=== PATIENT | female | born 1970 | race Caucasian/White ===

== ENCOUNTER 2016-09-10 07:14 | Day surgery (SDC) | payer MEDICARE, OTHER ==
[2016-09-03 11:50] VITALS: BMI 40.6
[~2016-09-10 07:14] MED LIST: DEXAMETHASONE SOD PHOSPHATE 10 MG/ML 1 ML VIAL IV ONE; HEPARIN SODIUM,PORCINE 5,000 UNIT/ML 1 ML VIAL SQ ONE; HYDROmorphone 1 MG/ML 1 ML SYRINGE IVP PRN; LACTATED RINGERS 1,000 ML IV SCH; LIDOCAINE 1% 20 ML VIAL (10MG/ML) FOR IV START INTRADERMA PRN; SCOPOLAMINE 1.5MG/72HR PATCH TRANSDERM ONE; ceFAZolin 2 GM in SODIUM CHLORIDE 0.9% 100 ML IVPB ONE
[2016-09-10] MEDS ORDERED: ALPRAZolam 0.5 MG TAB PO PRN (07:49)
[2016-09-10] MEDS ORDERED: LIDOCAINE 1% 20 ML VIAL (10MG/ML) FOR IV START INTRADERMA ONE (07:59)
[2016-09-10] MEDS ORDERED: LACTATED RINGERS 1,000 ML IV SCH (08:00)
[2016-09-10 08:05] LABS: Glucose,Whole Blood 104 mg/dL (75-99)
--- NOTE | 2016-09-10 08:06 | P.GSHP ---
History of Present Illness H&P Date: 09/10/16 Chief Complaint: Abnormal left mammogram This is a 46-year-old female who presents today for left breast biopsy with needle localization. Patient recent mammogram was found to have suspicious calcifications of the left breast. - Constitutional Constitutional: Reports as per HPI Past Medical History Past Medical History: CVA/TIA, Diabetes Mellitus, GERD/Reflux, GI Bleed, Hyperlipidemia, Hypertension, Osteoarthritis (OA), Renal Disease, Seizure Disorder, Sleep Apnea/CPAP/BIPAP, Thyroid Disorder Additional Past Medical History / Comment(s): GLAUCOMA. HX. BLEEDING ULCERS. CKD STAGE 1. " SEIZURES: PER PT AND IT WAS THOUGHT THAT THEY CAME ON RESULT OF STRESS-LAST ONE 2012. MURMUR. ANEMIA. NOT USING CPAP MACHINE(BROKEN) , "DIZZY SPELLS""HR HAS BEEN LOW 46", states "no longer taking meds for b /p", stroke 2015-no residual effects History of Any Multi-Drug Resistant Organisms: None Reported Past Surgical History: Adenoidectomy, Cholecystectomy, Tonsillectomy Additional Past Surgical History / Comment(s): TUBES IN EARS. RT EYE SX CHILD. EGD. COLONOSCOPY,lap kae fundoplication Past Anesthesia/Blood Transfusion Reactions: No Reported Reaction Additional Past Anesthesia/Blood Transfusion Reaction / Comment(s): mother got Hep C from blood transfusion. 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 PT STATES HER GAIT IS UNSTEADY AT TIMES SHE USED TO USE A WALKER IN [place] BUT DOES'NT HAVE ONE HERE. Smoking Status: Never smoker Past Alcohol Use History: None Reported Past Drug Use History: None Reported - Past Family History Father History Unknown: Yes Additional Family Medical History / Comment(s): ULCER, ETOH ABUSE Mother Family Medical History: Deep Vein Thrombosis (DVT), Hyperlipidemia, Hypertension , Renal Disease Additional Family Medical History / Comment(s): "HEART PROBLEMS",Hep C Sister(s) Family Medical History: Congestive Heart Failure (CHF), Diabetes Mellitus Additional Family Medical History / Comment(s): heart problems Brother(s) Family Medical History: No Reported History Additional Family Medical History / Comment(s): healthy Medications and Allergies Home Medications Medication Instructions Recorded Confirmed Type metFORMIN HCL 1,000 mg PO BID 01/19/16 09/10/16 History Ferrous Sulfate [Iron (65 MG 325 mg PO DAILY 03/29/16 09/10/16 History Elemental)] Levothyroxine Sodium [Synthroid] 113 mcg PO QAM 03/29/16 09/10/16 History Simvastatin [Zocor] 20 mg PO HS 03/29/16 09/10/16 History Omeprazole [PriLOSEC] 40 mg PO QAM 07/31/16 09/10/16 History Famotidine [Pepcid] 40 mg PO DAILY 08/15/16 09/10/16 History Meloxicam [Mobic] 15 mg PO DAILY 08/15/16 09/10/16 History Naproxen 500 mg PO Q12H PRN 08/15/16 09/10/16 History Allergies Allergy/AdvReac Type Severity Reaction Status Date / Time No Known Allergies Allergy Verified 09/10/16 07:42 Surgical - Exam - General well developed, no distress - Eyes PERRL - ENT normal pinna - Neck no masses - Respiratory normal expansion - Cardiovascular Rhythm: regular - Abdomen Abdomen: soft, non tender Breasts exam is within normal limits. There is no masses palpated. There is no cervical or axillary lymphadenopathy. Assessment and Plan Plan: Abnormal left mammogram. We'll perform left breast biopsy with needle localization.
[2016-09-10 08:07] VITALS: RESP 16
[2016-09-10] MEDS ORDERED: SODIUM BICARB 4% 5 ML VIAL (0.48 MEQ/ML) MISCELLANE ONE (08:40)
[2016-09-10] MEDS ORDERED: LIDOCAINE 1% INJ 10MG/ML (20 ML MDV) SQ ONE (08:40)
[2016-09-10] MEDS ORDERED: hydrALAZINE HCL 20 MG/ML 1 ML VIAL IV ONE (09:53)
[2016-09-10] MEDS ORDERED: fentaNYL (PF) 50 MCG/ML 2 ML AMP ONE (10:24)
[2016-09-10] MEDS ORDERED: LIDOCAINE 1% INJ 10MG/ML (20 ML MDV) ONE (10:24)
[2016-09-10] MEDS ORDERED: SUCCINYLCHOLINE CHLORIDE VIAL 200 MG/10 ML VIAL IV ONE (10:24)
[2016-09-10] MEDS ORDERED: PROPOFOL 10 MG/ML 20 ML VIAL IV ONE (10:24)
[2016-09-10] MEDS ORDERED: MIDAZOLAM 2 MG/2 ML VIAL ONE (10:24)
[2016-09-10] MEDS ORDERED: BUPIVACAIN-EPI 0.25%-1:200,000 30 ML VIAL SQ ONE ×2 (10:52)
--- NOTE | 2016-09-10 11:36 | P.OP ---
Date of Procedure: 09/10/16 Preoperative Diagnosis: Abnormal calcifications left breast Postoperative Diagnosis: Defer to pathology Procedure(s) Performed: Left breast biopsy with needle localization Anesthesia: RAE Surgeon: Pierce Gonzalez Estimated Blood Loss (ml): 5 Pathology: other (Left breast biopsy) Condition: stable Disposition: PACU Description of Procedure: The patient's placed on the operating room table in the supine position. She received general anesthesia. Patient had previously had a wire localization placed. The skin was prepped and draped usual sterile fashion. Then a skin incision was made at the left breast wire site. Using the Harmonic scissors a core of tissue was removed around the wire. The specimen was sent to pathology and radiology. Dr. Ortez saw some calcifications was and was unclear if these were the initial calcifications. At this point a larger biopsy specimen was performed. This was sent to imaging. The skin was then closed interrupted 3-0 Monocryl suture. Dermabond was applied. Patient was then sent to recovery in stable condition.
[2016-09-10 11:45] VITALS: TEMP 98.4
[2016-09-10] MEDS ORDERED: METOPROLOL TARTRATE 5 MG/5 ML VIAL IVP ONE (11:58)
[2016-09-10 12:37] LABS: Glucose,Whole Blood 138 mg/dL (75-99)
[2016-09-10] MEDS ORDERED: hydrALAZINE HCL 20 MG/ML 1 ML VIAL IVP ONE (13:09)
[2016-09-10 15:17] VITALS: BP 146/80; PULSE 109
[2016-09-10] MEDS ORDERED: HYDROcodone/APAP 7.5-325MG 1 EACH TAB PO ONE (16:07)
--- NOTE | 2016-09-12 17:57 | MM ---
EXAMINATION TYPE: MG pre op needle loc LT DATE OF EXAM: 09/10/2016 9:52 AM COMPARISON: NONE CLINICAL HISTORY: TECHNIQUE: Needle localization with wire placement and surgical excision of area of concern in the breast. FINDINGS: The procedure of needle localization with wire placement was explained to the patient. Benefits, alternatives, and risks were discussed. An informed consent was then obtained. The shortest pathway for procedure was chosen. Shortest pathway was lateral approach. Lidocaine buffered with bicarbonate was used as anesthetic into the skin and subcutaneous tissue up to the level of area of concern. A 5 cm needle was used. It was placed via a lateral approach under mammographic guidance. This is a difficult placement to localize the calcifications. Following what appear to be satisfactory placement of the wire was placed. However on confirmation with a 90 degree view of this was felt to be inadequate and a second needle was placed. Final positioning was confirmed needle placement and wire placement views. Skin was marked. The images were labeled and transferred the patient to surgery. The wire adjacent to the calcifications was labeled with a tagged. Subsequent 90 degrees mammogram show the needle to be in satisfactory position relative to the targeted area. At this point, wire was placed and the needle was withdrawn. The wire was fixed to patient's skin. Images were marked for surgeon. IMPRESSION: 1. Wire placed and labeled adjacent to the calcifications left breast. Second wire shallow to the calcifications. Pathology Results: Benign A. BREAST, LEFT, EXCISIONAL BIOPSY: BENIGN BREAST WITH PROMINENT ADIPOSE TISSUE DEMONSTRATING FOCAL FIBROCYSTIC CHANGE (FIBROSIS, CYST FORMATION, APOCRINE METAPLASIA, ADENOSIS, AND DUCT HYPERPLASIA). FOCAL FAT NECROSIS. B. BREAST, LEFT, EXCISIONAL BIOPSY: BENIGN BREAST WITH PROMINENT ADIPOSE TISSUE DEMONSTRATING FOCAL FIBROCYSTIC CHANGE (FIBROSIS, CYST FORMATION, ADENOSIS, AND DUCT HYPERPLASIA). Recommendation Follow up mammogram of the left breast in 6 months. OSKAR
--- NOTE | 2016-09-12 18:00 | MM ---
EXAMINATION TYPE: MG surgical specimen LT DATE OF EXAM: 09/10/2016 11:26 AM COMPARISON: NONE HISTORY: Wire localization specimen TECHNIQUE: Single view each specimen FINDINGS: Initial specimen was presented. The grouping of calcifications expected adjacent to the wire were not identified. Both wires are within the [id number]. The region of the expected calcifications should be adjacent to the deep wire. An orthogonal view was attempted for confirmation which was unsuccessful in identifying the calcifications. Report was called to the operating room by Dr. Ortez by telephone to the surgeon. A second specimen was presented which contains a surgical clip. However, the grouping of calcifications identified on the localization films does not appear to be present. A report was called to the operating room by Dr. Ortez by telephone. Upon discussion close follow-up with three-month mammogram is recommended. IMPRESSIONS: 1. Specimen does not clearly demonstrate the grouping of calcifications localized. Calcifications are present within the specimen although not grouped is on the mammogram. Recommendations: 1. Close follow-up with a mammogram in 3 months. IMPRESSION: Recommendation Follow up mammogram of the left breast in 6 months. OSKAR
== END 2016-09-10 16:53 | disposition home or self-care (01) ==
LOC: OR 07:14
PROVIDERS: ATTEND Surgery
DX: N60.12 Diffuse cystic mastopathy of left breast (principal); N60.82 Other benign mammary dysplasias of left breast; N60.22 Fibroadenosis of left breast; N60.92 Unspecified benign mammary dysplasia of left breast; N64.1 Fat necrosis of breast; R92.8 Other abnormal and inconclusive findings on diagnostic imaging of breast; R92.1 Mammographic calcification found on diagnostic imaging of breast; E11.9 Type 2 diabetes mellitus without complications; K21.9 Gastro-esophageal reflux disease without esophagitis; E78.5 Hyperlipidemia, unspecified; M19.90 Unspecified osteoarthritis, unspecified site; E07.9 Disorder of thyroid, unspecified; G47.30 Sleep apnea, unspecified; Z79.84 Long term (current) use of oral hypoglycemic drugs; Z79.1 Long term (current) use of non-steroidal anti-inflammatories (NSAID); Z79.899 Other long term (current) drug therapy; Z86.73 Personal history of transient ischemic attack (TIA), and cerebral infarction without residual deficits
CPT/HCPCS: 81025; 88307; 76098; 19281; 19125; J2250; J0330; J0360; J1644; J1100; J0690; J2001; J3010; J2704

== ENCOUNTER 2016-10-11 11:39 | Emergency (ER) | payer MEDICARE, OTHER ==
[2016-10-11 11:59] VITALS: BP 152/71; PULSE 106; RESP 18; TEMP 97.6
--- NOTE | 2016-10-11 12:20 | ED ---
General Adult HPI - General Chief complaint: Recheck/Abnormal Lab/Rx Stated complaint: post op infection Time Seen by Provider: 10/11/16 12:06 Source: patient Mode of arrival: ambulatory Limitations: no limitations - History of Present Illness Initial comments: Patient states that she is having some drainage from the left breast. She recently had a biopsy done there. Patient has no fever or chills. She has no chest pain or shortness of breath. She has no belly or back pain. She has taken no medication for this. The drainage has been going on since Saturday. - Related Data Home Medications Medication Instructions Recorded Confirmed metFORMIN HCL 1,000 mg PO BID 01/19/16 09/11/16 Ferrous Sulfate [Iron (65 MG 325 mg PO DAILY 03/29/16 09/11/16 Elemental)] Levothyroxine Sodium [Synthroid] 113 mcg PO QAM 03/29/16 09/11/16 Simvastatin [Zocor] 20 mg PO HS 03/29/16 09/11/16 Omeprazole [PriLOSEC] 40 mg PO QAM 07/31/16 09/11/16 Famotidine [Pepcid] 40 mg PO DAILY 08/15/16 09/11/16 Meloxicam [Mobic] 15 mg PO DAILY 08/15/16 09/11/16 Naproxen 500 mg PO Q12H PRN 08/15/16 09/11/16 Previous Rx's Medication Instructions Recorded HYDROcodone/APAP 7.5-325MG [[place] 1 each PO Q4H PRN #60 tab 09/10/16 7.5] Cephalexin [Keflex] 500 mg PO Q6HR #40 cap 10/11/16 Sulfamethoxazole/Trimethoprim 2 each PO BID #40 tablet 10/11/16 [Bactrim DS 800-160 mg] Allergies Allergy/AdvReac Type Severity Reaction Status Date / Time No Known Allergies Allergy Verified 10/11/16 11:59 Review of Systems ROS Statement: Those systems with pertinent positive or pertinent negative responses have been documented in the HPI. ROS Other: All systems not noted in ROS Statement are negative. Past Medical History Past Medical History: CVA/TIA, Diabetes Mellitus, GERD/Reflux, GI Bleed, Hyperlipidemia, Hypertension, Osteoarthritis (OA), Renal Disease, Seizure Disorder, Sleep Apnea/CPAP/BIPAP, Thyroid Disorder Additional Past Medical History / Comment(s): GLAUCOMA. HX. BLEEDING ULCERS. CKD STAGE 1. " SEIZURES: PER PT AND IT WAS THOUGHT THAT THEY CAME ON RESULT OF STRESS-LAST ONE 2012. MURMUR. ANEMIA. NOT USING CPAP MACHINE(BROKEN) , "DIZZY SPELLS""HR HAS BEEN LOW 46", states "no longer taking meds for b /p", stroke 2015-no residual effects History of Any Multi-Drug Resistant Organisms: None Reported Past Surgical History: Adenoidectomy, Breast Surgery, Cholecystectomy, Tonsillectomy Additional Past Surgical History / Comment(s): TUBES IN EARS. RT EYE SX CHILD. EGD. COLONOSCOPY,lap kae fundoplication Past Anesthesia/Blood Transfusion Reactions: No Reported Reaction Additional Past Anesthesia/Blood Transfusion Reaction / Comment(s): mother got Hep C from blood transfusion. 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 PT STATES HER GAIT IS UNSTEADY AT TIMES SHE USED TO USE A WALKER IN [place] BUT DOES'NT HAVE ONE HERE. Smoking Status: Never smoker Past Alcohol Use History: None Reported Past Drug Use History: None Reported - Past Family History Father History Unknown: Yes Additional Family Medical History / Comment(s): ULCER, ETOH ABUSE Mother Family Medical History: Deep Vein Thrombosis (DVT), Hyperlipidemia, Hypertension , Renal Disease Additional Family Medical History / Comment(s): "HEART PROBLEMS",Hep C Sister(s) Family Medical History: Congestive Heart Failure (CHF), Diabetes Mellitus Additional Family Medical History / Comment(s): heart problems Brother(s) Family Medical History: No Reported History Additional Family Medical History / Comment(s): healthy General Exam Limitations: no limitations General appearance: alert, in no apparent distress Head exam: Present: atraumatic, normocephalic, normal inspection ENT exam: Present: normal oropharynx Neck exam: Present: normal inspection Respiratory exam: Absent: accessory muscle use Extremities exam: Present: normal inspection, full ROM, normal capillary refill. Absent: tenderness, pedal edema, joint swelling, calf tenderness Back exam: Present: normal inspection Neurological exam: Present: alert, oriented X3, CN II-XII intact Psychiatric exam: Present: normal affect, normal mood Skin exam: Present: other (Erythema on the underside of the left breast with no abscess) Course Vital Signs 10/11/16 11:55 Temperature 97.6 F Pulse Rate 106 H Respiratory 18 Rate Blood Pressure 152/71 O2 Sat by Pulse 98 Oximetry Medical Decision Making - Medical Decision Making Patient presents with drainage from the left breast where she recently had a biopsy done. On my examination she has some erythema and tenderness, but there is no fluctuance. There is no abscess that requires drainage at this time. I explained to her that she might need to have this operated on, however this time she does not require surgery. I will start her on antibiotics. I instructed her to follow-up with her surgeon within next 2 days, to return to the emergency department if her symptoms worsen, they're not getting better, or if she develops any other problems or complaints. Disposition Clinical Impression: Cellulitis Disposition: HOME SELF-CARE Condition: Good Instructions: Cellulitis (ED) Prescriptions: Cephalexin [Keflex] 500 mg PO Q6HR #40 cap Sulfamethoxazole/Trimethoprim [Bactrim DS 800-160 mg] 2 each PO BID #40 tablet Time of Disposition: 12:20
== END 2016-10-11 12:45 | disposition home or self-care (01) ==
LOC: EC 11:39
DX: N61.0 Mastitis without abscess (principal); E11.9 Type 2 diabetes mellitus without complications; K21.9 Gastro-esophageal reflux disease without esophagitis; E78.5 Hyperlipidemia, unspecified; I10 Essential (primary) hypertension; M19.90 Unspecified osteoarthritis, unspecified site; E07.9 Disorder of thyroid, unspecified; Z86.73 Personal history of transient ischemic attack (TIA), and cerebral infarction without residual deficits; Z79.84 Long term (current) use of oral hypoglycemic drugs; Z79.899 Other long term (current) drug therapy
CPT/HCPCS: 99283

== ENCOUNTER 2016-10-22 13:13 | Emergency (ER) | payer MEDICARE, OTHER ==
[2016-10-22] MEDS ORDERED: SODIUM CHLORIDE 0.9% 500 ML IV STA (14:15)
[2016-10-22] MEDS ORDERED: SODIUM CHLORIDE 0.9% 1,000 ML IV STA (14:15)
[2016-10-22 14:40] LABS: Anisocytosis Slight; Basophils % (A) 0 %; CH 24.5; CHCM 30.9; Eosinophils # (A) 0.2 k/uL (0-0.7); Eosinophils % (A) 3 %; HCT 43.5 % (34.0-46.0); HDW 2.79; HGB 13.5 gm/dL (11.4-16.0); Hypochromasia Moderate; Luc # (Auto) 0.11; Luc % (Auto) 1; Lymphocytes % (A) 27 %; MCH 24.7 pg (25.0-35.0); MCV 79.5 fL (80.0-100.0); Mean Platelet Volume 7.7; Microcytosis Slight; Monocytes # (A) 0.3 k/uL (0-1.0); Monocytes % (A) 3 %; Neutrophils # (A) 4.9 k/uL (1.3-7.7); Neutrophils % (A) 65 %; RBC 5.46 m/uL (3.80-5.40); RDW 17.4 % (11.5-15.5); WBC 7.5 k/uL (3.8-10.6); WBC (Perox) 7.66
--- NOTE | 2016-10-22 14:41 | ED ---
General Adult HPI - General Chief complaint: Dizziness Stated complaint: Weakness Time Seen by Provider: 10/22/16 13:43 Source: patient, RN notes reviewed, old records reviewed Mode of arrival: wheelchair Limitations: no limitations - History of Present Illness Initial comments: This is a 46-year-old female the ER for evaluation. This patient presents for evaluation of abdominal pain, chest pain, weakness, thinks her sugar may be off , multiple nonspecific complaints. Patient also complains of dizziness with probably a chest rep Ann for infection. Patient denies any medication changes. Iris come in the hospital for evaluation of her diabetes, for the most part denies complaints, no chest pain at this time, no shortness of breath , states her was worried about diarrhea but patient states she feels fine, and the symptoms him in on and off for a month - Related Data Home Medications Medication Instructions Recorded Confirmed metFORMIN HCL 1,000 mg PO BID 01/19/16 10/22/16 Ferrous Sulfate [Iron (65 MG 325 mg PO DAILY 03/29/16 10/22/16 Elemental)] Levothyroxine Sodium [Synthroid] 88 mcg PO QAM 03/29/16 10/22/16 Simvastatin [Zocor] 20 mg PO HS 03/29/16 10/22/16 Omeprazole [PriLOSEC] 40 mg PO QAM 07/31/16 10/22/16 Famotidine [Pepcid] 40 mg PO DAILY 08/15/16 10/22/16 Meloxicam [Mobic] 15 mg PO DAILY 08/15/16 10/22/16 Naproxen 500 mg PO Q12H PRN 08/15/16 10/22/16 Allergies Allergy/AdvReac Type Severity Reaction Status Date / Time No Known Allergies Allergy Verified 10/22/16 14:47 Review of Systems ROS Statement: Those systems with pertinent positive or pertinent negative responses have been documented in the HPI. ROS Other: All systems not noted in ROS Statement are negative. Past Medical History Past Medical History: CVA/TIA, Diabetes Mellitus, GERD/Reflux, GI Bleed, Hyperlipidemia, Hypertension, Osteoarthritis (OA), Renal Disease, Seizure Disorder, Sleep Apnea/CPAP/BIPAP, Thyroid Disorder Additional Past Medical History / Comment(s): GLAUCOMA. HX. BLEEDING ULCERS. CKD STAGE 1. " SEIZURES: PER PT AND IT WAS THOUGHT THAT THEY CAME ON RESULT OF STRESS-LAST ONE 2012. MURMUR. ANEMIA. NOT USING CPAP MACHINE(BROKEN) , "DIZZY SPELLS""HR HAS BEEN LOW 46", states "no longer taking meds for b /p", stroke 2015-no residual effects History of Any Multi-Drug Resistant Organisms: None Reported Past Surgical History: Adenoidectomy, Breast Surgery, Cholecystectomy, Tonsillectomy Additional Past Surgical History / Comment(s): TUBES IN EARS. RT EYE SX CHILD. EGD. COLONOSCOPY,lap kae fundoplication Past Anesthesia/Blood Transfusion Reactions: No Reported Reaction Additional Past Anesthesia/Blood Transfusion Reaction / Comment(s): mother got Hep C from blood transfusion. 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 PT STATES HER GAIT IS UNSTEADY AT TIMES SHE USED TO USE A WALKER IN [place] BUT DOES'NT HAVE ONE HERE. Smoking Status: Never smoker Past Alcohol Use History: None Reported Past Drug Use History: None Reported - Past Family History Father History Unknown: Yes Additional Family Medical History / Comment(s): ULCER, ETOH ABUSE Mother Family Medical History: Diabetes Mellitus, Deep Vein Thrombosis (DVT), Hyperlipidemia, Hypertension, Renal Disease Additional Family Medical History / Comment(s): "HEART PROBLEMS",Hep C Sister(s) Family Medical History: Congestive Heart Failure (CHF), Diabetes Mellitus Additional Family Medical History / Comment(s): heart problems Brother(s) Family Medical History: Diabetes Mellitus Additional Family Medical History / Comment(s): Mother and sister with Diabetes General Exam Limitations: no limitations General appearance: alert, in no apparent distress Head exam: Present: atraumatic, normocephalic, normal inspection Eye exam: Present: normal appearance, PERRL, EOMI. Absent: scleral icterus, conjunctival injection, periorbital swelling ENT exam: Present: normal exam, mucous membranes moist Neck exam: Present: normal inspection. Absent: tenderness, meningismus, lymphadenopathy Respiratory exam: Present: normal lung sounds bilaterally. Absent: respiratory distress, wheezes, rales, rhonchi, stridor Cardiovascular Exam: Present: regular rate, normal rhythm, normal heart sounds. Absent: systolic murmur, diastolic murmur, rubs, gallop, clicks GI/Abdominal exam: Present: soft, normal bowel sounds. Absent: distended, tenderness, guarding, rebound, rigid Extremities exam: Present: normal inspection, full ROM, normal capillary refill. Absent: tenderness, pedal edema, joint swelling, calf tenderness Back exam: Present: normal inspection Neurological exam: Present: alert, oriented X3, CN II-XII intact Psychiatric exam: Present: normal affect, normal mood Skin exam: Present: warm, dry, intact, normal color. Absent: rash Course Vital Signs 10/22/16 13:36 Temperature 97.7 F Pulse Rate 51 L Respiratory 18 Rate Blood Pressure 153/81 O2 Sat by Pulse 99 Oximetry - Reevaluation(s) Reevaluation #1: 10/22/16 15:28 Patient remains relatively asymptomatic at this time EKG Findings - EKG Comments: EKG Findings:: EKG shows normal sinus rhythm rate of 97, AK 128, QRS 96, QTC 426 Medical Decision Making - Medical Decision Making 46 female ER for evaluation of multiple nonspecific complaints. At this time patient remains asymptomatic and can be discharged home - Lab Data Result diagrams: 10/22/16 14:30 10/22/16 14:30 Lab Results 10/22/16 10/22/16 10/22/16 Range/Units 14:30 14:30 14:30 WBC 7.5 (3.8-10.6) k/uL RBC 5.46 H (3.80-5.40) m/uL Hgb 13.5 (11.4-16.0) gm/dL Hct 43.5 (34.0-46.0) % MCV 79.5 L (80.0-100.0) fL MCH 24.7 L (25.0-35.0) pg MCHC 31.0 (31.0-37.0) g/dL RDW 17.4 H (11.5-15.5) % Plt Count 246 (150-450) k/uL Neutrophils % 65 % Lymphocytes % 27 % Monocytes % 3 % Eosinophils % 3 % Basophils % 0 % Neutrophils # 4.9 (1.3-7.7) k/uL Lymphocytes # 2.0 (1.0-4.8) k/uL Monocytes # 0.3 (0-1.0) k/uL Eosinophils # 0.2 (0-0.7) k/uL Basophils # 0.0 (0-0.2) k/uL Hypochromasia Moderate Anisocytosis Slight Microcytosis Slight PT (9.0-12.0) sec INR (<1.1) APTT (22.0-30.0) sec Sodium 143 (137-145) mmol/L Potassium 4.4 (3.5-5.1) mmol/L Chloride 108 H (98-107) mmol/L Carbon Dioxide 20 L (22-30) mmol/L Anion Gap 15 mmol/L BUN 13 (7-17) mg/dL Creatinine 1.01 (0.52-1.04) mg/dL Est GFR (MDRD) Af Amer >60 (>60 ml/min/1.73 sqM) Est GFR (MDRD) Non-Af 60 (>60 ml/min/1.73 sqM) Glucose 89 (74-99) mg/dL Calcium 9.6 (8.4-10.2) mg/dL Phosphorus 3.6 (2.5-4.5) mg/dL Magnesium 1.1 L (1.6-2.3) mg/dL Total Bilirubin 0.6 (0.2-1.3) mg/dL AST 35 (14-36) U/L ALT 51 (9-52) U/L Alkaline Phosphatase 143 H (38-126) U/L Total Creatine Kinase 32 (30-135) U/L CK-MB (CK-2) 0.4 (0.0-2.4) ng/mL CK-MB (CK-2) Rel Index 1.3 Troponin I <0.012 (0.000-0.034) ng/mL Total Protein 7.7 (6.3-8.2) g/dL Albumin 4.4 (3.5-5.0) g/dL TSH 0.902 (0.465-4.680) mIU/L 10/22/16 Range/Units 14:30 WBC (3.8-10.6) k/uL RBC (3.80-5.40) m/uL Hgb (11.4-16.0) gm/dL Hct (34.0-46.0) % MCV (80.0-100.0) fL MCH (25.0-35.0) pg MCHC (31.0-37.0) g/dL RDW (11.5-15.5) % Plt Count (150-450) k/uL Neutrophils % % Lymphocytes % % Monocytes % % Eosinophils % % Basophils % % Neutrophils # (1.3-7.7) k/uL Lymphocytes # (1.0-4.8) k/uL Monocytes # (0-1.0) k/uL Eosinophils # (0-0.7) k/uL Basophils # (0-0.2) k/uL Hypochromasia Anisocytosis Microcytosis PT 11.0 (9.0-12.0) sec INR 1.1 (<1.1) APTT 23.3 (22.0-30.0) sec Sodium (137-145) mmol/L Potassium (3.5-5.1) mmol/L Chloride (98-107) mmol/L Carbon Dioxide (22-30) mmol/L Anion Gap mmol/L BUN (7-17) mg/dL Creatinine (0.52-1.04) mg/dL Est GFR (MDRD) Af Amer (>60 ml/min/1.73 sqM) Est GFR (MDRD) Non-Af (>60 ml/min/1.73 sqM) Glucose (74-99) mg/dL Calcium (8.4-10.2) mg/dL Phosphorus (2.5-4.5) mg/dL Magnesium (1.6-2.3) mg/dL Total Bilirubin (0.2-1.3) mg/dL AST (14-36) U/L ALT (9-52) U/L Alkaline Phosphatase (38-126) U/L Total Creatine Kinase (30-135) U/L CK-MB (CK-2) (0.0-2.4) ng/mL CK-MB (CK-2) Rel Index Troponin I (0.000-0.034) ng/mL Total Protein (6.3-8.2) g/dL Albumin (3.5-5.0) g/dL TSH (0.465-4.680) mIU/L Disposition Clinical Impression: Dehydration, Nausea, Diabetes mellitus, Dizziness Disposition: HOME SELF-CARE Condition: Good Instructions: Dizziness (ED) Referrals: Solomon Flores MD [Primary Care Provider] - 1-2 days
[2016-10-22 14:50] LABS: ALT 51 U/L (9-52); AST 35 U/L (14-36); Alkaline Phosphatase 143 U/L (38-126); Anion Gap 15 mmol/L; Blood Urea Nitrogen 13 mg/dL (7-17); Calcium 9.6 mg/dL (8.4-10.2); Carbon Dioxide 20 mmol/L (22-30); Chloride 108 mmol/L (98-107); Glucose 89 mg/dL (74-99); Magnesium 1.1 mg/dL (1.6-2.3); Non-African American GFR(MDRD) 60 (>60 ml/min/1.73 sqM); Phosphorous 3.6 mg/dL (2.5-4.5); Potassium 4.4 mmol/L (3.5-5.1); Sodium 143 mmol/L (137-145); Total Bilirubin 0.6 mg/dL (0.2-1.3); Total Protein 7.7 g/dL (6.3-8.2)
[2016-10-22 14:54] LABS: INR 1.1 (<1.1); Partial Thromboplastin Time 23.3 sec (22.0-30.0)
[2016-10-22 14:58] LABS: Creatine Kinase 32 U/L (30-135)
[2016-10-22 15:11] LABS: Creatine Kinase MB 0.4 ng/mL (0.0-2.4); Troponin I <0.012 ng/mL (0.000-0.034)
[2016-10-22 15:39] VITALS: BP 160/78; PULSE 88; RESP 16; TEMP 98
== END 2016-10-22 15:40 | disposition home or self-care (01) ==
LOC: EC 13:13
DX: E86.0 Dehydration (principal); R11.0 Nausea; R42 Dizziness and giddiness; K21.9 Gastro-esophageal reflux disease without esophagitis; E78.5 Hyperlipidemia, unspecified; D64.9 Anemia, unspecified; E07.9 Disorder of thyroid, unspecified; E11.22 Type 2 diabetes mellitus with diabetic chronic kidney disease; N18.1 Chronic kidney disease, stage 1; M19.90 Unspecified osteoarthritis, unspecified site; Z79.84 Long term (current) use of oral hypoglycemic drugs; Z86.73 Personal history of transient ischemic attack (TIA), and cerebral infarction without residual deficits; Z79.899 Other long term (current) drug therapy
CPT/HCPCS: 36415; 80053; 82550; 82553; 83735; 84100; 84443; 84484; 85025; 85610; 85730; 93005; 96360; 99284

== ENCOUNTER → 2016-10-22 | Outpatient (CLI) | payer MEDICARE, OTHER ==
[2016-10-22 10:14] VITALS: BMI 38.2
== END | disposition home or self-care (01) ==
LOC: DBWHC3 09:28
PROVIDERS: ATTEND Family Medicine
DX: Z71.3 Dietary counseling and surveillance (principal); E11.8 Type 2 diabetes mellitus with unspecified complications; I10 Essential (primary) hypertension
CPT/HCPCS: G0108 ×3

== ENCOUNTER → 2016-11-02 | Outpatient (CLI) | payer MEDICARE, OTHER ==
[2016-11-02 11:22] LABS: Anisocytosis Slight; Basophils % (A) 0 %; CH 24.7; CHCM 30.4; Eosinophils # (A) 0.2 k/uL (0-0.7); Eosinophils % (A) 3 %; HCT 40.5 % (34.0-46.0); HDW 2.81; HGB 12.5 gm/dL (11.4-16.0); Hypochromasia Moderate; Luc # (Auto) 0.13; Luc % (Auto) 2; Lymphocytes # (A) 1.5 k/uL (1.0-4.8); Lymphocytes % (A) 20 %; MCH 25.3 pg (25.0-35.0); MCV 81.8 fL (80.0-100.0); Mean Platelet Volume 8.9; Microcytosis Slight; Monocytes # (A) 0.4 k/uL (0-1.0); Monocytes % (A) 6 %; Neutrophils # (A) 5.2 k/uL (1.3-7.7); Neutrophils % (A) 69 %; RBC 4.96 m/uL (3.80-5.40); RDW 17.8 % (11.5-15.5); WBC 7.6 k/uL (3.8-10.6); WBC (Perox) 7.85
[2016-11-02 11:30] LABS: Hemoglobin A1C 5.2 % (4.2-6.1)
[2016-11-02 11:31] LABS: ALT 51 U/L (9-52); AST 33 U/L (14-36); Alkaline Phosphatase 90 U/L (38-126); Anion Gap 11 mmol/L; Blood Urea Nitrogen 10 mg/dL (7-17); Calcium 9.3 mg/dL (8.4-10.2); Carbon Dioxide 30 mmol/L (22-30); Chloride 104 mmol/L (98-107); Cholesterol 113 mg/dL (<200); Glucose 138 mg/dL (74-99); HDL Cholesterol 66 mg/dL (40-60); Non-African American GFR(MDRD) >60 (>60 ml/min/1.73 sqM); Potassium 4.4 mmol/L (3.5-5.1); Sodium 145 mmol/L (137-145); Total Bilirubin 0.4 mg/dL (0.2-1.3); Total Protein 6.6 g/dL (6.3-8.2); Triglycerides 107 mg/dL (<150)
[2016-11-02 11:34] LABS: Prothrombin Time 10.6 sec (9.0-12.0)
== END | disposition home or self-care (01) ==
LOC: LABWHC1 11:03
PROVIDERS: ATTEND Family Medicine
DX: E11.9 Type 2 diabetes mellitus without complications (principal); I10 Essential (primary) hypertension
CPT/HCPCS: 36415; 80053; 80061; 83036; 85025; 85610

== ENCOUNTER 2016-11-06 06:23 | Day surgery (SDC) | payer MEDICARE, OTHER ==
[2016-10-31 14:50] VITALS: BMI 38.7
[~2016-11-06 06:23] MED LIST changes: -HYDROmorphone 1 MG/ML 1 ML SYRINGE IVP PRN; -LIDOCAINE 1% 20 ML VIAL (10MG/ML) FOR IV START INTRADERMA PRN; +MIDAZOLAM 2 MG/2 ML VIAL IV PRN; +ONDANSETRON 4 MG/2 ML VIAL IVP ONE
[2016-11-06] MEDS ORDERED: LIDOCAINE 1% 20 ML VIAL (10MG/ML) FOR IV START INTRADERMA ONE (07:21)
[2016-11-06 07:35] LABS: Glucose,Whole Blood 100 mg/dL (75-99)
--- NOTE | 2016-11-06 07:55 | P.GSHP ---
History of Present Illness H&P Date: 11/06/16 Chief Complaint: Incisional hernia This a 46-year-old female referred from Dr. Solomon Flores. Patient has complaints of abdominal pain at her umbilicus. She has a small incisional hernia. She presents today for laparoscopic robotic system repair. - Constitutional Constitutional: Reports as per HPI Past Medical History Past Medical History: CVA/TIA, Diabetes Mellitus, GERD/Reflux, GI Bleed, Hyperlipidemia, Hypertension, Osteoarthritis (OA), Seizure Disorder, Thyroid Disorder Additional Past Medical History / Comment(s): GLAUCOMA. HX. BLEEDING ULCERS. last seizure 2012, ANEMIA. TIA 03/2017-no effects, "occ DIZZY SPELLS" seen in [facility] 10/22/16 , no medications for BP, History of Any Multi-Drug Resistant Organisms: None Reported Past Surgical History: Adenoidectomy, Breast Surgery, Cholecystectomy, Ear Surgery, Tonsillectomy Additional Past Surgical History / Comment(s): TUBES IN EARS. RT EYE SX CHILD , kae fundoplication, left breast biopsy, Past Anesthesia/Blood Transfusion Reactions: No Reported Reaction Additional Past Anesthesia/Blood Transfusion Reaction / Comment(s): mother got Hep C from blood transfusion. Past Psychological History: No Psychological Hx Reported Additional Psychological History / Comment(s): . Smoking Status: Never smoker Past Alcohol Use History: None Reported Past Drug Use History: None Reported - Past Family History Father History Unknown: Yes Additional Family Medical History / Comment(s): ULCER, ETOH ABUSE Mother Family Medical History: Deep Vein Thrombosis (DVT) Additional Family Medical History / Comment(s): "HEART PROBLEMS", Hep C Sister(s) Family Medical History: Congestive Heart Failure (CHF), Diabetes Mellitus Additional Family Medical History / Comment(s): heart problems Brother(s) Family Medical History: Diabetes Mellitus Additional Family Medical History / Comment(s): Mother and sister with Diabetes Medications and Allergies Home Medications Medication Instructions Recorded Confirmed Type metFORMIN HCL 1,000 mg PO BID 01/19/16 11/06/16 History Levothyroxine Sodium [Synthroid] 88 mcg PO QAM 03/29/16 11/06/16 History Simvastatin [Zocor] 20 mg PO HS 03/29/16 11/06/16 History Omeprazole [PriLOSEC] 40 mg PO QAM 07/31/16 11/06/16 History Famotidine [Pepcid] 40 mg PO DAILY 08/15/16 11/06/16 History Allergies Allergy/AdvReac Type Severity Reaction Status Date / Time No Known Allergies Allergy Verified 10/31/16 14:37 Surgical - Exam Vital Signs Temp Pulse Resp BP Pulse Ox 97.9 F 93 18 147/100 97 11/06/16 07:24 11/06/16 07:24 11/06/16 07:24 11/06/16 07:24 11/06/16 07:24 - General well developed, no distress - Eyes PERRL - ENT normal pinna - Neck no masses - Respiratory normal expansion - Cardiovascular Rhythm: regular - Abdomen Abdomen: soft Hernia: incisional (Incisional hernia at umbilicus) Results - Labs Abnormal Lab Results - Last 24 Hours (Table) 11/06/16 Range/Units 07:00 POC Glucose (mg/dL) 100 H (75-99) mg/dL Assessment and Plan Plan: Incisional hernia. We'll perform laparoscopic robotic-assisted repair of incisional hernia..
[2016-11-06] MEDS ORDERED: PROPOFOL 10 MG/ML 20 ML VIAL IV ONE (07:59)
[2016-11-06] MEDS ORDERED: LIDOCAINE 1% INJ 10MG/ML (20 ML MDV) ONE (07:59)
[2016-11-06] MEDS ORDERED: fentaNYL (PF) 50 MCG/ML 2 ML AMP ONE (07:59)
[2016-11-06] MEDS ORDERED: MIDAZOLAM 2 MG/2 ML VIAL ONE (07:59)
[2016-11-06] MEDS ORDERED: GLYCOPYRROLATE 0.2 MG/ML 2 ML VIAL ONE (07:59)
[2016-11-06] MEDS ORDERED: NEOSTIGMINE 1 MG/ML 10 ML VIAL ONE (07:59)
[2016-11-06] MEDS ORDERED: ROCURONIUM BROMIDE 10 MG/ML 10 ML VIAL IV ONE (07:59)
[2016-11-06] MEDS ORDERED: SUCCINYLCHOLINE CHLORIDE 100 MG/5 ML SYR IV ONE (07:59)
[2016-11-06] MEDS ORDERED: BUPIVACAIN-EPI 0.25%-1:200,000 30 ML VIAL SQ ONE ×2 (08:45→08:46)
[2016-11-06] MEDS ORDERED: LACTATED RINGERS 1,000 ML IV ONE (09:16)
--- NOTE | 2016-11-06 09:16 | P.OP ---
Date of Procedure: 11/06/16 Preoperative Diagnosis: Incisional hernia Postoperative Diagnosis: Incisional hernia Procedure(s) Performed: Laparoscopic robotic system repair of incisional hernia Anesthesia: RAE Surgeon: Pierce Gonzalez Estimated Blood Loss (ml): 5 Pathology: none sent Condition: stable Disposition: PACU Description of Procedure: The patient's placed on the operative table in the supine position. She received general anesthesia. Her abdomen was prepped and draped usual sterile fashion. The skin incision sites were anesthetized 1% local Xylocaine. Using a 5 mm blade was trocar under direct visualization the peritoneal cavity is entered in the left upper quadrant. The abdomen was then insufflated and then the laparoscope was placed back into the pleural cavity. Next a 8 mm robotic trochars placed left lower quadrant a 12 mm trochars placed left lateral position and the original 5 mm trocar was exchanged for a 8 mm robotic trocar. Patient's placed in the left side up position. The patient was undocked the robot. The incisional hernia was seen. The peritoneum over the hernia was dissected using the$posterior grasper. In the fascial defect was closed with OV lock suture. Next the ventral light ST mesh was placed. Cavity and this was secured to the fascia using 2 OV lock suture. At this point the patient was undocked from the robot. The needles were withdrawn. The 12 mm trocar site was closed with 0 Ethibond suture. The skin was closed interrupted 3-0 Monocryl suture. The skin was then closed with Dermabond dressing.
[2016-11-06 09:32] VITALS: TEMP 97.1
[2016-11-06] MEDS: HYDROmorphone 1 MG/ML 1 ML SYRINGE IVP PRN ×4 (09:50→10:11)
[2016-11-06] MEDS ORDERED: KETOROLAC 30 MG/ML 1 ML VIAL IVP ONE (09:50)
[2016-11-06 11:10] LABS: Glucose,Whole Blood 126 mg/dL (75-99)
[2016-11-06] MEDS ORDERED: HYDROcodone/APAP 7.5-325MG 1 EACH TAB PO ONE (11:38)
[2016-11-06 13:27] VITALS: BP 129/78; PULSE 99; RESP 16
== END 2016-11-06 15:07 | disposition home or self-care (01) ==
LOC: OR 06:23
PROVIDERS: ATTEND Surgery
DX: K43.2 Incisional hernia without obstruction or gangrene (principal); E11.9 Type 2 diabetes mellitus without complications; E78.5 Hyperlipidemia, unspecified; E07.9 Disorder of thyroid, unspecified; K21.9 Gastro-esophageal reflux disease without esophagitis; Z86.73 Personal history of transient ischemic attack (TIA), and cerebral infarction without residual deficits; Z79.84 Long term (current) use of oral hypoglycemic drugs; Z79.899 Other long term (current) drug therapy
CPT/HCPCS: 81025; 86900; 86901; 86850; 49654; C1781; J2250; J1644; J1100; J2710; J0690; J2405; J2001; J3010; J1885; J1170; J0330; J2704

== ENCOUNTER → 2016-11-26 | Outpatient (CLI) | payer MEDICARE, OTHER ==
[2016-11-26 16:25] LABS: ALT 363 U/L (9-52); AST 249 U/L (14-36); Alkaline Phosphatase 250 U/L (38-126); Anion Gap 11 mmol/L; Blood Urea Nitrogen 12 mg/dL (7-17); Calcium 9.3 mg/dL (8.4-10.2); Carbon Dioxide 29 mmol/L (22-30); Chloride 103 mmol/L (98-107); Glucose 102 mg/dL (74-99); Non-African American GFR(MDRD) >60 (>60 ml/min/1.73 sqM); Potassium 4.3 mmol/L (3.5-5.1); Sodium 143 mmol/L (137-145); Total Bilirubin 0.6 mg/dL (0.2-1.3); Total Protein 6.8 g/dL (6.3-8.2)
== END | disposition home or self-care (01) ==
LOC: LABWHC1 15:43
PROVIDERS: ATTEND Internal Medicine Interventional Cardiology
DX: R06.02 Shortness of breath (principal); I10 Essential (primary) hypertension
CPT/HCPCS: 36415; 80053; 83880

== ENCOUNTER → 2016-12-11 | Outpatient (CLI) | payer MEDICARE, OTHER ==
[2016-12-11 09:43] LABS: Basophils % (A) 0 %; CH 24.6; CHCM 30.4; Eosinophils # (A) 0.3 k/uL (0-0.7); Eosinophils % (A) 5 %; HCT 41.3 % (34.0-46.0); HDW 3.06; HGB 12.7 gm/dL (11.4-16.0); Hypochromasia Marked; Luc # (Auto) 0.12; Luc % (Auto) 2; Lymphocytes # (A) 2.1 k/uL (1.0-4.8); Lymphocytes % (A) 31 %; MCHC 30.8 g/dL (31.0-37.0); MCV 81.4 fL (80.0-100.0); Mean Platelet Volume 7.8; Monocytes # (A) 0.3 k/uL (0-1.0); Monocytes % (A) 5 %; Neutrophils # (A) 3.7 k/uL (1.3-7.7); Neutrophils % (A) 57 %; RBC 5.07 m/uL (3.80-5.40); RDW 15.8 % (11.5-15.5); WBC 6.5 k/uL (3.8-10.6); WBC (Perox) 6.75
[2016-12-11 10:02] LABS: ALT 26 U/L (9-52); AST 16 U/L (14-36); Alkaline Phosphatase 136 U/L (38-126); Anion Gap 10 mmol/L; Blood Urea Nitrogen 12 mg/dL (7-17); Calcium 9.3 mg/dL (8.4-10.2); Carbon Dioxide 29 mmol/L (22-30); Chloride 103 mmol/L (98-107); Cholesterol 207 mg/dL (<200); Glucose 92 mg/dL (74-99); HDL Cholesterol 56 mg/dL (40-60); Non-African American GFR(MDRD) >60 (>60 ml/min/1.73 sqM); Sodium 142 mmol/L (137-145); Total Bilirubin 0.7 mg/dL (0.2-1.3); Total Protein 6.8 g/dL (6.3-8.2); Triglycerides 101 mg/dL (<150)
== END | disposition home or self-care (01) ==
LOC: LABWHC1 08:53
PROVIDERS: ATTEND Family Medicine
DX: Z00.00 Encounter for general adult medical examination without abnormal findings (principal)
CPT/HCPCS: 36415; 80053; 80061; 85025

== ENCOUNTER 2016-12-27 08:47 | Emergency (ER) | payer MEDICARE, OTHER ==
[2016-12-27 08:55] VITALS: RESP 18
[2016-12-27] MEDS ORDERED: ASPIRIN 81 MG CHEW PO STA (09:34)
[2016-12-27] MEDS ORDERED: NITROGLYCERIN OINT 1 INCH/GM PACKET TOPICAL STA (09:34)
--- NOTE | 2016-12-27 09:36 | ED ---
General Adult HPI - General Chief complaint: Chest Pain Stated complaint: CHEST PAIN, RASH AND HEADACHE Time Seen by Provider: 12/27/16 09:00 Source: patient, RN notes reviewed Mode of arrival: ambulatory Limitations: no limitations - History of Present Illness Initial comments: This is a 46-year-old female presents to the emergency department complaining of chest pain. Patient does appear to be somewhat mentally delayed. Patient comes into the emergency department stating she's had chest pain for the last 2 months as well as a headache for the last 2 months. Patient states the headache currently isn't that bad. Patient states the chest pain comes and goes all the time. Patient states it is sharp in nature and only lasts a few seconds. Patient states it's worse when she takes a deep breath but can make it go away by taking shallow breaths. She does not notice any shortness of breath or difficulty breathing associated with the chest pain. Patient does not have any diaphoresis with chest pain. Patient denies any nausea. Patient denies any lightheadedness or dizziness. Patient denies any numbness or weakness. Patient denies any recent fever chills or cough. Patient denies any injury or trauma. Patient states there is nothing that makes the chest pain better or worse. Patient does not notice it coming on with excessive activity. - Related Data Home Medications Medication Instructions Recorded Confirmed metFORMIN HCL 1,000 mg PO BID 01/19/16 12/27/16 Levothyroxine Sodium [Synthroid] 88 mcg PO QAM 03/29/16 12/27/16 Simvastatin [Zocor] 20 mg PO HS 03/29/16 12/27/16 Omeprazole [PriLOSEC] 40 mg PO QAM 07/31/16 12/27/16 Famotidine [Pepcid] 40 mg PO DAILY 08/15/16 12/27/16 Meclizine [Antivert] 12.5 mg PO DAILY PRN 12/27/16 12/27/16 Previous Rx's Medication Instructions Recorded Permethrin 5% Cream [Elimite] 1 applic TOPICAL ONCE 1 Days 12/27/16 Allergies Allergy/AdvReac Type Severity Reaction Status Date / Time No Known Allergies Allergy Verified 12/27/16 09:46 Review of Systems ROS Statement: Those systems with pertinent positive or pertinent negative responses have been documented in the HPI. ROS Other: All systems not noted in ROS Statement are negative. Past Medical History Past Medical History: CVA/TIA, Diabetes Mellitus, GERD/Reflux, GI Bleed, Hyperlipidemia, Hypertension, Osteoarthritis (OA), Seizure Disorder, Thyroid Disorder Additional Past Medical History / Comment(s): GLAUCOMA. HX. BLEEDING ULCERS. last seizure 2012, ANEMIA. TIA 03/2017-no effects, "occ DIZZY SPELLS" seen in [facility] 10/22/16 , no medications for BP, History of Any Multi-Drug Resistant Organisms: None Reported Past Surgical History: Adenoidectomy, Breast Surgery, Cholecystectomy, Ear Surgery, Tonsillectomy Additional Past Surgical History / Comment(s): TUBES IN EARS. RT EYE SX CHILD , kae fundoplication, left breast biopsy, Past Anesthesia/Blood Transfusion Reactions: No Reported Reaction Additional Past Anesthesia/Blood Transfusion Reaction / Comment(s): mother got Hep C from blood transfusion. Past Psychological History: No Psychological Hx Reported Additional Psychological History / Comment(s): . Smoking Status: Never smoker Past Alcohol Use History: None Reported Past Drug Use History: None Reported - Past Family History Father History Unknown: Yes Additional Family Medical History / Comment(s): ULCER, ETOH ABUSE Mother Family Medical History: Deep Vein Thrombosis (DVT) Additional Family Medical History / Comment(s): "HEART PROBLEMS", Hep C Sister(s) Family Medical History: Congestive Heart Failure (CHF), Diabetes Mellitus Additional Family Medical History / Comment(s): heart problems Brother(s) Family Medical History: Diabetes Mellitus Additional Family Medical History / Comment(s): Mother and sister with Diabetes General Exam - General Exam Comments Initial Comments: GENERAL: Patient is well-developed and well-nourished. Patient is nontoxic and well- hydrated and is in mild distress. ENT: Neck is soft and supple. No significant lymphadenopathy is noted. Oropharynx is clear. Moist mucous membranes. Neck has full range of motion without eliciting any pain. EYES: The sclera were anicteric and conjunctiva were pink and moist. Extraocular movements were intact and pupils were equal round and reactive to light. Eyelids were unremarkable. PULMONARY: Unlabored respirations. Good breath sounds bilaterally. No audible rales rhonchi or wheezing was noted. CARDIOVASCULAR: There is a regular rate and rhythm without any murmurs gallops or rubs. ABDOMEN: Soft and nontender with normal bowel sounds. No palpable organomegaly was noted. There is no palpable pulsatile mass. SKIN: Patient has a maculopapular rash on her hands and legs and a little bit on her abdomen. None on her palms or soles her son on her back or face. NEUROLOGIC: Patient is alert and oriented x3. Cranial nerves II through XII are grossly intact. Motor and sensory are also intact. Normal speech, volume and content. Symmetrical smile. MUSCULOSKELETAL: Normal extremities with adequate strength and full range of motion. No lower extremity swelling or edema. No calf tenderness. LYMPHATICS: No significant lymphadenopathy is noted PSYCHIATRIC: Normal psychiatric evaluation. Normal interpersonal interactions appears functionally intact in deals appropriately with others. No signs of depression. No signs of anxiety. Limitations: no limitations Course Vital Signs 12/27/16 12/27/16 12/27/16 08:51 10:20 11:02 Temperature 97 F L 97.1 F L Pulse Rate 96 79 63 Respiratory 18 18 18 Rate Blood Pressure 171/81 156/86 180/90 O2 Sat by Pulse 98 99 97 Oximetry 12/27/16 11:30 Temperature Pulse Rate 79 Respiratory 18 Rate Blood Pressure 181/100 O2 Sat by Pulse 97 Oximetry Medical Decision Making - Medical Decision Making EKG shows normal sinus rhythm at 91 bpm IN interval 150 QRS is 92 QT interval 380 QTC is 467. Patient's EKG shows no change from her previous EKG. - Lab Data Result diagrams: 12/27/16 10:18 12/27/16 10:18 Lab Results 12/27/16 12/27/16 12/27/16 Range/Units 10:18 10:18 10:18 WBC 5.7 (3.8-10.6) k/uL RBC 4.99 (3.80-5.40) m/uL Hgb 12.5 (11.4-16.0) gm/dL Hct 39.3 (34.0-46.0) % MCV 78.7 L (80.0-100.0) fL MCH 25.0 (25.0-35.0) pg MCHC 31.8 (31.0-37.0) g/dL RDW 15.7 H (11.5-15.5) % Plt Count 222 (150-450) k/uL Neutrophils % 66 % Lymphocytes % 23 % Monocytes % 5 % Eosinophils % 4 % Basophils % 0 % Neutrophils # 3.8 (1.3-7.7) k/uL Lymphocytes # 1.3 (1.0-4.8) k/uL Monocytes # 0.3 (0-1.0) k/uL Eosinophils # 0.2 (0-0.7) k/uL Basophils # 0.0 (0-0.2) k/uL Hypochromasia Moderate PT (9.0-12.0) sec INR (<1.1) APTT (22.0-30.0) sec Sodium 142 (137-145) mmol/L Potassium 4.1 (3.5-5.1) mmol/L Chloride 105 (98-107) mmol/L Carbon Dioxide 30 (22-30) mmol/L Anion Gap 7 mmol/L BUN 10 (7-17) mg/dL Creatinine 0.83 (0.52-1.04) mg/dL Est GFR (MDRD) Af Amer >60 (>60 ml/min/1.73 sqM) Est GFR (MDRD) Non-Af >60 (>60 ml/min/1.73 sqM) Glucose 117 H (74-99) mg/dL Calcium 9.1 (8.4-10.2) mg/dL Magnesium 1.6 (1.6-2.3) mg/dL Total Bilirubin 0.5 (0.2-1.3) mg/dL AST 26 (14-36) U/L ALT 39 (9-52) U/L Alkaline Phosphatase 134 H (38-126) U/L Total Creatine Kinase 27 L (30-135) U/L CK-MB (CK-2) 0.8 (0.0-2.4) ng/mL CK-MB (CK-2) Rel Index 3.0 Troponin I <0.012 (0.000-0.034) ng/mL Total Protein 7.0 (6.3-8.2) g/dL Albumin 3.7 (3.5-5.0) g/dL 12/27/16 Range/Units 10:18 WBC (3.8-10.6) k/uL RBC (3.80-5.40) m/uL Hgb (11.4-16.0) gm/dL Hct (34.0-46.0) % MCV (80.0-100.0) fL MCH (25.0-35.0) pg MCHC (31.0-37.0) g/dL RDW (11.5-15.5) % Plt Count (150-450) k/uL Neutrophils % % Lymphocytes % % Monocytes % % Eosinophils % % Basophils % % Neutrophils # (1.3-7.7) k/uL Lymphocytes # (1.0-4.8) k/uL Monocytes # (0-1.0) k/uL Eosinophils # (0-0.7) k/uL Basophils # (0-0.2) k/uL Hypochromasia PT 10.2 (9.0-12.0) sec INR 1.0 (<1.1) APTT 23.1 (22.0-30.0) sec Sodium (137-145) mmol/L Potassium (3.5-5.1) mmol/L Chloride (98-107) mmol/L Carbon Dioxide (22-30) mmol/L Anion Gap mmol/L BUN (7-17) mg/dL Creatinine (0.52-1.04) mg/dL Est GFR (MDRD) Af Amer (>60 ml/min/1.73 sqM) Est GFR (MDRD) Non-Af (>60 ml/min/1.73 sqM) Glucose (74-99) mg/dL Calcium (8.4-10.2) mg/dL Magnesium (1.6-2.3) mg/dL Total Bilirubin (0.2-1.3) mg/dL AST (14-36) U/L ALT (9-52) U/L Alkaline Phosphatase (38-126) U/L Total Creatine Kinase (30-135) U/L CK-MB (CK-2) (0.0-2.4) ng/mL CK-MB (CK-2) Rel Index Troponin I (0.000-0.034) ng/mL Total Protein (6.3-8.2) g/dL Albumin (3.5-5.0) g/dL Disposition Clinical Impression: Pleuritic pain, Pruritic rash Disposition: HOME SELF-CARE Condition: Good Instructions: Chest Pain (ED) Prescriptions: Permethrin 5% Cream [Elimite] 1 applic TOPICAL ONCE 1 Days Referrals: Eleazar Posey MD [Primary Care Provider] - 1-2 days Time of Disposition: 12:11
--- NOTE | 2016-12-27 10:22 | XR ---
EXAMINATION TYPE: XR chest 2V DATE OF EXAM: 12/27/2016 10:05 AM COMPARISON: NONE HISTORY: Chest pain TECHNIQUE: Frontal and lateral views of the chest are obtained. FINDINGS: There is no focal air space opacity. No evidence for pnuemothorax.No pleural effusion. The cardiac silhouette size is within normal limits. The osseous structures are grossly intact. IMPRESSION: 1. No acute cardiopulmonary process.
[2016-12-27 10:43] LABS: ALT 39 U/L (9-52); AST 26 U/L (14-36); Alkaline Phosphatase 134 U/L (38-126); Anion Gap 7 mmol/L; Blood Urea Nitrogen 10 mg/dL (7-17); Calcium 9.1 mg/dL (8.4-10.2); Carbon Dioxide 30 mmol/L (22-30); Chloride 105 mmol/L (98-107); Glucose 117 mg/dL (74-99); Magnesium 1.6 mg/dL (1.6-2.3); Non-African American GFR(MDRD) >60 (>60 ml/min/1.73 sqM); Potassium 4.1 mmol/L (3.5-5.1); Sodium 142 mmol/L (137-145); Total Bilirubin 0.5 mg/dL (0.2-1.3)
[2016-12-27 11:07] LABS: Partial Thromboplastin Time 23.1 sec (22.0-30.0); Prothrombin Time 10.2 sec (9.0-12.0)
[2016-12-27 11:10] LABS: Basophils % (A) 0 %; CH 24.3; CHCM 30.9; Eosinophils # (A) 0.2 k/uL (0-0.7); Eosinophils % (A) 4 %; HCT 39.3 % (34.0-46.0); HDW 3.06; HGB 12.5 gm/dL (11.4-16.0); Hypochromasia Moderate; Luc # (Auto) 0.11; Luc % (Auto) 2; Lymphocytes # (A) 1.3 k/uL (1.0-4.8); Lymphocytes % (A) 23 %; MCHC 31.8 g/dL (31.0-37.0); MCV 78.7 fL (80.0-100.0); Mean Platelet Volume 8.2; Monocytes # (A) 0.3 k/uL (0-1.0); Monocytes % (A) 5 %; Neutrophils # (A) 3.8 k/uL (1.3-7.7); Neutrophils % (A) 66 %; RBC 4.99 m/uL (3.80-5.40); RDW 15.7 % (11.5-15.5); WBC 5.7 k/uL (3.8-10.6); WBC (Perox) 5.43
[2016-12-27 11:55] LABS: Creatine Kinase 27 U/L (30-135)
[2016-12-27 12:07] LABS: Creatine Kinase MB 0.8 ng/mL (0.0-2.4); Troponin I <0.012 ng/mL (0.000-0.034)
[2016-12-27 12:45] VITALS: BP 139/71; PULSE 82; TEMP 97.8
== END 2016-12-27 12:41 | disposition home or self-care (01) ==
LOC: EC 08:47
DX: R07.81 Pleurodynia (principal); R21 Rash and other nonspecific skin eruption; R51 Headache; E11.9 Type 2 diabetes mellitus without complications; E78.5 Hyperlipidemia, unspecified; K21.9 Gastro-esophageal reflux disease without esophagitis; E07.9 Disorder of thyroid, unspecified; Z79.84 Long term (current) use of oral hypoglycemic drugs; Z79.899 Other long term (current) drug therapy; Z82.49 Family history of ischemic heart disease and other diseases of the circulatory system; Z87.19 Personal history of other diseases of the digestive system
CPT/HCPCS: 36415; 71020; 80053; 82550; 82553; 83735; 84484; 85025; 85610; 85730; 93005; 99285

== ENCOUNTER → 2017-01-11 | Outpatient (CLI) | payer MEDICARE, OTHER ==
[2017-01-11 14:04] LABS: Basophils % (A) 1 %; CH 23.7; Eosinophils # (A) 0.1 k/uL (0-0.7); Eosinophils % (A) 2 %; HCT 39.4 % (34.0-46.0); HDW 3.03; Hypochromasia Marked; Luc % (Auto) 1; Lymphocytes # (A) 2.2 k/uL (1.0-4.8); Lymphocytes % (A) 30 %; MCH 24.1 pg (25.0-35.0); MCHC 30.4 g/dL (31.0-37.0); MCV 79.4 fL (80.0-100.0); Mean Platelet Volume 7.8; Monocytes # (A) 0.5 k/uL (0-1.0); Monocytes % (A) 7 %; Neutrophils # (A) 4.4 k/uL (1.3-7.7); Neutrophils % (A) 60 %; RBC 4.97 m/uL (3.80-5.40); RDW 15.2 % (11.5-15.5); WBC 7.4 k/uL (3.8-10.6); WBC (Perox) 6.83
[2017-01-11 14:22] LABS: ALT 30 U/L (9-52); AST 14 U/L (14-36); Alkaline Phosphatase 117 U/L (38-126); Anion Gap 11 mmol/L; Blood Urea Nitrogen 15 mg/dL (7-17); Calcium 9.3 mg/dL (8.4-10.2); Carbon Dioxide 29 mmol/L (22-30); Chloride 104 mmol/L (98-107); Cholesterol 219 mg/dL (<200); Glucose 90 mg/dL (74-99); HDL Cholesterol 69 mg/dL (40-60); Non-African American GFR(MDRD) >60 (>60 ml/min/1.73 sqM); Potassium 4.1 mmol/L (3.5-5.1); Sodium 144 mmol/L (137-145); Total Bilirubin 0.4 mg/dL (0.2-1.3); Triglycerides 142 mg/dL (<150)
[2017-01-11 23:26] LABS: Hemoglobin A1C 5.7 % (4.2-6.1)
== END | disposition home or self-care (01) ==
LOC: LABWHC1 13:16
PROVIDERS: ATTEND Family Medicine
DX: E78.5 Hyperlipidemia, unspecified (principal); E11.9 Type 2 diabetes mellitus without complications; I10 Essential (primary) hypertension
CPT/HCPCS: 36415; 80053; 80061; 83036; 85025

== ENCOUNTER 2017-01-17 14:40 | Emergency (ER) | payer MEDICARE, OTHER ==
[2017-01-17 14:48] VITALS: RESP 18; TEMP 97.1
[2017-01-17] MEDS ORDERED: KETOROLAC 30 MG/ML 1 ML VIAL IVP STA (14:48)
--- NOTE | 2017-01-17 15:10 | XR ---
EXAMINATION TYPE: XR chest 2V DATE OF EXAM: 01/17/2017 3:03 PM COMPARISON: 12/27/16 HISTORY: Chest pain TECHNIQUE: Frontal and lateral views of the chest are obtained. FINDINGS: There is no focal air space opacity. No evidence for pnuemothorax.No pleural effusion. The cardiac silhouette size is within normal limits. The osseous structures are grossly intact. IMPRESSION: 1. No acute cardiopulmonary process.
--- NOTE | 2017-01-17 15:13 | ED ---
Chest Pain HPI - General Chief Complaint: Chest Pain Stated Complaint: Chest Pain Time Seen by Provider: 01/17/17 14:40 Source: patient, EMS, RN notes reviewed Mode of arrival: EMS Limitations: no limitations - History of Present Illness Initial Comments: This is a 46-year-old female who was brought in by EMS with complaints of chest pain. She states the chest pains for about 3 weeks on and off sharp and dull in nature left sternal in nature it does sometimes increases with movement and deep breathing. She also had a cough but no major phlegm production. She denies any fevers chills sweats or other symptoms she states the pain is 10 out of 10 in severity. She has no personal history of heart disease she is hypertensive and has started taking medication. She denies any other complaints she denies any heavy lifting or straining to her chest wall. MD Complaint: chest pain - Related Data Home Medications Medication Instructions Recorded Confirmed metFORMIN HCL 1,000 mg PO BID 01/19/16 01/17/17 Levothyroxine Sodium [Synthroid] 88 mcg PO QAM 03/29/16 01/17/17 Omeprazole [PriLOSEC] 40 mg PO QAM 07/31/16 01/17/17 Atenolol [Tenormin] 50 mg PO QAM 01/17/17 01/17/17 Pregabalin [Lyrica] 150 mg PO BID 01/17/17 01/17/17 SUMAtriptan SUCCINATE [Imitrex] 50 mg PO BID PRN 01/17/17 01/17/17 Simvastatin [Zocor] 10 mg PO HS 01/17/17 01/17/17 hydrOXYzine HCL [Atarax] 10 mg PO HS 01/17/17 01/17/17 Previous Rx's Medication Instructions Recorded Ibuprofen [Motrin] 800 mg PO Q6HR PRN #20 tab 01/17/17 Allergies Allergy/AdvReac Type Severity Reaction Status Date / Time No Known Allergies Allergy Verified 01/17/17 15:57 Review of Systems ROS Statement: Those systems with pertinent positive or pertinent negative responses have been documented in the HPI. ROS Other: All systems not noted in ROS Statement are negative. EKG Findings - EKG Results: EKG: interpreted by JORGITOD, WNL, sinus rhythm, normal axis, normal QRS, normal ST/ T, no acute changes (EKG shows normal sinus rhythm of 81 appear of 01 60 QRS duration 80 daily since QTC of 390/462 this is a normal-appearing EKG.) Past Medical History Past Medical History: CVA/TIA, Diabetes Mellitus, GERD/Reflux, GI Bleed, Hyperlipidemia, Hypertension, Osteoarthritis (OA), Seizure Disorder, Thyroid Disorder Additional Past Medical History / Comment(s): GLAUCOMA. HX. BLEEDING ULCERS. last seizure 2012, ANEMIA. TIA 03/2017-no effects, "occ DIZZY SPELLS" seen in [facility] 10/22/16 , no medications for BP, History of Any Multi-Drug Resistant Organisms: None Reported Past Surgical History: Adenoidectomy, Breast Surgery, Cholecystectomy, Ear Surgery, Tonsillectomy Additional Past Surgical History / Comment(s): TUBES IN EARS. RT EYE SX CHILD , kae fundoplication, left breast biopsy, Past Anesthesia/Blood Transfusion Reactions: No Reported Reaction Additional Past Anesthesia/Blood Transfusion Reaction / Comment(s): mother got Hep C from blood transfusion. Past Psychological History: No Psychological Hx Reported Additional Psychological History / Comment(s): . Smoking Status: Never smoker Past Alcohol Use History: None Reported Past Drug Use History: None Reported - Past Family History Father History Unknown: Yes Additional Family Medical History / Comment(s): ulcer Mother Family Medical History: Deep Vein Thrombosis (DVT) Additional Family Medical History / Comment(s): "HEART PROBLEMS", Hep C Sister(s) Family Medical History: Congestive Heart Failure (CHF), Diabetes Mellitus Additional Family Medical History / Comment(s): heart problems Brother(s) Family Medical History: Diabetes Mellitus Additional Family Medical History / Comment(s): Mother and sister with Diabetes General Exam - General Exam Comments Initial Comments: This is a well-developed well-nourished awake alert oriented 3 female Limitations: no limitations General appearance: alert, in no apparent distress Head exam: Present: atraumatic, normocephalic, normal inspection Eye exam: Present: normal appearance, PERRL, EOMI. Absent: scleral icterus, conjunctival injection, periorbital swelling ENT exam: Present: normal exam, mucous membranes moist Neck exam: Present: normal inspection. Absent: tenderness, meningismus, lymphadenopathy Respiratory exam: Present: normal lung sounds bilaterally, chest wall tenderness (Reproducible tenderness palpation along the left costal sternal margin.). Absent: respiratory distress, wheezes, rales, rhonchi, stridor Cardiovascular Exam: Present: regular rate, normal rhythm, normal heart sounds. Absent: systolic murmur, diastolic murmur, rubs, gallop, clicks GI/Abdominal exam: Present: soft, normal bowel sounds. Absent: distended, tenderness, guarding, rebound, rigid Extremities exam: Present: normal inspection, full ROM, normal capillary refill. Absent: tenderness, pedal edema, joint swelling, calf tenderness Back exam: Present: normal inspection Neurological exam: Present: alert, oriented X3, CN II-XII intact Psychiatric exam: Present: normal affect, normal mood Skin exam: Present: warm, dry, intact, normal color. Absent: rash Course Vital Signs 01/17/17 01/17/17 14:43 14:48 Temperature 97.1 F L Pulse Rate 72 74 Respiratory 18 18 Rate Blood Pressure 164/101 170/92 O2 Sat by Pulse 98 98 Oximetry Chest Pain MDM - MDM I did review the imaging and reports no acute findings. I did discuss the findings with the patient she will be discharged the presentation is consistent with musculoskeletal/chest wall pain and costochondritis she will be placed on anti-inflammatories follow-up with her doctor and return when necessary Disposition Clinical Impression: Chest wall syndrome, Costalchondritis Disposition: HOME SELF-CARE Condition: Good Instructions: Costochondritis (ED) Prescriptions: Ibuprofen [Motrin] 800 mg PO Q6HR PRN #20 tab PRN Reason: Pain Referrals: Eleazar Posey MD [Primary Care Provider] - 1-2 days
[2017-01-17 15:14] LABS: Basophils % (A) 0 %; CH 23.6; Eosinophils # (A) 0.1 k/uL (0-0.7); Eosinophils % (A) 2 %; HCT 40.5 % (34.0-46.0); HDW 2.82; HGB 12.5 gm/dL (11.4-16.0); Hypochromasia Marked; Luc % (Auto) 2; Lymphocytes # (A) 1.8 k/uL (1.0-4.8); Lymphocytes % (A) 27 %; MCH 24.5 pg (25.0-35.0); Mean Platelet Volume 8.2; Monocytes # (A) 0.3 k/uL (0-1.0); Monocytes % (A) 5 %; Neutrophils # (A) 4.3 k/uL (1.3-7.7); Neutrophils % (A) 64 %; RBC 5.12 m/uL (3.80-5.40); RDW 15.6 % (11.5-15.5); WBC 6.7 k/uL (3.8-10.6); WBC (Perox) 6.89
[2017-01-17 15:21] LABS: ALT 37 U/L (9-52); AST 16 U/L (14-36); Alkaline Phosphatase 146 U/L (38-126); Anion Gap 8 mmol/L; Blood Urea Nitrogen 14 mg/dL (7-17); Carbon Dioxide 29 mmol/L (22-30); Chloride 105 mmol/L (98-107); Glucose 96 mg/dL (74-99); Magnesium 1.7 mg/dL (1.6-2.3); Non-African American GFR(MDRD) >60 (>60 ml/min/1.73 sqM); Potassium 3.7 mmol/L (3.5-5.1); Sodium 142 mmol/L (137-145); Total Bilirubin 0.6 mg/dL (0.2-1.3); Total Protein 7.2 g/dL (6.3-8.2)
[2017-01-17 15:24] LABS: Partial Thromboplastin Time 24.5 sec (22.0-30.0); Prothrombin Time 10.3 sec (9.0-12.0)
[2017-01-17 15:32] LABS: Creatine Kinase 38 U/L (30-135)
[2017-01-17 15:44] LABS: Creatine Kinase MB 0.3 ng/mL (0.0-2.4); Troponin I <0.012 ng/mL (0.000-0.034)
[2017-01-17 16:57] VITALS: BP 185/88; PULSE 85
== END 2017-01-17 17:10 | disposition home or self-care (01) ==
LOC: EC 14:40
DX: M94.0 Chondrocostal junction syndrome [Tietze] (principal); E11.9 Type 2 diabetes mellitus without complications; E78.5 Hyperlipidemia, unspecified; I10 Essential (primary) hypertension; K21.9 Gastro-esophageal reflux disease without esophagitis; E07.9 Disorder of thyroid, unspecified; Z79.84 Long term (current) use of oral hypoglycemic drugs; Z79.899 Other long term (current) drug therapy; Z82.49 Family history of ischemic heart disease and other diseases of the circulatory system
CPT/HCPCS: 99285; 96374; 36415; 93005; 85379; 83880; 80053; 82550; 82553; 83735; 84484; 85025; 85610; 85730; 71020; J1885

== ENCOUNTER → 2017-01-18 | Outpatient (CLI) | payer MEDICARE, OTHER ==
--- NOTE | 2017-01-18 11:14 | US ---
EXAMINATION TYPE: US abdomen complete DATE OF EXAM: 01/18/2017 8:42 AM COMPARISON: NONE CLINICAL HISTORY: 46-year-old female R10.9 Abd Pain. TECHNIQUE: Multiple sonographic images of the abdomen are obtained. 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 Liver: Mildly echogenic and heterogeneous. No focal lesion seen. Gallbladder: Surgically absent CBD: wnl Spleen: Normal size but with a 1 cm round echogenic structure in the upper pole which shows posterio r through transmission. Findings suspected to represent a hemangioma. Right Kidney: No hydronephrosis Left Kidney: No hydronephrosis. Upper IVC: Not well seen Abd Aorta: wnl IMPRESSION: 1. Echogenic and slightly heterogeneous appearance to the liver suggesting underlying hepatic steatos is. Correlate with LFTs, lipid profile, and patient risk factors. 2. A 1 cm echogenic lesion upper pole of the spleen suspected to represent a hemangioma. Consider 6 m ont follow-up to ensure stability.
== END | disposition home or self-care (01) ==
LOC: RADUSWWP 08:11
PROVIDERS: ATTEND Family Medicine
DX: D73.89 Other diseases of spleen (principal); R10.9 Unspecified abdominal pain
CPT/HCPCS: 76700

== ENCOUNTER → 2017-01-23 | Outpatient (CLI) | payer MEDICARE, OTHER | END | disposition home or self-care (01) | LOC: RADMRIMAIN 18:36 | PROVIDERS: ATTEND Psychiatry & Neurology Pain Medicine | DX: Z53.9 Procedure and treatment not carried out, unspecified reason (principal) ==

== ENCOUNTER 2017-01-28 06:47 | Day surgery (SDC) | payer MEDICARE, OTHER ==
[2017-01-25 09:32] VITALS: BMI 39.4
[~2017-01-28 06:47] MED LIST changes: -DEXAMETHASONE SOD PHOSPHATE 10 MG/ML 1 ML VIAL IV ONE; -HEPARIN SODIUM,PORCINE 5,000 UNIT/ML 1 ML VIAL SQ ONE; -MIDAZOLAM 2 MG/2 ML VIAL IV PRN; -ONDANSETRON 4 MG/2 ML VIAL IVP ONE; -SCOPOLAMINE 1.5MG/72HR PATCH TRANSDERM ONE; -ceFAZolin 2 GM in SODIUM CHLORIDE 0.9% 100 ML IVPB ONE
[2017-01-28 07:01] VITALS: TEMP 97
[2017-01-28 07:06] LABS: Glucose,Whole Blood 101 mg/dL (75-99)
[2017-01-28] MEDS ORDERED: LIDOCAINE 1% INJ 10MG/ML (20 ML MDV) ONE (07:35)
[2017-01-28] MEDS ORDERED: PROPOFOL 10 MG/ML 20 ML VIAL IV ONE (07:35)
--- NOTE | 2017-01-28 07:40 | P.GSHP ---
History of Present Illness H&P Date: 01/28/17 Chief Complaint: Gastritis This a 42-year-old female who's had complaints of epigastric abdominal pain. She has a history of gastritis. She presents today for EGD. Past Medical History Past Medical History: CVA/TIA, Diabetes Mellitus, Eye Disorder, GERD/Reflux, GI Bleed, Hyperlipidemia, Hypertension, Osteoarthritis (OA), Seizure Disorder, Thyroid Disorder Additional Past Medical History / Comment(s): started tx for scabies 01-03-17, resolved now. Current abdominal pain. GLAUCOMA. HX. BLEEDING ULCERS. Last seizure 2012. Hx ANEMIA. TIA 03/2016-no effects, "occ DIZZY SPELLS". History of Any Multi-Drug Resistant Organisms: None Reported Past Surgical History: Adenoidectomy, Breast Surgery, Cholecystectomy, Ear Surgery, Tonsillectomy Additional Past Surgical History / Comment(s): TUBES IN EARS. RT EYE SX CHILD , kae fundoplication, left breast biopsy, Past Anesthesia/Blood Transfusion Reactions: No Reported Reaction Additional Past Anesthesia/Blood Transfusion Reaction / Comment(s): mother received Hep C from blood transfusion. Past Psychological History: No Psychological Hx Reported Additional Psychological History / Comment(s): . Smoking Status: Never smoker Past Alcohol Use History: None Reported Past Drug Use History: None Reported - Past Family History Father History Unknown: Yes Additional Family Medical History / Comment(s): ulcer Mother Family Medical History: Deep Vein Thrombosis (DVT) Additional Family Medical History / Comment(s): "HEART PROBLEMS", Hep C Sister(s) Family Medical History: Congestive Heart Failure (CHF), Diabetes Mellitus Additional Family Medical History / Comment(s): heart problems Brother(s) Family Medical History: Diabetes Mellitus Additional Family Medical History / Comment(s): Mother and sister with Diabetes Medications and Allergies Home Medications Medication Instructions Recorded Confirmed Type metFORMIN HCL 1,000 mg PO BID 01/19/16 01/28/17 History Levothyroxine Sodium [Synthroid] 88 mcg PO QAM 03/29/16 01/28/17 History Omeprazole [PriLOSEC] 40 mg PO QAM 07/31/16 01/28/17 History Atenolol [Tenormin] 50 mg PO QAM 01/17/17 01/28/17 History Pregabalin [Lyrica] 150 mg PO BID 01/17/17 01/28/17 History SUMAtriptan SUCCINATE [Imitrex] 50 mg PO BID PRN 01/17/17 01/28/17 History Simvastatin [Zocor] 10 mg PO HS 01/17/17 01/28/17 History hydrOXYzine HCL [Atarax] 10 mg PO HS 01/17/17 01/28/17 History Allergies Allergy/AdvReac Type Severity Reaction Status Date / Time No Known Allergies Allergy Verified 01/25/17 09:19 Surgical - Exam Vital Signs Temp Pulse Resp BP Pulse Ox 97.0 F L 80 14 155/89 98 01/28/17 06:59 01/28/17 06:59 01/28/17 06:59 01/28/17 06:59 01/28/17 06:59 - General well developed, well nourished, no distress - Eyes PERRL - ENT normal pinna - Neck no masses - Respiratory normal expansion - Cardiovascular Rhythm: regular - Abdomen Abdomen: soft, non tender Results - Labs Abnormal Lab Results - Last 24 Hours (Table) 01/28/17 Range/Units 07:04 POC Glucose (mg/dL) 101 H (75-99) mg/dL Assessment and Plan Plan: Gastritis. We'll perform EGD.
--- NOTE | 2017-01-28 07:54 | P.OP ---
Date of Procedure: 01/28/17 Preoperative Diagnosis: Gastritis Postoperative Diagnosis: Mild antral gastritis Procedure(s) Performed: EGD Implants: Anesthesia: MAC Surgeon: Pierce Gonzalez Pathology: other (Antrum) Condition: stable Disposition: PACU Indications for Procedure: Operative Findings: Description of Procedure: The patient's placed on the endoscopy table in the lateral position. She received IV sedation. The gastroscope some placed oropharynx passed in the esophagus and into the stomach. Scope was then placed through the pylorus. The first and second portion of the duodenum appeared normal. Scope was then brought back the antrum and this appeared mildly inflamed. A biopsies performed. The scope was unretroflexed and remainder stomach appeared normal. There was no significant hiatal hernia. The GE junction was at 40 cm the distal esophagus appeared normal. The proximal esophagus appeared normal. Scope was withdrawn for patient.
[2017-01-28 07:57] VITALS: PULSE 86
[2017-01-28 08:15] VITALS: BP 142/75; RESP 18
== END 2017-01-28 09:46 | disposition home or self-care (01) ==
LOC: ORWHC2ENDO 06:47
PROVIDERS: ATTEND Surgery
DX: K29.50 Unspecified chronic gastritis without bleeding (principal); I10 Essential (primary) hypertension; E78.5 Hyperlipidemia, unspecified; E11.9 Type 2 diabetes mellitus without complications; H40.9 Unspecified glaucoma; G40.909 Epilepsy, unspecified, not intractable, without status epilepticus; K21.9 Gastro-esophageal reflux disease without esophagitis; E07.9 Disorder of thyroid, unspecified; Z83.3 Family history of diabetes mellitus; Z82.49 Family history of ischemic heart disease and other diseases of the circulatory system; Z79.84 Long term (current) use of oral hypoglycemic drugs; Z79.899 Other long term (current) drug therapy; Z86.73 Personal history of transient ischemic attack (TIA), and cerebral infarction without residual deficits
CPT/HCPCS: 88305; 88342; 43239; J2001; J2704

== ENCOUNTER → 2017-02-13 | Outpatient (CLI) | payer MEDICARE, OTHER ==
[2017-02-13 16:10] LABS: Basophils % (A) 0 %; CH 23.5; CHCM 29.7; Eosinophils # (A) 0.3 k/uL (0-0.7); Eosinophils % (A) 3 %; HCT 41.3 % (34.0-46.0); HDW 2.89; HGB 12.4 gm/dL (11.4-16.0); Hypochromasia Marked; Luc # (Auto) 0.11; Luc % (Auto) 1; Lymphocytes % (A) 21 %; MCH 23.9 pg (25.0-35.0); MCHC 30.1 g/dL (31.0-37.0); MCV 79.4 fL (80.0-100.0); Mean Platelet Volume 9.2; Monocytes # (A) 0.4 k/uL (0-1.0); Monocytes % (A) 4 %; Neutrophils # (A) 6.6 k/uL (1.3-7.7); Neutrophils % (A) 70 %; RDW 15.9 % (11.5-15.5); WBC 9.4 k/uL (3.8-10.6); WBC (Perox) 9.01
[2017-02-13 16:34] LABS: ALT 31 U/L (9-52); AST 26 U/L (14-36); Alkaline Phosphatase 137 U/L (38-126); Anion Gap 11 mmol/L; Blood Urea Nitrogen 12 mg/dL (7-17); Carbon Dioxide 28 mmol/L (22-30); Chloride 105 mmol/L (98-107); Glucose 94 mg/dL (74-99); Non-African American GFR(MDRD) >60 (>60 ml/min/1.73 sqM); Potassium 4.9 mmol/L (3.5-5.1); Sodium 144 mmol/L (137-145); Total Bilirubin 0.4 mg/dL (0.2-1.3); Total Protein 6.7 g/dL (6.3-8.2)
[2017-02-13 18:58] LABS: Hemoglobin A1C 5.8 % (4.2-6.1)
== END | disposition home or self-care (01) ==
LOC: LABWHC1 15:25
PROVIDERS: ATTEND Family Medicine
DX: R19.7 Diarrhea, unspecified (principal); I10 Essential (primary) hypertension; E11.9 Type 2 diabetes mellitus without complications
CPT/HCPCS: 36415; 80053; 83036; 85025

== ENCOUNTER → 2017-02-22 | Outpatient (CLI) | payer MEDICARE, OTHER ==
--- NOTE | 2017-02-22 08:27 | MM ---
Reason for exam: follow-up at short interval from prior study. Last mammogram was performed 8 months ago. History: Patient is postmenopausal. Family history of breast cancer in mother at age 40 and breast cancer in aunt at age 70. Benign MG pre op needle loc LT of the left breast, September 10, 2016. Physical Findings: Nurse did not find any significant physical abnormalities on exam. MG Diagnostic Mammo LT w CAD CC, MLO, and ML view(s) were taken of the left breast. Prior study comparison: June 21, 2016, bilateral MG diagnostic mammo w CAD STEPHEN. There are scattered fibroglandular densities. Finding: There are calcifications in the left breast, may be dermal calcifications. Post operative changes in the left breast. These results were verbally communicated with the patient and result sheet given to the patient on 02/22/17. ASSESSMENT: Benign, BI-RAD 2 RECOMMENDATION: Follow-up diagnostic mammogram of both breasts in 6 months. Back on schedule for May 2017.
== END | disposition home or self-care (01) ==
LOC: RADMAMWWP 07:14
PROVIDERS: ATTEND Surgery
DX: R92.8 Other abnormal and inconclusive findings on diagnostic imaging of breast (principal)

== ENCOUNTER → 2017-03-05 | Outpatient (CLI) | payer MEDICARE, OTHER ==
[2017-03-05 10:14] LABS: ALT 28 U/L (9-52); AST 14 U/L (14-36); Alkaline Phosphatase 128 U/L (38-126); Anion Gap 12 mmol/L; Blood Urea Nitrogen 12 mg/dL (7-17); Calcium 9.4 mg/dL (8.4-10.2); Carbon Dioxide 26 mmol/L (22-30); Chloride 105 mmol/L (98-107); Glucose 155 mg/dL (74-99); Non-African American GFR(MDRD) >60 (>60 ml/min/1.73 sqM); Sodium 143 mmol/L (137-145); Total Bilirubin 0.4 mg/dL (0.2-1.3); Total Protein 6.7 g/dL (6.3-8.2)
== END ==
LOC: LABWHC1 09:20
PROVIDERS: ATTEND Internal Medicine Interventional Cardiology
DX: I10 Essential (primary) hypertension (principal)
CPT/HCPCS: 36415; 80053

== ENCOUNTER 2017-03-14 07:39 | Emergency (ER) | payer MEDICARE, OTHER ==
[2017-03-14 07:42] VITALS: BP 143/82; PULSE 87; RESP 17; TEMP 97
--- NOTE | 2017-03-14 08:24 | ED ---
General Adult HPI - General Chief complaint: Extremity Injury, Lower Stated complaint: knee pain Time Seen by Provider: 03/14/17 08:10 Source: patient, RN notes reviewed Mode of arrival: ambulatory Limitations: no limitations - History of Present Illness Initial comments: 46-year-old female who presents emergency room today with chief complaint of bilateral knee pain she does admit that in the right knee is worse. She states she see her orthopedic doctor told her that there is a "tear". She states that they're talking about possible surgery. She states she is supposed have an MRI. She states that she's been having increased pain which has not taken any at home. Denies taking any Tylenol/ibuprofen. Patient denies any injury or complaints. States the same type pain that she been experiencing to seems to be getting worse. Patient denies any recent fever, chills, shortness of breath , chest pain, back pain, abdominal pain, nausea or vomiting, numbness or tingling, dysuria or hematuria, constipation or diarrhea, headaches or visual changes, or any other complaints. - Related Data Home Medications Medication Instructions Recorded Confirmed metFORMIN HCL 1,000 mg PO BID 01/19/16 03/14/17 Levothyroxine Sodium [Synthroid] 88 mcg PO QAM 03/29/16 03/14/17 Omeprazole [PriLOSEC] 40 mg PO QAM 07/31/16 03/14/17 Atenolol [Tenormin] 50 mg PO QAM 01/17/17 03/14/17 Pregabalin [Lyrica] 150 mg PO BID 01/17/17 03/14/17 SUMAtriptan SUCCINATE [Imitrex] 50 mg PO BID PRN 01/17/17 03/14/17 Simvastatin [Zocor] 10 mg PO HS 01/17/17 03/14/17 hydrOXYzine HCL [Atarax] 10 mg PO HS 01/17/17 03/14/17 Ibuprofen [Motrin] 800 mg PO Q6H PRN 03/14/17 03/14/17 Previous Rx's Medication Instructions Recorded Ibuprofen [Motrin] 600 mg PO Q6HR PRN #30 day 03/14/17 Allergies Allergy/AdvReac Type Severity Reaction Status Date / Time No Known Allergies Allergy Verified 03/14/17 08:05 Review of Systems ROS Statement: Those systems with pertinent positive or pertinent negative responses have been documented in the HPI. ROS Other: All systems not noted in ROS Statement are negative. Past Medical History Past Medical History: CVA/TIA, Diabetes Mellitus, GERD/Reflux, GI Bleed, Hyperlipidemia, Hypertension, Osteoarthritis (OA), Seizure Disorder, Thyroid Disorder Additional Past Medical History / Comment(s): GLAUCOMA. HX. BLEEDING ULCERS. last seizure 2012, ANEMIA. TIA 03/2017-no effects, "occ DIZZY SPELLS" seen in [facility] 10/22/16 , no medications for BP, History of Any Multi-Drug Resistant Organisms: None Reported Past Surgical History: Adenoidectomy, Breast Surgery, Cholecystectomy, Ear Surgery, Tonsillectomy Additional Past Surgical History / Comment(s): TUBES IN EARS. RT EYE SX CHILD , kae fundoplication, left breast biopsy, Past Anesthesia/Blood Transfusion Reactions: No Reported Reaction Additional Past Anesthesia/Blood Transfusion Reaction / Comment(s): mother got Hep C from blood transfusion. Past Psychological History: No Psychological Hx Reported Smoking Status: Never smoker Past Alcohol Use History: None Reported Past Drug Use History: None Reported - Past Family History Father History Unknown: Yes Additional Family Medical History / Comment(s): ulcer Mother Family Medical History: Deep Vein Thrombosis (DVT) Additional Family Medical History / Comment(s): "HEART PROBLEMS", Hep C Sister(s) Family Medical History: Congestive Heart Failure (CHF), Diabetes Mellitus Additional Family Medical History / Comment(s): heart problems Brother(s) Family Medical History: Diabetes Mellitus Additional Family Medical History / Comment(s): Mother and sister with Diabetes General Exam - General Exam Comments Initial Comments: General: The patient is awake and alert, in no distress, and does not appear acutely ill. Neck: The neck is supple, there is no tenderness or JVD. Cardiovascular: There is a regular rate and rhythm. No murmur, rub or gallop is appreciated. Respiratory: Lungs are clear to auscultation, respirations are non-labored, breath sounds are equal. No wheezes, stridor, rales, or rhonchi. Musculoskeletal: Normal appearance of the knees bilaterally. No obvious swelling. No deformity. Shows full range of motion bilaterally. No specific bony tenderness on exam. Sensations are intact pulses equal bilaterally 2+. Strength is 5/5. Neurological: A&O x 3. CN II-XII intact, There are no obvious motor or sensory deficits. Coordination appears grossly intact. Speech is normal. Skin: Skin is warm and dry and no rashes or lesions are noted. Psychiatric: Normal mood and affect. Limitations: no limitations Course Vital Signs 03/14/17 07:40 Temperature 97.0 F L Pulse Rate 87 Respiratory 17 Rate Blood Pressure 143/82 O2 Sat by Pulse 99 Oximetry Medical Decision Making - Medical Decision Making She'll be started on some anti-inflammatories for her pain. Advised ice to areas. Advised follow-up the orthopedic and her family doctor. Advised return if any symptoms increase or worsen or for any other concerns. Disposition Clinical Impression: Knee pain, chronic Disposition: HOME SELF-CARE Condition: Good Instructions: Knee Pain (ED) Additional Instructions: The use ice to the areas for 10-15 minutes at a time at least 4 times daily. Please use medication as prescribed for pain. Please follow the family doctor and orthopedic doctor as discussed over the next 2 days. Please return here to emergency room for any other concerns. Prescriptions: Ibuprofen [Motrin] 600 mg PO Q6HR PRN #30 day PRN Reason: Pain Referrals: Eleazar Posey MD [Primary Care Provider] - 1-2 days Bjorn Monteiro MD [STAFF PHYSICIAN] - 1-2 days Time of Disposition: 08:23
== END 2017-03-14 08:37 | disposition home or self-care (01) ==
LOC: EC 07:39
DX: G89.29 Other chronic pain (principal); M25.561 Pain in right knee; M25.562 Pain in left knee; K21.9 Gastro-esophageal reflux disease without esophagitis; I10 Essential (primary) hypertension; E07.9 Disorder of thyroid, unspecified; E78.5 Hyperlipidemia, unspecified; G40.909 Epilepsy, unspecified, not intractable, without status epilepticus; E11.9 Type 2 diabetes mellitus without complications; Z86.73 Personal history of transient ischemic attack (TIA), and cerebral infarction without residual deficits; Z79.84 Long term (current) use of oral hypoglycemic drugs; Z79.899 Other long term (current) drug therapy
CPT/HCPCS: 99283

== ENCOUNTER → 2017-03-21 | Outpatient (CLI) | payer MEDICARE, OTHER ==
--- NOTE | 2017-03-21 18:14 | MR ---
EXAMINATION TYPE: MR knee RT wo con DATE OF EXAM: 03/21/2017 COMPARISON: Plain film 02/27/2017 HISTORY: Right Knee pain with swelling TECHNIQUE: Multiplanar, multisequence imaging of the right knee is performed without IV contrast. FINDINGS: MEDIAL MENISCUS: There is some linear increased signal within the posterior horn of the medial menisc us which could possibly extend to the articular surface seen better on coronal image 23 and 24. LATERAL MENISCUS: Anterior and posterior horns are intact without tear. CRUCIATE LIGAMENTS: The anterior and posterior cruciate ligaments are intact and unremarkable. COLLATERAL LIGAMENTS: The medial collateral ligament and lateral collateral ligament complex are inta ct and unremarkable. EXTENSOR MECHANISM: Visualized quadriceps and patellar tendons are intact. There is some fluid anterior to the patellar tendon insertion within the subcutaneous fat compatible with local edema. EFFUSION: There is a small joint effusion. POPLITEAL CYST: No popliteal/ag cyst. TRICOMPARTMENT SPACES: Maintained CARTILAGE: Some grade 3 to grade IV chondromalacia present at the posterior patella. BONE MARROW SIGNAL: No focal abnormal marrow signal is appreciated. OTHER: No additional significant abnormality is appreciated. IMPRESSION: Chondromalacia patella. Possible tear of the posterior horn of the medial meniscus as described.
== END | disposition home or self-care (01) ==
LOC: RADMRIMAIN 16:55
PROVIDERS: ATTEND Orthopaedic Surgery
DX: M22.41 Chondromalacia patellae, right knee (principal)

== ENCOUNTER → 2017-04-11 | Outpatient (CLI) | payer MEDICARE, OTHER ==
[2017-04-11 07:59] LABS: Blood Urea Nitrogen 11 mg/dL (7-17); Non-African American GFR(MDRD) >60 (>60 ml/min/1.73 sqM)
--- NOTE | 2017-04-11 09:28 | CT ---
EXAMINATION TYPE: CT abdomen pelvis w con DATE OF EXAM: 04/11/2017 HISTORY: Generalized pain 4+ months CT DLP: 1598.8mGycm Automated Exposure Control for Dose Reduction was Utilized. CONTRAST: CT scan of the abdomen and pelvis is performed with IV Contrast, patient injected with 100 mL of Omni paque 300. COMPARISON: Abdominal ultrasound dated 01/18/2017. CT abdomen pelvis dated 10/18/2015 FINDINGS: LUNG BASES: No significant abnormality is appreciated. LIVER/GB: No significant abnormality is appreciated. Gallbladder surgically absent. No current CT juan dence of hepatic steatosis. PANCREAS: No significant abnormality is seen. SPLEEN: Stable approximately 1 cm splenic lesion is low-density and appears benign and representing a hemangioma or lymphangioma. ADRENALS: No significant abnormality is seen. KIDNEYS: 1.1 cm hypoattenuated left midpole renal lesion is seen that does not fit criteria for a sim ple cyst. This may represent a cyst with pseudoenhancement or complex renal cyst as it is stable in s ize dating back to 10/18/2015. BOWEL: Small hiatal hernia. Surgical clips remain around the gastroesophageal junction.. UTERUS/ADNEXA: Follicular changes are seen of both ovaries. LYMPH NODES: No greater than 1cm abdominal or pelvic lymph nodes are appreciated. Few nonenlarged sca ttered mesenteric lymph nodes are unchanged. OSSEOUS STRUCTURES: No suspicious osseous lesion. OTHER: Postsurgical changes of the left breast are noted.. IMPRESSION: 1. Degree of hepatic steatosis has improved in the interim as there is no current CT evidence of hepa tic steatosis. 2. Stable splenic lesion, benign-appearing and either represents a hemangioma or lymphangioma. 3. Postsurgical changes of the left breast. 4. Stable left renal lesion thought to either represent a simple cyst with pseudoenhancement or compl ex cyst.
== END ==
LOC: RADCTMAIN 07:19
DX: K76.0 Fatty (change of) liver, not elsewhere classified (principal); D73.89 Other diseases of spleen; N28.9 Disorder of kidney and ureter, unspecified
CPT/HCPCS: 82565; 84520; 74177; 36415; Q9967

== ENCOUNTER 2017-04-16 07:39 | Day surgery (SDC) | payer MEDICARE, OTHER ==
[2017-04-04 11:46] VITALS: BMI 39.3
--- NOTE | 2017-04-15 12:55 | HP ---
CHIEF COMPLAINT: Right knee pain. HISTORY OF PRESENT ILLNESS: The patient is a 46-year-old female on disability who presents with progressive right knee pain after a previous twisting injury. She notes medial pain that increases with symptoms and weightbearing activities. She is limping. She notes giving way sensation. PAST MEDICAL HISTORY: Significant for hypertension, diabetes, hypothyroidism. PAST SURGICAL HISTORY: Significant for cholecystectomy. CURRENT MEDICATIONS: 1. Atenolol. 2. Levothyroxine. 3. Metformin. 4. Simvastatin. She denies drug allergies. FAMILY HISTORY: Significant for heart disease, diabetes and cancer. SOCIAL HISTORY: Negative for current tobacco or alcohol use. A sixteen-point review of systems otherwise reviewed and is noncontributory. On examination, the patient is approximately 5 feet 2 inches, 220 pounds of endomorphic habitus. HEENT exam is nonfocal. Neck is supple. She has painless passive motion of her right hip. Straight leg raise is negative. Active motion right knee -6 to 115 degrees of flexion. She has a mild effusion. She is tender about the midline joint line. Collaterals are stable. Lachmans negative. McMurrays elicits medial pain. Her distal neurovascular exam appears intact in the right lower extremity. MRI report from 03/21/2017 of the right knee shows a posterior medial meniscal tear. There is also degenerative changes of the all the patellofemoral articulation. IMPRESSION: 1. Right knee symptomatic medial meniscal tear. 2. Increased body mass index. 3. Diabetes. RECOMMENDATIONS: I talked to the patient at length regarding her treatment options. She is quite symptomatic having pain and mechanical symptoms that limit her. After a thorough discussion, she opts to proceed with surgery. We will plan to proceed with arthroscopic evaluation with possible partial medial meniscectomy. Risks and benefits are discussed at length in layman's terms. We will likely perform that as an outpatient procedure. The patient underwent preoperative medical evaluation by Dr. Posey. OSKAR
[~2017-04-16 07:39] MED LIST changes: +DEXAMETHASONE SOD PHOSPHATE 10 MG/ML 1 ML VIAL IV ONE; +LIDOCAINE 1% 20 ML VIAL (10MG/ML) FOR IV START INTRADERMA PRN; +MIDAZOLAM 2 MG/2 ML VIAL IV PRN; +SCOPOLAMINE 1.5MG/72HR PATCH TRANSDERM ONE; +ceFAZolin 2 GM in SODIUM CHLORIDE 0.9% 100 ML IVPB ONE
[2017-04-16] MEDS: ONDANSETRON 4 MG/2 ML VIAL IVP ONE ×2 (08:40→10:23)
[2017-04-16 08:45] LABS: Glucose,Whole Blood 138 mg/dL (75-99)
[2017-04-16] MEDS ORDERED: PROPOFOL 10 MG/ML 20 ML VIAL IV ONE (09:02)
[2017-04-16] MEDS ORDERED: MIDAZOLAM 2 MG/2 ML VIAL ONE (09:02)
[2017-04-16] MEDS ORDERED: SUCCINYLCHOLINE CHLORIDE 100 MG/5 ML SYR IV ONE (09:02)
[2017-04-16] MEDS ORDERED: LIDOCAINE 1% INJ 10MG/ML (20 ML MDV) ONE (09:02)
[2017-04-16] MEDS ORDERED: fentaNYL (PF) 50 MCG/ML 2 ML AMP ONE (09:02)
[2017-04-16] MEDS ORDERED: GLYCOPYRROLATE 0.2 MG/ML 2 ML VIAL ONE (09:02)
[2017-04-16] MEDS ORDERED: EPINEPHrine (PF) 1 ML in SODIUM CHLORIDE 0.9% IRRIGATIO 3,000 ML IRRIGATION ONE ×4 (09:21)
--- NOTE | 2017-04-16 09:55 | P.OP ---
Date of Procedure: 04/16/17 Preoperative Diagnosis: Right knee internal derangement Postoperative Diagnosis: Right knee anterior horn medial meniscal tear/grade 2 chondral injury distal medial portion medial femoral condyle/grade 2 chondral injury central portion patella/reactive synovitis of the medial and patellofemoral compartments Procedure(s) Performed: Right knee arthroscopic partial medial meniscectomy/medial femoral chondrectomy/ patellar chondroplasty/partial synovectomy of the medial and patellofemoral compartments Implants: Anesthesia: GETA Surgeon: Bjorn Monteiro Estimated Blood Loss (ml): 5 Pathology: none sent Condition: stable Disposition: PACU Indications for Procedure: The patient's a 46-year-old female who presents with persistent right knee pain and mechanical symptoms after previous twisting injury. A discussion of the risks and benefits of operative intervention versus continued conservative measures was made with the patient. She opted to proceed with surgery. Operative risks to include infection, neurovascular injury, development of blood clots, possible incomplete resolution of symptoms, possible worsening symptoms and need for subsequent procedures was discussed. Informed consent was obtained. Operative Findings: As below Description of Procedure: The patient was brought to the operating room, and after induction of general anesthesia I examined the right knee. Collaterals were stable, Abdoulaye was negative, and posterior drawer was negative. The right lower extremity was prepped and draped in a normal fashion. A superior lateral portal was made through a 3 mm skin incision superior and lateral to the patella. This was used for outflow. A lateral portal was made through a 5 mm vertical skin incision lateral to the patella tendon above the joint line. Diagnostic arthroscopy was performed. A medial portal was made through a similar incision medial to the patellar tendon above the joint line. On inspection medial compartment, the posterior horn medial meniscus was stable and intact. There was a flap tear involving the anterior horn of the white-white junction. This was debrided back to stable base with a motorized shaver. Reactive synovitis involving to medial compartment was debrided with motorized shaver as well. A grade 2 chondral injury involving the distal medial portion of the medial femoral condyle was noted. There was a loose chondral flap that was debrided back to a stable base with a motorized shaver. On inspection of the notch, the anterior cruciate ligament was intact. On inspection lateral compartment no significant meniscal or cartilage pathology was noted. On inspection patellofemoral articulation, there was a grade 2 chondral injury involving the central superior portion of the patella. A loose chondral flap was debrided back to stable base with a motorized shaver. Reactive synovitis involving patellofemoral ticklish was debrided as well. The gutters were clear debris. The knee was then thoroughly irrigated. The portals were closed with Steri- Strips. A sterile dressing was applied in addition to a compression stocking. The patient was awoken from general anesthesia and transferred to recovery room in good condition. Blood loss less than 5 mL. No complications were incurred.
[2017-04-16 10:05] VITALS: TEMP 97.3
[2017-04-16] MEDS: HYDROmorphone 1 MG/ML 1 ML SYRINGE IVP PRN ×2 (10:23→10:35)
[2017-04-16 10:29] LABS: Glucose,Whole Blood 157 mg/dL (75-99)
[2017-04-16 11:04] VITALS: RESP 16
[2017-04-16] MEDS ORDERED: HYDROcodone/APAP 5-325MG 1 EACH TAB PO ONE (11:35)
[2017-04-16 12:42] VITALS: BP 133/69; PULSE 70
== END 2017-04-16 12:54 | disposition home or self-care (01) ==
LOC: OR 07:39
PROVIDERS: ATTEND Orthopaedic Surgery
DX: S83.241A Other tear of medial meniscus, current injury, right knee, initial encounter (principal); X58.XXXA Exposure to other specified factors, initial encounter; M65.861 Other synovitis and tenosynovitis, right lower leg; M23.91 Unspecified internal derangement of right knee; E11.9 Type 2 diabetes mellitus without complications; I10 Essential (primary) hypertension; E03.9 Hypothyroidism, unspecified; Z79.84 Long term (current) use of oral hypoglycemic drugs; Z79.899 Other long term (current) drug therapy
CPT/HCPCS: 81025; 29881; J2250; J1100; J0690; J2405; J0171; J2001; J3010; J1170; J0330; J2704

== ENCOUNTER → 2017-05-21 | Outpatient (CLI) | payer MEDICARE, OTHER ==
--- NOTE | 2017-05-21 08:13 | US ---
EXAMINATION TYPE: US abdomen complete DATE OF EXAM: 05/21/2017 COMPARISON: Ultrasound abdomen 01/18/2017, CT abdomen pelvis 04/11/2017 CLINICAL HISTORY: R10.9 ABDOMINAL PAIN. General abd pain EXAM MEASUREMENTS: Liver Length: 17.4 cm Gallbladder Wall: N/A CBD: 0.5 cm Spleen: 10.7 cm Right Kidney: 9.4 x 4.3 x 4.4cm Left Kidney: 9.7 x 5.0 x 5.6cm bowel gas obscures imaging, large body habitus Pancreas: wnl Liver: wnl Gallbladder: surgically absent CBD: wnl Spleen: hyperechoic lesion seen = 1.0 x 1.1 x 1.3cm Right Kidney: wnl Left Kidney: lesion that appears calcified 1.4 x 1.6 x 1.4cm Upper IVC: wnl Abd Aorta: wnl IMPRESSION: 1. Probable hemangioma within the spleen. This was present previously. 2. Heterogenous cortical signal mid left kidney. The largest cyst on CT examination is not cystic on ultrasound. Additional characterization could be performed with MRI.
== END | disposition home or self-care (01) ==
LOC: RADUSWWP 06:43
PROVIDERS: ATTEND Family Medicine
DX: N28.89 Other specified disorders of kidney and ureter (principal)
CPT/HCPCS: 76700

== ENCOUNTER 2017-05-22 16:16 | Emergency (ER) | payer MEDICARE, OTHER ==
[2017-05-22] MEDS ORDERED: KETOROLAC 30 MG/ML 1 ML VIAL IVP STA (16:43)
[2017-05-22 17:07] LABS: Anisocytosis Slight; Basophils % (A) 0 %; CH 23.1; CHCM 29.6; Eosinophils # (A) 0.2 k/uL (0-0.7); Eosinophils % (A) 2 %; HDW 2.77; HGB 12.8 gm/dL (11.4-16.0); Hypochromasia Marked; Luc # (Auto) 0.09; Luc % (Auto) 1; Lymphocytes # (A) 1.6 k/uL (1.0-4.8); Lymphocytes % (A) 21 %; MCH 23.9 pg (25.0-35.0); MCHC 30.5 g/dL (31.0-37.0); MCV 78.5 fL (80.0-100.0); Mean Platelet Volume 7.3; Microcytosis Slight; Monocytes # (A) 0.4 k/uL (0-1.0); Monocytes % (A) 5 %; Neutrophils # (A) 5.1 k/uL (1.3-7.7); Neutrophils % (A) 70 %; RBC 5.35 m/uL (3.80-5.40); RDW 16.4 % (11.5-15.5); WBC 7.3 k/uL (3.8-10.6); WBC (Perox) 7.34
--- NOTE | 2017-05-22 17:07 | ED ---
Chest Pain HPI - General Chief Complaint: Chest Pain Stated Complaint: Chest Pain Time Seen by Provider: 05/22/17 16:16 Source: patient, EMS, RN notes reviewed Mode of arrival: EMS Limitations: no limitations - History of Present Illness Initial Comments: This is a 47-year-old female presents with complaints of one month of sharp anterior chest pain was hello but worse today. He points her upper mid sternum since he increases with movement and deep breathing she's had no cough fevers chills sweats shortness of breath or other symptoms. She seizes moderate in severity. He has no other complaints she denies any trauma. MD Complaint: chest pain - Related Data Home Medications Medication Instructions Recorded Confirmed metFORMIN HCL 1,000 mg PO BID 01/19/16 05/22/17 Levothyroxine Sodium [Synthroid] 88 mcg PO QAM 03/29/16 05/22/17 Atenolol [Tenormin] 50 mg PO QAM 01/17/17 05/22/17 SUMAtriptan SUCCINATE [Imitrex] 50 mg PO BID PRN 01/17/17 05/22/17 Simvastatin [Zocor] 10 mg PO DAILY 01/17/17 05/22/17 Hydrocodone/Acetaminophen [[place] 1 tab PO TID PRN 05/22/17 05/22/17 5-325] Lisinopril-Hctz 20-12.5 mg 1 tab PO DAILY 05/22/17 05/22/17 [Zestoretic 20-12.5] Omeprazole [PriLOSEC] 40 mg PO DAILY 05/22/17 05/22/17 Previous Rx's Medication Instructions Recorded Ibuprofen 800 mg PO Q6HR PRN #20 tablet 05/22/17 Allergies Allergy/AdvReac Type Severity Reaction Status Date / Time No Known Allergies Allergy Verified 05/22/17 17:14 Review of Systems ROS Statement: Those systems with pertinent positive or pertinent negative responses have been documented in the HPI. ROS Other: All systems not noted in ROS Statement are negative. EKG Findings - EKG Results: EKG: interpreted by GILBERTO, WNL, sinus rhythm, normal axis, normal QRS, normal ST/ T, no acute changes (Sinus rhythm rate of 85. Interval 144 QRS 94 QT since QTC of 390/[address]-T wave changes.) Past Medical History Past Medical History: Seizure Disorder Additional Past Medical History / Comment(s): GLAUCOMA. HX. BLEEDING ULCERS. last seizure 2012, ANEMIA. TIA 03/2017-no effects, "occ DIZZY SPELLS" seen in [facility] 10/22/16 , no medications for BP, History of Any Multi-Drug Resistant Organisms: None Reported Past Surgical History: Breast Surgery, Ear Surgery Additional Past Surgical History / Comment(s): TUBES IN EARS. RT EYE SX CHILD , kae fundoplication, left breast biopsy, Past Anesthesia/Blood Transfusion Reactions: No Reported Reaction Additional Past Anesthesia/Blood Transfusion Reaction / Comment(s): mother got Hep C from blood transfusion. Past Psychological History: No Psychological Hx Reported Smoking Status: Never smoker Past Alcohol Use History: None Reported Past Drug Use History: None Reported - Past Family History Father History Unknown: Yes Additional Family Medical History / Comment(s): ulcer Mother Family Medical History: Deep Vein Thrombosis (DVT) Additional Family Medical History / Comment(s): "HEART PROBLEMS", Hep C Sister(s) Family Medical History: Congestive Heart Failure (CHF), Diabetes Mellitus Additional Family Medical History / Comment(s): heart problems Brother(s) Family Medical History: Diabetes Mellitus Additional Family Medical History / Comment(s): Mother and sister with Diabetes General Exam - General Exam Comments Initial Comments: This is a well-developed well-nourished awake alert oriented 3 female Limitations: no limitations General appearance: alert, in no apparent distress Head exam: Present: atraumatic, normocephalic, normal inspection Eye exam: Present: normal appearance, PERRL, EOMI. Absent: scleral icterus, conjunctival injection, periorbital swelling ENT exam: Present: normal exam, mucous membranes moist Neck exam: Present: normal inspection. Absent: tenderness, meningismus, lymphadenopathy Respiratory exam: Present: normal lung sounds bilaterally. Absent: respiratory distress, wheezes, rales, rhonchi, stridor Cardiovascular Exam: Present: regular rate, normal rhythm, normal heart sounds. Absent: systolic murmur, diastolic murmur, rubs, gallop, clicks GI/Abdominal exam: Present: soft, normal bowel sounds. Absent: distended, tenderness, guarding, rebound, rigid Extremities exam: Present: normal inspection, full ROM, normal capillary refill. Absent: tenderness, pedal edema, joint swelling, calf tenderness Back exam: Present: normal inspection Neurological exam: Present: alert, oriented X3, CN II-XII intact Psychiatric exam: Present: normal affect, normal mood Skin exam: Present: warm, dry, intact, normal color. Absent: rash Course Vital Signs 05/22/17 16:19 Temperature 99.5 F Pulse Rate 72 Respiratory 16 Rate Blood Pressure 145/86 O2 Sat by Pulse 99 Oximetry Chest Pain MDM - MDM I did review the x-ray and report no acute findings. Patient will be discharged the presentation is consistent with chest wall pain/costochondritis the workup was negative for any acute event. The presentation is consistent with the same. Disposition Clinical Impression: Chest wall syndrome, Costalchondritis Disposition: HOME SELF-CARE Condition: Good Instructions: Costochondritis (ED) Prescriptions: Ibuprofen 800 mg PO Q6HR PRN #20 tablet PRN Reason: Pain Referrals: Eleazar Posey MD [Primary Care Provider] - 1-2 days
[2017-05-22 17:17] LABS: ALT 22 U/L (9-52); AST 14 U/L (14-36); Alkaline Phosphatase 123 U/L (38-126); Anion Gap 7 mmol/L; Blood Urea Nitrogen 11 mg/dL (7-17); Calcium 9.3 mg/dL (8.4-10.2); Carbon Dioxide 28 mmol/L (22-30); Chloride 105 mmol/L (98-107); Glucose 101 mg/dL (74-99); Magnesium 1.7 mg/dL (1.6-2.3); Non-African American GFR(MDRD) >60 (>60 ml/min/1.73 sqM); Potassium 4.3 mmol/L (3.5-5.1); Sodium 140 mmol/L (137-145); Total Bilirubin 0.3 mg/dL (0.2-1.3)
[2017-05-22 17:22] LABS: INR 1.2 (<1.2); Partial Thromboplastin Time 24.7 sec (22.0-30.0); Prothrombin Time 12.1 sec (9.0-12.0)
[2017-05-22 17:28] LABS: Creatine Kinase 53 U/L (30-135)
--- NOTE | 2017-05-22 17:28 | XR ---
EXAMINATION TYPE: XR chest 2V DATE OF EXAM: 05/22/2017 COMPARISON: 01/17/2017 HISTORY: Chest pain TECHNIQUE: Frontal and lateral views of the chest are obtained. FINDINGS: Heart and mediastinum are normal. Lungs are clear. Diaphragm is normal. Bony thorax is int act. There are chest leads. IMPRESSION: Normal chest. No change.
[2017-05-22 17:40] LABS: Creatine Kinase MB 0.3 ng/mL (0.0-2.4); Troponin I <0.012 ng/mL (0.000-0.034)
[2017-05-22 21:07] VITALS: BP 132/56; PULSE 77; RESP 20; TEMP 99.3
== END 2017-05-22 18:30 | disposition home or self-care (01) ==
LOC: EC 16:16
DX: M94.0 Chondrocostal junction syndrome [Tietze] (principal); G40.909 Epilepsy, unspecified, not intractable, without status epilepticus; Z79.84 Long term (current) use of oral hypoglycemic drugs; Z79.899 Other long term (current) drug therapy; Z86.73 Personal history of transient ischemic attack (TIA), and cerebral infarction without residual deficits
CPT/HCPCS: 36415; 93005; 85379; 80053; 82550; 82553; 83735; 84484; 85025; 85610; 85730; 71020; 99285; 96374; J1885

== ENCOUNTER 2017-06-04 07:09 | Day surgery (SDC) | payer MEDICARE, OTHER ==
[2017-06-03 10:02] VITALS: BMI 40.4
[~2017-06-04 07:09] MED LIST changes: -DEXAMETHASONE SOD PHOSPHATE 10 MG/ML 1 ML VIAL IV ONE; -LIDOCAINE 1% 20 ML VIAL (10MG/ML) FOR IV START INTRADERMA PRN; -MIDAZOLAM 2 MG/2 ML VIAL IV PRN; -SCOPOLAMINE 1.5MG/72HR PATCH TRANSDERM ONE; -ceFAZolin 2 GM in SODIUM CHLORIDE 0.9% 100 ML IVPB ONE
[2017-06-04 07:29] VITALS: TEMP 96.7
[2017-06-04] MEDS ORDERED: LIDOCAINE 1% 20 ML VIAL (10MG/ML) FOR IV START INTRADERMA ONE (07:44)
[2017-06-04 07:47] LABS: Glucose,Whole Blood 98 mg/dL (75-99)
[2017-06-04] MEDS ORDERED: LIDOCAINE 1% INJ 10MG/ML (20 ML MDV) ONE (08:50)
[2017-06-04] MEDS ORDERED: PROPOFOL 10 MG/ML 20 ML VIAL IV ONE (08:50)
[2017-06-04 09:23] VITALS: RESP 18
--- NOTE | 2017-06-04 09:30 | P.PCN ---
Date of Procedure: 06/04/17 Procedure(s) Performed: Procedures: 1. Esophagogastroduodenoscopy and biopsy. 2. Total colonoscopy. Preoperative diagnosis: Epigastric pain and change in bowel habits and abdominal pain. Postoperative diagnosis: 1. Small sliding hiatal hernia with low-grade distal esophagitis. 2. Mild antral gastritis. 3. Normal colon and terminal ileum. Preparation: HalfLytely prep. Sedation: Was provided by anesthesia. Brief history: The patient is a 47-year-old female who I have evaluated in the office for epigastric pain, change in bowel habits and abdominal pain for which she was scheduled for these examinations today. Procedure: With the patient on her left lateral decubitus position and after informed consent and adequate sedation, I passed the Olympus-GIF 160 video upper endoscope through the cricopharyngeus down the esophagus. GE junction was around 35 cm from the incisors and there was a low grade distal esophagitis. There was a small sliding hiatal hernia no strictures or Arauz' s esophagus. The endoscope was then passed into the stomach which was insufflated with air and inspected in detail including the retroflex view in the cardia. There was mottling and erythema in the antrum but no ulcers or erosions. Pyloric channel, duodenal bulb, post bulbar area and descending duodenum appeared within normal limits. I obtained biopsies from the duodenum, antrum and esophagus then the endoscope was withdrawn and I then proceeded with the colonoscopy. Perianal area did not show any fissures or fistulas. There were no masses felt on digital rectal examination. The Olympus CFQ 160L video colonoscope was then inserted in the rectum in the usual fashion and advanced to the cecum. I intubated the ileocecal valve and examined the terminal ileum. Terminal right colon appeared healthy with no edema, erythema, friability, ulceration, exudation or spontaneous bleeding. No polyps or tumors were seen or any obvious diverticular disease. I retroflexed the endoscope in the rectum before the endoscope was withdrawn. The patient tolerated the procedure well. Plan: The patient was reassured. Will await biopsy results. Further plans will be made based on her course and biopsy results. I will keep you updated on her progress.
[2017-06-04 10:10] VITALS: BP 134/72; PULSE 61
== END 2017-06-04 10:55 | disposition home or self-care (01) ==
LOC: ORWHC2ENDO 07:09
DX: K21.0 Gastro-esophageal reflux disease with esophagitis (principal); K29.50 Unspecified chronic gastritis without bleeding; R19.4 Change in bowel habit; K44.9 Diaphragmatic hernia without obstruction or gangrene; I10 Essential (primary) hypertension; E78.5 Hyperlipidemia, unspecified; E11.9 Type 2 diabetes mellitus without complications; E07.9 Disorder of thyroid, unspecified; G43.909 Migraine, unspecified, not intractable, without status migrainosus; Z79.84 Long term (current) use of oral hypoglycemic drugs; Z79.82 Long term (current) use of aspirin; Z79.899 Other long term (current) drug therapy
CPT/HCPCS: 88305; 88342; 45378; 43239; J2001; J2704

== ENCOUNTER → 2017-06-10 | Outpatient (CLI) | payer MEDICARE, OTHER ==
[2017-06-10 13:36] LABS: Anion Gap 7 mmol/L; Blood Urea Nitrogen 13 mg/dL (7-17); Carbon Dioxide 31 mmol/L (22-30); Chloride 101 mmol/L (98-107); Non-African American GFR(MDRD) >60 (>60 ml/min/1.73 sqM); Potassium 4.7 mmol/L (3.5-5.1); Sodium 139 mmol/L (137-145)
== END | disposition home or self-care (01) ==
LOC: LABWHC1 12:33
PROVIDERS: ATTEND Internal Medicine Interventional Cardiology
DX: I10 Essential (primary) hypertension (principal)
CPT/HCPCS: 36415; 80051; 82565; 84520

== ENCOUNTER 2017-06-18 12:14 | Emergency (ER) | payer MEDICARE, OTHER ==
[2017-06-18] MEDS ORDERED: SODIUM CHLORIDE 0.9% 1,000 ML IV STA (12:59)
--- NOTE | 2017-06-18 13:34 | ED ---
General Adult HPI - General Chief complaint: Urogenital Stated complaint: Poss ovarian cyst Time Seen by Provider: 06/18/17 12:51 Source: patient, RN notes reviewed Mode of arrival: ambulatory Limitations: no limitations - History of Present Illness Initial comments: 47-year-old female presents to the emergency room chief complaint of vaginal bleeding. She states she's had vaginal bleeding for the past 4 weeks. Patient states that she is using pads to control the bleeding. Patient states that she went through menopause and she has not had a period very long time. Patient states she's having some lower abdominal cramping with this. Patient was concerned due to the bleeding in her pain so she thought that she should be evaluated. Patient denies any recent fever, chills, shortness of breath, chest pain, back pain, nausea vomiting, numbness or tingling, dysuria or hematuria, constipation or diarrhea, headaches or visual changes, or any other current symptoms. - Related Data Home Medications Medication Instructions Recorded Confirmed metFORMIN HCL 1,000 mg PO BID 01/19/16 06/03/17 Atenolol [Tenormin] 50 mg PO QAM 01/17/17 06/04/17 SUMAtriptan SUCCINATE [Imitrex] 50 mg PO BID PRN 01/17/17 06/04/17 Simvastatin [Zocor] 10 mg PO DAILY 01/17/17 06/04/17 Lisinopril-Hctz 20-12.5 mg 1 tab PO DAILY 05/22/17 06/04/17 [Zestoretic 20-12.5] Levothyroxine Sodium [Synthroid] 100 mcg PO DAILY 05/31/17 06/04/17 Previous Rx's Medication Instructions Recorded Aspirin 81 mg PO DAILY 06/01/17 Nitroglycerin Sl Tabs [Nitrostat] 0.4 mg SUBLINGUAL Q5M PRN #25 tab 06/01/17 Allergies Allergy/AdvReac Type Severity Reaction Status Date / Time No Known Allergies Allergy Verified 06/18/17 13:31 Review of Systems ROS Statement: Those systems with pertinent positive or pertinent negative responses have been documented in the HPI. ROS Other: All systems not noted in ROS Statement are negative. Past Medical History Past Medical History: CVA/TIA, Diabetes Mellitus, GERD/Reflux, Seizure Disorder Additional Past Medical History / Comment(s): GLAUCOMA. HX. BLEEDING ULCERS. last seizure 2012, ANEMIA. TIA 03/2017-no effects, "occ DIZZY SPELLS" seen in [facility] 10/22/16 , no medications for BP, cyst on kidney History of Any Multi-Drug Resistant Organisms: None Reported Past Surgical History: Breast Surgery, Cholecystectomy, Ear Surgery, Hernia Repair Additional Past Surgical History / Comment(s): TUBES IN EARS. RT EYE SX CHILD , kae fundoplication, left breast biopsy, R knee surg Past Anesthesia/Blood Transfusion Reactions: No Reported Reaction Additional Past Anesthesia/Blood Transfusion Reaction / Comment(s): mother got Hep C from blood transfusion. Past Psychological History: No Psychological Hx Reported Smoking Status: Never smoker Past Alcohol Use History: None Reported Past Drug Use History: None Reported - Past Family History Father History Unknown: Yes Additional Family Medical History / Comment(s): ulcer Mother Family Medical History: Deep Vein Thrombosis (DVT) Additional Family Medical History / Comment(s): "HEART PROBLEMS", Hep C Sister(s) Family Medical History: Congestive Heart Failure (CHF), Diabetes Mellitus Additional Family Medical History / Comment(s): heart problems Brother(s) Family Medical History: Diabetes Mellitus Additional Family Medical History / Comment(s): Mother and sister with Diabetes General Exam - General Exam Comments Initial Comments: General: The patient is awake and alert, in no distress, and does not appear acutely ill. Eye: Pupils are equal, round and reactive to light, extra-ocular movements are intact; there is normal conjunctiva bilaterally. No signs of icterus. Ears, nose, mouth and throat: There are moist mucous membranes. Neck: The neck is supple, there is no tenderness. Cardiovascular: There is a regular rate and rhythm. No murmur, rub or gallop is appreciated. Respiratory: Lungs are clear to auscultation, respirations are non-labored, breath sounds are equal. No wheezes, stridor, rales, or rhonchi. Gastrointestinal: Soft, non-distended, non-tender abdomen without masses or organomegaly noted. There is no rebound or guarding present. No CVA tenderness. Bowel sounds are unremarkable. Back: There is no tenderness to palpation in the midline. There is no obvious deformity. No rashes noted. Musculoskeletal: Normal ROM, no tenderness, There is no pedal edema. There is no calf tenderness or swelling. Sensation intact. Pulses equal bilaterally 2+. Neurological: CN II-XII intact, There are no obvious motor or sensory deficits. Coordination appears grossly intact. Speech is normal. Skin: Skin is warm and dry and no rashes or lesions are noted. Psychiatric: Cooperative, appropriate mood & affect, normal judgment. Limitations: no limitations External exam: Present: normal external exam Speculum exam: Present: vaginal bleeding (Moderate) By manual exam: Present: normal by manual exam. Absent: adnexal tenderness Course Vital Signs 06/18/17 06/18/17 12:20 14:29 Temperature 99.0 F 98.5 F Pulse Rate 96 100 Respiratory 18 20 Rate Blood Pressure 188/81 172/94 O2 Sat by Pulse 100 99 Oximetry Medical Decision Making - Medical Decision Making 47-year-old female presents emergency Department chief complaint of vaginal bleeding. At this time patient with pelvic exam ultrasound and blood work. This time we did discuss follow-up and return parameters. We did discuss extensively her ultrasound did discuss that there is an endometrial mass. Discussed different etiologies for this. We did discuss the importance of follow-up and close follow-up and all the patient's and family's questions. They stateunderstood and are in agreement with this management - Lab Data Result diagrams: 06/18/17 13:35 06/18/17 13:35 Lab Results 06/18/17 06/18/17 06/18/17 Range/Units 13:23 13:23 13:35 WBC 6.7 (3.8-10.6) k/uL RBC 4.95 (3.80-5.40) m/uL Hgb 11.6 (11.4-16.0) gm/dL Hct 39.2 (34.0-46.0) % MCV 79.2 L (80.0-100.0) fL MCH 23.4 L (25.0-35.0) pg MCHC 29.5 L (31.0-37.0) g/dL RDW 16.6 H (11.5-15.5) % Plt Count 231 (150-450) k/uL Neutrophils % 72 % Lymphocytes % 19 % Monocytes % 5 % Eosinophils % 3 % Basophils % 0 % Neutrophils # 4.9 (1.3-7.7) k/uL Lymphocytes # 1.3 (1.0-4.8) k/uL Monocytes # 0.4 (0-1.0) k/uL Eosinophils # 0.2 (0-0.7) k/uL Basophils # 0.0 (0-0.2) k/uL Hypochromasia Marked Anisocytosis Slight Microcytosis Slight Sodium (137-145) mmol/L Potassium (3.5-5.1) mmol/L Chloride (98-107) mmol/L Carbon Dioxide (22-30) mmol/L Anion Gap mmol/L BUN (7-17) mg/dL Creatinine (0.52-1.04) mg/dL Est GFR (MDRD) Af Amer (>60 ml/min/1.73 sqM) Est GFR (MDRD) Non-Af (>60 ml/min/1.73 sqM) Glucose (74-99) mg/dL Calcium (8.4-10.2) mg/dL Total Bilirubin (0.2-1.3) mg/dL AST (14-36) U/L ALT (9-52) U/L Alkaline Phosphatase (38-126) U/L Total Protein (6.3-8.2) g/dL Albumin (3.5-5.0) g/dL Urine Color Light Yellow Urine Appearance Clear (Clear) Urine pH 7.5 (5.0-8.0) Ur Specific [place] 1.006 (1.001-1.035) Urine Protein Negative (Negative) Urine Glucose (UA) Negative (Negative) Urine Ketones Negative (Negative) Urine Blood Large H (Negative) Urine Nitrite Negative (Negative) Urine Bilirubin Negative (Negative) Urine Urobilinogen <2.0 (<2.0) mg/dL Ur Leukocyte Esterase Trace H (Negative) Urine RBC 16 H (0-5) /hpf Urine WBC 2 (0-5) /hpf Ur Squamous Epith Cells 1 (0-4) /hpf Urine Bacteria Rare H (None) /hpf Urine Mucus Rare H (None) /hpf Urine HCG, Qual Not Detected (Not Detectd) 06/18/17 Range/Units 13:35 WBC (3.8-10.6) k/uL RBC (3.80-5.40) m/uL Hgb (11.4-16.0) gm/dL Hct (34.0-46.0) % MCV (80.0-100.0) fL MCH (25.0-35.0) pg MCHC (31.0-37.0) g/dL RDW (11.5-15.5) % Plt Count (150-450) k/uL Neutrophils % % Lymphocytes % % Monocytes % % Eosinophils % % Basophils % % Neutrophils # (1.3-7.7) k/uL Lymphocytes # (1.0-4.8) k/uL Monocytes # (0-1.0) k/uL Eosinophils # (0-0.7) k/uL Basophils # (0-0.2) k/uL Hypochromasia Anisocytosis Microcytosis Sodium 138 (137-145) mmol/L Potassium 4.3 (3.5-5.1) mmol/L Chloride 104 (98-107) mmol/L Carbon Dioxide 27 (22-30) mmol/L Anion Gap 7 mmol/L BUN 10 (7-17) mg/dL Creatinine 0.82 (0.52-1.04) mg/dL Est GFR (MDRD) Af Amer >60 (>60 ml/min/1.73 sqM) Est GFR (MDRD) Non-Af >60 (>60 ml/min/1.73 sqM) Glucose 121 H (74-99) mg/dL Calcium 8.8 (8.4-10.2) mg/dL Total Bilirubin 0.3 (0.2-1.3) mg/dL AST 17 (14-36) U/L ALT 29 (9-52) U/L Alkaline Phosphatase 113 (38-126) U/L Total Protein 6.7 (6.3-8.2) g/dL Albumin 3.6 (3.5-5.0) g/dL Urine Color Urine Appearance (Clear) Urine pH (5.0-8.0) Ur Specific [place] (1.001-1.035) Urine Protein (Negative) Urine Glucose (UA) (Negative) Urine Ketones (Negative) Urine Blood (Negative) Urine Nitrite (Negative) Urine Bilirubin (Negative) Urine Urobilinogen (<2.0) mg/dL Ur Leukocyte Esterase (Negative) Urine RBC (0-5) /hpf Urine WBC (0-5) /hpf Ur Squamous Epith Cells (0-4) /hpf Urine Bacteria (None) /hpf Urine Mucus (None) /hpf Urine HCG, Qual (Not Detectd) Disposition Clinical Impression: Endometrial mass, Vaginal bleeding Disposition: HOME SELF-CARE Condition: Stable Instructions: Dysfunctional Uterine Bleeding (ED) Additional Instructions: Please use medication as discussed. Please follow up with family doctor if symptoms have not improved over the next two days. Please return to the emergency room if your symptoms increase or worsen or for any other concerns. You need to follow-up with the [facility] provider to have further testing on the endometrial mass that we have found on exam. Referrals: Eleazar Posey MD [Primary Care Provider] - 1-2 days Diane Kirkpatrick DO [Doctor of Osteopathic Medicine] - 1-2 days Time of Disposition: 14:55
[2017-06-18 13:41] LABS: Appearance,Urine Clear (Clear); Bacteria,Urine Rare /hpf; Bilirubin,Urine Negative (Negative); Glucose,Urine (UA) Negative (Negative); Ketones,Urine Negative (Negative); Leukocyte Esterase,Urine Trace (Negative); Mucus,Urine Rare /hpf; Nitrite,Urine Negative (Negative); PH, Urine 7.5 (5.0-8.0); Particle Count 1179; Protein,Urine Negative (Negative); RBC,Urine 16 /hpf (0-5); Specific Gravity,Urine 1.006 (1.001-1.035); Squamous Epithelial Cell,Urine 1 /hpf (0-4); UA Billing (MACRO vs. MICRO) MICRO; Urobilinogen,Urine <2.0 mg/dL (<2.0); WBC,Urine 2 /hpf (0-5)
[2017-06-18 14:03] LABS: Anisocytosis Slight; Basophils % (A) 0 %; CH 23.6; CHCM 29.9; Eosinophils # (A) 0.2 k/uL (0-0.7); Eosinophils % (A) 3 %; HCT 39.2 % (34.0-46.0); HGB 11.6 gm/dL (11.4-16.0); Hypochromasia Marked; Luc # (Auto) 0.07; Luc % (Auto) 1; Lymphocytes # (A) 1.3 k/uL (1.0-4.8); Lymphocytes % (A) 19 %; MCH 23.4 pg (25.0-35.0); MCHC 29.5 g/dL (31.0-37.0); MCV 79.2 fL (80.0-100.0); Microcytosis Slight; Monocytes # (A) 0.4 k/uL (0-1.0); Monocytes % (A) 5 %; Neutrophils # (A) 4.9 k/uL (1.3-7.7); Neutrophils % (A) 72 %; RBC 4.95 m/uL (3.80-5.40); RDW 16.6 % (11.5-15.5); WBC 6.7 k/uL (3.8-10.6); WBC (Perox) 6.96
[2017-06-18 14:14] LABS: ALT 29 U/L (9-52); AST 17 U/L (14-36); Alkaline Phosphatase 113 U/L (38-126); Anion Gap 7 mmol/L; Blood Urea Nitrogen 10 mg/dL (7-17); Calcium 8.8 mg/dL (8.4-10.2); Carbon Dioxide 27 mmol/L (22-30); Chloride 104 mmol/L (98-107); Glucose 121 mg/dL (74-99); Non-African American GFR(MDRD) >60 (>60 ml/min/1.73 sqM); Potassium 4.3 mmol/L (3.5-5.1); Sodium 138 mmol/L (137-145); Total Bilirubin 0.3 mg/dL (0.2-1.3); Total Protein 6.7 g/dL (6.3-8.2)
[2017-06-18 14:30] VITALS: RESP 20
--- NOTE | 2017-06-18 14:40 | US ---
EXAMINATION TYPE: US transvaginal DATE OF EXAM: 06/18/2017 COMPARISON: CT 04/11/2017 CLINICAL HISTORY: Pain. Pelvic pain and bleeding x 18 days, 0 TECHNIQUE: Transvaginal (TV) Date of LMP: 3 years ago EXAM MEASUREMENTS: Uterus: 10.4 x 5.4 x 5.5 cm Endometrial Stripe: 1.5 cm Right Ovary: not seen Left Ovary: not seen 1. Uterus: anteverted, heterogeneous with 2.4 x 1.6 x 2.4cm hypoechoic lesion anterior myometrium 2. Endometrium: thickened at 1.5cm, 3.8 x 2.4 x 4.2cm complex fluid collection within cervix 3. Right Ovary: not seen due to overlying bowel gas 4. Left Ovary: not seen due to overlying bowel gas 5. Bilateral Adnexa: wnl 6. Posterior cul-de-sac: wnl IMPRESSION: Findings suspicious for cervical, endometrial mass. Recommend pelvic exam, [employer] consult, c onsider biopsy. Limitations as described.
[2017-06-18 15:25] VITALS: BP 168/56; PULSE 99; TEMP 98
== END 2017-06-18 15:15 | disposition home or self-care (01) ==
LOC: EC 12:14
DX: N85.8 Other specified noninflammatory disorders of uterus (principal); N93.9 Abnormal uterine and vaginal bleeding, unspecified; E11.9 Type 2 diabetes mellitus without complications; Z86.73 Personal history of transient ischemic attack (TIA), and cerebral infarction without residual deficits; Z79.84 Long term (current) use of oral hypoglycemic drugs; Z79.899 Other long term (current) drug therapy
CPT/HCPCS: 36415; 76830; 80053; 81001; 81025; 85025; 96360; 99284

== ENCOUNTER → 2017-07-02 | Outpatient (CLI) | payer MEDICARE, OTHER ==
[2017-07-02 11:58] LABS: Anisocytosis Slight; Basophils % (A) 0 %; CH 22.7; CHCM 29.7; Eosinophils # (A) 0.2 k/uL (0-0.7); Eosinophils % (A) 3 %; HDW 2.92; HGB 11.6 gm/dL (11.4-16.0); Hypochromasia Marked; Luc # (Auto) 0.07; Luc % (Auto) 1; Lymphocytes # (A) 1.6 k/uL (1.0-4.8); Lymphocytes % (A) 27 %; MCH 23.3 pg (25.0-35.0); MCHC 30.4 g/dL (31.0-37.0); MCV 76.8 fL (80.0-100.0); Mean Platelet Volume 8.5; Microcytosis Slight; Monocytes # (A) 0.2 k/uL (0-1.0); Monocytes % (A) 4 %; Neutrophils # (A) 3.7 k/uL (1.3-7.7); Neutrophils % (A) 65 %; RBC 4.95 m/uL (3.80-5.40); RDW 17.3 % (11.5-15.5); Reticulocyte % 2.4 % (0.5-2.0); WBC 5.7 k/uL (3.8-10.6); WBC (Perox) 5.97
[2017-07-02 12:09] LABS: ALT 26 U/L (9-52); AST 16 U/L (14-36); Alkaline Phosphatase 122 U/L (38-126); Anion Gap 6 mmol/L; Blood Urea Nitrogen 11 mg/dL (7-17); Carbon Dioxide 29 mmol/L (22-30); Chloride 105 mmol/L (98-107); Glucose 121 mg/dL (74-99); Non-African American GFR(MDRD) >60 (>60 ml/min/1.73 sqM); Potassium 4.5 mmol/L (3.5-5.1); Sodium 140 mmol/L (137-145); Total Bilirubin 0.4 mg/dL (0.2-1.3); Total Protein 6.7 g/dL (6.3-8.2)
[2017-07-02 15:26] LABS: Iron Saturation 5.66 (12.00-45.00)
== END | disposition home or self-care (01) ==
LOC: LABWHC1 11:25
PROVIDERS: ATTEND Family Medicine
DX: E03.9 Hypothyroidism, unspecified (principal); D64.9 Anemia, unspecified
CPT/HCPCS: 36415; 80053; 82607; 82728; 82747; 83540; 83550; 84439; 84443; 84481; 85025; 85045

== ENCOUNTER 2017-07-09 07:18 | Day surgery (SDC) | payer MEDICARE, OTHER ==
[2017-07-05 15:27] VITALS: BMI 41.5
--- NOTE | 2017-07-08 16:57 | P.HPOB ---
History of Present Illness H&P Date: 07/08/17 Chief Complaint: postmenopausal bleeding 47 year old presents for D&C hysteroscopy for postmenopausal bleeding, endometrial thickening and endometrial mass found on US. Review of Systems All systems: negative Constitutional: Denies chills, Denies fever Eyes: denies blurred vision, denies pain Ears, nose, mouth and throat: Denies headache, Denies sore throat Cardiovascular: Denies chest pain, Denies shortness of breath Respiratory: Denies cough Gastrointestinal: Denies abdominal pain, Denies diarrhea, Denies nausea, Denies vomiting Genitourinary: Denies dysuria, Denies hematuria Musculoskeletal: Denies myalgias Integumentary: Denies pruritus, Denies rash Neurological: Denies numbness, Denies weakness Psychiatric: Denies anxiety, Denies depression Endocrine: Denies fatigue, Denies weight change Past Medical History Past Medical History: CVA/TIA, Diabetes Mellitus, GERD/Reflux, Seizure Disorder Additional Past Medical History / Comment(s): Last seizure 2012; TIA 04/11 no effects; GLAUCOMA; Anemia; Occ. dizziness; ; cyst on kidney; Abnormal vag. Bleeding and mass. Hx of bleeding ulcers History of Any Multi-Drug Resistant Organisms: None Reported Past Surgical History: Breast Surgery, Cholecystectomy, Ear Surgery, Hernia Repair Additional Past Surgical History / Comment(s): TUBES IN EARS. RT EYE SX CHILD , kae fundoplication, left breast biopsy/ benign; R knee arthroscopy Past Anesthesia/Blood Transfusion Reactions: No Reported Reaction Additional Past Anesthesia/Blood Transfusion Reaction / Comment(s): mother got Hep C from blood transfusion. Smoking Status: Never smoker Past Alcohol Use History: None Reported Past Drug Use History: None Reported - Past Family History Father History Unknown: Yes Additional Family Medical History / Comment(s): ulcer Mother Family Medical History: Deep Vein Thrombosis (DVT) Additional Family Medical History / Comment(s): "HEART PROBLEMS", Hep C Sister(s) Family Medical History: Congestive Heart Failure (CHF), Diabetes Mellitus Additional Family Medical History / Comment(s): heart problems Brother(s) Family Medical History: Diabetes Mellitus Additional Family Medical History / Comment(s): Mother and sister with Diabetes Medications and Allergies Home Medications Medication Instructions Recorded Confirmed Type metFORMIN HCL 1,000 mg PO BID 01/19/16 07/05/17 History Atenolol [Tenormin] 50 mg PO QAM 01/17/17 07/05/17 History SUMAtriptan SUCCINATE [Imitrex] 50 mg PO BID PRN 01/17/17 07/05/17 History Simvastatin [Zocor] 10 mg PO DAILY 01/17/17 07/05/17 History Lisinopril-Hctz 20-12.5 mg 1 tab PO DAILY 05/22/17 07/05/17 History [Zestoretic 20-12.5] Levothyroxine Sodium [Synthroid] 100 mcg PO DAILY 05/31/17 07/05/17 History Aspirin 81 mg PO DAILY 06/01/17 07/05/17 Rx Nitroglycerin Sl Tabs [Nitrostat] 0.4 mg SUBLINGUAL Q5M PRN #25 tab 06/01/1706/11 Rx Allergies Allergy/AdvReac Type Severity Reaction Status Date / Time No Known Allergies Allergy Verified 07/05/17 15:12 Exam Osteopathic Statement: *. No significant issues noted on an osteopathic structural exam other than those noted in the History and Physical/Consult. HEart: RRR Lungs: CTAB Abdomen: soft, nontender Extremeties: neg mandi's Assessment and Plan (1) Postmenopausal bleeding Status: Acute Code(s): N95.0 - POSTMENOPAUSAL BLEEDING SNOMED Code(s): 73944645 Plan: 1. D&C hysteroscopy
[~2017-07-09 07:18] MED LIST changes: +MORPHINE SULFATE 10 MG/ML SYRINGE IV PRN; +ONDANSETRON 4 MG/2 ML VIAL IVP PRN; +Pre Op ABX Message 1 EACH MISC MISCELLANE ONE
[2017-07-09] MEDS ORDERED: LABETALOL 5 MG/ML VIAL MDV IVP STA (08:39)
[2017-07-09] MEDS ORDERED: LIDOCAINE 1% 20 ML VIAL (10MG/ML) FOR IV START INTRADERMA ONE (08:44)
[2017-07-09 08:56] LABS: Glucose,Whole Blood 132 mg/dL (75-99)
[2017-07-09] MEDS ORDERED: PROPOFOL 10 MG/ML 20 ML VIAL IV ONE (09:56)
[2017-07-09] MEDS ORDERED: LIDOCAINE 1% INJ 10MG/ML (20 ML MDV) ONE (09:56)
[2017-07-09] MEDS ORDERED: MIDAZOLAM 2 MG/2 ML VIAL ONE (09:56)
[2017-07-09] MEDS ORDERED: fentaNYL (PF) 50 MCG/ML 2 ML AMP ONE (09:56)
[2017-07-09] MEDS ORDERED: SUCCINYLCHOLINE CHLORIDE 100 MG/5 ML SYR IV ONE (09:56)
--- NOTE | 2017-07-09 10:31 | P.OP ---
Date of Procedure: 07/09/17 Preoperative Diagnosis: 1. postmenopausal bleeding 2. endometrial thickening 3. endometrial mass on US Postoperative Diagnosis: 1. postmenopausal bleeding 2. endometrial thickening 3. endometrial mass on US Procedure(s) Performed: D&C hysteroscopy Anesthesia: RAE Surgeon: Diane Kirkpatrick Estimated Blood Loss (ml): 3 IV fluids (ml): 300 Urine output (ml): 20 Pathology: other Condition: stable Disposition: PACU Operative Findings: large amount of proliferative endometrium seen, large amount of endometrial currettings Description of Procedure: patient taken the operating room where general anesthesia was obtained without difficulty. She is prepped and draped in normal sterile fashion dorsal lithotomy position, legs placed in the candycane stirrups. Bladder was drained of all urine. Weighted speculum place in vagina and anterior lip the cervix was grasped with single-tooth tenaculum. The cervix was dilated to #8 Hegar dilator. Uterus was sounded 10 cm. Hysteroscopy was performed and there was a large amount of proliferative endometrium seen, the ostia were not able to be visualized. Sharp curet was then used to obtain endometrial curettings. All instruments removed from the vagina. Patient tolerated procedure well. Sponge and instrument counts correct 2. She was taken to recovery room in stable condition.
[2017-07-09 10:41] VITALS: TEMP 97.8
[2017-07-09 10:50] LABS: Glucose,Whole Blood 139 mg/dL (75-99)
[2017-07-09] MEDS ORDERED: LACTATED RINGERS 1,000 ML IV ONE ×2 (10:53→11:54)
[2017-07-09] MEDS ORDERED: HYDROmorphone 1 MG/ML 1 ML SYRINGE IVP ONE ×2 (11:09→11:15)
[2017-07-09] MEDS ORDERED: hydrALAZINE HCL 20 MG/ML 1 ML VIAL IVP ONE (11:30)
[2017-07-09] MEDS ORDERED: METOPROLOL TARTRATE 5 MG/5 ML VIAL IVP ONE (11:45)
[2017-07-09 12:49] VITALS: RESP 18
[2017-07-09 13:51] VITALS: BP 150/80; PULSE 94
== END 2017-07-09 14:20 | disposition home or self-care (01) ==
LOC: OR 07:18
PROVIDERS: ATTEND Obstetrics & Gynecology
DX: N85.02 Endometrial intraepithelial neoplasia [EIN] (principal); N95.0 Postmenopausal bleeding; R93.8 Abnormal findings on diagnostic imaging of other specified body structures; R19.09 Other intra-abdominal and pelvic swelling, mass and lump; Z86.73 Personal history of transient ischemic attack (TIA), and cerebral infarction without residual deficits; E11.9 Type 2 diabetes mellitus without complications; K21.9 Gastro-esophageal reflux disease without esophagitis; G40.909 Epilepsy, unspecified, not intractable, without status epilepticus; I10 Essential (primary) hypertension; E78.5 Hyperlipidemia, unspecified; E07.9 Disorder of thyroid, unspecified; Z79.84 Long term (current) use of oral hypoglycemic drugs; Z79.82 Long term (current) use of aspirin; Z79.899 Other long term (current) drug therapy
CPT/HCPCS: 93005; 81025; 88305; 58558; J2250; J0360; J2405; J2001; J3010; J1170; J0330; J2704

== ENCOUNTER 2017-07-19 07:45 | Emergency (ER) | payer MEDICARE, OTHER ==
[2017-07-19] MEDS ORDERED: SODIUM CHLORIDE 0.9% 1,000 ML IV STA (07:58)
[2017-07-19 08:17] LABS: Anisocytosis Slight; Basophils % (A) 1 %; CH 22.2; CHCM 29.6; Eosinophils # (A) 0.3 k/uL (0-0.7); Eosinophils % (A) 4 %; HCT 34.4 % (34.0-46.0); HDW 3.15; HGB 10.4 gm/dL (11.4-16.0); Hypochromasia Marked; Luc # (Auto) 0.06; Luc % (Auto) 1; Lymphocytes # (A) 1.8 k/uL (1.0-4.8); Lymphocytes % (A) 25 %; MCH 22.9 pg (25.0-35.0); MCHC 30.3 g/dL (31.0-37.0); MCV 75.5 fL (80.0-100.0); Mean Platelet Volume 7.6; Microcytosis Slight; Monocytes # (A) 0.4 k/uL (0-1.0); Monocytes % (A) 5 %; Neutrophils # (A) 4.7 k/uL (1.3-7.7); Neutrophils % (A) 65 %; RBC 4.55 m/uL (3.80-5.40); WBC 7.2 k/uL (3.8-10.6); WBC (Perox) 7.41
--- NOTE | 2017-07-19 08:22 | ED ---
General Adult HPI - General Chief complaint: Chest Pain Stated complaint: Chest/abdominal/leg pain Time Seen by Provider: 07/19/17 07:58 Source: patient, RN notes reviewed, old records reviewed Mode of arrival: ambulatory Limitations: no limitations - History of Present Illness Initial comments: This is a 47-year-old female to the ER for evaluation of chest pain. Chest pain leg pain or abdominal pain. Patient has history of chronic pain. Patient is taking pain control at home. Patient did just have surgery, gynecological surgery. Patient has had no complications since. Eating and drinking appropriate appetite as appropriate. Normal bowel movements. No fevers. No recent travel history no sick contacts. - Related Data Home Medications Medication Instructions Recorded Confirmed metFORMIN HCL 1,000 mg PO BID 01/19/16 07/19/17 Atenolol [Tenormin] 50 mg PO DAILY 01/17/17 07/19/17 SUMAtriptan SUCCINATE [Imitrex] 50 mg PO BID PRN 01/17/17 07/19/17 Simvastatin [Zocor] 10 mg PO HS 01/17/17 07/19/17 Levothyroxine Sodium [Synthroid] 100 mcg PO DAILY 05/31/17 07/19/17 Ferrous Sulfate [Feosol] 325 mg PO DAILY 07/19/17 07/19/17 Lisinopril-Hctz 20-25 mg 1 tab PO DAILY 07/19/17 07/19/17 [Zestoretic 20-25] Previous Rx's Medication Instructions Recorded Aspirin 81 mg PO DAILY 06/01/17 Nitroglycerin Sl Tabs [Nitrostat] 0.4 mg SUBLINGUAL Q5M PRN #25 tab 06/01/17 Ibuprofen [Motrin] 600 mg PO Q6HR PRN #30 tab 07/09/17 Allergies Allergy/AdvReac Type Severity Reaction Status Date / Time No Known Allergies Allergy Verified 07/19/17 08:51 Review of Systems ROS Statement: Those systems with pertinent positive or pertinent negative responses have been documented in the HPI. ROS Other: All systems not noted in ROS Statement are negative. Past Medical History Past Medical History: CVA/TIA, Diabetes Mellitus, GERD/Reflux, Seizure Disorder Additional Past Medical History / Comment(s): GLAUCOMA. HX. BLEEDING ULCERS. last seizure 2012, ANEMIA. TIA 03/2017-no effects, "occ DIZZY SPELLS" seen in [facility] 10/22/16 , no medications for BP, cyst on kidney History of Any Multi-Drug Resistant Organisms: None Reported Past Surgical History: Breast Surgery, Cholecystectomy, Ear Surgery, Hernia Repair Additional Past Surgical History / Comment(s): TUBES IN EARS. RT EYE SX CHILD , kae fundoplication, left breast biopsy, R knee surg Past Anesthesia/Blood Transfusion Reactions: No Reported Reaction Additional Past Anesthesia/Blood Transfusion Reaction / Comment(s): mother got Hep C from blood transfusion. Past Psychological History: No Psychological Hx Reported Smoking Status: Never smoker Past Alcohol Use History: None Reported Past Drug Use History: None Reported - Past Family History Father History Unknown: Yes Additional Family Medical History / Comment(s): ulcer Mother Family Medical History: Deep Vein Thrombosis (DVT) Additional Family Medical History / Comment(s): "HEART PROBLEMS", Hep C Sister(s) Family Medical History: Congestive Heart Failure (CHF), Diabetes Mellitus Additional Family Medical History / Comment(s): heart problems Brother(s) Family Medical History: Diabetes Mellitus Additional Family Medical History / Comment(s): Mother and sister with Diabetes General Exam Limitations: no limitations General appearance: alert, in no apparent distress Head exam: Present: atraumatic, normocephalic, normal inspection Eye exam: Present: normal appearance, PERRL, EOMI. Absent: scleral icterus, conjunctival injection, periorbital swelling ENT exam: Present: normal exam, mucous membranes moist Neck exam: Present: normal inspection. Absent: tenderness, meningismus, lymphadenopathy Respiratory exam: Present: normal lung sounds bilaterally. Absent: respiratory distress, wheezes, rales, rhonchi, stridor Cardiovascular Exam: Present: regular rate, normal rhythm, normal heart sounds. Absent: systolic murmur, diastolic murmur, rubs, gallop, clicks GI/Abdominal exam: Present: soft, normal bowel sounds. Absent: distended, tenderness, guarding, rebound, rigid Extremities exam: Present: normal inspection, full ROM, normal capillary refill. Absent: tenderness, pedal edema, joint swelling, calf tenderness Back exam: Present: normal inspection Neurological exam: Present: alert, oriented X3, CN II-XII intact Psychiatric exam: Present: normal affect, normal mood Skin exam: Present: warm, dry, intact, normal color. Absent: rash Course Vital Signs 11/24/17 11/24/17 11/24/17 07:48 07:59 09:00 Temperature 97.1 F L Pulse Rate 89 86 108 H Respiratory 16 17 20 Rate Blood Pressure 173/97 152/72 170/77 O2 Sat by Pulse 97 98 20 L Oximetry - Reevaluation(s) Reevaluation #1: 07/19/17 10:05 Patient's pain is well-controlled at this time EKG Findings - EKG Comments: EKG Findings:: EKG shows normal sinus rhythm rate of 99, KS 152, QRS 90, QTc 459 Medical Decision Making - Medical Decision Making 47 female DF for evaluation of multiple complaints chest pain abdominal pain. Patient multiple imaging tests done with no findings found. Patient is well- known to this emergency room. Patient will be discharged home - Lab Data Result diagrams: 07/19/17 08:04 07/19/17 08:04 Lab Results 07/19/17 07/19/17 07/19/17 Range/Units 08:04 08:04 08:04 WBC 7.2 (3.8-10.6) k/uL RBC 4.55 (3.80-5.40) m/uL Hgb 10.4 L (11.4-16.0) gm/dL Hct 34.4 (34.0-46.0) % MCV 75.5 L (80.0-100.0) fL MCH 22.9 L (25.0-35.0) pg MCHC 30.3 L (31.0-37.0) g/dL RDW 17.0 H (11.5-15.5) % Plt Count 240 (150-450) k/uL Neutrophils % 65 % Lymphocytes % 25 % Monocytes % 5 % Eosinophils % 4 % Basophils % 1 % Neutrophils # 4.7 (1.3-7.7) k/uL Lymphocytes # 1.8 (1.0-4.8) k/uL Monocytes # 0.4 (0-1.0) k/uL Eosinophils # 0.3 (0-0.7) k/uL Basophils # 0.0 (0-0.2) k/uL Hypochromasia Marked Anisocytosis Slight Microcytosis Slight PT (9.0-12.0) sec INR (<1.2) APTT (22.0-30.0) sec D-Dimer (<0.60) mg/L FEU Sodium 137 (137-145) mmol/L Potassium 3.8 (3.5-5.1) mmol/L Chloride 103 (98-107) mmol/L Carbon Dioxide 28 (22-30) mmol/L Anion Gap 6 mmol/L BUN 11 (7-17) mg/dL Creatinine 0.90 (0.52-1.04) mg/dL Est GFR (MDRD) Af Amer >60 (>60 ml/min/1.73 sqM) Est GFR (MDRD) Non-Af >60 (>60 ml/min/1.73 sqM) Glucose 148 H (74-99) mg/dL Calcium 8.8 (8.4-10.2) mg/dL Magnesium 1.7 (1.6-2.3) mg/dL Total Bilirubin 0.4 (0.2-1.3) mg/dL AST 12 L (14-36) U/L ALT 30 (9-52) U/L Alkaline Phosphatase 103 (38-126) U/L Total Creatine Kinase 35 (30-135) U/L CK-MB (CK-2) 1.1 (0.0-2.4) ng/mL CK-MB (CK-2) Rel Index 3.1 Troponin I <0.012 (0.000-0.034) ng/mL Total Protein 6.3 (6.3-8.2) g/dL Albumin 3.5 (3.5-5.0) g/dL Lipase 59 (23-300) U/L 07/19/17 Range/Units 08:04 WBC (3.8-10.6) k/uL RBC (3.80-5.40) m/uL Hgb (11.4-16.0) gm/dL Hct (34.0-46.0) % MCV (80.0-100.0) fL MCH (25.0-35.0) pg MCHC (31.0-37.0) g/dL RDW (11.5-15.5) % Plt Count (150-450) k/uL Neutrophils % % Lymphocytes % % Monocytes % % Eosinophils % % Basophils % % Neutrophils # (1.3-7.7) k/uL Lymphocytes # (1.0-4.8) k/uL Monocytes # (0-1.0) k/uL Eosinophils # (0-0.7) k/uL Basophils # (0-0.2) k/uL Hypochromasia Anisocytosis Microcytosis PT 9.9 (9.0-12.0) sec INR 1.0 (<1.2) APTT 23.0 (22.0-30.0) sec D-Dimer 0.65 H (<0.60) mg/L FEU Sodium (137-145) mmol/L Potassium (3.5-5.1) mmol/L Chloride (98-107) mmol/L Carbon Dioxide (22-30) mmol/L Anion Gap mmol/L BUN (7-17) mg/dL Creatinine (0.52-1.04) mg/dL Est GFR (MDRD) Af Amer (>60 ml/min/1.73 sqM) Est GFR (MDRD) Non-Af (>60 ml/min/1.73 sqM) Glucose (74-99) mg/dL Calcium (8.4-10.2) mg/dL Magnesium (1.6-2.3) mg/dL Total Bilirubin (0.2-1.3) mg/dL AST (14-36) U/L ALT (9-52) U/L Alkaline Phosphatase (38-126) U/L Total Creatine Kinase (30-135) U/L CK-MB (CK-2) (0.0-2.4) ng/mL CK-MB (CK-2) Rel Index Troponin I (0.000-0.034) ng/mL Total Protein (6.3-8.2) g/dL Albumin (3.5-5.0) g/dL Lipase (23-300) U/L - Radiology Data Radiology results: report reviewed (CT chest abdomen pelvis negative for PE negative for abdominal issue, chest x-ray x-ray KUB is negative BILATERAL LOWER SHOULDER IS NEGATIVE FOR ACUTE DISEASE), image reviewed Disposition Clinical Impression: Chest pain, Atypical chest pain, Abdominal pain Disposition: HOME SELF-CARE Condition: Good Instructions: Chest Pain (ED), Abdominal Pain (ED) Referrals: Eleazar Posey MD [Primary Care Provider] - 1-2 days
[2017-07-19 08:25] LABS: ALT 30 U/L (9-52); AST 12 U/L (14-36); Alkaline Phosphatase 103 U/L (38-126); Anion Gap 6 mmol/L; Blood Urea Nitrogen 11 mg/dL (7-17); Calcium 8.8 mg/dL (8.4-10.2); Carbon Dioxide 28 mmol/L (22-30); Chloride 103 mmol/L (98-107); Glucose 148 mg/dL (74-99); Magnesium 1.7 mg/dL (1.6-2.3); Non-African American GFR(MDRD) >60 (>60 ml/min/1.73 sqM); Potassium 3.8 mmol/L (3.5-5.1); Sodium 137 mmol/L (137-145); Total Bilirubin 0.4 mg/dL (0.2-1.3); Total Protein 6.3 g/dL (6.3-8.2)
[2017-07-19 08:29] LABS: Prothrombin Time 9.9 sec (9.0-12.0)
--- NOTE | 2017-07-19 08:29 | XR ---
EXAMINATION TYPE: XR chest 2V DATE OF EXAM: 07/19/2017 COMPARISON: 05/31/2017 HISTORY: Chest pain and shortness of breath TECHNIQUE: Frontal and lateral views of the chest are obtained. FINDINGS: There is no focal air space opacity, pleural effusion, or pneumothorax seen. The cardiac silhouette size is within normal limits. The osseous structures are intact. IMPRESSION: No acute cardiopulmonary process.
--- NOTE | 2017-07-19 08:31 | XR ---
EXAMINATION TYPE: XR KUB DATE OF EXAM: 07/19/2017 8:24 AM CLINICAL HISTORY: Abdominal pain TECHNIQUE: Single supine KUB image of the abdomen is obtained. COMPARISON: 04/11/2017. FINDINGS: Single mildly dilated loop of small bowel seen within the left mid abdomen. Other dilated b owel is seen. Scattered gas is seen in non-distended small bowel loops. Gas and fecal material is see n in non-distended colon. No abnormal calcifications are appreciated within the abdomen or pelvis. Th e lung bases are clear and the osseous structures are intact. IMPRESSION: Single loop of mildly dilated small bowel favoring ileus.
[2017-07-19 08:35] LABS: Creatine Kinase 35 U/L (30-135)
[2017-07-19 08:48] LABS: Creatine Kinase MB 1.1 ng/mL (0.0-2.4); Troponin I <0.012 ng/mL (0.000-0.034)
[2017-07-19] MEDS ORDERED: RX INFO: IV CONTRAST WAS GIVEN 1 EACH MISC MISCELLANE PRN (08:49)
--- NOTE | 2017-07-19 09:42 | CT ---
EXAMINATION TYPE: CT angio chest DATE OF EXAM: 07/19/2017 COMPARISON: 08/18/2016 and 11/08/2015 HISTORY: Patient complains of generalized abdominal/pelvic pain, nausea, vomiting, diarrhea, and bila teral leg pain. CT DLP: 351.2 mGycm. Automated Exposure Control for Dose Reduction was Utilized. CONTRAST: CTA scan of the thorax is performed with IV Contrast, patient injected with 100 mL of Omnipaque 350, pulmonary embolism protocol. MIP Images are created on CT scanner and reviewed. FINDINGS: LUNGS: The lungs are grossly clear, there is no concerning parenchymal mass identified. 3.6 mm right upper lobe pulmonary nodule on series 2 image 49 is retrospectively unchanged dating back to 6 and approaches 2 years of stability. Distal to this there is pleural parenchymal scarring, therefor e this could also relate to endobronchial mucoid impaction. Scattered areas of groundglass attenuatio n are seen dependently favoring atelectasis. There is no pleural effusion or pneumothorax seen. The tracheobronchial tree is patent. MEDIASTINUM: There is satisfactory enhancement of the pulmonary artery and its branches, there is no CT evidence for pulmonary embolism. There are no greater than 1 cm hilar or mediastinal lymph nodes. 1 cm short axis right infrahilar lymph node is unchanged dating back to 11/08/2015. No cardiomegaly or pericardial effusion is seen. OTHER: Small hiatal hernia is noted. Surgical clips are seen around the lesser curvature and gastroes ophageal junction. IMPRESSION: 1. No evidence of pulmonary embolus. 2. Bibasilar subsegmental dependent atelectasis. 3. Right upper lobe 3.6 mm pulmonary nodule approaching [address] of stability[address] Optional CT could be pe rformed in one year to establish long-term stability. 4. Small hiatal hernia and postoperative changes at the gastroesophageal junction.
--- NOTE | 2017-07-19 09:54 | CT ---
EXAMINATION TYPE: CT abdomen pelvis w con DATE OF EXAM: 07/19/2017 HISTORY: Patient complains of generalized abdominal/pelvic pain, nausea, vomiting, diarrhea, and bila teral leg pain. CT DLP: 1831mGycm Automated Exposure Control for Dose Reduction was Utilized. CONTRAST: CT scan of the abdomen and pelvis is performed with IV Contrast, patient injected with 100 mL of Omni paque 350. COMPARISON: 10/18/2015 CT abdomen and pelvis and abdominal ultrasound dated 05/21/2017. FINDINGS: LUNG BASES: Bibasilar subsegmental dependent atelectasis is noted. LIVER/GB: No significant abnormality is appreciated. PANCREAS: No significant abnormality is seen. SPLEEN: Stable proximally 9 mm hypoattenuated splenic lesion is seen inferiorly and anteriorly dating back to 10/18/2015 favoring a benign hemangioma or lymphangioma. ADRENALS: No significant abnormality is seen. KIDNEYS: Stable hypoattenuated 1.1 cm left midpole renal lesion is seen dating back to 10/18/2015 favo ring a hyperdense cyst containing proteinaceous debris, hemorrhage or pseudoenhancement as average Ho unsfield units measure 37. BOWEL: Postoperative changes are noted at the gastroesophageal junction with surgical clips also near the lesser curvature of the stomach. UTERUS/ADNEXA: No gross abnormality seen. LYMPH NODES: No greater than 1cm abdominal or pelvic lymph nodes are appreciated. OSSEOUS STRUCTURES: No significant abnormality is seen. OTHER: No significant additional abnormality is seen. IMPRESSION: 1. No significant acute finding is seen to account for patient's clinical symptoms. 2. Hypoattenuating left renal lesion demonstrating stability in size dating back to 10/18/2015, alisha travis sonographically and on CT this does not fit criteria for simple cyst. As described on the prior ult rasound MR could be performed for further evaluation. Differential includes hemorrhagic cyst, protein aceous cyst, cyst with signal enhancement, or renal neoplasm. 3. Unchanged benign-appearing splenic lesion that may represent a hemangioma or lymphangioma.
--- NOTE | 2017-07-19 10:00 | US ---
EXAMINATION TYPE: US venous doppler duplex LE DATE OF EXAM: 07/19/2017 9:50 AM COMPARISON: NONE CLINICAL HISTORY: Pain. Pain bilateral legs SIDE PERFORMED: bilateral TECHNIQUE: The lower extremity deep venous system is examined utilizing real time linear array sonog mikki with graded compression, doppler sonography and color-flow sonography. VESSELS IMAGED: External Iliac Vein (EIV) Common Femoral Vein Deep Femoral Vein Greater Saphenous Vein * Femoral Vein Popliteal Vein Small Saphenous Vein * Proximal Calf Veins (* superficial vessels) Right Leg: No evidence of DVT Left Leg: No evidence of DVT Grayscale, color doppler, spectral doppler imaging performed of the deep veins of the lower extremiti es. There is normal flow, compressibility, vascular waveforms. IMPRESSION: No sonographic evidence of deep venous thrombosis within either lower extremity.
[2017-07-19 10:21] VITALS: BP 146/66; PULSE 91; RESP 18; TEMP 97.8
== END 2017-07-19 10:21 | disposition home or self-care (01) ==
LOC: EC 07:45
DX: R07.89 Other chest pain (principal); R10.9 Unspecified abdominal pain; E11.9 Type 2 diabetes mellitus without complications; K21.9 Gastro-esophageal reflux disease without esophagitis; G40.909 Epilepsy, unspecified, not intractable, without status epilepticus; D64.9 Anemia, unspecified; Z79.84 Long term (current) use of oral hypoglycemic drugs; Z79.899 Other long term (current) drug therapy
CPT/HCPCS: 36415; 93005; 85379; 80053; 82550; 82553; 83690; 83735; 84484; 85025; 85610; 85730; 71020; 74000; 93970; 71275; 74177; 99285; 96360; 96361; Q9967

== ENCOUNTER 2017-07-20 09:51 | Emergency (ER) | payer MEDICARE, OTHER ==
--- NOTE | 2017-07-20 10:25 | ED ---
General Adult HPI - General Chief complaint: Abdominal Pain Stated complaint: DIZZINESS, LEG PAIN, ABDOMINAL PAIN Time Seen by Provider: 07/20/17 10:12 Source: patient, RN notes reviewed Mode of arrival: wheelchair Limitations: no limitations - History of Present Illness Initial comments: This is a 47-year-old female history of multiple medical problems and multiple visits to the emergency department was actually here yesterday and had a very extensive workup who is back today with complaints of increased leg pain. She states her pain is 10/10 severity though she is resting very comfortably. She states that sharp. She also complains of dizziness with certain movements. She denies any palpitations chest pain fevers chills nausea vomiting sweats cough or other symptoms. Please see yesterday's chart for complete information about the visit. - Related Data Home Medications Medication Instructions Recorded Confirmed metFORMIN HCL 1,000 mg PO BID 01/19/16 07/20/17 Atenolol [Tenormin] 50 mg PO DAILY 01/17/17 07/20/17 SUMAtriptan SUCCINATE [Imitrex] 50 mg PO BID PRN 01/17/17 07/20/17 Simvastatin [Zocor] 10 mg PO HS 01/17/17 07/20/17 Levothyroxine Sodium [Synthroid] 100 mcg PO DAILY 05/31/17 07/20/17 Ferrous Sulfate [Feosol] 325 mg PO DAILY 07/19/17 07/20/17 Lisinopril-Hctz 20-25 mg 1 tab PO DAILY 07/19/17 07/20/17 [Zestoretic 20-25] Previous Rx's Medication Instructions Recorded Aspirin 81 mg PO DAILY 06/01/17 Nitroglycerin Sl Tabs [Nitrostat] 0.4 mg SUBLINGUAL Q5M PRN #25 tab 06/01/17 Ibuprofen [Motrin] 600 mg PO Q6HR PRN #30 tab 07/09/17 Allergies Allergy/AdvReac Type Severity Reaction Status Date / Time No Known Allergies Allergy Verified 07/20/17 12:28 Review of Systems ROS Statement: Those systems with pertinent positive or pertinent negative responses have been documented in the HPI. ROS Other: All systems not noted in ROS Statement are negative. Past Medical History Past Medical History: CVA/TIA, Diabetes Mellitus, GERD/Reflux, Seizure Disorder Additional Past Medical History / Comment(s): GLAUCOMA. HX. BLEEDING ULCERS. last seizure 2012, ANEMIA. TIA 03/2017-no effects, "occ DIZZY SPELLS" seen in [facility] 10/22/16 , no medications for BP, cyst on kidney History of Any Multi-Drug Resistant Organisms: None Reported Past Surgical History: Breast Surgery, Cholecystectomy, Ear Surgery, Hernia Repair Additional Past Surgical History / Comment(s): TUBES IN EARS. RT EYE SX CHILD , kae fundoplication, left breast biopsy, R knee surg Past Anesthesia/Blood Transfusion Reactions: No Reported Reaction Additional Past Anesthesia/Blood Transfusion Reaction / Comment(s): mother got Hep C from blood transfusion. Past Psychological History: No Psychological Hx Reported Smoking Status: Never smoker Past Alcohol Use History: None Reported Past Drug Use History: None Reported - Past Family History Father History Unknown: Yes Additional Family Medical History / Comment(s): ulcer Mother Family Medical History: Deep Vein Thrombosis (DVT) Additional Family Medical History / Comment(s): "HEART PROBLEMS", Hep C Sister(s) Family Medical History: Congestive Heart Failure (CHF), Diabetes Mellitus Additional Family Medical History / Comment(s): heart problems Brother(s) Family Medical History: Diabetes Mellitus Additional Family Medical History / Comment(s): Mother and sister with Diabetes General Exam - General Exam Comments Initial Comments: This is a well-developed well-nourished awake alert oriented 3 female Limitations: no limitations General appearance: alert, in no apparent distress Head exam: Present: atraumatic, normocephalic, normal inspection Eye exam: Present: normal appearance, PERRL, EOMI. Absent: scleral icterus, conjunctival injection, periorbital swelling ENT exam: Present: normal exam, mucous membranes moist Neck exam: Present: normal inspection. Absent: tenderness, meningismus, lymphadenopathy Respiratory exam: Present: normal lung sounds bilaterally. Absent: respiratory distress, wheezes, rales, rhonchi, stridor Cardiovascular Exam: Present: regular rate, normal rhythm, normal heart sounds. Absent: systolic murmur, diastolic murmur, rubs, gallop, clicks GI/Abdominal exam: Present: soft, normal bowel sounds. Absent: distended, tenderness, guarding, rebound, rigid Extremities exam: Present: normal inspection, full ROM, tenderness (Patient states she has tenderness palpation over her calves and anterior legs and lower thighs. No palpable masses no palpable cords), normal capillary refill, other ( Capillary refills less than 2 seconds bilaterally). Absent: pedal edema, joint swelling, calf tenderness Back exam: Present: normal inspection Neurological exam: Present: alert, oriented X3, CN II-XII intact Psychiatric exam: Present: normal affect, normal mood Skin exam: Present: warm, dry, intact, normal color. Absent: rash Course Vital Signs 07/20/17 10:09 Temperature 97.8 F Pulse Rate 100 Respiratory 16 Rate Blood Pressure 157/87 O2 Sat by Pulse 99 Oximetry EKG Findings - EKG Results: EKG: interpreted by ERMD, WNL, sinus rhythm, normal axis, normal QRS, normal ST/ T, no acute changes (Normal sinus rhythm at 90. A 112 QRS 92 QT since QTC of 370/[address]-T wave changes.) Procedures - Procedures Initial comment: The patient did have a PEG tube it was intact and in place however the sutures that were holding it in came out. After auscultation 2 revealed that the tube was in good position I was able to secure the tube back in place using 0 Prolene suture. I did anesthetize the area after prepping it with a ChloraPrep. Place a stitch at the site of the previous stitch. And secured the PEG tube in place. Patient did tolerate this well he will be discharged Medical Decision Making - Lab Data Result diagrams: 07/20/17 10:38 07/20/17 10:38 Lab Results 07/20/17 07/20/17 07/20/17 Range/Units 10:38 10:38 10:38 WBC 7.0 (3.8-10.6) k/uL RBC 4.73 (3.80-5.40) m/uL Hgb 10.4 L (11.4-16.0) gm/dL Hct 36.0 (34.0-46.0) % MCV 76.1 L (80.0-100.0) fL MCH 22.0 L (25.0-35.0) pg MCHC 28.9 L (31.0-37.0) g/dL RDW 15.8 H (11.5-15.5) % Plt Count 274 (150-450) k/uL Neutrophils % 70 % Lymphocytes % 21 % Monocytes % 4 % Eosinophils % 3 % Basophils % 0 % Neutrophils # 4.9 (1.3-7.7) k/uL Lymphocytes # 1.5 (1.0-4.8) k/uL Monocytes # 0.3 (0-1.0) k/uL Eosinophils # 0.2 (0-0.7) k/uL Basophils # 0.0 (0-0.2) k/uL Hypochromasia Marked Microcytosis Slight Sodium (137-145) mmol/L Potassium (3.5-5.1) mmol/L Chloride (98-107) mmol/L Carbon Dioxide (22-30) mmol/L Anion Gap mmol/L BUN (7-17) mg/dL Creatinine (0.52-1.04) mg/dL Est GFR (MDRD) Af Amer (>60 ml/min/1.73 sqM) Est GFR (MDRD) Non-Af (>60 ml/min/1.73 sqM) Glucose (74-99) mg/dL Calcium (8.4-10.2) mg/dL Magnesium (1.6-2.3) mg/dL Total Bilirubin (0.2-1.3) mg/dL AST (14-36) U/L ALT (9-52) U/L Alkaline Phosphatase (38-126) U/L Total Creatine Kinase 34 (30-135) U/L CK-MB (CK-2) 1.2 (0.0-2.4) ng/mL CK-MB (CK-2) Rel Index 3.5 Total Protein (6.3-8.2) g/dL Albumin (3.5-5.0) g/dL Urine Color Yellow Urine Appearance Clear (Clear) Urine pH 6.5 (5.0-8.0) Ur Specific Mitchell 1.020 (1.001-1.035) Urine Protein Negative (Negative) Urine Glucose (UA) Negative (Negative) Urine Ketones Negative (Negative) Urine Blood Negative (Negative) Urine Nitrite Negative (Negative) Urine Bilirubin Negative (Negative) Urine Urobilinogen 4.0 (<2.0) mg/dL Ur Leukocyte Esterase Small H (Negative) Urine RBC <1 (0-5) /hpf Urine WBC 2 (0-5) /hpf Ur Squamous Epith Cells 6 H (0-4) /hpf Urine Bacteria Rare H (None) /hpf Hyaline Casts 1 (0-2) /lpf Urine Mucus Rare H (None) /hpf 07/20/17 07/20/17 Range/Units 10:38 10:38 WBC (3.8-10.6) k/uL RBC (3.80-5.40) m/uL Hgb (11.4-16.0) gm/dL Hct (34.0-46.0) % MCV (80.0-100.0) fL MCH (25.0-35.0) pg MCHC (31.0-37.0) g/dL RDW (11.5-15.5) % Plt Count (150-450) k/uL Neutrophils % % Lymphocytes % % Monocytes % % Eosinophils % % Basophils % % Neutrophils # (1.3-7.7) k/uL Lymphocytes # (1.0-4.8) k/uL Monocytes # (0-1.0) k/uL Eosinophils # (0-0.7) k/uL Basophils # (0-0.2) k/uL Hypochromasia Microcytosis Sodium 138 (137-145) mmol/L Potassium 4.5 (3.5-5.1) mmol/L Chloride 103 (98-107) mmol/L Carbon Dioxide 28 (22-30) mmol/L Anion Gap 7 mmol/L BUN 15 (7-17) mg/dL Creatinine 0.87 (0.52-1.04) mg/dL Est GFR (MDRD) Af Amer >60 (>60 ml/min/1.73 sqM) Est GFR (MDRD) Non-Af >60 (>60 ml/min/1.73 sqM) Glucose 181 H (74-99) mg/dL Calcium 9.1 (8.4-10.2) mg/dL Magnesium 1.6 (1.6-2.3) mg/dL Total Bilirubin 0.4 (0.2-1.3) mg/dL AST 14 (14-36) U/L ALT 23 (9-52) U/L Alkaline Phosphatase 107 (38-126) U/L Total Creatine Kinase (30-135) U/L CK-MB (CK-2) (0.0-2.4) ng/mL CK-MB (CK-2) Rel Index Total Protein 6.7 (6.3-8.2) g/dL Albumin 3.5 (3.5-5.0) g/dL Urine Color Urine Appearance (Clear) Urine pH (5.0-8.0) Ur Specific Mitchell (1.001-1.035) Urine Protein (Negative) Urine Glucose (UA) (Negative) Urine Ketones (Negative) Urine Blood (Negative) Urine Nitrite (Negative) Urine Bilirubin (Negative) Urine Urobilinogen (<2.0) mg/dL Ur Leukocyte Esterase (Negative) Urine RBC (0-5) /hpf Urine WBC (0-5) /hpf Ur Squamous Epith Cells (0-4) /hpf Urine Bacteria (None) /hpf Hyaline Casts (0-2) /lpf Urine Mucus (None) /hpf Disposition Clinical Impression: PEG tube malfunction Disposition: HOME SELF-CARE Condition: Good Instructions: How to Use and Care for Your PEG Tube (ED) Referrals: Eleazar Posey MD [Primary Care Provider] - 1-2 days
[2017-07-20] MEDS ORDERED: KETOROLAC 30 MG/ML 1 ML VIAL IVP STA (10:48)
[2017-07-20 10:52] LABS: Basophils % (A) 0 %; CH 22.7; CHCM 29.9; Eosinophils # (A) 0.2 k/uL (0-0.7); Eosinophils % (A) 3 %; HDW 3.24; HGB 10.4 gm/dL (11.4-16.0); Hypochromasia Marked; Luc # (Auto) 0.15; Luc % (Auto) 2; Lymphocytes # (A) 1.5 k/uL (1.0-4.8); Lymphocytes % (A) 21 %; MCHC 28.9 g/dL (31.0-37.0); MCV 76.1 fL (80.0-100.0); Microcytosis Slight; Monocytes # (A) 0.3 k/uL (0-1.0); Monocytes % (A) 4 %; Neutrophils # (A) 4.9 k/uL (1.3-7.7); Neutrophils % (A) 70 %; RBC 4.73 m/uL (3.80-5.40); RDW 15.8 % (11.5-15.5); WBC (Perox) 6.97
[2017-07-20 10:53] LABS: Appearance,Urine Clear (Clear); Bacteria,Urine Rare /hpf; Bilirubin,Urine Negative (Negative); Glucose,Urine (UA) Negative (Negative); Ketones,Urine Negative (Negative); Leukocyte Esterase,Urine Small (Negative); Mucus,Urine Rare /hpf; Nitrite,Urine Negative (Negative); PH, Urine 6.5 (5.0-8.0); Particle Count 2887; Protein,Urine Negative (Negative); RBC,Urine <1 /hpf (0-5); Squamous Epithelial Cell,Urine 6 /hpf (0-4); UA Billing (MACRO vs. MICRO) MICRO; WBC,Urine 2 /hpf (0-5)
[2017-07-20 11:36] LABS: Creatine Kinase MB 1.2 ng/mL (0.0-2.4)
[2017-07-20 11:52] LABS: ALT 23 U/L (9-52); AST 14 U/L (14-36); Alkaline Phosphatase 107 U/L (38-126); Anion Gap 7 mmol/L; Blood Urea Nitrogen 15 mg/dL (7-17); Calcium 9.1 mg/dL (8.4-10.2); Carbon Dioxide 28 mmol/L (22-30); Chloride 103 mmol/L (98-107); Glucose 181 mg/dL (74-99); Non-African American GFR(MDRD) >60 (>60 ml/min/1.73 sqM); Potassium 4.5 mmol/L (3.5-5.1); Sodium 138 mmol/L (137-145); Total Bilirubin 0.4 mg/dL (0.2-1.3); Total Protein 6.7 g/dL (6.3-8.2)
--- NOTE | 2017-07-20 12:48 | ED ---
Medical Decision Making - Lab Data Result diagrams: 07/20/17 10:38 07/20/17 10:38 Lab Results 07/20/17 07/20/17 07/20/17 Range/Units 10:38 10:38 10:38 WBC 7.0 (3.8-10.6) k/uL RBC 4.73 (3.80-5.40) m/uL Hgb 10.4 L (11.4-16.0) gm/dL Hct 36.0 (34.0-46.0) % MCV 76.1 L (80.0-100.0) fL MCH 22.0 L (25.0-35.0) pg MCHC 28.9 L (31.0-37.0) g/dL RDW 15.8 H (11.5-15.5) % Plt Count 274 (150-450) k/uL Neutrophils % 70 % Lymphocytes % 21 % Monocytes % 4 % Eosinophils % 3 % Basophils % 0 % Neutrophils # 4.9 (1.3-7.7) k/uL Lymphocytes # 1.5 (1.0-4.8) k/uL Monocytes # 0.3 (0-1.0) k/uL Eosinophils # 0.2 (0-0.7) k/uL Basophils # 0.0 (0-0.2) k/uL Hypochromasia Marked Microcytosis Slight Sodium (137-145) mmol/L Potassium (3.5-5.1) mmol/L Chloride (98-107) mmol/L Carbon Dioxide (22-30) mmol/L Anion Gap mmol/L BUN (7-17) mg/dL Creatinine (0.52-1.04) mg/dL Est GFR (MDRD) Af Amer (>60 ml/min/1.73 sqM) Est GFR (MDRD) Non-Af (>60 ml/min/1.73 sqM) Glucose (74-99) mg/dL Calcium (8.4-10.2) mg/dL Magnesium (1.6-2.3) mg/dL Total Bilirubin (0.2-1.3) mg/dL AST (14-36) U/L ALT (9-52) U/L Alkaline Phosphatase (38-126) U/L Total Creatine Kinase 34 (30-135) U/L CK-MB (CK-2) 1.2 (0.0-2.4) ng/mL CK-MB (CK-2) Rel Index 3.5 Total Protein (6.3-8.2) g/dL Albumin (3.5-5.0) g/dL Urine Color Yellow Urine Appearance Clear (Clear) Urine pH 6.5 (5.0-8.0) Ur Specific [place] 1.020 (1.001-1.035) Urine Protein Negative (Negative) Urine Glucose (UA) Negative (Negative) Urine Ketones Negative (Negative) Urine Blood Negative (Negative) Urine Nitrite Negative (Negative) Urine Bilirubin Negative (Negative) Urine Urobilinogen 4.0 (<2.0) mg/dL Ur Leukocyte Esterase Small H (Negative) Urine RBC <1 (0-5) /hpf Urine WBC 2 (0-5) /hpf Ur Squamous Epith Cells 6 H (0-4) /hpf Urine Bacteria Rare H (None) /hpf Hyaline Casts 1 (0-2) /lpf Urine Mucus Rare H (None) /hpf 07/20/17 07/20/17 Range/Units 10:38 10:38 WBC (3.8-10.6) k/uL RBC (3.80-5.40) m/uL Hgb (11.4-16.0) gm/dL Hct (34.0-46.0) % MCV (80.0-100.0) fL MCH (25.0-35.0) pg MCHC (31.0-37.0) g/dL RDW (11.5-15.5) % Plt Count (150-450) k/uL Neutrophils % % Lymphocytes % % Monocytes % % Eosinophils % % Basophils % % Neutrophils # (1.3-7.7) k/uL Lymphocytes # (1.0-4.8) k/uL Monocytes # (0-1.0) k/uL Eosinophils # (0-0.7) k/uL Basophils # (0-0.2) k/uL Hypochromasia Microcytosis Sodium 138 (137-145) mmol/L Potassium 4.5 (3.5-5.1) mmol/L Chloride 103 (98-107) mmol/L Carbon Dioxide 28 (22-30) mmol/L Anion Gap 7 mmol/L BUN 15 (7-17) mg/dL Creatinine 0.87 (0.52-1.04) mg/dL Est GFR (MDRD) Af Amer >60 (>60 ml/min/1.73 sqM) Est GFR (MDRD) Non-Af >60 (>60 ml/min/1.73 sqM) Glucose 181 H (74-99) mg/dL Calcium 9.1 (8.4-10.2) mg/dL Magnesium 1.6 (1.6-2.3) mg/dL Total Bilirubin 0.4 (0.2-1.3) mg/dL AST 14 (14-36) U/L ALT 23 (9-52) U/L Alkaline Phosphatase 107 (38-126) U/L Total Creatine Kinase (30-135) U/L CK-MB (CK-2) (0.0-2.4) ng/mL CK-MB (CK-2) Rel Index Total Protein 6.7 (6.3-8.2) g/dL Albumin 3.5 (3.5-5.0) g/dL Urine Color Urine Appearance (Clear) Urine pH (5.0-8.0) Ur Specific [place] (1.001-1.035) Urine Protein (Negative) Urine Glucose (UA) (Negative) Urine Ketones (Negative) Urine Blood (Negative) Urine Nitrite (Negative) Urine Bilirubin (Negative) Urine Urobilinogen (<2.0) mg/dL Ur Leukocyte Esterase (Negative) Urine RBC (0-5) /hpf Urine WBC (0-5) /hpf Ur Squamous Epith Cells (0-4) /hpf Urine Bacteria (None) /hpf Hyaline Casts (0-2) /lpf Urine Mucus (None) /hpf Disposition Clinical Impression: Leg pain, Dizziness Disposition: HOME SELF-CARE Condition: Good Instructions: Arthralgia (ED), Leg Pain (ED), Dizziness (ED) Prescriptions: Ibuprofen 800 mg PO Q6HR PRN #20 tablet PRN Reason: Pain Magnesium 200 mg PO DAILY #7 tablet Meclizine [Antivert] 25 mg PO TID #20 tab Referrals: Eleazar Posey MD [Primary Care Provider] - 1-2 days
[2017-07-20 13:05] VITALS: BP 166/79; PULSE 82; RESP 18; TEMP 97.6
== END 2017-07-20 13:05 | disposition home or self-care (01) ==
LOC: EC 09:51
DX: M79.604 Pain in right leg (principal); M79.605 Pain in left leg; R10.9 Unspecified abdominal pain; R42 Dizziness and giddiness; E11.9 Type 2 diabetes mellitus without complications; Z90.49 Acquired absence of other specified parts of digestive tract; Z86.73 Personal history of transient ischemic attack (TIA), and cerebral infarction without residual deficits; Z79.84 Long term (current) use of oral hypoglycemic drugs; Z79.899 Other long term (current) drug therapy
CPT/HCPCS: 36415; 93005; 80053; 82550; 82553; 83735; 85025; 81001; 99284; 96374; J1885

== ENCOUNTER → 2017-08-20 | Outpatient (CLI) | payer MEDICARE, OTHER | END | disposition home or self-care (01) | LOC: LABWHC1 09:00 | PROVIDERS: ATTEND Obstetrics & Gynecology | DX: Z01.812 Encounter for preprocedural laboratory examination (principal) | CPT/HCPCS: 86850; 86900; 86901 ==

== ENCOUNTER → 2017-08-27 | Outpatient (CLI) | payer MEDICARE, OTHER | END | disposition home or self-care (01) | LOC: LABPAT 11:00 | PROVIDERS: ATTEND Obstetrics & Gynecology | DX: Z01.818 Encounter for other preprocedural examination (principal) | CPT/HCPCS: 93005 ==

== ENCOUNTER 2017-08-29 05:53 | Day surgery (SDC) | payer MEDICARE, OTHER ==
[2017-08-21 14:38] VITALS: BMI 41.5
[~2017-08-29 05:53] MED LIST changes: +DEXAMETHASONE SOD PHOSPHATE 10 MG/ML 1 ML VIAL IV ONE; +HYDROmorphone 1 MG/ML 1 ML SYRINGE IVP PRN; +LACTATED RINGERS 1,000 ML IV ONE; -LACTATED RINGERS 1,000 ML IV SCH; -MORPHINE SULFATE 10 MG/ML SYRINGE IV PRN; +MORPHINE SULFATE 5 MG/ML SYRINGE IV PRN; +ONDANSETRON 4 MG/2 ML VIAL IVP ONE; -Pre Op ABX Message 1 EACH MISC MISCELLANE ONE; +ceFAZolin IN SWFI 2 GM/20 ML SYRINGE IVP ONE
[2017-08-29 06:21] LABS: Glucose,Whole Blood 113 mg/dL (75-99)
--- NOTE | 2017-08-29 06:57 | P.HPOB ---
History of Present Illness H&P Date: 08/29/17 Chief Complaint: atypical hyperplasia 47 year old presents for [facility] BSO with da vinici for complex hyperplasia with atypia diagnosed on D&C after an episode of postmenopausal bleeding. Review of Systems All systems: negative Constitutional: Denies chills, Denies fever Eyes: denies blurred vision, denies pain Ears, nose, mouth and throat: Denies headache, Denies sore throat Cardiovascular: Denies chest pain, Denies shortness of breath Respiratory: Denies cough Gastrointestinal: Denies abdominal pain, Denies diarrhea, Denies nausea, Denies vomiting Genitourinary: Denies dysuria, Denies hematuria Musculoskeletal: Denies myalgias Integumentary: Denies pruritus, Denies rash Neurological: Denies numbness, Denies weakness Psychiatric: Denies anxiety, Denies depression Endocrine: Denies fatigue, Denies weight change Past Medical History Past Medical History: CVA/TIA, Diabetes Mellitus, GERD/Reflux, Seizure Disorder Additional Past Medical History / Comment(s): GLAUCOMA. HX. BLEEDING ULCERS. last seizure 2012, ANEMIA. TIA 03/2017-no effects, "occ DIZZY SPELLS" seen in [facility] 10/22/16 , cyst on kidney History of Any Multi-Drug Resistant Organisms: None Reported Past Surgical History: Breast Surgery, Cholecystectomy, Ear Surgery, Hernia Repair Additional Past Surgical History / Comment(s): TUBES IN EARS. RT EYE SX CHILD , kae fundoplication, left breast biopsy, R knee surg Past Anesthesia/Blood Transfusion Reactions: No Reported Reaction Additional Past Anesthesia/Blood Transfusion Reaction / Comment(s): mother got Hep C from blood transfusion. Past Psychological History: No Psychological Hx Reported Smoking Status: Never smoker Past Alcohol Use History: None Reported Past Drug Use History: None Reported - Past Family History Father History Unknown: Yes Additional Family Medical History / Comment(s): ulcer Mother Family Medical History: Deep Vein Thrombosis (DVT) Additional Family Medical History / Comment(s): "HEART PROBLEMS", Hep C Sister(s) Family Medical History: Congestive Heart Failure (CHF), Diabetes Mellitus Additional Family Medical History / Comment(s): heart problems Brother(s) Family Medical History: Diabetes Mellitus Additional Family Medical History / Comment(s): Mother and sister with Diabetes Medications and Allergies Home Medications Medication Instructions Recorded Confirmed Type metFORMIN HCL 1,000 mg PO BID 01/19/16 08/29/17 History Atenolol [Tenormin] 50 mg PO QAM 01/17/17 08/29/17 History SUMAtriptan SUCCINATE [Imitrex] 50 mg PO BID PRN 01/17/17 08/21/17 History Simvastatin [Zocor] 10 mg PO HS 01/17/17 08/21/17 History Levothyroxine Sodium [Synthroid] 100 mcg PO SUTUTHSA 05/31/17 08/21/17 History Aspirin 81 mg PO DAILY 06/01/17 08/21/17 Rx Nitroglycerin Sl Tabs [Nitrostat] 0.4 mg SUBLINGUAL Q5M PRN #25 tab 06/01/17 Rx Ibuprofen [Motrin] 600 mg PO Q6HR PRN #30 tab 07/09/17 08/21/17 Rx Ferrous Sulfate [Feosol] 325 mg PO DAILY 07/19/17 08/21/17 History Magnesium 200 mg PO DAILY #7 tablet 07/20/17 08/21/17 Rx Levothyroxine Sodium [Synthroid] 112 mcg PO MOWEFR 07/29/17 08/21/17 History Lisinopril-Hctz 10-12.5 mg 1 tab PO QAM 07/29/17 08/21/17 History [Zestoretic 10-12.5] Meclizine [Antivert] 25 mg PO TID PRN 07/29/17 08/21/17 History Ranitidine HCl [Zantac] 150 mg PO BID #30 tab 08/14/17 08/29/17 Rx Allergies Allergy/AdvReac Type Severity Reaction Status Date / Time No Known Allergies Allergy Verified 08/21/17 14:45 Exam Osteopathic Statement: *. No significant issues noted on an osteopathic structural exam other than those noted in the History and Physical/Consult. - Vital Signs Vital signs: Vital Signs Temp Pulse Resp BP Pulse Ox 08/29/17 06:14 98.0 F 96 16 179/109 97 HEart: RRR Lungs: CTAB Abdomen: soft, nontender Extremeties: neg mandi's Results Abnormal Lab Results - Last 24 Hours (Table) 08/29/17 Range/Units 06:18 POC Glucose (mg/dL) 113 H (75-99) mg/dL Assessment and Plan (1) Complex endometrial hyperplasia with atypia Current Visit: Yes Status: Acute Code(s): N85.02 - ENDOMETRIAL INTRAEPITHELIAL NEOPLASIA [EIN] SNOMED Code(s): 765696936 Plan: 1. [facility] BSO with da harris, diagnostic cystoscopy, possible B[facility]IE BSO
[2017-08-29] MEDS ORDERED: fentaNYL (PF) 50 MCG/ML 2 ML AMP ONE (07:11)
[2017-08-29] MEDS ORDERED: NEOSTIGMINE 1 MG/ML 10 ML VIAL ONE (07:11)
[2017-08-29] MEDS ORDERED: LIDOCAINE 1% INJ 10MG/ML (20 ML MDV) ONE (07:11)
[2017-08-29] MEDS ORDERED: PROPOFOL 10 MG/ML 20 ML VIAL IV ONE (07:11)
[2017-08-29] MEDS ORDERED: ESMOLOL 100 MG/10 ML VIAL ONE (07:11)
[2017-08-29] MEDS ORDERED: GLYCOPYRROLATE 0.2 MG/ML 2 ML VIAL ONE (07:11)
[2017-08-29] MEDS ORDERED: MIDAZOLAM 2 MG/2 ML VIAL ONE (07:11)
[2017-08-29] MEDS ORDERED: ROCURONIUM BROMIDE 10 MG/ML 10 ML VIAL IV ONE (07:11)
[2017-08-29] MEDS ORDERED: SUCCINYLCHOLINE CHLORIDE 100 MG/5 ML SYR IV ONE (07:11)
[2017-08-29] MEDS ORDERED: KETOROLAC 30 MG/ML 1 ML VIAL ONE (07:11)
[2017-08-29] MEDS ORDERED: BUPIVACAINE (PF) 0.25% 30 ML VIAL SQ ONE (07:52)
--- NOTE | 2017-08-29 09:25 | P.OP ---
Date of Procedure: 08/29/17 Preoperative Diagnosis: 1. Complex hyperplasia with atypia Postoperative Diagnosis: 1. Complex hyperplasia with atypia Procedure(s) Performed: Total laparoscopic hysterectomy bilateral salpingo-oophorectomy with da Julio, diagnostic cystoscopy, extensive lysis of adhesions Anesthesia: RAE Surgeon: Diane Kirkpatrick Estimated Blood Loss (ml): 20 IV fluids (ml): 650 Urine output (ml): 200 Pathology: other (Uterus, cervix, bilateral tubes and ovaries) Condition: stable Disposition: PACU Operative Findings: Extensive omental adhesions to the anterior abdominal wall where there had previous been a mesh placed for hernia repair. Normal-appearing uterus, tubes, ovaries. Adhesions in the posterior cul-de-sac. Description of Procedure: Patient taken the operating room where general anesthesia was obtained without difficulty. She is prepped and draped in normal sterile fashion dorsal lithotomy position, legs placed in the Daryl stirrups. Weighted speculum placed in the vagina and the anterior lip the cervix was grasped with single- tooth tenaculum. The uterus sounded to 10 cm and the cervix diameter was 3.5 cm. The appropriate manipulator tip and ring were placed on the Suki manipulator. The Suki manipulator was then placed in the uterus. Robins catheter was also placed. Attention was then turned to the abdomen and gloves were changed. A 5 mm supraumbilical incision was made the scalpel and a 5 mm optical trocar was placed under direct visualization. 10 cm to the right of this and 2 cm down a 5 mm incision was made and 8 mm da Julio port was placed under direct visualization. Same measurements on the opposite side of the patient's abdomen, the 5 mm incision was made and 8 mm da Julio port was placed under direct visualization. In the left upper quadrant a 10 mm incision was made and a 10 mm optical trocar was placed under direct visualization. At this time it was noted that there was extensive omental adhesions to the anterior abdominal wall which would impede the vision with the camera of the uterus. A suprapubic incision was made and a 5 mm optical trocar was placed under direct visualization. The laparoscopic Metzenbaums were correct up to cautery and this was used to bring down some of the omental adhesions. The laparoscopic grasper was also used to bring down some of the adhesions in a blunt manner. Once all the omental adhesions were removed from the anterior abdominal wall and all hemostasis was assured, The 5 mm optical trocar was then replaced with the 8 mm da Julio camera port. The robot was then docked on patient's right side. The camera was introduced and then the monopolar curved scissor and [place] bipolar placed under direct visualization. I broke scrub and went to the physician console. The left infundibulopelvic ligament was cauterized with the [place] bipolar and cut with monopolar curved scissors. The left round ligament was cauterized with the [place] bipolar and cut with monopolar curved scissors. The posterior leaf of the broad ligament was taken down using the monopolar curved scissors. Anterior leaf of the broad ligament was then taken down using the monopolar curved scissors. The uterine artery was cauterized with the [place] bipolar and cut with monopolar curved scissors. The bladder flap was then started using the monopolar curved scissors. Attention was then turned to the right side of the patient's anatomy and the right infundibular pelvic ligament was cauterized with the [place] bipolar and cut with monopolar curved scissors. The right round ligament was cauterized with the [place] bipolar and cut with monopolar curved scissors. Posterior leaf of the broad ligament was taken down using the monopolar curved scissors and the anterior leaf was taken down using the monopolar curved scissors. The uterine artery was cauterized the [place] bipolar cut with monopolar curved scissors. The bladder flap was then finished on this side. Anterior colpotomy was made using the monopolar curved scissors. The rest of the uterus was from the vaginal cuff by following the ring around with the monopolar curved scissors through the uterosacral ligaments back to the anterior portion. Once the uterus and cervix were amputated they were pulled through the vaginal cuff. Hemostasis was assured. The instruments were changed for the Cardier forcep and the caden suture cut. The vaginal cuff was then closed using O stratafix barbed suture in a running fashion. Hemostasis was again assured and the pelvis was irrigated. All instruments were removed from the abdomen and the robot was undocked. I scrubbed back in to perform a cystoscopy. There were jets from both ureteral orifices. The abdominal incisions were closed with 4-0 Vicryl in a subcuticular fashion. Patient tolerated the procedure well, sponge and instrument counts correct 2 and she was taken to recovery room in stable condition condition
[2017-08-29] MEDS ORDERED: hydrALAZINE HCL 20 MG/ML 1 ML VIAL IVP ONE (09:48)
[2017-08-29] MEDS ORDERED: MECLIZINE 25 MG TAB PO PRN (10:38)
[2017-08-29] MEDS ORDERED: SIMETHICONE 80 MG CHEWABLE PO PRN (10:38)
[2017-08-29] MEDS ORDERED: diphenhydrAMINE 50 MG/ML 1 ML VIAL IVP PRN (10:38)
[2017-08-29] MEDS ORDERED: METOCLOPRAMIDE 5 MG/ML 2 ML VIAL IVP PRN (10:38)
[2017-08-29] MEDS ORDERED: Acetaminophen-Codeine 300-30mg TAB PO PRN (10:38)
[2017-08-29] MEDS ORDERED: LEVOTHYROXINE 100 MCG TAB PO SCH (10:38)
[2017-08-29] MEDS ORDERED: ONDANSETRON 4 MG/2 ML VIAL IVP PRN (10:38)
[2017-08-29] MEDS: Acetaminophen-Codeine 300-30mg TAB PO PRN ×2 (14:11→20:02)
[2017-08-29] MEDS: KETOROLAC 30 MG/ML 1 ML VIAL IVP PRN (17:12)
[2017-08-29] MEDS: metFORMIN 500 MG TAB PO SCH (18:34)
[2017-08-29] MEDS: SENNOSIDES-DOCUSATE SODIUM 1 EACH TAB PO SCH (19:55)
[2017-08-30] MEDS: KETOROLAC 30 MG/ML 1 ML VIAL IVP PRN (05:25)
[2017-08-30] MEDS ORDERED: LEVOTHYROXINE 112 MCG TAB PO SCH (06:30)
--- NOTE | 2017-08-30 07:22 | P.DS ---
Providers Date of admission: 08/29/17 Expected date of discharge: 08/30/17 Attending physician: Diane Kirkpatrick Primary care physician: Eleazar Posey - Discharge Diagnosis(es) (1) Complex endometrial hyperplasia with atypia Current Visit: Yes Status: Resolved (2) History of robot-assisted laparoscopic hysterectomy Current Visit: Yes Status: Acute Hospital Course: Presented for total laparoscopic hysterectomy bilateral salpingo-oophorectomy with da Julio. She underwent this procedure without complication. Her postoperative course was uneventful. She is ambulating and voiding without difficulty, her pain is well-controlled, she is tolerating regular diet and passing flatus. She denies nausea, vomiting, chest pain, shortness of breath or calf pain. Her incisions are clean, dry, intact. She'll be discharged home postoperative day #1 in stable condition to follow-up with me in 3 weeks. Plan - Discharge Summary Discharge Rx Participant: Yes New Discharge Prescriptions: New Acetaminophen-Codeine 300-30mg [Tylenol w/codeine #3] 2 each PO Q6HR PRN #30 tab PRN Reason: Severe Pain Acetaminophen-Codeine 300-30mg [Tylenol w/codeine #3] 1 each PO Q4HR PRN tab PRN Reason: Moderate Pain Continue metFORMIN HCL 1,000 mg PO BID SUMAtriptan SUCCINATE [Imitrex] 50 mg PO BID PRN PRN Reason: Migraine Headache Simvastatin [Zocor] 10 mg PO HS Atenolol [Tenormin] 50 mg PO QAM Levothyroxine Sodium [Synthroid] 100 mcg PO SUTUTHSA Aspirin 81 mg PO DAILY Nitroglycerin Sl Tabs [Nitrostat] 0.4 mg SUBLINGUAL Q5M PRN #25 tab PRN Reason: Chest Pain Magnesium 200 mg PO DAILY #7 tablet Meclizine [Antivert] 25 mg PO TID PRN PRN Reason: Vertigo Lisinopril-Hctz 10-12.5 mg [Zestoretic 10-12.5] 1 tab PO QAM Levothyroxine Sodium [Synthroid] 112 mcg PO MOWEFR Ranitidine HCl [Zantac] 150 mg PO BID #30 tab Ibuprofen [Motrin] 600 mg PO Q6HR PRN #30 tab PRN Reason: Mild Pain Or Fever >= 100.5 Discontinued Ferrous Sulfate [Feosol] 325 mg PO DAILY Discharge Medication List metFORMIN HCL 1,000 mg PO BID 01/19/16 [History] Atenolol [Tenormin] 50 mg PO QAM 01/17/17 [History] SUMAtriptan SUCCINATE [Imitrex] 50 mg PO BID PRN 01/17/17 [History] Simvastatin [Zocor] 10 mg PO HS 01/17/17 [History] Levothyroxine Sodium [Synthroid] 100 mcg PO SUTUTHSA 05/31/17 [History] Aspirin 81 mg PO DAILY 06/01/17 [Rx] Nitroglycerin Sl Tabs [Nitrostat] 0.4 mg SUBLINGUAL Q5M PRN #25 tab 06/01/17 [Rx ] Magnesium 200 mg PO DAILY #7 tablet 07/20/17 [Rx] Levothyroxine Sodium [Synthroid] 112 mcg PO MOWEFR 07/29/17 [History] Lisinopril-Hctz 10-12.5 mg [Zestoretic 10-12.5] 1 tab PO QAM 07/29/17 [History] Meclizine [Antivert] 25 mg PO TID PRN 07/29/17 [History] Ranitidine HCl [Zantac] 150 mg PO BID #30 tab 08/14/17 [Rx] Acetaminophen-Codeine 300-30mg [Tylenol w/codeine #3] 1 each PO Q4HR PRN tab [Rx] Acetaminophen-Codeine 300-30mg [Tylenol w/codeine #3] 2 each PO Q6HR PRN #30 tab 08/30/17 [Rx] Ibuprofen [Motrin] 600 mg PO Q6HR PRN #30 tab 08/30/17 [Rx] Discharge Disposition: HOME SELF-CARE
[2017-08-30] MEDS: metFORMIN 500 MG TAB PO SCH (07:48)
[2017-08-30 08:00] VITALS: BP 150/81; PULSE 90; RESP 16; TEMP 98.1
[2017-08-30 08:16] LABS: Anisocytosis Slight; Basophils % (A) 0 %; Eosinophils # (A) 0.1 k/uL (0-0.7); Eosinophils % (A) 1 %; HCT 35.5 % (34.0-46.0); HGB 10.3 gm/dL (11.4-16.0); Hypochromasia Marked; Lymphocytes # (A) 2.2 k/uL (1.0-4.8); Lymphocytes % (A) 19 %; MCH 22.1 pg (25.0-35.0); MCHC 29.1 g/dL (31.0-37.0); MCV 75.9 fL (80.0-100.0); Mean Platelet Volume 7.5; Microcytosis Slight; Monocytes # (A) 0.4 k/uL (0-1.0); Monocytes % (A) 3 %; Neutrophils # (A) 8.9 k/uL (1.3-7.7); Neutrophils % (A) 75 %; Platelet Count 271 k/uL (150-450); RBC 4.68 m/uL (3.80-5.40); RDW 16.1 % (11.5-15.5); WBC 11.7 k/uL (3.8-10.6)
[2017-08-30] MEDS: SENNOSIDES-DOCUSATE SODIUM 1 EACH TAB PO SCH (08:46)
[2017-08-30] MEDS ORDERED: MAGNESIUM OXIDE 400 MG TAB PO SCH (09:00)
[2017-08-30] MEDS ORDERED: LISINOPRIL-HCTZ 10-12.5 MG 1 EACH TAB PO SCH (09:00)
[2017-08-30] MEDS ORDERED: ATENOLOL 50 MG TAB PO SCH (09:00)
[2017-08-30] MEDS: Acetaminophen-Codeine 300-30mg TAB PO PRN (12:57)
== END 2017-08-30 14:23 | disposition home or self-care (01) ==
LOC: OR 05:53 → 4FBP 09:27 → OR 08-30 14:23
PROVIDERS: ATTEND Obstetrics & Gynecology
DX: N84.0 Polyp of corpus uteri (principal); N80.0 Endometriosis of uterus; D25.9 Leiomyoma of uterus, unspecified; N83.01 Follicular cyst of right ovary; N83.292 Other ovarian cyst, left side; K66.0 Peritoneal adhesions (postprocedural) (postinfection); E11.9 Type 2 diabetes mellitus without complications; K21.9 Gastro-esophageal reflux disease without esophagitis; G40.909 Epilepsy, unspecified, not intractable, without status epilepticus; H40.9 Unspecified glaucoma; I10 Essential (primary) hypertension; E78.5 Hyperlipidemia, unspecified; E07.9 Disorder of thyroid, unspecified; E66.9 Obesity, unspecified; Z68.41 Body mass index [BMI] 40.0-44.9, adult; Z86.73 Personal history of transient ischemic attack (TIA), and cerebral infarction without residual deficits; Z79.84 Long term (current) use of oral hypoglycemic drugs; Z79.82 Long term (current) use of aspirin; Z79.899 Other long term (current) drug therapy
CPT/HCPCS: 58571; 49329; 81025; 85025; 88309; J2250; J0360; J1100; J2710; J0690; J2405; J2001; J3010; J1885 ×2; J0330; J2704; 86850; 86900; 86901

== ENCOUNTER 2017-09-30 14:41 | Emergency (ER) | payer MEDICARE ==
[2017-09-30 16:53] VITALS: TEMP 98.1
--- NOTE | 2017-09-30 18:10 | ED ---
General Adult HPI - General Chief complaint: Chest Pain Stated complaint: chest pain 3wks/abdominal pain 4wks Time Seen by Provider: 09/30/17 17:54 Source: patient, RN notes reviewed, old records reviewed Mode of arrival: wheelchair Limitations: no limitations - History of Present Illness Initial comments: Patient's a 47-year-old female status post hysterectomy times one month, who presents emergency room today with a chief complaint of both abdominal and chest pain. Patient does not that the symptoms have been present over the last 3 weeks. She describes both areas a "sharp" type pain. States that she sharp chest pain located in the left side of the chest wall. Currently rates it a 10/ 10. She states it does seem to be worse when she moves around. Patient also states that she has had some pain in the right lower quadrant. Patient describes it as sharp pain. She states that both these pains come and go. They 're not constant. They've been off and on over the last few weeks. She states she decided to come here to the emergency room because her told her that she should get everything checked out. Patient does not that she had some symptoms of nausea and vomiting earlier with similar symptoms. She states that she's had symptoms both together and separately. She denies any other complaints. Patient denies any recent fever, chills, shortness of breath, back pain, numbness or tingling, dysuria or hematuria, constipation or diarrhea, headaches or visual changes, or any other complaints. - Related Data Home Medications Medication Instructions Recorded Confirmed metFORMIN HCL 1,000 mg PO BID 01/19/16 09/30/17 Atenolol [Tenormin] 50 mg PO QAM 01/17/17 09/30/17 SUMAtriptan SUCCINATE [Imitrex] 50 mg PO BID PRN 01/17/17 09/30/17 Simvastatin [Zocor] 10 mg PO HS 01/17/17 09/30/17 Levothyroxine Sodium [Synthroid] 100 mcg PO SUTUTHSA 05/31/17 09/30/17 Levothyroxine Sodium [Synthroid] 112 mcg PO MOWEFR 07/29/17 09/30/17 Lisinopril-Hctz 10-12.5 mg 1 tab PO QAM 07/29/17 09/30/17 [Zestoretic 10-12.5] Meclizine [Antivert] 25 mg PO TID PRN 07/29/17 09/30/17 Acetaminophen-Codeine 300-30mg 1 tab PO Q4HR PRN 09/30/17 09/30/17 [Tylenol w/codeine #3] Previous Rx's Medication Instructions Recorded Aspirin 81 mg PO DAILY 06/01/17 Nitroglycerin Sl Tabs [Nitrostat] 0.4 mg SUBLINGUAL Q5M PRN #25 tab 06/01/17 Magnesium 200 mg PO DAILY #7 tablet 07/20/17 Ranitidine HCl [Zantac] 150 mg PO BID #30 tab 08/14/17 Ibuprofen [Motrin] 600 mg PO Q6HR PRN #30 tab 08/30/17 Allergies Allergy/AdvReac Type Severity Reaction Status Date / Time No Known Allergies Allergy Verified 09/30/17 18:20 Review of Systems ROS Statement: Those systems with pertinent positive or pertinent negative responses have been documented in the HPI. ROS Other: All systems not noted in ROS Statement are negative. Past Medical History Past Medical History: CVA/TIA, Diabetes Mellitus, GERD/Reflux, Seizure Disorder Additional Past Medical History / Comment(s): GLAUCOMA. HX. BLEEDING ULCERS. last seizure 2012, ANEMIA. TIA 03/2017-no effects, "occ DIZZY SPELLS" seen in [facility] 10/22/16 , cyst on kidney History of Any Multi-Drug Resistant Organisms: None Reported Past Surgical History: Breast Surgery, Cholecystectomy, Ear Surgery, Hernia Repair, Hysterectomy Additional Past Surgical History / Comment(s): TUBES IN EARS. RT EYE SX CHILD , kae fundoplication 2015, left breast biopsy, R knee surg, Aug 2017 complete hysterectomy Past Anesthesia/Blood Transfusion Reactions: No Reported Reaction Additional Past Anesthesia/Blood Transfusion Reaction / Comment(s): mother got Hep C from blood transfusion. Past Psychological History: No Psychological Hx Reported Smoking Status: Never smoker Past Alcohol Use History: None Reported Past Drug Use History: None Reported - Past Family History Father History Unknown: Yes Additional Family Medical History / Comment(s): ulcer Mother Family Medical History: Deep Vein Thrombosis (DVT) Additional Family Medical History / Comment(s): "HEART PROBLEMS", Hep C Sister(s) Family Medical History: Congestive Heart Failure (CHF), Diabetes Mellitus Additional Family Medical History / Comment(s): heart problems Brother(s) Family Medical History: Diabetes Mellitus Additional Family Medical History / Comment(s): Mother and sister with Diabetes General Exam - General Exam Comments Initial Comments: General: The patient is awake and alert, in no distress, and does not appear acutely ill. Eye: Pupils are equal, round and reactive to light, extra-ocular movements are intact. No nystagmus. There is normal conjunctiva bilaterally. No signs of icterus. Ears, nose, mouth and throat: There are moist mucous membranes and no oral lesions. Neck: The neck is supple, there is no tenderness or JVD. Cardiovascular: There is a regular rate and rhythm. No murmur, rub or gallop is appreciated. Respiratory: Lungs are clear to auscultation, respirations are non-labored, breath sounds are equal. No wheezes, stridor, rales, or rhonchi. Gastrointestinal: Soft, non-distended. Tender palpation right lower quadrant. No rebound tenderness. No guarding. No CVA tenderness. . Musculoskeletal: Normal ROM, no tenderness. Strength 5/5. Sensation intact. Pulses equal bilaterally 2+. Neurological: A&O x 3. CN II-XII intact, There are no obvious motor or sensory deficits. Coordination appears grossly intact. Speech is normal. Skin: Skin is warm and dry and no rashes or lesions are noted. Psychiatric: Cooperative, appropriate mood & affect, normal judgment. Limitations: no limitations Course Vital Signs 09/30/17 09/30/17 16:51 18:48 Temperature 98.1 F Pulse Rate 88 88 Respiratory 20 20 Rate Blood Pressure 169/76 156/73 O2 Sat by Pulse 98 97 Oximetry - Reevaluation(s) Reevaluation #1: 09/30/17 18:09 Patient's recent hysterectomy report was reviewed. Patient did have a total hysterectomy EKG Findings - EKG Comments: EKG Findings:: EKG performed at 1643: A 12-lead EKG was performed and interpreted by me as showing the following: Rate is 79, and rhythm is normal sinus. There are normal QRS complexes and normal R-wave progression. ST segments have no elevation or depression, and MS segments appear normal. Medical Decision Making - Medical Decision Making Case discussed in detail with attending physician Dr. Canas. Patient reexamined at this time shows no signs of distress resting comfortably. His labs been reviewed are unremarkable. Results of the symptoms of an off-and-on over the last 3 weeks. Patient shows no signs of distress. Vitals are stable. Labs been reviewed are unremarkable. At this time patient advised to follow- up family doctor over the next 2 days. Advised return if symptoms increase or worsen or for any concerns. - Lab Data Result diagrams: 09/30/17 18:45 09/30/17 18:45 Lab Results 09/30/17 09/30/17 09/30/17 Range/Units 18:45 18:45 18:45 WBC 6.7 (3.8-10.6) k/uL RBC 5.44 H (3.80-5.40) m/uL Hgb 12.0 (11.4-16.0) gm/dL Hct 40.7 (34.0-46.0) % MCV 74.8 L (80.0-100.0) fL MCH 22.1 L (25.0-35.0) pg MCHC 29.6 L (31.0-37.0) g/dL RDW 16.3 H (11.5-15.5) % Plt Count 252 (150-450) k/uL Neutrophils % 72 % Lymphocytes % 21 % Monocytes % 4 % Eosinophils % 2 % Basophils % 0 % Neutrophils # 4.9 (1.3-7.7) k/uL Lymphocytes # 1.4 (1.0-4.8) k/uL Monocytes # 0.3 (0-1.0) k/uL Eosinophils # 0.1 (0-0.7) k/uL Basophils # 0.0 (0-0.2) k/uL Hypochromasia Marked Anisocytosis Slight Microcytosis Slight PT (9.0-12.0) sec INR (<1.2) APTT (22.0-30.0) sec D-Dimer (<0.60) mg/L FEU Sodium 142 (137-145) mmol/L Potassium 4.5 (3.5-5.1) mmol/L Chloride 102 (98-107) mmol/L Carbon Dioxide 30 (22-30) mmol/L Anion Gap 10 mmol/L BUN 7 (7-17) mg/dL Creatinine 0.90 (0.52-1.04) mg/dL Est GFR (MDRD) Af Amer >60 (>60 ml/min/1.73 sqM) Est GFR (MDRD) Non-Af >60 (>60 ml/min/1.73 sqM) Glucose 126 H (74-99) mg/dL Calcium 9.4 (8.4-10.2) mg/dL Total Bilirubin 0.5 (0.2-1.3) mg/dL AST 35 (14-36) U/L ALT 38 (9-52) U/L Alkaline Phosphatase 146 H (38-126) U/L Total Creatine Kinase 43 (30-135) U/L CK-MB (CK-2) 0.7 (0.0-2.4) ng/mL CK-MB (CK-2) Rel Index 1.6 Troponin I <0.012 (0.000-0.034) ng/mL Total Protein 7.2 (6.3-8.2) g/dL Albumin 3.9 (3.5-5.0) g/dL Amylase 54 (30-110) U/L Lipase 64 (23-300) U/L Urine Color Urine Appearance (Clear) Urine pH (5.0-8.0) Ur Specific [place] (1.001-1.035) Urine Protein (Negative) Urine Glucose (UA) (Negative) Urine Ketones (Negative) Urine Blood (Negative) Urine Nitrite (Negative) Urine Bilirubin (Negative) Urine Urobilinogen (<2.0) mg/dL Ur Leukocyte Esterase (Negative) Urine WBC (0-5) /hpf Ur Squamous Epith Cells (0-4) /hpf Urine Bacteria (None) /hpf Urine Mucus (None) /hpf 09/30/17 09/30/17 Range/Units 18:45 18:45 WBC (3.8-10.6) k/uL RBC (3.80-5.40) m/uL Hgb (11.4-16.0) gm/dL Hct (34.0-46.0) % MCV (80.0-100.0) fL MCH (25.0-35.0) pg MCHC (31.0-37.0) g/dL RDW (11.5-15.5) % Plt Count (150-450) k/uL Neutrophils % % Lymphocytes % % Monocytes % % Eosinophils % % Basophils % % Neutrophils # (1.3-7.7) k/uL Lymphocytes # (1.0-4.8) k/uL Monocytes # (0-1.0) k/uL Eosinophils # (0-0.7) k/uL Basophils # (0-0.2) k/uL Hypochromasia Anisocytosis Microcytosis PT 9.7 (9.0-12.0) sec INR 1.0 (<1.2) APTT 22.9 (22.0-30.0) sec D-Dimer 0.55 (<0.60) mg/L FEU Sodium (137-145) mmol/L Potassium (3.5-5.1) mmol/L Chloride (98-107) mmol/L Carbon Dioxide (22-30) mmol/L Anion Gap mmol/L BUN (7-17) mg/dL Creatinine (0.52-1.04) mg/dL Est GFR (MDRD) Af Amer (>60 ml/min/1.73 sqM) Est GFR (MDRD) Non-Af (>60 ml/min/1.73 sqM) Glucose (74-99) mg/dL Calcium (8.4-10.2) mg/dL Total Bilirubin (0.2-1.3) mg/dL AST (14-36) U/L ALT (9-52) U/L Alkaline Phosphatase (38-126) U/L Total Creatine Kinase (30-135) U/L CK-MB (CK-2) (0.0-2.4) ng/mL CK-MB (CK-2) Rel Index Troponin I (0.000-0.034) ng/mL Total Protein (6.3-8.2) g/dL Albumin (3.5-5.0) g/dL Amylase (30-110) U/L Lipase (23-300) U/L Urine Color Light Yellow Urine Appearance Clear (Clear) Urine pH 7.5 (5.0-8.0) Ur Specific [place] 1.006 (1.001-1.035) Urine Protein Negative (Negative) Urine Glucose (UA) Negative (Negative) Urine Ketones Negative (Negative) Urine Blood Negative (Negative) Urine Nitrite Negative (Negative) Urine Bilirubin Negative (Negative) Urine Urobilinogen <2.0 (<2.0) mg/dL Ur Leukocyte Esterase Small H (Negative) Urine WBC 5 (0-5) /hpf Ur Squamous Epith Cells 2 (0-4) /hpf Urine Bacteria Rare H (None) /hpf Urine Mucus Rare H (None) /hpf Disposition Clinical Impression: Abdominal pain, Chest pain Disposition: HOME SELF-CARE Condition: Good Instructions: Abdominal Pain (ED) Additional Instructions: Please use medication as discussed. Please follow-up with family doctor in the next 2 days of symptoms have not improved. Please return to emergency room if the symptoms increase or worsen or for any other concerns. Referrals: Eduardo Sahu MD [Primary Care Provider] - 1-2 days Time of Disposition: 19:51
[2017-09-30 19:03] LABS: Anisocytosis Slight; Basophils % (A) 0 %; Eosinophils # (A) 0.1 k/uL (0-0.7); Eosinophils % (A) 2 %; HCT 40.7 % (34.0-46.0); Hypochromasia Marked; Lymphocytes # (A) 1.4 k/uL (1.0-4.8); Lymphocytes % (A) 21 %; MCH 22.1 pg (25.0-35.0); MCHC 29.6 g/dL (31.0-37.0); MCV 74.8 fL (80.0-100.0); Microcytosis Slight; Monocytes # (A) 0.3 k/uL (0-1.0); Monocytes % (A) 4 %; Neutrophils # (A) 4.9 k/uL (1.3-7.7); Neutrophils % (A) 72 %; Platelet Count 252 k/uL (150-450); RBC 5.44 m/uL (3.80-5.40); RDW 16.3 % (11.5-15.5); WBC 6.7 k/uL (3.8-10.6)
[2017-09-30 19:10] LABS: D-Dimer 0.55 mg/L FEU (<0.60)
[2017-09-30 19:13] LABS: ALT 38 U/L (9-52); AST 35 U/L (14-36); Albumin 3.9 g/dL (3.5-5.0); Alkaline Phosphatase 146 U/L (38-126); Amylase 54 U/L (30-110); Anion Gap 10 mmol/L; Blood Urea Nitrogen 7 mg/dL (7-17); Calcium 9.4 mg/dL (8.4-10.2); Carbon Dioxide 30 mmol/L (22-30); Chloride 102 mmol/L (98-107); Glucose 126 mg/dL (74-99); Lipase 64 U/L (23-300); Potassium 4.5 mmol/L (3.5-5.1); Sodium 142 mmol/L (137-145); Total Bilirubin 0.5 mg/dL (0.2-1.3); Total Protein 7.2 g/dL (6.3-8.2)
[2017-09-30 19:14] LABS: Partial Thromboplastin Time 22.9 sec (22.0-30.0); Prothrombin Time 9.7 sec (9.0-12.0)
[2017-09-30 19:15] LABS: Appearance,Urine Clear (Clear); Bacteria,Urine Rare /hpf; Bilirubin,Urine Negative (Negative); Blood,Urine Negative (Negative); Color,Urine Light Yellow; Glucose,Urine (UA) Negative (Negative); Ketones,Urine Negative (Negative); Leukocyte Esterase,Urine Small (Negative); Mucus,Urine Rare /hpf; Nitrite,Urine Negative (Negative); PH, Urine 7.5 (5.0-8.0); Protein,Urine Negative (Negative); Specific Gravity,Urine 1.006 (1.001-1.035); Squamous Epithelial Cell,Urine 2 /hpf (0-4); Urobilinogen,Urine <2.0 mg/dL (<2.0); WBC,Urine 5 /hpf (0-5)
--- NOTE | 2017-09-30 19:26 | XR ---
EXAMINATION TYPE: XR chest 2V DATE OF EXAM: 09/30/2017 COMPARISON: 08/14/2017 HISTORY: Shortness of breath TECHNIQUE: Frontal and lateral views of the chest are obtained. FINDINGS: There is no focal air space opacity, pleural effusion, or pneumothorax seen. The cardiac silhouette size is within normal limits. The osseous structures are intact. IMPRESSION: No acute cardiopulmonary process.
--- NOTE | 2017-09-30 19:27 | XR ---
EXAMINATION TYPE: XR KUB DATE OF EXAM: 09/30/2017 7:16 PM CLINICAL HISTORY: Abdominal pain TECHNIQUE: Single upright image of the abdomen is obtained. COMPARISON: 07/19/2017 FINDINGS: Scattered gas is seen in non-distended small bowel loops. Gas and fecal material is seen in non-distended colon. There is no visceromegaly, pneumoperitoneum, or abnormal calcification apprecia mariah. The lung bases are clear and the osseous structures are intact. Surgical clips are noted within the left upper quadrant overlapping breast tissue. IMPRESSION: Nonobstructive bowel gas pattern.
[2017-09-30 19:34] LABS: Creatine Kinase 43 U/L (30-135)
[2017-09-30 19:47] LABS: Creatine Kinase MB 0.7 ng/mL (0.0-2.4); Troponin I <0.012 ng/mL (0.000-0.034)
[2017-09-30 20:05] VITALS: BP 175/86; PULSE 79; RESP 18
== END 2017-09-30 20:04 | disposition home or self-care (01) ==
LOC: EC 14:41
DX: R07.89 Other chest pain (principal); R10.31 Right lower quadrant pain; E11.9 Type 2 diabetes mellitus without complications; Z86.73 Personal history of transient ischemic attack (TIA), and cerebral infarction without residual deficits; Z90.49 Acquired absence of other specified parts of digestive tract; Z79.84 Long term (current) use of oral hypoglycemic drugs; Z79.899 Other long term (current) drug therapy
CPT/HCPCS: 36415; 71046; 74018; 80053; 81001; 82150; 82550; 82553; 83690; 84484; 85025; 85379; 85610; 85730; 93005; 99285

== ENCOUNTER → 2017-09-30 | Outpatient (CLI) | payer MEDICARE, OTHER ==
[2017-09-30 14:46] VITALS: RESP 15; TEMP 98.1; BMI 42.9
--- NOTE | 2017-09-30 15:44 | P.HPBAR ---
Bariatric H&P - History & Physicial H&P Date: 09/30/17 History & Physicial: Visit/CC: sleeve consult Patient initial contact: Initial weight: 106.458 kg Initial weight in pounds: 234.70 Height: 5 ft 2 in Initial BMI: 42.9 Last weight: Current weight: 106.458 kg Current weight in pounds: 234.70 Current BMI: 42.9 [place] body weight (based on NIH guidelines): 49.895 kg Excess body weight loss: 0.0% The patient is a 47 year-old F who presents for Bariatric Assessment. Patient presents today for preoperative sleeve consultation. She's had lifetime problems obesity. Her BMI is 43. Past Medical History Past Medical History: CVA/TIA, Diabetes Mellitus, GERD/Reflux, Seizure Disorder Additional Past Medical History / Comment(s): GLAUCOMA. HX. BLEEDING ULCERS. last seizure 2012, ANEMIA. TIA 03/2017-no effects, "occ DIZZY SPELLS" seen in [facility] 10/22/16 , cyst on kidney History of Any Multi-Drug Resistant Organisms: None Reported Past Surgical History: Breast Surgery, Cholecystectomy, Ear Surgery, Hernia Repair, Hysterectomy Additional Past Surgical History / Comment(s): TUBES IN EARS. RT EYE SX CHILD , kae fundoplication 2015, left breast biopsy, R knee surg, Aug 2017 complete hysterectomy Past Anesthesia/Blood Transfusion Reactions: No Reported Reaction Additional Past Anesthesia/Blood Transfusion Reaction / Comm: mother got Hep C from blood transfusion. Past Psychological History: No Psychological Hx Reported Additional Psychological History / Comment(s): . Smoking Status: Never smoker Past Alcohol Use History: None Reported Past Drug Use History: None Reported - Past Family History Father History Unknown: Yes Additional Family Medical History / Comment(s): ulcer Mother Family Medical History: Deep Vein Thrombosis (DVT) Additional Family Medical History / Comment(s): "HEART PROBLEMS", Hep C Sister(s) Family Medical History: Congestive Heart Failure (CHF), Diabetes Mellitus Additional Family Medical History / Comment(s): heart problems Brother(s) Family Medical History: Diabetes Mellitus Additional Family Medical History / Comment(s): Mother and sister with Diabetes Surgical - Exam Vital Signs Temp Pulse Resp BP 98.1 F 91 15 183/83 09/30/17 14:00 09/30/17 14:00 09/30/17 14:00 09/30/17 14:00 - General well developed, well nourished, no distress - Eyes PERRL - ENT normal pinna - Neck no masses - Respiratory normal expansion - Cardiovascular Rhythm: regular - Abdomen Abdomen: soft, non tender Bariatric Assessment & Plan Plan: I had a lengthy discussion the patient regarding sleeve gastrectomy. I went over the risks and benefits of procedure including conversion O procedure and injury with injury to the stomach liver spleen. I discussed with the risk of possible staple line disruption, bleeding or perforation. Patient seems to have a good understanding of the procedure. She was scheduled for EGD and follow-up in the peritoneal clinic in 1 month. Bariatric Checklist Checklist: Plan: Checklist: EGD: 1. Hiatal hernia: 2. H. Pylori: HgbA1c: Vitamin D: Smoking: Never smoker Primary care physician referral: pita Psychiatry clearance: Cardiology clearance: Sleep study: Diet journal: VTE risk score: VTE risk level: Rehab needs at discharge:
[2017-09-30 16:40] VITALS: BP 143/82; PULSE 95
== END | disposition home or self-care (01) ==
LOC: BARWHC3 13:43
PROVIDERS: ATTEND Surgery
DX: Z01.818 Encounter for other preprocedural examination (principal); Z68.41 Body mass index [BMI] 40.0-44.9, adult
CPT/HCPCS: 99211

== ENCOUNTER 2017-10-08 10:32 | Emergency (ER) | payer MEDICARE ==
--- NOTE | 2017-10-08 11:10 | ED ---
General Adult HPI - General Chief complaint: Recheck/Abnormal Lab/Rx Stated complaint: Chest/neck/leg/headaches Time Seen by Provider: 10/08/17 10:49 Source: patient Mode of arrival: wheelchair Limitations: no limitations - History of Present Illness Initial comments: Patient is a 47-year-old female who presents with a chief complaint of leg pain , shortness of breath, chest pain for the last month. Patient states that she has not been seen by medical professional for these issues yet. Patient does not have a primary care doctor. The patient cannot identify any inciting incident. He states that her leg pain is aggravated by walking. There are no alleviating factors. Chest pain shortness of breath are the same all the time over the last month. Timing is constant. Patient states that she has tried to take Motrin for the pain without relief. - Related Data Home Medications Medication Instructions Recorded Confirmed metFORMIN HCL 1,000 mg PO BID 01/19/16 10/08/17 Atenolol [Tenormin] 50 mg PO QAM 01/17/17 10/08/17 SUMAtriptan SUCCINATE [Imitrex] 50 mg PO BID PRN 01/17/17 10/08/17 Simvastatin [Zocor] 10 mg PO HS 01/17/17 10/08/17 Levothyroxine Sodium [Synthroid] 100 mcg PO SUTUTHSA 05/31/17 10/08/17 Levothyroxine Sodium [Synthroid] 112 mcg PO MOWEFR 07/29/17 10/08/17 Lisinopril-Hctz 10-12.5 mg 1 tab PO QAM 07/29/17 10/08/17 [Zestoretic 10-12.5] Meclizine [Antivert] 25 mg PO TID PRN 07/29/17 10/08/17 Acetaminophen-Codeine 300-30mg 1 tab PO Q4HR PRN 09/30/17 10/08/17 [Tylenol w/codeine #3] Previous Rx's Medication Instructions Recorded Aspirin 81 mg PO DAILY 06/01/17 Nitroglycerin Sl Tabs [Nitrostat] 0.4 mg SUBLINGUAL Q5M PRN #25 tab 06/01/17 Magnesium 200 mg PO DAILY #7 tablet 07/20/17 Ranitidine HCl [Zantac] 150 mg PO BID #30 tab 08/14/17 Ibuprofen [Motrin] 600 mg PO Q6HR PRN #30 tab 08/30/17 Allergies Allergy/AdvReac Type Severity Reaction Status Date / Time No Known Allergies Allergy Verified 10/08/17 11:00 Review of Systems ROS Statement: Those systems with pertinent positive or pertinent negative responses have been documented in the HPI. ROS Other: All systems not noted in ROS Statement are negative. Respiratory: Reports: dyspnea Cardiovascular: Reports: chest pain Past Medical History Past Medical History: CVA/TIA, Diabetes Mellitus, GERD/Reflux, Seizure Disorder Additional Past Medical History / Comment(s): GLAUCOMA. HX. BLEEDING ULCERS. last seizure 2012, ANEMIA. TIA 03/2017-no effects, "occ DIZZY SPELLS" seen in [facility] 10/22/16 , cyst on kidney History of Any Multi-Drug Resistant Organisms: None Reported Past Surgical History: Breast Surgery, Cholecystectomy, Ear Surgery, Hernia Repair, Hysterectomy Additional Past Surgical History / Comment(s): TUBES IN EARS. RT EYE SX CHILD , kae fundoplication 2015, left breast biopsy, R knee surg, Aug 2017 complete hysterectomy Past Anesthesia/Blood Transfusion Reactions: No Reported Reaction Additional Past Anesthesia/Blood Transfusion Reaction / Comment(s): mother got Hep C from blood transfusion. Past Psychological History: No Psychological Hx Reported Smoking Status: Never smoker Past Alcohol Use History: None Reported Past Drug Use History: None Reported - Past Family History Father History Unknown: Yes Additional Family Medical History / Comment(s): ulcer Mother Family Medical History: Deep Vein Thrombosis (DVT) Additional Family Medical History / Comment(s): "HEART PROBLEMS", Hep C Sister(s) Family Medical History: Congestive Heart Failure (CHF), Diabetes Mellitus Additional Family Medical History / Comment(s): heart problems Brother(s) Family Medical History: Diabetes Mellitus Additional Family Medical History / Comment(s): Mother and sister with Diabetes General Exam Limitations: no limitations General appearance: alert, in no apparent distress Head exam: Present: atraumatic, normocephalic Eye exam: Present: normal appearance, PERRL, EOMI ENT exam: Present: mucous membranes moist Neck exam: Present: normal inspection Respiratory exam: Present: normal lung sounds bilaterally. Absent: respiratory distress, wheezes Cardiovascular Exam: Present: regular rate, normal rhythm GI/Abdominal exam: Present: soft. Absent: distended, tenderness Rectal exam: Present: deferred Extremities exam: Present: calf tenderness, other (Patient has bilateral calf tenderness however lower extremities are symmetrical, there is no pitting edema , warmth, erythema.) Back exam: Present: normal inspection Neurological exam: Present: alert, oriented X3 Psychiatric exam: Present: normal affect, normal mood Skin exam: Present: warm, dry, intact Course Vital Signs 10/08/17 10:42 Temperature 97.0 F L Pulse Rate 81 Respiratory 18 Rate Blood Pressure 136/71 O2 Sat by Pulse 99 Oximetry Medical Decision Making - Medical Decision Making Patient presents with a chief complaint of leg pain, chest pain, shortness of breath for the last month. On initial evaluation, patient is in no acute distress, vital signs are stable. Patient is perk negative making PE very unlikely diagnosis. Patient is well score for DVT is 0. EKG performed at 11: 02 AM shows normal sinus rhythm with a rate of 84 bpm. EKG is otherwise nonspecific. Given the patient's chest pain is unchanged for 1 month, she will have basic labs and one troponin. patient will be directed towards primary care at the end of her visit that she does not have primary care follow-up. 12:28 PM Lab evaluation this patient is unremarkable. Chest x-ray and EKG are within normal limits. At this time, there is no obvious or life-threatening identifiable cause of bilateral leg pain. Patient will be instructed to follow up with primary care in 1-2 days or return to the emergency department for reevaluation if symptoms are worse. Patient will be prescribed Tylenol for pain. - Lab Data Result diagrams: 10/08/17 11:15 10/08/17 11:15 Lab Results 10/08/17 10/08/17 10/08/17 Range/Units 11:15 11:15 11:15 WBC 7.2 (3.8-10.6) k/uL RBC 4.84 (3.80-5.40) m/uL Hgb 10.5 L (11.4-16.0) gm/dL Hct 36.5 (34.0-46.0) % MCV 75.4 L (80.0-100.0) fL MCH 21.7 L (25.0-35.0) pg MCHC 28.7 L (31.0-37.0) g/dL RDW 17.6 H (11.5-15.5) % Plt Count 197 (150-450) k/uL Neutrophils % 68 % Lymphocytes % 23 % Monocytes % 4 % Eosinophils % 4 % Basophils % 0 % Neutrophils # 4.9 (1.3-7.7) k/uL Lymphocytes # 1.7 (1.0-4.8) k/uL Monocytes # 0.3 (0-1.0) k/uL Eosinophils # 0.3 (0-0.7) k/uL Basophils # 0.0 (0-0.2) k/uL Hypochromasia Marked Anisocytosis Slight Microcytosis Slight Sodium 140 (137-145) mmol/L Potassium 4.5 (3.5-5.1) mmol/L Chloride 103 (98-107) mmol/L Carbon Dioxide 28 (22-30) mmol/L Anion Gap 9 mmol/L BUN 9 (7-17) mg/dL Creatinine 0.90 (0.52-1.04) mg/dL Est GFR (MDRD) Af Amer >60 (>60 ml/min/1.73 sqM) Est GFR (MDRD) Non-Af >60 (>60 ml/min/1.73 sqM) Glucose 192 H (74-99) mg/dL Calcium 9.1 (8.4-10.2) mg/dL Troponin I <0.012 (0.000-0.034) ng/mL Disposition Clinical Impression: Leg pain, Chest pain, SOB (shortness of breath) Disposition: HOME SELF-CARE Condition: Good Instructions: Leg Pain (ED) Referrals: Lula Thurston MD [STAFF PHYSICIAN] - 1-2 days
[2017-10-08 11:33] LABS: Anisocytosis Slight; Basophils % (A) 0 %; Eosinophils # (A) 0.3 k/uL (0-0.7); Eosinophils % (A) 4 %; HCT 36.5 % (34.0-46.0); HGB 10.5 gm/dL (11.4-16.0); Hypochromasia Marked; Lymphocytes # (A) 1.7 k/uL (1.0-4.8); Lymphocytes % (A) 23 %; MCH 21.7 pg (25.0-35.0); MCHC 28.7 g/dL (31.0-37.0); MCV 75.4 fL (80.0-100.0); Mean Platelet Volume 8.2; Microcytosis Slight; Monocytes # (A) 0.3 k/uL (0-1.0); Monocytes % (A) 4 %; Neutrophils # (A) 4.9 k/uL (1.3-7.7); Neutrophils % (A) 68 %; Platelet Count 197 k/uL (150-450); RBC 4.84 m/uL (3.80-5.40); RDW 17.6 % (11.5-15.5); WBC 7.2 k/uL (3.8-10.6)
--- NOTE | 2017-10-08 11:34 | XR ---
EXAMINATION TYPE: XR chest 2V DATE OF EXAM: 10/08/2017 COMPARISON: September 30, 2017 HISTORY: Chest pain TECHNIQUE: Frontal and lateral views of the chest are obtained. FINDINGS: There is no focal air space opacity. No evidence for pneumothorax. No pleural effusion. The cardiac silhouette size is within normal limits. The osseous structures are grossly intact. IMPRESSION: 1. No acute cardiopulmonary process.
[2017-10-08 11:43] LABS: Anion Gap 9 mmol/L; Blood Urea Nitrogen 9 mg/dL (7-17); Calcium 9.1 mg/dL (8.4-10.2); Carbon Dioxide 28 mmol/L (22-30); Chloride 103 mmol/L (98-107); Glucose 192 mg/dL (74-99); Potassium 4.5 mmol/L (3.5-5.1); Sodium 140 mmol/L (137-145)
[2017-10-08 12:37] VITALS: BP 173/85; PULSE 80; RESP 17; TEMP 98.7
== END 2017-10-08 12:41 | disposition home or self-care (01) ==
LOC: EC 10:32
DX: R06.02 Shortness of breath (principal); R07.9 Chest pain, unspecified; M79.604 Pain in right leg; M79.605 Pain in left leg; E11.9 Type 2 diabetes mellitus without complications; Z79.84 Long term (current) use of oral hypoglycemic drugs; Z79.899 Other long term (current) drug therapy; Z82.49 Family history of ischemic heart disease and other diseases of the circulatory system
CPT/HCPCS: 36415; 71046; 80048; 84484; 85025; 93005; 99285

== ENCOUNTER 2017-10-23 09:59 | Emergency (ER) | payer MEDICARE ==
--- NOTE | 2017-10-23 10:36 | ED ---
Abdominal Pain HPI - General Chief Complaint: Abdominal Pain Stated Complaint: abd pain Time Seen by Provider: 10/23/17 10:14 Source: patient, RN notes reviewed Mode of arrival: ambulatory Limitations: no limitations - History of Present Illness Initial Comments: This a 47-year-old female presents emergency Department with multiple complaints. Patient states for last 1 month she's had right leg pain, abdominal discomfort and chest discomfort. Patient states that it varies daily is not consistent pain. Denies shortness of breath. She does have a history of diabetes, hypertension. She does see a high scaler has had no prior heart attacks. Patient states abdominal pain varies in location she states it's more of a dull achy symptom. Denies any nausea vomiting diarrhea constipation. Denies any dysuria hematuria. She's had a prior cholecystectomy. Patient has no prior DVT states her right leg is worse with ambulation states that she feels it more in her tib-fib region. Denies any trauma. Denies rashes, discoloration. - Related Data Home Medications Medication Instructions Recorded Confirmed metFORMIN HCL 1,000 mg PO BID 01/19/16 10/23/17 Atenolol [Tenormin] 50 mg PO QAM 01/17/17 10/23/17 SUMAtriptan SUCCINATE [Imitrex] 50 mg PO BID PRN 01/17/17 10/23/17 Simvastatin [Zocor] 10 mg PO HS 01/17/17 10/23/17 Levothyroxine Sodium [Synthroid] 100 mcg PO SUTUTHSA 05/31/17 10/23/17 Levothyroxine Sodium [Synthroid] 112 mcg PO MOWEFR 07/29/17 10/23/17 Lisinopril-Hctz 10-12.5 mg 1 tab PO QAM 07/29/17 10/23/17 [Zestoretic 10-12.5] Meclizine [Antivert] 25 mg PO TID PRN 07/29/17 10/23/17 Acetaminophen-Codeine 300-30mg 1 tab PO Q4HR PRN 09/30/17 10/23/17 [Tylenol w/codeine #3] Previous Rx's Medication Instructions Recorded Aspirin 81 mg PO DAILY 06/01/17 Nitroglycerin Sl Tabs [Nitrostat] 0.4 mg SUBLINGUAL Q5M PRN #25 tab 06/01/17 Magnesium 200 mg PO DAILY #7 tablet 07/20/17 Ranitidine HCl [Zantac] 150 mg PO BID #30 tab 08/14/17 Ibuprofen [Motrin] 600 mg PO Q6HR PRN #30 tab 08/30/17 Acetaminophen [Tylenol 8 Hour] 650 mg PO TID #20 tablet.er 10/08/17 Allergies Allergy/AdvReac Type Severity Reaction Status Date / Time No Known Allergies Allergy Verified 10/23/17 10:38 Review of Systems ROS Statement: Those systems with pertinent positive or pertinent negative responses have been documented in the HPI. ROS Other: All systems not noted in ROS Statement are negative. Past Medical History Past Medical History: CVA/TIA, Diabetes Mellitus, GERD/Reflux, Seizure Disorder Additional Past Medical History / Comment(s): GLAUCOMA. HX. BLEEDING ULCERS. last seizure 2012, ANEMIA. TIA 03/2017-no effects, "occ DIZZY SPELLS" seen in [facility] 10/22/16 , cyst on kidney History of Any Multi-Drug Resistant Organisms: None Reported Past Surgical History: Breast Surgery, Cholecystectomy, Ear Surgery, Hernia Repair, Hysterectomy Additional Past Surgical History / Comment(s): TUBES IN EARS. RT EYE SX CHILD , kae fundoplication 2015, left breast biopsy, R knee surg, Aug 2017 complete hysterectomy Past Anesthesia/Blood Transfusion Reactions: No Reported Reaction Additional Past Anesthesia/Blood Transfusion Reaction / Comment(s): mother got Hep C from blood transfusion. Past Psychological History: No Psychological Hx Reported Smoking Status: Never smoker Past Alcohol Use History: None Reported Past Drug Use History: None Reported - Past Family History Father History Unknown: Yes Additional Family Medical History / Comment(s): ulcer Mother Family Medical History: Deep Vein Thrombosis (DVT) Additional Family Medical History / Comment(s): "HEART PROBLEMS", Hep C Sister(s) Family Medical History: Congestive Heart Failure (CHF), Diabetes Mellitus Additional Family Medical History / Comment(s): heart problems Brother(s) Family Medical History: Diabetes Mellitus Additional Family Medical History / Comment(s): Mother and sister with Diabetes General Exam Limitations: no limitations General appearance: alert, in no apparent distress Head exam: Present: atraumatic, normocephalic, normal inspection Neck exam: Present: normal inspection, full ROM. Absent: tenderness, meningismus, lymphadenopathy Respiratory exam: Present: normal lung sounds bilaterally. Absent: respiratory distress, wheezes, rales, rhonchi, stridor Cardiovascular Exam: Present: regular rate, normal rhythm, normal heart sounds. Absent: systolic murmur, diastolic murmur, rubs, gallop, clicks GI/Abdominal exam: Present: soft, tenderness (Mild diffuse), normal bowel sounds. Absent: distended, guarding, rebound, rigid Extremities exam: Present: other (Bilateral lower extremities neurovascular intact, there is no obvious deformities the right leg there is no erythema no edema noted there is mild tenderness the right calf patient has full range of motion of all extremities.) Back exam: Absent: CVA tenderness (R), CVA tenderness (L) Neurological exam: Present: alert, oriented X3, CN II-XII intact, reflexes normal. Absent: motor sensory deficit Skin exam: Present: warm, dry, intact, normal color. Absent: rash Course Vital Signs 10/23/17 10/23/17 10/23/17 10:04 10:25 11:45 Temperature 97.1 F L 98.5 F Pulse Rate 90 88 74 Respiratory 20 15 16 Rate Blood Pressure 191/107 193/88 159/78 O2 Sat by Pulse 100 16 L 97 Oximetry Medical Decision Making - Medical Decision Making 47-year-old female presented emergency department multiple complaints. Patient has had ongoing chest, abdominal discomfort and leg pain. Symptoms are pending then exacerbates her symptoms. Patient states that she states that she has not had chest discomfort in several days. Patient's had 2 prior ER visits with normal lab work no changes in her EKG. Chest x-ray unremarkable. Shows mild gaseous distention no evidence of obstruction. - Lab Data Result diagrams: 10/23/17 10:45 10/23/17 10:45 Lab Results 10/23/17 10/23/17 10/23/17 Range/Units 10:42 10:45 10:45 WBC (3.8-10.6) k/uL RBC (3.80-5.40) m/uL Hgb (11.4-16.0) gm/dL Hct (34.0-46.0) % MCV (80.0-100.0) fL MCH (25.0-35.0) pg MCHC (31.0-37.0) g/dL RDW (11.5-15.5) % Plt Count (150-450) k/uL Neutrophils % % Lymphocytes % % Monocytes % % Eosinophils % % Basophils % % Neutrophils # (1.3-7.7) k/uL Lymphocytes # (1.0-4.8) k/uL Monocytes # (0-1.0) k/uL Eosinophils # (0-0.7) k/uL Basophils # (0-0.2) k/uL Hypochromasia Anisocytosis Microcytosis PT (9.0-12.0) sec INR (<1.2) APTT (22.0-30.0) sec Sodium 143 (137-145) mmol/L Potassium 3.7 (3.5-5.1) mmol/L Chloride 103 (98-107) mmol/L Carbon Dioxide 31 H (22-30) mmol/L Anion Gap 9 mmol/L BUN 14 (7-17) mg/dL Creatinine 0.82 (0.52-1.04) mg/dL Est GFR (MDRD) Af Amer >60 (>60 ml/min/1.73 sqM) Est GFR (MDRD) Non-Af >60 (>60 ml/min/1.73 sqM) Glucose 100 H (74-99) mg/dL Calcium 9.0 (8.4-10.2) mg/dL Total Bilirubin 0.4 (0.2-1.3) mg/dL AST 13 L (14-36) U/L ALT 18 (9-52) U/L Alkaline Phosphatase 123 (38-126) U/L Total Creatine Kinase 41 (30-135) U/L CK-MB (CK-2) 1.0 (0.0-2.4) ng/mL CK-MB (CK-2) Rel Index 2.4 Troponin I <0.012 (0.000-0.034) ng/mL Total Protein 6.6 (6.3-8.2) g/dL Albumin 3.6 (3.5-5.0) g/dL Amylase 49 (30-110) U/L Lipase 101 (23-300) U/L Urine Color Yellow Urine Appearance Cloudy H (Clear) Urine pH 5.5 (5.0-8.0) Ur Specific [place] 1.017 (1.001-1.035) Urine Protein Negative (Negative) Urine Glucose (UA) Negative (Negative) Urine Ketones Negative (Negative) Urine Blood Negative (Negative) Urine Nitrite Negative (Negative) Urine Bilirubin Negative (Negative) Urine Urobilinogen <2.0 (<2.0) mg/dL Ur Leukocyte Esterase Moderate H (Negative) Urine RBC 1 (0-5) /hpf Urine WBC 6 H (0-5) /hpf Ur Squamous Epith Cells 8 H (0-4) /hpf Urine Bacteria Rare H (None) /hpf Urine Mucus Rare H (None) /hpf 10/23/17 10/23/17 Range/Units 10:45 10:45 WBC 5.3 (3.8-10.6) k/uL RBC 5.13 (3.80-5.40) m/uL Hgb 11.3 L (11.4-16.0) gm/dL Hct 36.9 (34.0-46.0) % MCV 71.8 L (80.0-100.0) fL MCH 22.0 L (25.0-35.0) pg MCHC 30.6 L (31.0-37.0) g/dL RDW 17.2 H (11.5-15.5) % Plt Count 223 (150-450) k/uL Neutrophils % 61 % Lymphocytes % 30 % Monocytes % 5 % Eosinophils % 3 % Basophils % 0 % Neutrophils # 3.2 (1.3-7.7) k/uL Lymphocytes # 1.6 (1.0-4.8) k/uL Monocytes # 0.2 (0-1.0) k/uL Eosinophils # 0.2 (0-0.7) k/uL Basophils # 0.0 (0-0.2) k/uL Hypochromasia Marked Anisocytosis Slight Microcytosis Moderate PT 9.8 (9.0-12.0) sec INR 1.0 (<1.2) APTT 22.7 (22.0-30.0) sec Sodium (137-145) mmol/L Potassium (3.5-5.1) mmol/L Chloride (98-107) mmol/L Carbon Dioxide (22-30) mmol/L Anion Gap mmol/L BUN (7-17) mg/dL Creatinine (0.52-1.04) mg/dL Est GFR (MDRD) Af Amer (>60 ml/min/1.73 sqM) Est GFR (MDRD) Non-Af (>60 ml/min/1.73 sqM) Glucose (74-99) mg/dL Calcium (8.4-10.2) mg/dL Total Bilirubin (0.2-1.3) mg/dL AST (14-36) U/L ALT (9-52) U/L Alkaline Phosphatase (38-126) U/L Total Creatine Kinase (30-135) U/L CK-MB (CK-2) (0.0-2.4) ng/mL CK-MB (CK-2) Rel Index Troponin I (0.000-0.034) ng/mL Total Protein (6.3-8.2) g/dL Albumin (3.5-5.0) g/dL Amylase (30-110) U/L Lipase (23-300) U/L Urine Color Urine Appearance (Clear) Urine pH (5.0-8.0) Ur Specific [place] (1.001-1.035) Urine Protein (Negative) Urine Glucose (UA) (Negative) Urine Ketones (Negative) Urine Blood (Negative) Urine Nitrite (Negative) Urine Bilirubin (Negative) Urine Urobilinogen (<2.0) mg/dL Ur Leukocyte Esterase (Negative) Urine RBC (0-5) /hpf Urine WBC (0-5) /hpf Ur Squamous Epith Cells (0-4) /hpf Urine Bacteria (None) /hpf Urine Mucus (None) /hpf - EKG Data EKG Comments: EKG performed at 12:04 normal sinus rhythm with a rate of 68 IL 146 QRS 92 QT/ QTC 444/472 Disposition Clinical Impression: Abdominal pain, Leg pain, GERD (gastroesophageal reflux disease), Atypical chest pain Disposition: HOME SELF-CARE Condition: Stable Instructions: Abdominal Pain (ED) Additional Instructions: Please return to the Emergency Department if symptoms worsen or any other concerns. Referrals: Cayden Schuler Jr, DO [Doctor of Osteopathic Medicine] - 1-2 days Time of Disposition: 12:42
[2017-10-23 11:11] LABS: Anisocytosis Slight; Basophils % (A) 0 %; Eosinophils # (A) 0.2 k/uL (0-0.7); Eosinophils % (A) 3 %; HCT 36.9 % (34.0-46.0); HGB 11.3 gm/dL (11.4-16.0); Hypochromasia Marked; Lymphocytes # (A) 1.6 k/uL (1.0-4.8); Lymphocytes % (A) 30 %; MCHC 30.6 g/dL (31.0-37.0); MCV 71.8 fL (80.0-100.0); Mean Platelet Volume 7.8; Microcytosis Moderate; Monocytes # (A) 0.2 k/uL (0-1.0); Monocytes % (A) 5 %; Neutrophils # (A) 3.2 k/uL (1.3-7.7); Neutrophils % (A) 61 %; Platelet Count 223 k/uL (150-450); RBC 5.13 m/uL (3.80-5.40); RDW 17.2 % (11.5-15.5); WBC 5.3 k/uL (3.8-10.6)
[2017-10-23 11:14] LABS: Appearance,Urine Cloudy (Clear); Bacteria,Urine Rare /hpf; Bilirubin,Urine Negative (Negative); Blood,Urine Negative (Negative); Color,Urine Yellow; Glucose,Urine (UA) Negative (Negative); Ketones,Urine Negative (Negative); Leukocyte Esterase,Urine Moderate (Negative); Mucus,Urine Rare /hpf; PH, Urine 5.5 (5.0-8.0); Protein,Urine Negative (Negative); RBC,Urine 1 /hpf (0-5); Specific Gravity,Urine 1.017 (1.001-1.035); Squamous Epithelial Cell,Urine 8 /hpf (0-4); Urobilinogen,Urine <2.0 mg/dL (<2.0); WBC,Urine 6 /hpf (0-5)
[2017-10-23 11:23] LABS: ALT 18 U/L (9-52); AST 13 U/L (14-36); Albumin 3.6 g/dL (3.5-5.0); Alkaline Phosphatase 123 U/L (38-126); Amylase 49 U/L (30-110); Anion Gap 9 mmol/L; Blood Urea Nitrogen 14 mg/dL (7-17); Carbon Dioxide 31 mmol/L (22-30); Chloride 103 mmol/L (98-107); Glucose 100 mg/dL (74-99); Lipase 101 U/L (23-300); Potassium 3.7 mmol/L (3.5-5.1); Sodium 143 mmol/L (137-145); Total Bilirubin 0.4 mg/dL (0.2-1.3); Total Protein 6.6 g/dL (6.3-8.2)
[2017-10-23 11:38] LABS: Creatine Kinase 41 U/L (30-135)
[2017-10-23 11:42] LABS: Partial Thromboplastin Time 22.7 sec (22.0-30.0); Prothrombin Time 9.8 sec (9.0-12.0)
[2017-10-23 11:49] LABS: Troponin I <0.012 ng/mL (0.000-0.034)
--- NOTE | 2017-10-23 12:04 | US ---
EXAMINATION TYPE: US venous doppler duplex LE RT DATE OF EXAM: 10/23/2017 11:51 AM COMPARISON: NONE CLINICAL HISTORY: Pain in right leg. SIDE PERFORMED: Right TECHNIQUE: The lower extremity deep venous system is examined utilizing real time linear array sonog mikki with graded compression, doppler sonography and color-flow sonography. VESSELS IMAGED: External Iliac Vein (EIV) Common Femoral Vein Deep Femoral Vein Greater Saphenous Vein * Femoral Vein Popliteal Vein Small Saphenous Vein * Proximal Calf Veins (* superficial vessels) Grayscale, color doppler, spectral doppler imaging performed of the deep veins of the lower extremiti es. There is normal flow, compressibility, vascular waveforms. Right Leg: Negative for DVT IMPRESSION: No sonographic evidence of deep venous thrombosis within the right lower extremity.
--- NOTE | 2017-10-23 12:06 | XR ---
EXAMINATION TYPE: XR chest 2V DATE OF EXAM: 10/23/2017 COMPARISON: 10/08/2017 HISTORY: Pain TECHNIQUE: Frontal and lateral views of the chest are obtained. FINDINGS: There is no focal air space opacity, pleural effusion, or pneumothorax seen. The cardiac silhouette size is within normal limits. The osseous structures are intact. IMPRESSION: No acute cardiopulmonary process.
--- NOTE | 2017-10-23 12:31 | XR ---
EXAMINATION TYPE: XR KUB DATE OF EXAM: 10/23/2017 11:56 AM CLINICAL HISTORY: Chest pain and abdominal pain with nausea and vomiting TECHNIQUE: Single supine KUB image of the abdomen is obtained. COMPARISON: None. FINDINGS: Scattered gas is seen in non-distended small bowel loops. Gas and fecal material is seen in nondilated colon. There is gaseous distention of the splenic flexure. No differential air-fluid leve ls. There is no visceromegaly, pneumoperitoneum, or abnormal calcification appreciated. The lung base s are clear and the osseous structures are intact. Surgical clips are seen within the left axilla. IMPRESSION: Nonobstructive bowel gas pattern. Gaseous distention of the splenic flexure may relate to mild colonic ileus.
[2017-10-23 12:50] VITALS: BP 170/87; PULSE 75; RESP 18; TEMP 98
== END 2017-10-23 12:55 | disposition home or self-care (01) ==
LOC: EC 09:59
DX: K21.9 Gastro-esophageal reflux disease without esophagitis (principal); M79.604 Pain in right leg; R10.84 Generalized abdominal pain; E11.9 Type 2 diabetes mellitus without complications; Z79.84 Long term (current) use of oral hypoglycemic drugs; Z79.899 Other long term (current) drug therapy; Z90.49 Acquired absence of other specified parts of digestive tract
CPT/HCPCS: 36415; 71046; 74018; 80053; 81001; 82150; 82550; 82553; 83690; 84484; 85025; 85610; 85730; 93005; 99284

== ENCOUNTER 2017-11-03 19:06 | Emergency (ER) | payer MEDICARE ==
[2017-11-03] MEDS ORDERED: SODIUM CHLORIDE 0.9% 500 ML IV STA (19:40)
[2017-11-03 19:55] LABS: Anisocytosis Slight; Basophils % (A) 0 %; Eosinophils # (A) 0.2 k/uL (0-0.7); Eosinophils % (A) 3 %; HCT 38.1 % (34.0-46.0); HGB 11.7 gm/dL (11.4-16.0); Hypochromasia Moderate; Lymphocytes # (A) 1.8 k/uL (1.0-4.8); Lymphocytes % (A) 28 %; MCHC 30.8 g/dL (31.0-37.0); MCV 71.5 fL (80.0-100.0); Mean Platelet Volume 7.1; Microcytosis Moderate; Monocytes # (A) 0.3 k/uL (0-1.0); Monocytes % (A) 5 %; Neutrophils % (A) 62 %; Platelet Count 263 k/uL (150-450); RBC 5.33 m/uL (3.80-5.40); RDW 16.4 % (11.5-15.5); WBC 6.5 k/uL (3.8-10.6)
--- NOTE | 2017-11-03 19:59 | ED ---
Chest Pain HPI - General Chief Complaint: Chest Pain Stated Complaint: Chest pain Time Seen by Provider: 11/03/17 19:20 Source: patient Mode of arrival: wheelchair Limitations: no limitations - History of Present Illness Initial Comments: 47-year-old female patient with a past medical history significant for diabetes mellitus and CVA presents to the emergency department today for evaluation of chest pain and leg pain that has been present for the last 2 months. Patient states that the pain is present constant, all day, every day. She states that there are times when the pain worsens. She states that there is nothing specific that makes the pain worse or better. States that she does feel short of breath at times. She denies any cough or congestion. Denies any sputum production. Denies any dizziness or weakness. States that the leg pain is present over the anterior lower leg bilaterally. Denies any swelling or discoloration. Denies any history of blood clots, recent travel, or use of oral hormone medication. She denies any fevers or chills with this. Denies any nausea, vomiting, constipation, or diarrhea. Denies any difficulty urinating. Patient denies any recent rash, shortness breath, chest pain, abdominal pain, back pain, numbness, tingling, hematuria, dysuria, urinary urgency, urinary frequency, headache, visual changes, or any other complaints. - Related Data Home Medications Medication Instructions Recorded Confirmed metFORMIN HCL 1,000 mg PO BID 01/19/16 11/03/17 Atenolol [Tenormin] 50 mg PO QAM 01/17/17 11/03/17 SUMAtriptan SUCCINATE [Imitrex] 50 mg PO BID PRN 01/17/17 11/03/17 Simvastatin [Zocor] 10 mg PO HS 01/17/17 11/03/17 Levothyroxine Sodium [Synthroid] 100 mcg PO SUTUTHSA 05/31/17 11/03/17 Levothyroxine Sodium [Synthroid] 112 mcg PO MOWEFR 07/29/17 11/03/17 Lisinopril-Hctz 10-12.5 mg 1 tab PO QAM 07/29/17 11/03/17 [Zestoretic 10-12.5] Meclizine [Antivert] 25 mg PO TID PRN 07/29/17 11/03/17 Acetaminophen-Codeine 300-30mg 1 tab PO Q4HR PRN 09/30/17 11/03/17 [Tylenol w/codeine #3] Previous Rx's Medication Instructions Recorded Aspirin 81 mg PO DAILY 06/01/17 Nitroglycerin Sl Tabs [Nitrostat] 0.4 mg SUBLINGUAL Q5M PRN #25 tab 06/01/17 Magnesium 200 mg PO DAILY #7 tablet 07/20/17 Ranitidine HCl [Zantac] 150 mg PO BID #30 tab 08/14/17 Ibuprofen [Motrin] 600 mg PO Q6HR PRN #30 tab 08/30/17 Acetaminophen [Tylenol 8 Hour] 650 mg PO TID #20 tablet.er 10/08/17 Allergies Allergy/AdvReac Type Severity Reaction Status Date / Time No Known Allergies Allergy Verified 11/03/17 19:49 Review of Systems ROS Statement: Those systems with pertinent positive or pertinent negative responses have been documented in the HPI. ROS Other: All systems not noted in ROS Statement are negative. EKG Findings - EKG Comments: EKG Findings:: EKG obtained in 192 shows sinus tachycardia with a ventricular rate of 101, GA interval 184, QRS duration 86, QT 374, QTC 484. No evidence of ST elevation or depression. Past Medical History Past Medical History: CVA/TIA, Diabetes Mellitus, GERD/Reflux, Seizure Disorder Additional Past Medical History / Comment(s): GLAUCOMA. HX. BLEEDING ULCERS. last seizure 2012, ANEMIA. TIA 03/2017-no effects, "occ DIZZY SPELLS" seen in [facility] 10/22/16 , cyst on kidney History of Any Multi-Drug Resistant Organisms: None Reported Past Surgical History: Breast Surgery, Cholecystectomy, Ear Surgery, Hernia Repair, Hysterectomy Additional Past Surgical History / Comment(s): TUBES IN EARS. RT EYE SX CHILD , kae fundoplication 2015, left breast biopsy, R knee surg, Aug 2017 complete hysterectomy Past Anesthesia/Blood Transfusion Reactions: No Reported Reaction Additional Past Anesthesia/Blood Transfusion Reaction / Comment(s): mother got Hep C from blood transfusion. Past Psychological History: No Psychological Hx Reported Smoking Status: Never smoker Past Alcohol Use History: None Reported Past Drug Use History: None Reported - Past Family History Father History Unknown: Yes Additional Family Medical History / Comment(s): ulcer Mother Family Medical History: Deep Vein Thrombosis (DVT) Additional Family Medical History / Comment(s): "HEART PROBLEMS", Hep C Sister(s) Family Medical History: Congestive Heart Failure (CHF), Diabetes Mellitus Additional Family Medical History / Comment(s): heart problems Brother(s) Family Medical History: Diabetes Mellitus Additional Family Medical History / Comment(s): Mother and sister with Diabetes General Exam Limitations: no limitations General appearance: alert, in no apparent distress, other (This is a well- developed, well-nourished, obese male patient in no acute distress. Vital signs upon presentation are temperature 97.8F, pulse 99, respirations 20, blood pressure 190/88, pulse ox 98% on room air.) Eye exam: Present: normal appearance, PERRL, EOMI. Absent: scleral icterus, conjunctival injection, periorbital swelling ENT exam: Present: normal exam, normal oropharynx, mucous membranes moist Respiratory exam: Present: normal lung sounds bilaterally. Absent: respiratory distress, wheezes, rales, rhonchi, stridor Cardiovascular Exam: Present: regular rate, normal rhythm, normal heart sounds. Absent: systolic murmur, diastolic murmur, rubs, gallop, clicks GI/Abdominal exam: Present: soft, normal bowel sounds. Absent: distended, tenderness, guarding, rebound, rigid Extremities exam: Present: normal inspection, full ROM, normal capillary refill , other (Skin to the lower extremities is pink, warm, and dry. Cap refills less than 3 seconds. Pedal and posttibial pulses are 2+ and equal bilaterally.) . Absent: tenderness, pedal edema, joint swelling, calf tenderness Neurological exam: Present: alert, oriented X3, CN II-XII intact Psychiatric exam: Present: normal affect, normal mood Skin exam: Present: warm, dry, intact, normal color. Absent: rash Course Vital Signs 11/03/17 19:13 Temperature 97.8 F Pulse Rate 99 Respiratory 20 Rate Blood Pressure 190/88 O2 Sat by Pulse 98 Oximetry Chest Pain MDM - [facility] RADIOLOGY: Two-view x-ray of the chest shows no focal airspace opacity, pleural effusion, or pneumothorax. The cardiac silhouette size is within normal limits. The osseous structures are intact. Impression by Dr. Early shows no acute cardiopulmonary process, unchanged from the prior. MDM: 47-year-old female patient presented to the emergency department today for evaluation of chest pain and leg pain that has been going on daily for the last 2 months. Physical examination is unremarkable. Lungs are clear to auscultation with good air movement. Heart sounds are normal. Chest pain is nonreproducible with palpation. Patient legs are pink, warm, and dry. Cap refills less than 3 seconds. There is no discoloration. Labs reviewed and were unremarkable. D-dimer was negative. Troponins were negative. Chest x- ray showed no acute cardiopulmonary process. I did discuss findings with the patient. She does have an appointment with her primary care physician on Saturday, she is urged to keep this appointment. She is instructed to return here immediately for any new, worsening, or concerning symptoms. She verbalizes understanding and agrees with this plan. Disposition Clinical Impression: Chest pain, Leg pain Disposition: HOME SELF-CARE Condition: Good Instructions: Chest Pain (ED), Leg Pain (ED) Additional Instructions: Keep your scheduled appointment with your primary care physician. Continue taking Tylenol and Motrin for pain control. Return here immediately for any new , worsening, or concerning symptoms. Referrals: Pat Oh DO [Primary Care Provider] - 1-2 days Time of Disposition: 20:34
[2017-11-03 20:05] LABS: ALT 22 U/L (9-52); AST 17 U/L (14-36); Albumin 3.7 g/dL (3.5-5.0); Alkaline Phosphatase 135 U/L (38-126); Anion Gap 11 mmol/L; Blood Urea Nitrogen 11 mg/dL (7-17); Calcium 9.5 mg/dL (8.4-10.2); Carbon Dioxide 30 mmol/L (22-30); Chloride 103 mmol/L (98-107); Glucose 179 mg/dL (74-99); Magnesium 1.6 mg/dL (1.6-2.3); Potassium 4.1 mmol/L (3.5-5.1); Sodium 144 mmol/L (137-145); Total Bilirubin 0.3 mg/dL (0.2-1.3); Total Protein 6.6 g/dL (6.3-8.2)
[2017-11-03 20:09] LABS: Creatine Kinase 62 U/L (30-135)
[2017-11-03 20:17] LABS: Partial Thromboplastin Time 21.9 sec (22.0-30.0); Prothrombin Time 9.5 sec (9.0-12.0)
[2017-11-03 20:22] LABS: D-Dimer 0.4 mg/L FEU (<0.60); Troponin I <0.012 ng/mL (0.000-0.034)
--- NOTE | 2017-11-03 20:23 | XR ---
EXAMINATION TYPE: XR chest 2V DATE OF EXAM: 11/03/2017 COMPARISON: 10/23/2017 HISTORY: Chest pain TECHNIQUE: Frontal and lateral views of the chest are obtained. FINDINGS: There is no focal air space opacity, pleural effusion, or pneumothorax seen. The cardiac silhouette size is within normal limits. The osseous structures are intact. IMPRESSION: No acute cardiopulmonary process, unchanged from the prior.
[2017-11-03 20:42] VITALS: BP 174/89; PULSE 86; RESP 18; TEMP 98.2
== END 2017-11-03 20:53 | disposition home or self-care (01) ==
LOC: EC 19:06
DX: R07.9 Chest pain, unspecified (principal); M79.661 Pain in right lower leg; M79.662 Pain in left lower leg; E11.39 Type 2 diabetes mellitus with other diabetic ophthalmic complication; H40.9 Unspecified glaucoma; Z86.73 Personal history of transient ischemic attack (TIA), and cerebral infarction without residual deficits; Z79.899 Other long term (current) drug therapy; Z79.84 Long term (current) use of oral hypoglycemic drugs
CPT/HCPCS: 36415; 71046; 80053; 82550; 82553; 83735; 84484; 85025; 85379; 85610; 85730; 93005; 96360; 99285

== ENCOUNTER 2018-01-17 16:32 | Emergency (ER) | payer MEDICARE, OTHER ==
[2018-01-17 17:06] VITALS: PULSE 94; RESP 18
[2018-01-17] MEDS ORDERED: SODIUM CHLORIDE 0.9% 1,000 ML IV STA (17:30)
--- NOTE | 2018-01-17 17:34 | ED ---
Headache HPI - General Chief Complaint: Headache Stated Complaint: HEADACHE, DIZZINESS, SOB, CHEST PAIN Time Seen by Provider: 01/17/18 17:23 Source: RN notes reviewed Mode of arrival: wheelchair Limitations: no limitations - History of Present Illness Initial Comments: This is a 47-year-old female who presents to the emergency department with chief complaint of headache. Patient states that she has had a right-sided, pressure-like headache for the past 5-6 weeks. She states that this has been constant. She states that she does not have a history of headaches. She also states that she has had intermittent episodes of dizziness, where she feels like she is going to pass out but has not passed out. Denies abdominal pain, nausea or vomiting, diarrhea or constipation, dysuria or hematuria. She also states that when her dizziness and headaches began she also developed chest pain and shortness of breath on exertion. She does report a history of hypertension, diabetes and stroke 2 years ago. She states that her chest pain is left-sided and feels like a "discomfort." She states that the pain is reproducible. Denies any recent falls, injuries or trauma. - Related Data Home Medications Medication Instructions Recorded Confirmed metFORMIN HCL 1,000 mg PO BID 01/19/16 01/17/18 Atenolol [Tenormin] 50 mg PO QAM 01/17/17 01/17/18 SUMAtriptan SUCCINATE [Imitrex] 50 mg PO BID PRN 01/17/17 01/17/18 Simvastatin [Zocor] 10 mg PO HS 01/17/17 01/17/18 Levothyroxine Sodium [Synthroid] 100 mcg PO SUTUTHSA 05/31/17 01/17/18 Levothyroxine Sodium [Synthroid] 112 mcg PO MOWEFR 07/29/17 01/17/18 Lisinopril-Hctz 10-12.5 mg 1 tab PO QAM 07/29/17 01/17/18 [Zestoretic 10-12.5] Meclizine [Antivert] 25 mg PO TID PRN 07/29/17 01/17/18 Acetaminophen-Codeine 300-30mg 1 tab PO Q4HR PRN 09/30/17 01/17/18 [Tylenol w/codeine #3] Previous Rx's Medication Instructions Recorded Aspirin 81 mg PO DAILY 06/01/17 Nitroglycerin Sl Tabs [Nitrostat] 0.4 mg SUBLINGUAL Q5M PRN #25 tab 06/01/17 Magnesium 200 mg PO DAILY #7 tablet 07/20/17 Ranitidine HCl [Zantac] 150 mg PO BID #30 tab 08/14/17 Ibuprofen [Motrin] 600 mg PO Q6HR PRN #30 tab 08/30/17 Acetaminophen [Tylenol 8 Hour] 650 mg PO TID #20 tablet.er 10/08/17 Allergies Allergy/AdvReac Type Severity Reaction Status Date / Time No Known Allergies Allergy Verified 01/17/18 17:27 Review of Systems ROS Statement: Those systems with pertinent positive or pertinent negative responses have been documented in the HPI. ROS Other: All systems not noted in ROS Statement are negative. Past Medical History Past Medical History: CVA/TIA, Diabetes Mellitus, GERD/Reflux, Seizure Disorder Additional Past Medical History / Comment(s): GLAUCOMA. HX. BLEEDING ULCERS. last seizure 2012, ANEMIA. TIA 03/2017-no effects, "occ DIZZY SPELLS" seen in [facility] 10/22/16 , cyst on kidney, History of Any Multi-Drug Resistant Organisms: None Reported Past Surgical History: Breast Surgery, Cholecystectomy, Ear Surgery, Hernia Repair, Hysterectomy Additional Past Surgical History / Comment(s): TUBES IN EARS. RT EYE SX CHILD , kae fundoplication 2015, left breast biopsy, R knee surg, Aug 2017 complete hysterectomy Past Anesthesia/Blood Transfusion Reactions: No Reported Reaction Additional Past Anesthesia/Blood Transfusion Reaction / Comment(s): mother got Hep C from blood transfusion. Past Psychological History: No Psychological Hx Reported Smoking Status: Never smoker Past Alcohol Use History: None Reported Past Drug Use History: None Reported - Past Family History Father History Unknown: Yes Additional Family Medical History / Comment(s): ulcer Mother Family Medical History: Deep Vein Thrombosis (DVT) Additional Family Medical History / Comment(s): "HEART PROBLEMS", Hep C Sister(s) Family Medical History: Congestive Heart Failure (CHF), Diabetes Mellitus Additional Family Medical History / Comment(s): heart problems Brother(s) Family Medical History: Diabetes Mellitus Additional Family Medical History / Comment(s): Mother and sister with Diabetes General Exam - General Exam Comments Initial Comments: General: Awake and alert, well-developed; in no apparent distress. HEENT: Head atraumatic, normocephalic. Pupils are equal, round and reactive to light. Extraocular movements intact. Oropharynx moist without erythema or exudate. Neck: Supple. Normal ROM. Cardiovascular: Regular rate and rhythm. No murmurs, rubs or gallops. Chest symmetrical. Tenderness on palpation of left costochondral region. Respiratory: Lungs clear to auscultation bilaterally. No wheezes, rales or rhonchi. Normal respiratory effort with no use of accessory muscles. Abdomen: Soft, non-tender, non-distended. No rigidity, rebound or guarding. Normal bowel sounds in all 4 quadrants. Musculoskeletal: Normal ROM, no tenderness, strength 5/5 bilateral upper and lower extremities. Ambulating normally. Skin: [place], warm and dry without rashes or lesions. Neurological: Alert and oriented x3. CN II-XII grossly intact. Speech is fluent and answers are appropriate. No focal neuro deficits. Romberg negative. Rapid alternating movements normal. Limitations: no limitations Course Vital Signs 01/17/18 01/17/18 17:04 19:19 Temperature 98.9 F 98.4 F Pulse Rate 94 94 Respiratory 18 18 Rate Blood Pressure 156/83 147/89 O2 Sat by Pulse 97 98 Oximetry Medical Decision Making - Medical Decision Making This is a 47-year-old female who presents to the emergency department with chief complaint of headache. Patient states that she has had a headache, dizziness, chest pain and shortness of breath for the past 5-6 weeks. Patient does not appear acutely ill. Chest pain is reproducible. EKG reveals normal sinus rhythm with prolonged QT, no evidence of ST segment elevation or depression. CBC, CMP, coags and UA were unremarkable. Troponin was negative. Computed tomography scan of the brain revealed no acute abnormalities. Patient is resting comfortably in bed. States she still has a headache so given headache cocktail. Vital signs are stable and she is in no acute distress. She' ll be discharged home at this time and will be given referral to neurology. She is in agreement with plan and voices understanding. All questions answered. - Lab Data Result diagrams: 01/17/18 18:00 01/17/18 18:00 Lab Results 01/17/18 01/17/18 01/17/18 Range/Units 18:00 18:00 18:00 WBC 7.2 (3.8-10.6) k/uL RBC 5.57 H (3.80-5.40) m/uL Hgb 12.4 (11.4-16.0) gm/dL Hct 39.2 (34.0-46.0) % MCV 70.4 L (80.0-100.0) fL MCH 22.2 L (25.0-35.0) pg MCHC 31.5 (31.0-37.0) g/dL RDW 17.2 H (11.5-15.5) % Plt Count 249 (150-450) k/uL Neutrophils % 70 % Lymphocytes % 23 % Monocytes % 4 % Eosinophils % 2 % Basophils % 0 % Neutrophils # 5.0 (1.3-7.7) k/uL Lymphocytes # 1.7 (1.0-4.8) k/uL Monocytes # 0.3 (0-1.0) k/uL Eosinophils # 0.1 (0-0.7) k/uL Basophils # 0.0 (0-0.2) k/uL Hypochromasia Slight Anisocytosis Slight Microcytosis Marked PT 10.2 (9.0-12.0) sec INR 1.0 (<1.2) APTT 23.0 (22.0-30.0) sec Sodium 141 (137-145) mmol/L Potassium 4.4 (3.5-5.1) mmol/L Chloride 102 (98-107) mmol/L Carbon Dioxide 28 (22-30) mmol/L Anion Gap 11 mmol/L BUN 17 (7-17) mg/dL Creatinine 0.90 (0.52-1.04) mg/dL Est GFR (CKD-EPI)AfAm 90 (>60 ml/min/1.73 sqM) Est GFR (CKD-EPI)NonAf 78 (>60 ml/min/1.73 sqM) Glucose 143 H (74-99) mg/dL Calcium 9.1 (8.4-10.2) mg/dL Total Bilirubin 0.4 (0.2-1.3) mg/dL AST 20 (14-36) U/L ALT 34 (9-52) U/L Alkaline Phosphatase 139 H (38-126) U/L Troponin I (0.000-0.034) ng/mL Total Protein 6.9 (6.3-8.2) g/dL Albumin 3.8 (3.5-5.0) g/dL Urine Color Urine Appearance (Clear) Urine pH (5.0-8.0) Ur Specific [place] (1.001-1.035) Urine Protein (Negative) Urine Glucose (UA) (Negative) Urine Ketones (Negative) Urine Blood (Negative) Urine Nitrite (Negative) Urine Bilirubin (Negative) Urine Urobilinogen (<2.0) mg/dL Ur Leukocyte Esterase (Negative) 01/17/18 01/17/18 Range/Units 18:00 18:00 WBC (3.8-10.6) k/uL RBC (3.80-5.40) m/uL Hgb (11.4-16.0) gm/dL Hct (34.0-46.0) % MCV (80.0-100.0) fL MCH (25.0-35.0) pg MCHC (31.0-37.0) g/dL RDW (11.5-15.5) % Plt Count (150-450) k/uL Neutrophils % % Lymphocytes % % Monocytes % % Eosinophils % % Basophils % % Neutrophils # (1.3-7.7) k/uL Lymphocytes # (1.0-4.8) k/uL Monocytes # (0-1.0) k/uL Eosinophils # (0-0.7) k/uL Basophils # (0-0.2) k/uL Hypochromasia Anisocytosis Microcytosis PT (9.0-12.0) sec INR (<1.2) APTT (22.0-30.0) sec Sodium (137-145) mmol/L Potassium (3.5-5.1) mmol/L Chloride (98-107) mmol/L Carbon Dioxide (22-30) mmol/L Anion Gap mmol/L BUN (7-17) mg/dL Creatinine (0.52-1.04) mg/dL Est GFR (CKD-EPI)AfAm (>60 ml/min/1.73 sqM) Est GFR (CKD-EPI)NonAf (>60 ml/min/1.73 sqM) Glucose (74-99) mg/dL Calcium (8.4-10.2) mg/dL Total Bilirubin (0.2-1.3) mg/dL AST (14-36) U/L ALT (9-52) U/L Alkaline Phosphatase (38-126) U/L Troponin I <0.012 (0.000-0.034) ng/mL Total Protein (6.3-8.2) g/dL Albumin (3.5-5.0) g/dL Urine Color Yellow Urine Appearance Clear (Clear) Urine pH 7.5 (5.0-8.0) Ur Specific [place] 1.017 (1.001-1.035) Urine Protein Negative (Negative) Urine Glucose (UA) Negative (Negative) Urine Ketones Negative (Negative) Urine Blood Negative (Negative) Urine Nitrite Negative (Negative) Urine Bilirubin Negative (Negative) Urine Urobilinogen 2.0 (<2.0) mg/dL Ur Leukocyte Esterase Negative (Negative) - EKG Data EKG Comments: 17:43:14. Normal sinus rhythm. Prolonged QT. Ventricular rate 94 bpm, GA interval 158, QRS duration 92, QT/QTC 384/480 - Radiology Data Radiology results: report reviewed CT brain without contrast impression: Normal computed tomography scan of the brain. No change. Disposition Clinical Impression: Headache Disposition: HOME SELF-CARE Condition: Good Instructions: General Headache (ED) Additional Instructions: Please follow-up with Dr. Salas, neurology within 1-2 days. Please follow up with primary care provider within 1-2 days. Return to emergency department if symptoms should worsen or any concerns arise. Is patient prescribed a controlled substance at d/c from ED?: No Referrals: Pat Oh DO [Primary Care Provider] - 1-2 days Dejuan Salas MD [STAFF PHYSICIAN] - 1-2 days Time of Disposition: 19:28
[2018-01-17 18:17] LABS: Anisocytosis Slight; Basophils % (A) 0 %; Eosinophils # (A) 0.1 k/uL (0-0.7); Eosinophils % (A) 2 %; HCT 39.2 % (34.0-46.0); HGB 12.4 gm/dL (11.4-16.0); Hypochromasia Slight; Lymphocytes # (A) 1.7 k/uL (1.0-4.8); Lymphocytes % (A) 23 %; MCH 22.2 pg (25.0-35.0); MCHC 31.5 g/dL (31.0-37.0); MCV 70.4 fL (80.0-100.0); Mean Platelet Volume 7.9; Microcytosis Marked; Monocytes # (A) 0.3 k/uL (0-1.0); Monocytes % (A) 4 %; Neutrophils % (A) 70 %; Platelet Count 249 k/uL (150-450); RBC 5.57 m/uL (3.80-5.40); RDW 17.2 % (11.5-15.5); WBC 7.2 k/uL (3.8-10.6)
[2018-01-17 18:28] LABS: Prothrombin Time 10.2 sec (9.0-12.0)
[2018-01-17 18:36] LABS: Appearance,Urine Clear (Clear); Bilirubin,Urine Negative (Negative); Blood,Urine Negative (Negative); Color,Urine Yellow; Glucose,Urine (UA) Negative (Negative); Ketones,Urine Negative (Negative); Leukocyte Esterase,Urine Negative (Negative); Nitrite,Urine Negative (Negative); PH, Urine 7.5 (5.0-8.0); Protein,Urine Negative (Negative); Specific Gravity,Urine 1.017 (1.001-1.035)
[2018-01-17 18:38] LABS: Albumin 3.8 g/dL (3.5-5.0); Calcium 9.1 mg/dL (8.4-10.2); Potassium 4.4 mmol/L (3.5-5.1); Total Bilirubin 0.4 mg/dL (0.2-1.3); Total Protein 6.9 g/dL (6.3-8.2)
--- NOTE | 2018-01-17 19:09 | CT ---
EXAMINATION TYPE: CT brain wo con DATE OF EXAM: 01/17/2018 COMPARISON: 03/29/2016 HISTORY: Patient complains of headache. CT DLP: 819.3 mGycm. Automated Exposure Control for Dose Reduction was Utilized. TECHNIQUE: CT scan of the head is performed without contrast. FINDINGS: Ventricles and sulci appear normal. There is no mass effect nor midline shift. There is n o sign of intracranial hemorrhage. The calvarium is intact. Impression normal CT scan of the brain. No change.
[2018-01-17] MEDS ORDERED: KETOROLAC 30 MG/ML 1 ML VIAL IVP STA (19:18)
[2018-01-17] MEDS ORDERED: diphenhydrAMINE 50 MG/ML 1 ML VIAL IVP STA (19:18)
[2018-01-17] MEDS ORDERED: METOCLOPRAMIDE 5 MG/ML 2 ML VIAL IVP STA (19:18)
[2018-01-17 19:22] VITALS: BP 147/89
[2018-01-17 19:48] VITALS: TEMP 98.3
== END 2018-01-17 19:48 | disposition home or self-care (01) ==
LOC: EC 16:32
DX: R51 Headache (principal); R42 Dizziness and giddiness; R06.02 Shortness of breath; R07.9 Chest pain, unspecified; E11.9 Type 2 diabetes mellitus without complications; I10 Essential (primary) hypertension; Z86.73 Personal history of transient ischemic attack (TIA), and cerebral infarction without residual deficits; Z79.84 Long term (current) use of oral hypoglycemic drugs; Z79.899 Other long term (current) drug therapy
CPT/HCPCS: 99284 ×2; 96374 ×2; 96375 ×3; 96361 ×3; 36415; 93005; 93306; 80053; 84484; 85025; 85610; 85730; 81003; 93970; 70450; J1200; J2765; J1885

== ENCOUNTER → 2018-01-17 | Outpatient (CLI) | payer MEDICARE ==
--- NOTE | 2018-01-17 17:58 | US ---
EXAMINATION TYPE: US venous doppler duplex LE BI DATE OF EXAM: 01/17/2018 4:24 PM COMPARISON: us CLINICAL HISTORY: R22.42 Localized swelling left leg,R22.41 swelling. SIDE PERFORMED: Bilateral TECHNIQUE: The lower extremity deep venous system is examined utilizing real time linear array sonog mikki with graded compression, doppler sonography and color-flow sonography. VESSELS IMAGED: External Iliac Vein (EIV) Common Femoral Vein Deep Femoral Vein Greater Saphenous Vein * Femoral Vein Popliteal Vein Small Saphenous Vein * Proximal Calf Veins (* superficial vessels) Morbidly obese patient. Right Leg: Negative for DVT Left Leg: Negative for DVT IMPRESSION: Negative exam. No evidence of deep venous thrombosis in both legs.
--- NOTE | 2018-01-18 09:16 | ECHOF ---
Referral Reason:R22.42 Localized swelling left leg,R22.41 swelling MEASUREMENTS -------- HEIGHT: 157.5 cm WEIGHT: 109.3 kg BP: 186/107 RVIDd: 2.5 cm (< 3.3) IVSd: 1.2 cm (0.6 - 1.1) LVIDd: 3.4 cm (3.9 - 5.3) LVPWd: 1.2 cm (0.6 - 1.1) IVSs: 1.5 cm LVIDs: 2.7 cm LVPWs: 1.5 cm LA Diam: 3.3 cm (2.7 - 3.8) LAESV Index (A-L): 15.18 ml/m Ao Diam: 2.8 cm (2.0 - 3.7) AV Cusp: 1.9 cm (1.5 - 2.6) MV EXCURSION: 18.525 mm (> 18.000) MV EF SLOPE: 173 mm/s (70 - 150) EPSS: 1.0 cm MV E Vernon: 0.53 m/s MV DecT: 142 ms MV A [place]: 0.72 m/s MV E/A Ratio: 0.74 FINDINGS -------- Sinus rhythm. This was a technically good study. The left ventricular size is normal. There is borderline concentric left ventricular hypertrophy. Overall left ventricular systolic function is normal with, an EF between 55 - 60 %. The right ventricle is normal in size. Normal LA size by volume 22+/-6 ml/m2. The right atrium is normal in size. The aortic valve is trileaflet and appears structurally normal. The mitral valve leaflets are mildly thickened. There is trace mitral regurgitation. The tricuspid valve appears structurally normal. There is no pulmonic regurgitation present. The aortic root size is normal. Normal inferior vena cava with normal inspiratory collapse consistent with estimated right atrial pre ssure of 5 mmHg. There is no pericardial effusion. CONCLUSIONS -------- 1. Sinus rhythm. 2. This was a technically good study. 3. The left ventricular size is normal. 4. There is borderline concentric left ventricular hypertrophy. 5. Overall left ventricular systolic function is normal with, an EF between 55 - 60 %. 6. The right ventricle is normal in size. 7. Normal LA size by volume 22+/-6 ml/m2. 8. The right atrium is normal in size. 9. The aortic valve is trileaflet and appears structurally normal. 10. The mitral valve leaflets are mildly thickened. 11. There is trace mitral regurgitation. 12. The tricuspid valve appears structurally normal. 13. There is no pulmonic regurgitation present. 14. The aortic root size is normal. 15. Normal inferior vena cava with normal inspiratory collapse consistent with estimated right atrial pressure of 5 mmHg. 16. There is no pericardial effusion. CONSTRUCTION WORKER: Ingrid Green RDCS
== END | disposition home or self-care (01) ==
LOC: RADECHMAIN 15:20
PROVIDERS: ATTEND Family Medicine
DX: I34.0 Nonrheumatic mitral (valve) insufficiency (principal); R22.43 Localized swelling, mass and lump, lower limb, bilateral
CPT/HCPCS: 93306; 93970

== ENCOUNTER → 2018-01-28 | Outpatient (CLI) | payer MEDICARE, OTHER ==
[2018-01-28 19:03] LABS: Blood Urea Nitrogen 13 mg/dL (7-17)
--- NOTE | 2018-01-29 08:43 | CT ---
EXAMINATION TYPE: CT abdomen pelvis w con DATE OF EXAM: 01/28/2018 HISTORY: generalized abdominal pain and vomiting X 5-6 months. History of hernia repair and cholecyst ectomy. CT DLP: 1613mGycm Automated Exposure Control for Dose Reduction was Utilized. CONTRAST: CT scan of the abdomen and pelvis is performed with IV Contrast, patient injected with 100 mL of Isov ue 300. COMPARISON: 07/19/2017 FINDINGS: LUNG BASES: No significant abnormality is appreciated. LIVER/GB: There is diffuse hypoattenuation of the hepatic parenchyma although this does not yet meet criteria for hepatic steatosis. Early developing hepatic steatosis is suspected. Gallbladder surgical ly absent. No focal hepatic lesions are identified. No intrahepatic biliary ductal dilatation. PANCREAS: No significant abnormality is seen. SPLEEN: No significant abnormality is seen. ADRENALS: No significant abnormality is seen. KIDNEYS: Left midpole renal lesion measures approximately 1.2 cm and measures fluid attenuation on de layed images favored to represent a cyst with mild pseudoenhancement. Remainder the kidneys enhance s ymmetrically. No hydronephrosis. BOWEL: Surgical changes are noted at the gastroesophageal junction with no recurrent hiatal hernia. S light distal esophageal mucosal thickening is circumferential and could relate to mild esophagitis. B owel is nondilated. Appendix is air-filled and within normal limits. No focal large or small bowel wa ll thickening. UTERUS/ADNEXA: Uterus appears surgically absent. LYMPH NODES: No greater than 1cm abdominal or pelvic lymph nodes are appreciated. OSSEOUS STRUCTURES: No significant abnormality is seen. OTHER: Abdominal aorta and its branches are of normal course and caliber. IMPRESSION: 1. Minimal distal esophageal circumferential thickening with postoperative changes at the gastroesoph ageal junction and no evidence of recurrent hernia. This could relate to esophagitis. Esophagram coul d be performed if there is concern for stricture at the postoperative site. No proximal dilatation of the esophagus. 2. Hepatic parenchyma approaches criteria for mild hepatic steatosis. 3. Probable left renal cyst.
== END | disposition home or self-care (01) ==
LOC: RADCTMAIN 18:15
PROVIDERS: ATTEND Surgery
DX: K20.9 Esophagitis, unspecified (principal); K76.0 Fatty (change of) liver, not elsewhere classified; Z98.890 Other specified postprocedural states
CPT/HCPCS: 82565; 84520; 74177; 36415; Q9967

== ENCOUNTER → 2018-02-17 | Outpatient (CLI) | payer MEDICARE, OTHER ==
[2018-02-17 13:22] VITALS: BP 167/86; PULSE 94; RESP 15; TEMP 98.5; BMI 43.7
--- NOTE | 2018-02-17 13:45 | P.HPBAR ---
Bariatric H&P - History & Physicial H&P Date: 02/17/18 History & Physicial: Visit/CC: sleeve consult/EGD order Patient initial contact: Initial weight: 106.458 kg Initial weight in pounds: 234.70 Height: 5 ft 2 in Initial BMI: 42.9 Last weight: Current weight: 108.409 kg Current weight in pounds: 239.00 Current BMI: 43.7 [place] body weight (based on NIH guidelines): 49.895 kg Excess body weight loss: The patient is a 47 year-old F who presents for Bariatric Assessment. The patient presents today for preoperative consultation. She's been scheduled for EGD. She's had lifetime problems obesity. Her BMI is 44. Past Medical History Past Medical History: CVA/TIA, Diabetes Mellitus, GERD/Reflux, Seizure Disorder Additional Past Medical History / Comment(s): GLAUCOMA. HX. BLEEDING ULCERS. last seizure 2012, ANEMIA. TIA 03/2017-no effects, "occ DIZZY SPELLS" seen in [facility] 10/22/16 , cyst on kidney, History of Any Multi-Drug Resistant Organisms: None Reported Past Surgical History: Breast Surgery, Cholecystectomy, Ear Surgery, Hernia Repair, Hysterectomy Additional Past Surgical History / Comment(s): TUBES IN EARS. RT EYE SX CHILD , kae fundoplication 2015, left breast biopsy, R knee surg, Aug 2017 complete hysterectomy Past Anesthesia/Blood Transfusion Reactions: No Reported Reaction Additional Past Anesthesia/Blood Transfusion Reaction / Comm: mother got Hep C from blood transfusion. Past Psychological History: No Psychological Hx Reported Additional Psychological History / Comment(s): . Smoking Status: Never smoker Past Alcohol Use History: None Reported Past Drug Use History: None Reported - Past Family History Father History Unknown: Yes Additional Family Medical History / Comment(s): ulcer Mother Family Medical History: Deep Vein Thrombosis (DVT) Additional Family Medical History / Comment(s): "HEART PROBLEMS", Hep C Sister(s) Family Medical History: Congestive Heart Failure (CHF), Diabetes Mellitus Additional Family Medical History / Comment(s): heart problems Brother(s) Family Medical History: Diabetes Mellitus Additional Family Medical History / Comment(s): Mother and sister with Diabetes Surgical - Exam Vital Signs Temp Pulse Resp BP 98.5 F 94 15 167/86 02/17/18 13:15 02/17/18 13:15 02/17/18 13:15 02/17/18 13:15 - General well developed, no distress - Eyes PERRL - Abdomen Abdomen: soft, non tender Bariatric Assessment & Plan Plan: Morbid obesity with severe comorbidities. Patient's BMI is 44. She'll be scheduled for EGD. We had a lengthy discussion regarding the risks and benefits of the sleeve gastrectomy. Patient seems have a good understanding of the procedure. She'll follow-up in one month. Bariatric Checklist Checklist: Plan: Checklist: EGD: 1. Hiatal hernia: 2. H. Pylori: HgbA1c: Vitamin D: Smoking: Never smoker Primary care physician referral: kut Psychiatry clearance: Cardiology clearance: Sleep study: Diet journal: VTE risk score: VTE risk level: Rehab needs at discharge:
== END | disposition home or self-care (01) ==
LOC: BARWHC3 12:18
PROVIDERS: ATTEND Surgery
DX: E66.01 Morbid (severe) obesity due to excess calories (principal); K21.9 Gastro-esophageal reflux disease without esophagitis; Z86.73 Personal history of transient ischemic attack (TIA), and cerebral infarction without residual deficits; Z87.11 Personal history of peptic ulcer disease; Z98.890 Other specified postprocedural states; Z68.41 Body mass index [BMI] 40.0-44.9, adult; Z90.49 Acquired absence of other specified parts of digestive tract; Z90.710 Acquired absence of both cervix and uterus
CPT/HCPCS: 99211

== ENCOUNTER → 2018-02-19 | Day surgery (SDC) | payer MEDICARE, OTHER ==
[2018-02-18 13:27] VITALS: BMI 43.5
[~2018-02-19] MED LIST changes: -DEXAMETHASONE SOD PHOSPHATE 10 MG/ML 1 ML VIAL IV ONE; -HYDROmorphone 1 MG/ML 1 ML SYRINGE IVP PRN; -LACTATED RINGERS 1,000 ML IV ONE; +LIDOCAINE 1% INJ 10MG/ML (20 ML MDV) ONE; -MORPHINE SULFATE 5 MG/ML SYRINGE IV PRN; -ONDANSETRON 4 MG/2 ML VIAL IVP ONE; -ONDANSETRON 4 MG/2 ML VIAL IVP PRN; +PROPOFOL 10 MG/ML 20 ML VIAL IV ONE; -ceFAZolin IN SWFI 2 GM/20 ML SYRINGE IVP ONE
--- NOTE | 2018-02-19 16:04 | P.OP ---
Date of Procedure: 02/19/18 Preoperative Diagnosis: GI bleed Postoperative Diagnosis: Mild diverticulosis Procedure(s) Performed: Colonoscopy Anesthesia: MAC Surgeon: Pierce Gonzalez Pathology: none sent Condition: stable Disposition: PACU Description of Procedure: The patient's placed on the endoscopy table in the lateral position. She received IV sedation. Digital rectal exam was performed which revealed no abnormalities. Flexible colonoscope was then placed patient anus passed throughout the entire colon. The ileocecal valve was visualized. The cecum, ascending and transverse colon appeared normal. In the descending; there is mild diverticular changes. Scope was then brought back the rectum and this appeared normal. Scope was withdrawn for patient.
[2018-02-20 03:37] LABS: Glucose,Whole Blood 114 mg/dL (75-99)
--- NOTE | 2018-02-23 13:04 | CDI ---
Outpatient Documentation Clarification Form Date: 02/23/18 CDS/Cryptologic Technician Operator/Analyst Name: Yoli Coronado Phone: If any questions, call Lurdes Beebe Field Nurse at [phone] Patient Name: Maricel Scott Admit Date: 02/19/18 Discharge Date: 02/19/18 ATTENTION: The [facility] Coding Staff appreciate your assistance in clarifying documentation. Please respond to the clarification below the line at the bottom and electronically sign. The [facility] Coding staff will review the response and follow-up if needed. Please note: Queries are made part of the Legal Health Record. If you have any questions, please contact the Field Nurse. Dear Dr. Gonzalez, What is the source of the GI bleed for this patient? Confirmed source of bleed is: Likely source of bleed is: Multiple coding resources that we are required to follow state that the physician should identify a source and the refrigerator car icer may not assume. ICD-9-CM Coding Clinic, Second 2006, Page 13: Question: In the 2004 issue of Coding Clinic, it was advised that "the combination codes describing hemorrhage should not be assigned unless the physician identifies a causal relationship." If, however, a patient presents with GI bleeding where only one possible source is found, can the refrigerator car icer assume a causal relationship between the GI bleeding and the single finding (ulcer, gastritis, diverticulitis, etc.) or must the physician explicitly state that the GI bleeding is due to the single finding? Answer: The refrigerator car icer should not assume a causal relationship between gastrointestinal bleeding and a single finding such as a gastric ulcer, gastritis, diverticulitis , etc. The physician must identify the source of the bleeding and link the clinical findings from the colonoscopy or upper endoscopy, since these findings may be unrelated to the bleeding. MTDD
== END ==
LOC: ORWHC2ENDO 08:02
PROVIDERS: ATTEND Surgery
DX: K92.2 Gastrointestinal hemorrhage, unspecified (principal); K57.30 Diverticulosis of large intestine without perforation or abscess without bleeding; I10 Essential (primary) hypertension; E78.5 Hyperlipidemia, unspecified; G43.909 Migraine, unspecified, not intractable, without status migrainosus; E11.9 Type 2 diabetes mellitus without complications; Z79.84 Long term (current) use of oral hypoglycemic drugs; Z79.899 Other long term (current) drug therapy
CPT/HCPCS: 45378; J2001; J2704

== ENCOUNTER 2018-02-24 10:02 | Emergency (ER) | payer MEDICARE, OTHER ==
[2018-02-24 10:06] VITALS: RESP 18
[2018-02-24 10:58] LABS: INR 1.1 (<1.2); Partial Thromboplastin Time 22.8 sec (22.0-30.0); Prothrombin Time 10.3 sec (9.0-12.0)
[2018-02-24 11:01] LABS: Albumin 3.8 g/dL (3.5-5.0); Calcium 8.6 mg/dL (8.4-10.2); Magnesium 1.8 mg/dL (1.6-2.3); Total Bilirubin 0.7 mg/dL (0.2-1.3); Total Protein 6.6 g/dL (6.3-8.2)
[2018-02-24 11:02] LABS: Potassium 3.9 mmol/L (3.5-5.1)
--- NOTE | 2018-02-24 11:03 | XR ---
EXAMINATION TYPE: XR chest 2V DATE OF EXAM: 02/24/2018 COMPARISON: 11/03/2017 TECHNIQUE: PA and lateral views submitted. HISTORY: Chest pain FINDINGS: The lungs are clear and there is no pneumothorax, pleural effusion, or focal pneumonia. IMPRESSION: 1. No acute process.
[2018-02-24 11:09] LABS: Anisocytosis Slight; Basophils % (A) 0 %; Eosinophils # (A) 0.2 k/uL (0-0.7); Eosinophils % (A) 4 %; HCT 38.7 % (34.0-46.0); Hypochromasia Slight; Lymphocytes # (A) 1.5 k/uL (1.0-4.8); Lymphocytes % (A) 30 %; MCH 22.9 pg (25.0-35.0); MCHC 31.1 g/dL (31.0-37.0); MCV 73.7 fL (80.0-100.0); Mean Platelet Volume 8.6; Microcytosis Moderate; Monocytes # (A) 0.3 k/uL (0-1.0); Monocytes % (A) 6 %; Neutrophils # (A) 2.9 k/uL (1.3-7.7); Neutrophils % (A) 58 %; Platelet Count 235 k/uL (150-450); RBC 5.25 m/uL (3.80-5.40); RDW 18.3 % (11.5-15.5); WBC 4.9 k/uL (3.8-10.6)
[2018-02-24 11:15] LABS: Creatine Kinase 42 U/L (30-135)
--- NOTE | 2018-02-24 11:27 | ED ---
Chest Pain HPI - General Chief Complaint: Chest Pain Stated Complaint: Chest Pain Time Seen by Provider: 02/24/18 10:16 Source: patient, RN notes reviewed, old records reviewed Mode of arrival: wheelchair Limitations: no limitations - History of Present Illness Initial Comments: This a 47-year-old female with a history of multiple visits for chest pain states she's been having chest pain for the past several months she states that sharp left-sided does not state increase with movement or deep breathing no fevers chills nausea vomiting sweats or other symptoms she is very concerned about pain however. No other modifying factors MD Complaint: chest pain - Related Data Home Medications Medication Instructions Recorded Confirmed metFORMIN HCL 1,000 mg PO BID 01/19/16 02/18/18 Atenolol [Tenormin] 50 mg PO QAM 01/17/17 02/18/18 SUMAtriptan SUCCINATE [Imitrex] 50 mg PO BID PRN 01/17/17 02/18/18 Simvastatin [Zocor] 10 mg PO HS 01/17/17 02/18/18 Levothyroxine Sodium [Synthroid] 100 mcg PO SUTUTHSA 05/31/17 02/18/18 Levothyroxine Sodium [Synthroid] 112 mcg PO MOWEFR 07/29/17 02/18/18 Lisinopril-Hctz 10-12.5 mg 1 tab PO QAM 07/29/17 02/18/18 [Zestoretic 10-12.5] Meclizine [Antivert] 25 mg PO TID PRN 07/29/17 02/18/18 Acetaminophen-Codeine 300-30mg 1 tab PO Q4HR PRN 09/30/17 02/18/18 [Tylenol w/codeine #3] Previous Rx's Medication Instructions Recorded Aspirin 81 mg PO DAILY 06/01/17 Nitroglycerin Sl Tabs [Nitrostat] 0.4 mg SUBLINGUAL Q5M PRN #25 tab 06/01/17 Magnesium 200 mg PO DAILY #7 tablet 07/20/17 Ranitidine HCl [Zantac] 150 mg PO BID #30 tab 08/14/17 Ibuprofen [Motrin] 600 mg PO Q6HR PRN #30 tab 08/30/17 Acetaminophen [Tylenol 8 Hour] 650 mg PO TID #20 tablet.er 10/08/17 Ibuprofen 800 mg PO Q6HR PRN #20 tablet 02/24/18 Allergies Allergy/AdvReac Type Severity Reaction Status Date / Time No Known Allergies Allergy Verified 02/24/18 10:06 Review of Systems ROS Statement: Those systems with pertinent positive or pertinent negative responses have been documented in the HPI. ROS Other: All systems not noted in ROS Statement are negative. EKG Findings - EKG Results: EKG: interpreted by BRITT MACIASL, sinus rhythm, normal axis, normal QRS, normal ST/ T, no acute changes (Sinus rhythm rate of 70 and appear interval 146 QRS duration 90 QT since QTC 398/[address]-T wave changes this is a normal- appearing EKG) Past Medical History Past Medical History: CVA/TIA, Diabetes Mellitus, GERD/Reflux, Seizure Disorder Additional Past Medical History / Comment(s): GLAUCOMA. HX. BLEEDING ULCERS. last seizure 2012, ANEMIA. TIA 03/2017-no effects, "occ DIZZY SPELLS", cyst on kidney, History of Any Multi-Drug Resistant Organisms: None Reported Past Surgical History: Breast Surgery, Cholecystectomy, Ear Surgery, Hernia Repair, Hysterectomy Additional Past Surgical History / Comment(s): TUBES IN EARS. RT EYE SX CHILD , kae fundoplication 2015, left breast biopsy, R knee surg, Aug 2017 complete hysterectomy Past Anesthesia/Blood Transfusion Reactions: No Reported Reaction Additional Past Anesthesia/Blood Transfusion Reaction / Comment(s): mother got Hep C from blood transfusion. Past Psychological History: No Psychological Hx Reported Smoking Status: Never smoker Past Alcohol Use History: None Reported Past Drug Use History: None Reported - Past Family History Father History Unknown: Yes Additional Family Medical History / Comment(s): ulcer Mother Family Medical History: Deep Vein Thrombosis (DVT) Additional Family Medical History / Comment(s): "HEART PROBLEMS", Hep C Sister(s) Family Medical History: Congestive Heart Failure (CHF), Diabetes Mellitus Additional Family Medical History / Comment(s): heart problems Brother(s) Family Medical History: Diabetes Mellitus Additional Family Medical History / Comment(s): Mother and sister with Diabetes General Exam - General Exam Comments Initial Comments: This is a well-developed well-nourished awake alert oriented 3 female Limitations: no limitations General appearance: alert, anxious Head exam: Present: atraumatic, normocephalic, normal inspection Eye exam: Present: normal appearance, PERRL, EOMI. Absent: scleral icterus, conjunctival injection, periorbital swelling ENT exam: Present: normal exam, mucous membranes moist Neck exam: Present: normal inspection. Absent: tenderness, meningismus, lymphadenopathy Respiratory exam: Present: normal lung sounds bilaterally, chest wall tenderness (Reproducible tenderness palpation over left costal sternal margin). Absent: respiratory distress, wheezes, rales, rhonchi, stridor Cardiovascular Exam: Present: regular rate, normal rhythm, normal heart sounds. Absent: systolic murmur, diastolic murmur, rubs, gallop, clicks GI/Abdominal exam: Present: soft, normal bowel sounds. Absent: distended, tenderness, guarding, rebound, rigid Extremities exam: Present: normal inspection, full ROM, normal capillary refill. Absent: tenderness, pedal edema, joint swelling, calf tenderness Back exam: Present: normal inspection Neurological exam: Present: alert, oriented X3, CN II-XII intact Psychiatric exam: Present: normal affect, normal mood Skin exam: Present: warm, dry, intact, normal color. Absent: rash Course Vital Signs 02/24/18 02/24/18 02/24/18 10:03 12:39 13:16 Temperature 97.9 F Pulse Rate 75 77 82 Respiratory 18 18 18 Rate Blood Pressure 142/88 150/81 150/81 O2 Sat by Pulse 97 97 99 Oximetry Chest Pain MDM - MDM I did review the imaging and report no acute findings. I did discuss findings with the patient the presentation is consistent with costochondritis patient will be discharged on appropriate anti-inflammatories. Disposition Clinical Impression: Costalchondritis, Chest wall syndrome Disposition: HOME SELF-CARE Condition: Good Instructions: Costochondritis (ED) Prescriptions: Ibuprofen 800 mg PO Q6HR PRN #20 tablet PRN Reason: Pain Is patient prescribed a controlled substance at d/c from ED?: No Referrals: Pat Oh DO [Primary Care Provider] - 1-2 days
[2018-02-24 11:28] LABS: Creatine Kinase MB <0.2 ng/mL (0.0-2.4); Troponin I <0.012 ng/mL (0.000-0.034)
[2018-02-24] MEDS ORDERED: KETOROLAC 30 MG/ML 1 ML VIAL IVP STA (12:23)
[2018-02-24 13:59] VITALS: BP 149/93; PULSE 87; TEMP 99.1
== END 2018-02-24 13:57 | disposition home or self-care (01) ==
LOC: EC 10:02
DX: M94.0 Chondrocostal junction syndrome [Tietze] (principal); E11.9 Type 2 diabetes mellitus without complications; K21.9 Gastro-esophageal reflux disease without esophagitis; Z86.73 Personal history of transient ischemic attack (TIA), and cerebral infarction without residual deficits; Z79.84 Long term (current) use of oral hypoglycemic drugs; Z79.899 Other long term (current) drug therapy
CPT/HCPCS: 36415; 93005; 80053; 82550; 82553; 83735; 84484; 85025; 85610; 85730; 71046; 99285; 96374; J1885

== ENCOUNTER 2018-02-28 16:05 | Observation (INO) | payer MEDICARE, OTHER ==
--- NOTE | 2018-02-28 16:41 | XR ---
EXAMINATION TYPE: XR chest 2V DATE OF EXAM: 02/28/2018 COMPARISON: 02/24/2018 HISTORY: 47 year-old female shortness of breath and chest pain TECHNIQUE: Frontal and lateral views FINDINGS: Heart upper limits of normal in size. Mild interstitial prominence is unchanged. No consolidation or pleural effusion. Aorta and pulmonary vasculature within normal limits. IMPRESSION: Chronic changes without acute cardiopulmonary process.
[2018-02-28 17:06] LABS: Anisocytosis Slight; Basophils % (A) 0 %; Eosinophils # (A) 0.1 k/uL (0-0.7); Eosinophils % (A) 1 %; HCT 41.7 % (34.0-46.0); Hypochromasia Slight; Lymphocytes # (A) 1.6 k/uL (1.0-4.8); Lymphocytes % (A) 19 %; MCH 23.1 pg (25.0-35.0); MCHC 31.2 g/dL (31.0-37.0); MCV 74.1 fL (80.0-100.0); Mean Platelet Volume 8.7; Microcytosis Moderate; Monocytes # (A) 0.4 k/uL (0-1.0); Monocytes % (A) 5 %; Neutrophils # (A) 6.2 k/uL (1.3-7.7); Neutrophils % (A) 74 %; Platelet Count 247 k/uL (150-450); RBC 5.63 m/uL (3.80-5.40); RDW 17.8 % (11.5-15.5); WBC 8.4 k/uL (3.8-10.6)
--- NOTE | 2018-02-28 17:09 | ED ---
General Adult HPI - General Chief complaint: Chest Pain Stated complaint: CHEST PAIN Source: EMS Mode of arrival: EMS - History of Present Illness Initial comments: Dictation was produced using [employer] dictation software. please excuse any grammatical, word or spelling errors. Chief Complaint: 47-year-old female past medical history of peripheral vascular disease, diabetes, seizure disorder presents with chief complaint of chest pain. History of Present Illness: Patient reports that her chest pain has been ongoing for approximately 4 weeks. She describes the pain as substernal pressure. Patient has history of diabetes, peripheral vascular disease and seizures. Patient describes the pain as substernal patient denies any worsening symptoms with exertion. Denies any shortness of breath. Patient denies any radiation of symptoms to her jaws or shoulders. Patient states she has seen a science and operations officer in the past. Has not ever been formally diagnosed with coronary artery disease. Denies ever having had a stress test. Denies any constitutional symptoms. The ROS documented in this emergency department record has been reviewed and confirmed by me. Those systems with pertinent positive or negative responses have been documented in the HPI. All other systems are other negative and/or noncontributory. - Related Data Home Medications Medication Instructions Recorded Confirmed metFORMIN HCL 1,000 mg PO BID 01/19/16 02/28/18 Atenolol [Tenormin] 50 mg PO QAM 01/17/17 02/28/18 SUMAtriptan SUCCINATE [Imitrex] 50 mg PO BID PRN 01/17/17 02/28/18 Simvastatin [Zocor] 10 mg PO HS 01/17/17 02/28/18 Levothyroxine Sodium [Synthroid] 100 mcg PO DAILY 05/31/17 02/28/18 Amitriptyline HCl [Elavil] 10 mg PO HS 02/24/18 02/28/18 Lisinopril-Hctz 20-25 mg 1 tab PO DAILY 02/24/18 02/28/18 [Zestoretic 20-25] Nitroglycerin Sl Tabs [Nitrostat] 0.4 mg SUBLINGUAL Q5M PRN 02/24/18 02/28/18 Pantoprazole Sodium [Protonix] 40 mg PO DAILY 02/24/18 02/28/18 amLODIPine [Norvasc] 5 mg PO DAILY 02/24/18 02/28/18 Previous Rx's Medication Instructions Recorded Aspirin 81 mg PO DAILY 06/01/17 Ibuprofen 800 mg PO Q6HR PRN #20 tablet 02/24/18 Allergies Allergy/AdvReac Type Severity Reaction Status Date / Time No Known Allergies Allergy Verified 02/28/18 17:22 Review of Systems ROS Statement: Those systems with pertinent positive or pertinent negative responses have been documented in the HPI. ROS Other: All systems not noted in ROS Statement are negative. Past Medical History Past Medical History: CVA/TIA, Diabetes Mellitus, GERD/Reflux, Seizure Disorder Additional Past Medical History / Comment(s): GLAUCOMA. HX. BLEEDING ULCERS. last seizure 2012, ANEMIA. TIA 03/2017-no effects, "occ DIZZY SPELLS", cyst on kidney, History of Any Multi-Drug Resistant Organisms: None Reported Past Surgical History: Breast Surgery, Cholecystectomy, Ear Surgery, Hernia Repair, Hysterectomy Additional Past Surgical History / Comment(s): TUBES IN EARS. RT EYE SX CHILD , kae fundoplication 2015, left breast biopsy, R knee surg, Aug 2017 complete hysterectomy Past Anesthesia/Blood Transfusion Reactions: No Reported Reaction Additional Past Anesthesia/Blood Transfusion Reaction / Comment(s): mother got Hep C from blood transfusion. Past Psychological History: No Psychological Hx Reported Smoking Status: Never smoker Past Alcohol Use History: None Reported Past Drug Use History: None Reported - Past Family History Father History Unknown: Yes Additional Family Medical History / Comment(s): ulcer Mother Family Medical History: Deep Vein Thrombosis (DVT) Additional Family Medical History / Comment(s): "HEART PROBLEMS", Hep C Sister(s) Family Medical History: Congestive Heart Failure (CHF), Diabetes Mellitus Additional Family Medical History / Comment(s): heart problems Brother(s) Family Medical History: Diabetes Mellitus Additional Family Medical History / Comment(s): Mother and sister with Diabetes General Exam - General Exam Comments Initial Comments: PHYSICAL EXAM: General Impression: Alert and oriented x3, not in acute distress HEENT: Normocephalic atraumatic, extra-ocular movements intact, pupils equal and reactive to light bilaterally, mucous membranes moist. Cardiovascular: Heart regular rate and rhythm, S1&S2 audible, no murmurs, rubs or gallops Chest: Lungs clear to auscultation bilaterally, no rhonchi, no wheeze, no rales Abdomen: Bowel sounds present, abdomen soft, non-tender, non-distended, no organomegaly Musculoskeletal: Pulses present and equal in all extremities, no peripheral edema Motor: Power 5/5 bilaterally, no focal deficits noted Neurological: CN II-XII grossly intact, no focal motor or sensory deficits noted Skin: Intact with no visualized rashes Psych: Normal affect and mood Course Vital Signs 02/28/18 02/28/18 02/28/18 16:07 16:57 17:59 Temperature 97.9 F 97.9 F Pulse Rate 74 81 71 Respiratory 16 16 16 Rate Blood Pressure 165/111 196/100 200/95 O2 Sat by Pulse 95 95 99 Oximetry Medical Decision Making - Medical Decision Making ED course: 47-year-old female presents with atypical chest pain with typical features. Patient has multiple risk factors for acute coronary syndrome. Vital signs upon arrival shows initial blood pressure 196/100. Repeat vital signs are improved. Patient is well-appearing. No acute distress. Physical examination is benign. No clinical suspicion of pulmonary embolus given no complaint of shortness of breath and no hypoxia. EKG was obtained and found to be benign. Patient denies any cardiac history.Laboratory evaluation was obtained. CBC is unremarkable. Hemoglobin is within normal limits. No leukocytosis. Basic metabolic panel is unremarkable. Troponin is negative. EKG was obtained showing no findings of ST segment elevation IN. Chest x-ray was unremarkable. There is nonspecific isolated changes in lead 3. Patient's chest pain is atypical however with typical features. Patient has not had any provocative testing in the past. Discussed with patient's primary care physician that she'll be admitted for cardiac stress test. Patient is understandable and agreeable to this plan. Patient is reevaluated prior to disposition with stable findings. Patient denied any pain. EKG interpretation: Ventricular rate 66. Sinus rhythm. IN interval 136, QRS 90 , QTC 421 No IN prolongation, no QTC prolongation, no ST or T-wave changes noted. . Overall, this EKG is unremarkable - Lab Data Result diagrams: 02/28/18 16:59 02/28/18 16:59 Lab Results 02/28/18 02/28/18 02/28/18 Range/Units 16:59 16:59 16:59 WBC 8.4 (3.8-10.6) k/uL RBC 5.63 H (3.80-5.40) m/uL Hgb 13.0 (11.4-16.0) gm/dL Hct 41.7 (34.0-46.0) % MCV 74.1 L (80.0-100.0) fL MCH 23.1 L (25.0-35.0) pg MCHC 31.2 (31.0-37.0) g/dL RDW 17.8 H (11.5-15.5) % Plt Count 247 (150-450) k/uL Neutrophils % 74 % Lymphocytes % 19 % Monocytes % 5 % Eosinophils % 1 % Basophils % 0 % Neutrophils # 6.2 (1.3-7.7) k/uL Lymphocytes # 1.6 (1.0-4.8) k/uL Monocytes # 0.4 (0-1.0) k/uL Eosinophils # 0.1 (0-0.7) k/uL Basophils # 0.0 (0-0.2) k/uL Hypochromasia Slight Anisocytosis Slight Microcytosis Moderate Sodium 145 (137-145) mmol/L Potassium 4.4 (3.5-5.1) mmol/L Chloride 105 (98-107) mmol/L Carbon Dioxide 28 (22-30) mmol/L Anion Gap 12 mmol/L BUN 16 (7-17) mg/dL Creatinine 0.96 (0.52-1.04) mg/dL Est GFR (CKD-EPI)AfAm 83 (>60 ml/min/1.73 sqM) Est GFR (CKD-EPI)NonAf 72 (>60 ml/min/1.73 sqM) Glucose 120 H (74-99) mg/dL Calcium 9.0 (8.4-10.2) mg/dL Troponin I <0.012 (0.000-0.034) ng/mL Disposition Clinical Impression: Chest pain Disposition: ADMITTED IP TO THIS HOSP Condition: Fair Referrals: Solomon Flores MD [Primary Care Provider] - 1-2 days Time of Disposition: 18:42
[2018-02-28 17:15] LABS: Potassium 4.4 mmol/L (3.5-5.1)
[2018-02-28] MEDS ORDERED: ASPIRIN 81 MG PO STA (17:44)
[2018-02-28] MEDS ORDERED: NALOXONE 0.4 MG/ML 1 ML VIAL IV PRN (18:32)
[2018-02-28] MEDS ORDERED: DOBUTamine DRIP for NUC MED 500 MG in DEXTROSE/WATER 1 250ML.BAG IV ONE (18:39)
[2018-02-28] MEDS ORDERED: hydrALAZINE HCL 20 MG/ML 1 ML VIAL IVP PRN (19:59)
[2018-03-01 04:02] VITALS: RESP 18
[2018-03-01] MEDS ORDERED: IBUPROFEN 800 MG TAB PO PRN (04:20)
[2018-03-01] MEDS ORDERED: DOBUTamine DRIP for NUC MED 500 MG in DEXTROSE/WATER 1 250ML.BAG IV ONE (08:00)
[2018-03-01] MEDS ORDERED: amLODIPine 5 MG TAB PO SCH (09:00)
[2018-03-01] MEDS ORDERED: ATENOLOL 50 MG TAB PO SCH (09:00)
[2018-03-01] MEDS ORDERED: LEVOTHYROXINE 100 MCG TAB PO SCH (09:00)
[2018-03-01] MEDS ORDERED: ASPIRIN 81 MG PO SCH (09:00)
[2018-03-01 11:14] VITALS: BP 119/58; PULSE 61; TEMP 97.8
--- NOTE | 2018-03-01 13:58 | P.HPIM ---
History of Present Illness H&P Date: 03/01/18 Chief Complaint: Shortness of breath 47-year-old morbidly obese female who has been having problems associated intermittent chest pain going on for several weeks as well as some substernal chest heaviness has dyspnea on exertion with those problem she presented emergency department has been admitted into the hospital for further evaluation her cardiac enzymes has been checked which were normal however she has multiple risk factors including diabetes mellitus as well as hypertension hypertensive cardiovascular disease cardiovascular consultation is being initiated as well Review of Systems All systems: negative Past Medical History Past Medical History: CVA/TIA, Diabetes Mellitus, GERD/Reflux, Seizure Disorder Additional Past Medical History / Comment(s): glaucoma radha eyes. HX. BLEEDING ULCERS. last seizure 2014, ANEMIA. TIA 03/2017-no effects, "occ DIZZY SPELLS" , cyst on kidney, benign polyps, diverticulosis History of Any Multi-Drug Resistant Organisms: None Reported Past Surgical History: Breast Surgery, Cholecystectomy, Ear Surgery, Hernia Repair, Hysterectomy Additional Past Surgical History / Comment(s): TUBES IN EARS. RT EYE SX CHILD , kae fundoplication 2015, left breast biopsy, R knee surg, Aug 2017 complete hysterectomy ,colonoscopy Past Anesthesia/Blood Transfusion Reactions: No Reported Reaction Additional Past Anesthesia/Blood Transfusion Reaction / Comment(s): mother got Hep C from blood transfusion. Smoking Status: Never smoker - Past Family History Father History Unknown: Yes Additional Family Medical History / Comment(s): ulcer Mother Family Medical History: Deep Vein Thrombosis (DVT) Additional Family Medical History / Comment(s): "HEART PROBLEMS", Hep C Sister(s) Family Medical History: Congestive Heart Failure (CHF), Diabetes Mellitus Additional Family Medical History / Comment(s): heart problems Brother(s) Family Medical History: Diabetes Mellitus Additional Family Medical History / Comment(s): Mother and sister with Diabetes Medications and Allergies Home Medications Medication Instructions Recorded Confirmed Type metFORMIN HCL 1,000 mg PO BID 01/19/16 02/28/18 History Atenolol [Tenormin] 50 mg PO QAM 01/17/17 02/28/18 History SUMAtriptan SUCCINATE [Imitrex] 50 mg PO BID PRN 01/17/17 02/28/18 History Simvastatin [Zocor] 10 mg PO HS 01/17/17 02/28/18 History Levothyroxine Sodium [Synthroid] 100 mcg PO DAILY 05/31/17 02/28/18 History Aspirin 81 mg PO DAILY 06/01/17 02/28/18 Rx Amitriptyline HCl [Elavil] 10 mg PO HS 02/24/18 02/28/18 History Ibuprofen 800 mg PO Q6HR PRN #20 tablet 02/24/18 02/28/18 Rx Lisinopril-Hctz 20-25 mg 1 tab PO DAILY 02/24/18 02/28/18 History [Zestoretic 20-25] Nitroglycerin Sl Tabs [Nitrostat] 0.4 mg SUBLINGUAL Q5M PRN 02/24/18 02/28/18 History Pantoprazole Sodium [Protonix] 40 mg PO DAILY 02/24/18 02/28/18 History amLODIPine [Norvasc] 5 mg PO DAILY 02/24/18 02/28/18 History Allergies Allergy/AdvReac Type Severity Reaction Status Date / Time No Known Allergies Allergy Verified 02/28/18 17:22 Physical Exam Vitals: Vital Signs Temp Pulse Pulse Resp BP BP Pulse Ox 03/01/18 11:13 97.8 F 61 18 119/58 96 03/01/18 08:06 97 F L 82 18 119/86 98 03/01/18 00:00 97.0 F L 67 18 198/94 98 02/28/18 20:30 96.5 F L 65 18 188/90 96 02/28/18 20:00 74 16 171/90 98 02/28/18 18:51 98.7 F 70 16 178/86 97 02/28/18 17:59 97.9 F 71 16 200/95 99 02/28/18 16:57 81 16 196/100 95 02/28/18 16:07 97.9 F 74 16 165/111 95 Intake and Output 02/28/18 03/01/18 03/01/18 22:59 06:59 14:59 Intake Total 240 Balance 240 Intake: Oral 240 Other: Voiding Method Toilet Toilet Toilet Weight 107.955 kg 106.5 kg - Constitutional General appearance: morbidly obese, no acute distress - EENT Eyes: EOMI, PERRLA, poor dentition, normal appearance ENT: hearing grossly normal, normal oropharynx Ears: bilateral: normal - Neck Neck: normal ROM Carotids: bilateral: upstroke normal, bruit absent Thyroid: bilateral: normal size - Respiratory Respiratory: bilateral: CTA - Cardiovascular Heart sounds: normal: S1, S2 - Gastrointestinal General gastrointestinal: distended, normal bowel sounds, soft - Integumentary Integumentary: normal, normal turgor - Neurologic Neurologic: CNII-XII intact - Musculoskeletal Musculoskeletal: gait normal, generalized weakness, strength equal bilaterally - Psychiatric Psychiatric: A&O x's 3, appropriate affect, intact judgment & insight Results CBC & Chem 7: 02/28/18 16:59 02/28/18 16:59 Labs: Abnormal Lab Results - Last 24 Hours (Table) 02/28/18 02/28/18 Range/Units 16:59 16:59 RBC 5.63 H (3.80-5.40) m/uL MCV 74.1 L (80.0-100.0) fL MCH 23.1 L (25.0-35.0) pg RDW 17.8 H (11.5-15.5) % Glucose 120 H (74-99) mg/dL Chest x-ray: report reviewed, image reviewed (Chest x-ray is unremarkable, EKG nonspecific ST segment changes) Thrombosis Risk Factor Assmnt - Choose All That Apply Each Factor Represents 1 point: Age 41-60 years Thrombosis Risk Factor Assessment Total Risk Factor Score: 1 Thrombosis Risk Factor Assessment Level: Low Risk Assessment and Plan Assessment: Intermittent chest pain with history of dyspnea on exertion as well as for coronary artery disease will consult cardiology Peripheral arterial disease Type 2 diabetes mellitus Severe morbid obesity Seizure disorder Hypertension hypertensive cardiovascular disease Dyslipidemia Hypothyroidism Plan: Continue home medication Monitor clinical course closely Cardiac enzymes Consult cardiology Further recommendations pending plan of care as per clinical response of the patient Time with Patient: Greater than 30
[2018-03-01] MEDS ORDERED: AMITRIPTYLINE HCL 10 MG TAB PO SCH (21:00)
== END 2018-03-01 14:04 | disposition left against medical advice (07) ==
LOC: EC 16:05 → 6SEL 18:32
PROVIDERS: ADMIT Family Medicine; ATTEND Family Medicine
DX: R07.89 Other chest pain (principal); R07.2 Precordial pain; R06.02 Shortness of breath; R06.09 Other forms of dyspnea; I11.9 Hypertensive heart disease without heart failure; I73.9 Peripheral vascular disease, unspecified; G40.909 Epilepsy, unspecified, not intractable, without status epilepticus; K21.9 Gastro-esophageal reflux disease without esophagitis; E78.5 Hyperlipidemia, unspecified; E11.51 Type 2 diabetes mellitus with diabetic peripheral angiopathy without gangrene; E03.9 Hypothyroidism, unspecified; E66.01 Morbid (severe) obesity due to excess calories; Z68.41 Body mass index [BMI] 40.0-44.9, adult; Z79.84 Long term (current) use of oral hypoglycemic drugs; Z79.899 Other long term (current) drug therapy; Z79.82 Long term (current) use of aspirin; Z79.890 Hormone replacement therapy; Z86.73 Personal history of transient ischemic attack (TIA), and cerebral infarction without residual deficits; Z90.49 Acquired absence of other specified parts of digestive tract; Z98.84 Bariatric surgery status; Z83.1 Family history of other infectious and parasitic diseases; Z82.49 Family history of ischemic heart disease and other diseases of the circulatory system
CPT/HCPCS: 99285 ×2; 96374; 36415; 93005; 80048; 84484 ×2; 85025; 71046; G0378 ×2; J0360

== ENCOUNTER 2018-03-24 13:31 | Emergency (ER) | payer MEDICARE, OTHER ==
[2018-03-24 14:45] VITALS: RESP 18; TEMP 98
[2018-03-24] MEDS ORDERED: SODIUM CHLORIDE 0.9% 1,000 ML IV STA (15:20)
--- NOTE | 2018-03-24 15:26 | ED ---
Abdominal Pain HPI - General Chief Complaint: Abdominal Pain Stated Complaint: lightheaded/dizziness Time Seen by Provider: 03/24/18 15:13 Source: patient Mode of arrival: ambulatory Limitations: no limitations - History of Present Illness Initial Comments: 47 years O female presents with abdominal pain ongoing for about 3-4 months now also complaining about left forearm being Numb for 3-4 months as well . She denies any headaches no chest pain or shortness of breath does have a diffuse abdominal pain no frequency urgency dysuria no symptoms of TIA or CVA at this point - Related Data Home Medications Medication Instructions Recorded Confirmed metFORMIN HCL 1,000 mg PO BID 01/19/16 03/24/18 Atenolol [Tenormin] 50 mg PO QAM 01/17/17 03/24/18 SUMAtriptan SUCCINATE [Imitrex] 50 mg PO BID PRN 01/17/17 03/24/18 Levothyroxine Sodium [Synthroid] 100 mcg PO DAILY 05/31/17 03/24/18 Nitroglycerin Sl Tabs [Nitrostat] 0.4 mg SUBLINGUAL Q5M PRN 02/24/18 03/24/18 Simvastatin 40 mg PO DAILY 03/24/18 03/24/18 Previous Rx's Medication Instructions Recorded Aspirin 81 mg PO DAILY 06/01/17 Ranitidine HCl [Zantac] 150 mg PO BID #60 tab 03/24/18 Allergies Allergy/AdvReac Type Severity Reaction Status Date / Time No Known Allergies Allergy Verified 03/24/18 14:44 Review of Systems ROS Statement: Those systems with pertinent positive or pertinent negative responses have been documented in the HPI. ROS Other: All systems not noted in ROS Statement are negative. Past Medical History Past Medical History: CVA/TIA, Diabetes Mellitus, GERD/Reflux, Seizure Disorder Additional Past Medical History / Comment(s): glaucoma radha eyes. HX. BLEEDING ULCERS. last seizure 2014, ANEMIA. TIA 03/2017-no effects, "occ DIZZY SPELLS" , cyst on kidney, benign polyps, diverticulosis History of Any Multi-Drug Resistant Organisms: None Reported Past Surgical History: Breast Surgery, Cholecystectomy, Ear Surgery, Hernia Repair, Hysterectomy Additional Past Surgical History / Comment(s): TUBES IN EARS. RT EYE SX CHILD , kae fundoplication 2015, left breast biopsy, R knee surg, Aug 2017 complete hysterectomy ,colonoscopy Past Anesthesia/Blood Transfusion Reactions: No Reported Reaction Additional Past Anesthesia/Blood Transfusion Reaction / Comment(s): mother got Hep C from blood transfusion. Past Psychological History: No Psychological Hx Reported Smoking Status: Never smoker Past Alcohol Use History: None Reported - Past Family History Father History Unknown: Yes Additional Family Medical History / Comment(s): ulcer Mother Family Medical History: Deep Vein Thrombosis (DVT) Additional Family Medical History / Comment(s): "HEART PROBLEMS", Hep C Sister(s) Family Medical History: Congestive Heart Failure (CHF), Diabetes Mellitus Additional Family Medical History / Comment(s): heart problems Brother(s) Family Medical History: Diabetes Mellitus Additional Family Medical History / Comment(s): Mother and sister with Diabetes General Exam - General Exam Comments Initial Comments: General: The patient is awake and alert, in no distress, and does not appear acutely ill. Skin: Skin is warm and dry and no rashes or lesions are noted. Eye: Pupils are equal, round and reactive to light, extra-ocular movements are intact; there is normal conjunctiva bilaterally. Ears, nose, mouth and throat: There are moist mucous membranes and no oral lesions. Neck: The neck is supple, there is no tenderness or JVD. Cardiovascular: There is a regular rate and rhythm. No murmur, rub or gallop is appreciated. Respiratory: To auscultation bilateral, no wheezing no rhonchi no distress respiratory ramesh noticed Gastrointestinal: Mildly diffusely tender all over the abdomen no focal area of intense tenderness positive bowel sounds no guarding no rebounds no signs of any peritonitis noticed , epigastric area is tender to palpating mass noticed Back: There is no tenderness to palpation in the midline. There is no obvious deformity. Musculoskeletal: Normal ROM, no tenderness, There is no pedal edema. There is no calf tenderness or swelling. No cords were appreciated. Neurological: CN II-XII intact, Cranial nerves III through XII are intact. There are no obvious motor or sensory deficits. Coordination appears grossly intact. Speech is normal. Psychiatric: Cooperative, appropriate mood & affect, normal judgment. Limitations: no limitations Course Vital Signs 03/24/18 14:41 Temperature 98.0 F Pulse Rate 60 Respiratory 18 Rate Blood Pressure 178/71 O2 Sat by Pulse 97 Oximetry She is reassessed at term 1700, CBC, Comp His Metabolic Panel, KUB and Cervical Spine X-Rays Are Unremarkable Cervical Spine X-Ray Did Show Some Degenerative Changes No Obvious Fracture Noticed and KUB Is Unremarkable As Well She Be Discharged to Follow with Family Doctor She Probably Would Benefit from MRI As Outpatient of the Cervical Spine Considering Her Severe Degenerative Changes in the Neck Medical Decision Making - Lab Data Result diagrams: 03/24/18 16:20 03/24/18 16:20 Lab Results 03/24/18 03/24/18 03/24/18 Range/Units 16:20 16:20 16:20 WBC 6.1 (3.8-10.6) k/uL RBC 5.80 H (3.80-5.40) m/uL Hgb 13.3 (11.4-16.0) gm/dL Hct 42.9 (34.0-46.0) % MCV 74.0 L (80.0-100.0) fL MCH 22.9 L (25.0-35.0) pg MCHC 31.0 (31.0-37.0) g/dL RDW 17.4 H (11.5-15.5) % Plt Count 257 (150-450) k/uL Neutrophils % 64 % Lymphocytes % 29 % Monocytes % 4 % Eosinophils % 2 % Basophils % 0 % Neutrophils # 3.9 (1.3-7.7) k/uL Lymphocytes # 1.7 (1.0-4.8) k/uL Monocytes # 0.2 (0-1.0) k/uL Eosinophils # 0.1 (0-0.7) k/uL Basophils # 0.0 (0-0.2) k/uL Hypochromasia Slight Anisocytosis Slight Microcytosis Moderate Sodium 141 (137-145) mmol/L Potassium 4.0 (3.5-5.1) mmol/L Chloride 103 (98-107) mmol/L Carbon Dioxide 29 (22-30) mmol/L Anion Gap 9 mmol/L BUN 15 (7-17) mg/dL Creatinine 1.00 (0.52-1.04) mg/dL Est GFR (CKD-EPI)AfAm 79 (>60 ml/min/1.73 sqM) Est GFR (CKD-EPI)NonAf 69 (>60 ml/min/1.73 sqM) Glucose 145 H (74-99) mg/dL Plasma Lactic Acid Andrei 0.9 (0.7-2.0) mmol/L Calcium 9.6 (8.4-10.2) mg/dL Total Bilirubin 0.4 (0.2-1.3) mg/dL AST 16 (14-36) U/L ALT 30 (9-52) U/L Alkaline Phosphatase 144 H (38-126) U/L C-Reactive Protein 14.1 H (<10.0) mg/L Total Protein 7.2 (6.3-8.2) g/dL Albumin 4.0 (3.5-5.0) g/dL Amylase 55 (30-110) U/L Lipase 87 (23-300) U/L Disposition Clinical Impression: Chronic abdominal pain, Right arm numbness Disposition: HOME SELF-CARE Condition: Good Instructions: Abdominal Pain (ED) Prescriptions: Ranitidine HCl [Zantac] 150 mg PO BID #60 tab Is patient prescribed a controlled substance at d/c from ED?: No Referrals: Pat Oh DO [Primary Care Provider] - 1-2 days
--- NOTE | 2018-03-24 16:04 | XR ---
EXAMINATION TYPE: XR KUB DATE OF EXAM: 03/24/2018 COMPARISON: NONE HISTORY: Pain TECHNIQUE: One view abdominal series FINDINGS: The osseous structures are intact. The bowel gas pattern is nonspecific. Lung bases are clear. Surgi richy clips overlying the left chest. IMPRESSION: 1. Nonspecific abdomen.
--- NOTE | 2018-03-24 16:05 | XR ---
EXAMINATION TYPE: XR cervical spine comp DATE OF EXAM: 03/24/2018 COMPARISON: NONE HISTORY: Pain TECHNIQUE: Four views are submitted. FINDINGS: Exam limited by positioning. The odontoid is intact. There are no compression deformities. The prevertebral soft tissue structur es are within normal limits. Hypertrophic change and degenerative disc disease C5-6 and C6-C7 with f acet arthropathy. Mild neural foraminal encroachment at C4-C5 bilaterally and moderate at C3-C4. IMPRESSION: 1. Multilevel degenerative disc disease with suspected foraminal encroachment. Recommend follow-up MR I.
[2018-03-24 16:34] LABS: Anisocytosis Slight; Basophils % (A) 0 %; Eosinophils # (A) 0.1 k/uL (0-0.7); Eosinophils % (A) 2 %; HCT 42.9 % (34.0-46.0); HGB 13.3 gm/dL (11.4-16.0); Hypochromasia Slight; Lymphocytes # (A) 1.7 k/uL (1.0-4.8); Lymphocytes % (A) 29 %; MCH 22.9 pg (25.0-35.0); Mean Platelet Volume 8.3; Microcytosis Moderate; Monocytes # (A) 0.2 k/uL (0-1.0); Monocytes % (A) 4 %; Neutrophils # (A) 3.9 k/uL (1.3-7.7); Neutrophils % (A) 64 %; Platelet Count 257 k/uL (150-450); RDW 17.4 % (11.5-15.5); WBC 6.1 k/uL (3.8-10.6)
[2018-03-24 16:48] LABS: C Reactive Protein 14.1 mg/L (<10.0); Calcium 9.6 mg/dL (8.4-10.2); Total Bilirubin 0.4 mg/dL (0.2-1.3); Total Protein 7.2 g/dL (6.3-8.2)
[2018-03-24 17:23] LABS: Appearance,Urine Clear (Clear); Bilirubin,Urine Negative (Negative); Blood,Urine Negative (Negative); Color,Urine Yellow; Glucose,Urine (UA) Negative (Negative); Ketones,Urine Negative (Negative); Leukocyte Esterase,Urine Negative (Negative); Nitrite,Urine Negative (Negative); PH, Urine 6.5 (5.0-8.0); Protein,Urine Negative (Negative); Specific Gravity,Urine 1.012 (1.001-1.035); Urobilinogen,Urine <2.0 mg/dL (<2.0)
[2018-03-24] MEDS ORDERED: hydrALAZINE HCL 20 MG/ML 1 ML VIAL IVP STA (18:04)
[2018-03-24 18:33] VITALS: BP 193/72; PULSE 60
== END 2018-03-24 18:37 | disposition home or self-care (01) ==
LOC: EC 13:31
DX: G89.29 Other chronic pain (principal); R10.9 Unspecified abdominal pain; R20.0 Anesthesia of skin; M47.892 Other spondylosis, cervical region; E11.9 Type 2 diabetes mellitus without complications; Z86.73 Personal history of transient ischemic attack (TIA), and cerebral infarction without residual deficits; Z90.49 Acquired absence of other specified parts of digestive tract; Z90.710 Acquired absence of both cervix and uterus; Z98.890 Other specified postprocedural states; Z87.19 Personal history of other diseases of the digestive system; Z79.84 Long term (current) use of oral hypoglycemic drugs; Z79.899 Other long term (current) drug therapy
CPT/HCPCS: 99284; 96374; 96361 ×2; 36415; 80053; 82150; 83605; 83690; 85025; 86140; 81003; 72050; 74018; J0360

== ENCOUNTER → 2018-04-16 | Outpatient (CLI) | payer MEDICARE, OTHER ==
--- NOTE | 2018-04-17 14:46 | MM ---
Reason for exam: screening (asymptomatic). Last mammogram was performed 1 year and 2 months ago. History: Patient is postmenopausal. Family history of breast cancer in mother at age 40 and breast cancer in aunt at age 70. Benign MG pre op needle loc LT of the left breast, September 10, 2016. Physical Findings: A clinical breast exam by your physician is recommended on an annual basis and results should be correlated with mammographic findings. MG 3D Screening Mammo W/Cad Bilateral CC and MLO view(s) were taken. Prior study comparison: February 22, 2017, left breast MG diagnostic mammo LT w CAD. June 21, 2016, bilateral MG diagnostic mammo w CAD STEPHEN. There are scattered fibroglandular densities. No significant changes when compared with prior studies. ASSESSMENT: Benign, BI-RAD 2 RECOMMENDATION: Routine screening mammogram of both breasts in 1 year.
== END | disposition home or self-care (01) ==
LOC: RADMAMWWP 15:37
PROVIDERS: ATTEND Family Medicine
DX: Z12.31 Encounter for screening mammogram for malignant neoplasm of breast (principal); Z80.3 Family history of malignant neoplasm of breast
CPT/HCPCS: 77063; 77067

== ENCOUNTER → 2018-05-12 | Day surgery (SDC) | payer MEDICARE, OTHER ==
[2018-05-06 11:55] VITALS: BMI 43.1
[~2018-05-12] MED LIST changes: +LABETALOL 5 MG/ML VIAL MDV ONE; +LACTATED RINGERS 1,000 ML IV ONE; +LACTATED RINGERS 1,000 ML IV SCH; -LIDOCAINE 1% INJ 10MG/ML (20 ML MDV) ONE
[2018-05-12 07:15] VITALS: RESP 16
[2018-05-12 07:26] LABS: Glucose,Whole Blood 126 mg/dL (75-99)
--- NOTE | 2018-05-12 07:57 | P.GSHP ---
History of Present Illness H&P Date: 05/12/18 Chief Complaint: GERD, morbid obesity. Is a 48-year-old female who presents today for EGD. Workup for sleeve gastrectomy. Her BMI is 43. Past Medical History Past Medical History: Chest Pain / Angina, CVA/TIA, Diabetes Mellitus, GERD/ Reflux, Hyperlipidemia, Hypertension, Seizure Disorder, Thyroid Disorder Additional Past Medical History / Comment(s): glaucoma radha eyes, HX. BLEEDING ULCERS. last seizure 2012, ANEMIA. TIA 03/2017-no effects, "occ DIZZY SPELLS" , cyst on left kidney, migraines, heart murmer, hiatal hernia, hx kidney stones History of Any Multi-Drug Resistant Organisms: None Reported Past Surgical History: Breast Surgery, Cholecystectomy, Ear Surgery, Hernia Repair, Hysterectomy, Orthopedic Surgery Additional Past Surgical History / Comment(s): RT EYE SX CHILD, kae fundoplication 2015, left breast biopsy, Rt knee surg, Past Anesthesia/Blood Transfusion Reactions: No Reported Reaction Additional Past Anesthesia/Blood Transfusion Reaction / Comment(s): mother got Hep C from blood transfusion. Smoking Status: Never smoker - Past Family History Father History Unknown: Yes Additional Family Medical History / Comment(s): ulcer Mother Family Medical History: Cancer, Deep Vein Thrombosis (DVT) Additional Family Medical History / Comment(s): Hep C, breast cancer Sister(s) Family Medical History: Congestive Heart Failure (CHF), Diabetes Mellitus Additional Family Medical History / Comment(s): heart problems Brother(s) Family Medical History: Diabetes Mellitus Additional Family Medical History / Comment(s): Mother and sister with Diabetes Medications and Allergies Home Medications Medication Instructions Recorded Confirmed Type metFORMIN HCL 1,000 mg PO BID 01/19/16 05/12/18 History Atenolol [Tenormin] 50 mg PO QAM 01/17/17 05/12/18 History Levothyroxine Sodium [Synthroid] 100 mcg PO DAILY 05/31/17 05/12/18 History Nitroglycerin Sl Tabs [Nitrostat] 0.4 mg SUBLINGUAL Q5M PRN 02/24/18 05/12/18 History Simvastatin 40 mg PO HS 03/24/18 05/12/18 History Meclizine [Antivert] 25 mg PO DAILY PRN 05/06/18 05/12/18 History Ranitidine HCl [Zantac] 150 mg PO HS 05/06/18 05/12/18 History Allergies Allergy/AdvReac Type Severity Reaction Status Date / Time No Known Allergies Allergy Verified 05/12/18 07:17 Surgical - Exam Vital Signs Resp BP Pulse Ox 16 152/80 98 05/12/18 07:13 05/12/18 07:13 05/12/18 07:13 - General well developed, no distress - Eyes PERRL - ENT normal pinna - Neck no masses - Respiratory normal expansion - Cardiovascular Rhythm: regular - Abdomen Abdomen: soft, non tender Results - Labs Abnormal Lab Results - Last 24 Hours (Table) 05/12/18 Range/Units 07:22 POC Glucose (mg/dL) 126 H (75-99) mg/dL Assessment and Plan Assessment: GERD. We'll perform EGD.
--- NOTE | 2018-05-12 08:02 | P.OP ---
Date of Procedure: 05/12/18 Preoperative Diagnosis: Morbid obesity GERD Postoperative Diagnosis: Mild obesity , antral gastritis Procedure(s) Performed: EGD Anesthesia: MAC Surgeon: Pierce Gonzalez Pathology: other (Antral gastritis) Condition: stable Disposition: PACU Description of Procedure: The patient's placed on the endoscopy table lateral position. She received IV sedation. The gastric was placed oropharynx passed in the esophagus and stomach. Scope was then placed through the pylorus. The first and second portion of duodenum appeared normal. Scope was then brought back the antrum this. Mildly inflamed. A biopsies performed. Scope was unretroflexed and remainder stomach appeared normal. There was no significant hiatal hernia. The GE junction is a 47 is. The distal esophagus appeared normal. The proximal esophagus. Scope was withdrawn for patient.
[2018-05-12 08:17] LABS: Glucose,Whole Blood 128 mg/dL (75-99)
[2018-05-12 08:27] VITALS: BP 134/76; PULSE 92
== END | disposition home or self-care (01) ==
LOC: ORWHC2ENDO 06:49
PROVIDERS: ATTEND Surgery
DX: K29.50 Unspecified chronic gastritis without bleeding (principal); K21.9 Gastro-esophageal reflux disease without esophagitis; E66.01 Morbid (severe) obesity due to excess calories; I25.10 Atherosclerotic heart disease of native coronary artery without angina pectoris; I10 Essential (primary) hypertension; E78.5 Hyperlipidemia, unspecified; E11.9 Type 2 diabetes mellitus without complications; G40.909 Epilepsy, unspecified, not intractable, without status epilepticus; Z86.73 Personal history of transient ischemic attack (TIA), and cerebral infarction without residual deficits; Z79.84 Long term (current) use of oral hypoglycemic drugs; Z79.899 Other long term (current) drug therapy; Z68.41 Body mass index [BMI] 40.0-44.9, adult; Z79.890 Hormone replacement therapy; Z83.3 Family history of diabetes mellitus; Z82.49 Family history of ischemic heart disease and other diseases of the circulatory system
CPT/HCPCS: 88305; 43239; J2704

== ENCOUNTER → 2018-06-02 | Outpatient (CLI) | payer MEDICARE, OTHER ==
[2018-06-02 15:34] VITALS: BP 186/97; PULSE 102; TEMP 98.2; BMI 44.3
--- NOTE | 2018-06-03 12:22 | P.HPBAR ---
Bariatric H&P - History & Physicial H&P Date: 06/02/18 History & Physicial: Visit/CC: EGD results Patient initial contact: 07/15/17 Initial weight: 106.458 kg Initial weight in pounds: 234.70 Height: 5 ft 2 in Initial BMI: 42.9 Last weight: Current weight: 109.951 kg Current weight in pounds: 242.40 Current BMI: 44.3 [place] body weight (based on NIH guidelines): 49.895 kg Excess body weight loss: The patient is a 48 year-old F who presents for Bariatric Assessment. Patient presents today for sleeve gastrectomy consultation. She has just undergone her EGD. Patient's found have some mild gastritis. Patient seems to have a good understanding of the risks and benefits of the sleeve gastrectomy. Her current BMI is 44. Past Medical History Past Medical History: Chest Pain / Angina, CVA/TIA, Diabetes Mellitus, GERD/ Reflux, Hyperlipidemia, Hypertension, Seizure Disorder, Thyroid Disorder Additional Past Medical History / Comment(s): glaucoma radha eyes, HX. BLEEDING ULCERS. last seizure 2012, ANEMIA. TIA 03/2017-no effects, "occ DIZZY SPELLS" , cyst on left kidney, migraines, heart murmer, hiatal hernia, hx kidney stones, EGD April 2018, History of Any Multi-Drug Resistant Organisms: None Reported Past Surgical History: Breast Surgery, Cholecystectomy, Ear Surgery, Hernia Repair, Hysterectomy, Orthopedic Surgery Additional Past Surgical History / Comment(s): RT EYE SX CHILD, kae fundoplication 2015, left breast biopsy, Rt knee surg, Past Anesthesia/Blood Transfusion Reactions: No Reported Reaction Additional Past Anesthesia/Blood Transfusion Reaction / Comm: mother got Hep C from blood transfusion. Past Psychological History: No Psychological Hx Reported Additional Psychological History / Comment(s): Patient states she lives with , Hebert and brother, Allen Seals. She does not drive, walks and uses city transportation. Smoking Status: Never smoker Past Alcohol Use History: None Reported Past Drug Use History: None Reported - Past Family History Father History Unknown: Yes Additional Family Medical History / Comment(s): ulcer Mother Family Medical History: Cancer, Deep Vein Thrombosis (DVT) Additional Family Medical History / Comment(s): Hep C, breast cancer Sister(s) Family Medical History: Congestive Heart Failure (CHF), Diabetes Mellitus Additional Family Medical History / Comment(s): heart problems Brother(s) Family Medical History: Diabetes Mellitus Additional Family Medical History / Comment(s): Mother and sister with Diabetes Surgical - Exam Vital Signs Temp Pulse BP 98.2 F 102 H 186/97 06/02/18 14:36 06/02/18 14:36 06/02/18 14:36 - General well developed, no distress - Eyes PERRL - ENT normal pinna - Neck no masses - Respiratory normal expansion - Cardiovascular Rhythm: regular - Abdomen Abdomen: soft, non tender Bariatric Assessment & Plan Plan: Morbid obesity with severe comorbidities. Patient be was 46. Patient will follow-up in 8 weeks. We will attempt to get her authorized for sleeve gastrectomy once she has met her insurance criteria. Bariatric Checklist Checklist: Plan: Checklist: EGD: 1. Hiatal hernia: 2. H. Pylori: HgbA1c: Vitamin D: Smoking: Never smoker Primary care physician referral: jodie Oh Psychiatry clearance: Cardiology clearance: Sleep study: Diet journal: VTE risk score: VTE risk level: Rehab needs at discharge:
== END | disposition home or self-care (01) ==
LOC: BARWHC3 14:04
PROVIDERS: ATTEND Surgery
DX: E66.01 Morbid (severe) obesity due to excess calories (principal); Z68.41 Body mass index [BMI] 40.0-44.9, adult; Z90.49 Acquired absence of other specified parts of digestive tract; Z98.890 Other specified postprocedural states; Z90.710 Acquired absence of both cervix and uterus
CPT/HCPCS: 99211

== ENCOUNTER 2018-06-09 14:21 | Emergency (ER) | payer MEDICARE, OTHER ==
[2018-06-09] MEDS ORDERED: SODIUM CHLORIDE 0.9% 1,000 ML IV STA (15:23)
[2018-06-09] MEDS ORDERED: ASPIRIN 81 MG PO STA (15:25)
--- NOTE | 2018-06-09 15:26 | ED ---
General Adult HPI - General Chief complaint: Dizziness Stated complaint: Dizziness Time Seen by Provider: 06/09/18 15:09 Source: patient, RN notes reviewed Mode of arrival: ambulatory Limitations: no limitations - History of Present Illness Initial comments: Patient's 48-year-old female presents emergency room today chief complaint of chest pain and dizziness. Patient states that she's been experiencing symptoms over the last month. She does admit that the pain in her chest is located in the middle. She describes it as sharp. Currently rates it at 06/04. Patient states that she has seen the family doctor for this. 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 Patient states that she's had increased pain when she is up moving around. Patient states that she's also had some dizziness and lightheadedness. She states that when she is up and moving and she feel short of breath at times. She denies any other complaints or symptoms. Patient denies any recent fever, chills, shortness of breath, back pain, abdominal pain , vomiting, numbness or tingling, dysuria or hematuria, constipation or diarrhea , headaches or visual changes, or any other complaints. - Related Data Home Medications Medication Instructions Recorded Confirmed metFORMIN HCL 1,000 mg PO BID 01/19/16 06/09/18 Atenolol [Tenormin] 50 mg PO QAM 01/17/17 06/09/18 Levothyroxine Sodium [Synthroid] 100 mcg PO DAILY 05/31/17 06/09/18 Nitroglycerin Sl Tabs [Nitrostat] 0.4 mg SUBLINGUAL Q5M PRN 02/24/18 06/09/18 Simvastatin 40 mg PO HS 03/24/18 06/09/18 Meclizine [Antivert] 25 mg PO DAILY PRN 05/06/18 06/09/18 Ranitidine HCl [Zantac] 150 mg PO HS 05/06/18 06/09/18 Ferrous Sulfate [Iron] 325 mg PO DAILY 06/09/18 06/09/18 Gabapentin [Neurontin] 300 mg PO TID 06/09/18 06/09/18 Allergies Allergy/AdvReac Type Severity Reaction Status Date / Time No Known Allergies Allergy Verified 06/09/18 16:43 Review of Systems ROS Statement: Those systems with pertinent positive or pertinent negative responses have been documented in the HPI. ROS Other: All systems not noted in ROS Statement are negative. Past Medical History Past Medical History: Chest Pain / Angina, CVA/TIA, Diabetes Mellitus, GERD/ Reflux, Hyperlipidemia, Hypertension, Seizure Disorder, Thyroid Disorder Additional Past Medical History / Comment(s): glaucoma radha eyes, HX. BLEEDING ULCERS. last seizure 2012, ANEMIA. TIA 03/2017-no effects, "occ DIZZY SPELLS" , cyst on left kidney, migraines, heart murmer, hiatal hernia, hx kidney stones, EGD April 2018, History of Any Multi-Drug Resistant Organisms: None Reported Past Surgical History: Breast Surgery, Cholecystectomy, Ear Surgery, Hernia Repair, Hysterectomy, Orthopedic Surgery Additional Past Surgical History / Comment(s): RT EYE SX CHILD, kae fundoplication 2015, left breast biopsy, Rt knee surg, Past Anesthesia/Blood Transfusion Reactions: No Reported Reaction Additional Past Anesthesia/Blood Transfusion Reaction / Comment(s): mother got Hep C from blood transfusion. Past Psychological History: No Psychological Hx Reported Smoking Status: Never smoker Past Alcohol Use History: None Reported Past Drug Use History: None Reported - Past Family History Father History Unknown: Yes Additional Family Medical History / Comment(s): ulcer Mother Family Medical History: Cancer, Deep Vein Thrombosis (DVT) Additional Family Medical History / Comment(s): Hep C, breast cancer Sister(s) Family Medical History: Congestive Heart Failure (CHF), Diabetes Mellitus Additional Family Medical History / Comment(s): heart problems Brother(s) Family Medical History: Diabetes Mellitus Additional Family Medical History / Comment(s): Mother and sister with Diabetes General Exam - General Exam Comments Initial Comments: General: The patient is awake and alert, in no distress, and does not appear acutely ill. Eye: Extra-ocular movements are intact. No nystagmus. There is normal conjunctiva bilaterally. No signs of icterus. Ears, nose, mouth and throat: There are moist mucous membranes and no oral lesions. Neck: The neck is supple, there is no tenderness or JVD. Cardiovascular: There is a regular rate and rhythm. No murmur, rub or gallop is appreciated. Respiratory: Lungs are clear to auscultation, respirations are non-labored, breath sounds are equal. No wheezes, stridor, rales, or rhonchi. Gastrointestinal: Soft, non-distended, non-tender abdomen without masses or organomegaly noted. There is no rebound or guarding present. No CVA tenderness. Musculoskeletal: Normal ROM, no tenderness. Sensation intact. Strength 5/5. Pulses equal bilaterally 2+. Neurological: A&O x 3. CN II-XII intact, There are no obvious motor or sensory deficits. Coordination appears grossly intact. Speech is normal. Skin: Skin is warm and dry and no rashes or lesions are noted. Psychiatric: Cooperative, appropriate mood & affect, normal judgment. Limitations: no limitations Course Vital Signs 06/09/18 06/09/18 06/09/18 14:52 15:44 15:50 Temperature 98.2 F Pulse Rate 100 98 92 Respiratory 20 27 H 20 Rate Blood Pressure 191/84 182/130 O2 Sat by Pulse 96 94 L 95 Oximetry 06/09/18 06/09/18 16:00 16:10 Temperature Pulse Rate 94 90 Respiratory 20 20 Rate Blood Pressure 182/130 167/101 O2 Sat by Pulse 94 L 95 Oximetry EKG Findings - EKG Comments: EKG Findings:: EKG performed at 1540: Shows normal sinus rhythm at 91 beats per minute. WA interval 120. QRS 92. QT/QTC 366/450. No acute ST changes. Second EKG performed at 1551: Shows normal sinus rhythm at 71 bpm. WA interval 156. QRS 92. QT/QTc is 418/454. No acute ST changes. Medical Decision Making - Medical Decision Making Patient's labs been reviewed. Cardiac enzymes negative. EKGs are negative for any acute abnormalities. Patient does admit that the symptoms have been present over the last month. She states that has been following up with family physician for this. Patient's chest x-rays unremarkable. At this time. The patient is able to go home to follow-up the family doctor tomorrow. She is advised return here to the emergency room for any symptoms increase or worsen. Patient's blood pressure mildly elevated here in emergency room. She doesn't that she did take her medications morning. She states that she will be taking her nightly dose when she gets home. - Lab Data Result diagrams: 06/09/18 16:10 06/09/18 16:10 Lab Results 06/09/18 06/09/18 06/09/18 Range/Units 16:10 16:10 16:10 WBC 6.8 (3.8-10.6) k/uL RBC 5.14 (3.80-5.40) m/uL Hgb 12.3 (11.4-16.0) gm/dL Hct 39.3 (34.0-46.0) % MCV 76.5 L (80.0-100.0) fL MCH 24.0 L (25.0-35.0) pg MCHC 31.4 (31.0-37.0) g/dL RDW 17.2 H (11.5-15.5) % Plt Count 230 (150-450) k/uL Neutrophils % 68 % Lymphocytes % 23 % Monocytes % 4 % Eosinophils % 3 % Basophils % 0 % Neutrophils # 4.6 (1.3-7.7) k/uL Lymphocytes # 1.6 (1.0-4.8) k/uL Monocytes # 0.3 (0-1.0) k/uL Eosinophils # 0.2 (0-0.7) k/uL Basophils # 0.0 (0-0.2) k/uL Hypochromasia Moderate Anisocytosis Slight Microcytosis Slight PT (9.0-12.0) sec INR (<1.2) APTT (22.0-30.0) sec D-Dimer (<0.60) mg/L FEU Sodium 139 (137-145) mmol/L Potassium 4.3 (3.5-5.1) mmol/L Chloride 102 (98-107) mmol/L Carbon Dioxide 30 (22-30) mmol/L Anion Gap 7 mmol/L BUN 11 (7-17) mg/dL Creatinine 0.83 (0.52-1.04) mg/dL Est GFR (CKD-EPI)AfAm >90 (>60 ml/min/1.73 sqM) Est GFR (CKD-EPI)NonAf 85 (>60 ml/min/1.73 sqM) Glucose 152 H (74-99) mg/dL Calcium 9.3 (8.4-10.2) mg/dL Total Bilirubin 0.5 (0.2-1.3) mg/dL AST 20 (14-36) U/L ALT 26 (9-52) U/L Alkaline Phosphatase 138 H (38-126) U/L Total Creatine Kinase 68 (30-135) U/L CK-MB (CK-2) 0.5 (0.0-2.4) ng/mL CK-MB (CK-2) Rel Index 0.7 Troponin I <0.012 (0.000-0.034) ng/mL Total Protein 6.9 (6.3-8.2) g/dL Albumin 3.7 (3.5-5.0) g/dL Amylase 50 (30-110) U/L Lipase 176 (23-300) U/L Urine Color Urine Appearance (Clear) Urine pH (5.0-8.0) Ur Specific [place] (1.001-1.035) Urine Protein (Negative) Urine Glucose (UA) (Negative) Urine Ketones (Negative) Urine Blood (Negative) Urine Nitrite (Negative) Urine Bilirubin (Negative) Urine Urobilinogen (<2.0) mg/dL Ur Leukocyte Esterase (Negative) 06/09/18 06/09/18 Range/Units 16:10 16:10 WBC (3.8-10.6) k/uL RBC (3.80-5.40) m/uL Hgb (11.4-16.0) gm/dL Hct (34.0-46.0) % MCV (80.0-100.0) fL MCH (25.0-35.0) pg MCHC (31.0-37.0) g/dL RDW (11.5-15.5) % Plt Count (150-450) k/uL Neutrophils % % Lymphocytes % % Monocytes % % Eosinophils % % Basophils % % Neutrophils # (1.3-7.7) k/uL Lymphocytes # (1.0-4.8) k/uL Monocytes # (0-1.0) k/uL Eosinophils # (0-0.7) k/uL Basophils # (0-0.2) k/uL Hypochromasia Anisocytosis Microcytosis PT 9.7 (9.0-12.0) sec INR 1.0 (<1.2) APTT 22.0 (22.0-30.0) sec D-Dimer 0.52 (<0.60) mg/L FEU Sodium (137-145) mmol/L Potassium (3.5-5.1) mmol/L Chloride (98-107) mmol/L Carbon Dioxide (22-30) mmol/L Anion Gap mmol/L BUN (7-17) mg/dL Creatinine (0.52-1.04) mg/dL Est GFR (CKD-EPI)AfAm (>60 ml/min/1.73 sqM) Est GFR (CKD-EPI)NonAf (>60 ml/min/1.73 sqM) Glucose (74-99) mg/dL Calcium (8.4-10.2) mg/dL Total Bilirubin (0.2-1.3) mg/dL AST (14-36) U/L ALT (9-52) U/L Alkaline Phosphatase (38-126) U/L Total Creatine Kinase (30-135) U/L CK-MB (CK-2) (0.0-2.4) ng/mL CK-MB (CK-2) Rel Index Troponin I (0.000-0.034) ng/mL Total Protein (6.3-8.2) g/dL Albumin (3.5-5.0) g/dL Amylase (30-110) U/L Lipase (23-300) U/L Urine Color Yellow Urine Appearance Clear (Clear) Urine pH 6.5 (5.0-8.0) Ur Specific [place] 1.010 (1.001-1.035) Urine Protein Negative (Negative) Urine Glucose (UA) Negative (Negative) Urine Ketones Negative (Negative) Urine Blood Negative (Negative) Urine Nitrite Negative (Negative) Urine Bilirubin Negative (Negative) Urine Urobilinogen <2.0 (<2.0) mg/dL Ur Leukocyte Esterase Negative (Negative) Disposition Clinical Impression: Dizziness Disposition: HOME SELF-CARE Condition: Good Instructions: Dizziness (ED) Is patient prescribed a controlled substance at d/c from ED?: No Referrals: Pat Oh DO [Primary Care Provider] - 1-2 days Time of Disposition: 18:15
[2018-06-09 16:29] LABS: Appearance,Urine Clear (Clear); Bilirubin,Urine Negative (Negative); Blood,Urine Negative (Negative); Color,Urine Yellow; Glucose,Urine (UA) Negative (Negative); Ketones,Urine Negative (Negative); Leukocyte Esterase,Urine Negative (Negative); Nitrite,Urine Negative (Negative); PH, Urine 6.5 (5.0-8.0); Protein,Urine Negative (Negative); Urobilinogen,Urine <2.0 mg/dL (<2.0)
[2018-06-09 16:33] LABS: Anisocytosis Slight; Basophils % (A) 0 %; Eosinophils # (A) 0.2 k/uL (0-0.7); Eosinophils % (A) 3 %; HCT 39.3 % (34.0-46.0); HGB 12.3 gm/dL (11.4-16.0); Hypochromasia Moderate; Lymphocytes # (A) 1.6 k/uL (1.0-4.8); Lymphocytes % (A) 23 %; MCHC 31.4 g/dL (31.0-37.0); MCV 76.5 fL (80.0-100.0); Mean Platelet Volume 7.9; Microcytosis Slight; Monocytes # (A) 0.3 k/uL (0-1.0); Monocytes % (A) 4 %; Neutrophils # (A) 4.6 k/uL (1.3-7.7); Neutrophils % (A) 68 %; Platelet Count 230 k/uL (150-450); RBC 5.14 m/uL (3.80-5.40); RDW 17.2 % (11.5-15.5); WBC 6.8 k/uL (3.8-10.6)
[2018-06-09 16:43] LABS: ALT 26 U/L (9-52); AST 20 U/L (14-36); Albumin 3.7 g/dL (3.5-5.0); Alkaline Phosphatase 138 U/L (38-126); Amylase 50 U/L (30-110); Anion Gap 7 mmol/L; Blood Urea Nitrogen 11 mg/dL (7-17); Calcium 9.3 mg/dL (8.4-10.2); Carbon Dioxide 30 mmol/L (22-30); Chloride 102 mmol/L (98-107); D-Dimer 0.52 mg/L FEU (<0.60); Glucose 152 mg/dL (74-99); Lipase 176 U/L (23-300); Potassium 4.3 mmol/L (3.5-5.1); Prothrombin Time 9.7 sec (9.0-12.0); Sodium 139 mmol/L (137-145); Total Bilirubin 0.5 mg/dL (0.2-1.3); Total Protein 6.9 g/dL (6.3-8.2)
[2018-06-09 16:44] LABS: Creatine Kinase 68 U/L (30-135)
[2018-06-09 16:56] LABS: Creatine Kinase MB 0.5 ng/mL (0.0-2.4); Troponin I <0.012 ng/mL (0.000-0.034)
--- NOTE | 2018-06-09 16:59 | XR ---
EXAMINATION: XR chest 2V DATE AND TIME: 06/09/2018 4:42 PM CLINICAL INDICATION: pain TECHNIQUE: PA and lateral COMPARISON: 02/28/2018 FINDINGS: The lungs are clear. The pleural spaces are negative. The cardiac silhouette is not enlarged. The remainder of the mediastinal silhouette is unremarkable. The skeletal structures and soft tissues are negative for acute findings. IMPRESSION: NO ACUTE PROCESS.
[2018-06-09 18:13] VITALS: BP 165/95
[2018-06-09 18:27] VITALS: PULSE 83; RESP 19
[2018-06-09 18:28] VITALS: TEMP 97.8
== END 2018-06-09 18:29 | disposition home or self-care (01) ==
LOC: EC 14:21
DX: R42 Dizziness and giddiness (principal); R07.9 Chest pain, unspecified; R06.02 Shortness of breath; E11.9 Type 2 diabetes mellitus without complications; K21.9 Gastro-esophageal reflux disease without esophagitis; E78.5 Hyperlipidemia, unspecified; I10 Essential (primary) hypertension; G40.909 Epilepsy, unspecified, not intractable, without status epilepticus; E07.9 Disorder of thyroid, unspecified; D64.9 Anemia, unspecified; Z79.84 Long term (current) use of oral hypoglycemic drugs; Z79.899 Other long term (current) drug therapy
CPT/HCPCS: 36415; 71046; 80053; 81003; 82150; 82550; 82553; 83690; 84484; 85025; 85379; 85610; 85730; 93005; 96360; 96361; 99284

== ENCOUNTER 2018-06-14 13:17 | Emergency (ER) | payer MEDICARE, OTHER ==
[2018-06-14 13:25] VITALS: TEMP 97.7
--- NOTE | 2018-06-14 13:42 | ED ---
Chest Pain HPI - General Chief Complaint: Chest Pain Stated Complaint: Chest pain Time Seen by Provider: 06/14/18 13:40 Source: patient, RN notes reviewed, old records reviewed Mode of arrival: EMS Limitations: no limitations - History of Present Illness Initial Comments: This is a 48-year-old female the ER for evasive chest pain. Patient has complicated in complex medical history multiple ER visits for multiple different conditions. Patient states she has history of anterior chest pain earlier today. Mild nausea no vomiting, no shortness of breath, patient's chest pain is currently resolved. Patient requiring any treatment for chest pain currently MD Complaint: chest pain -: hour(s) Onset: during rest, after eating Pain Location: substernal Pain Radiation: none Severity: mild Severity scale (1-10): 1 Quality: aching Consistency: now resolved Improves With: nothing Worsens With: nothing Context: recent illness Anginal Symptoms: nausea Treatments Prior to Arrival: none - Related Data Home Medications Medication Instructions Recorded Confirmed metFORMIN HCL 1,000 mg PO BID 01/19/16 06/14/18 Atenolol [Tenormin] 50 mg PO QAM 01/17/17 06/14/18 Levothyroxine Sodium [Synthroid] 100 mcg PO DAILY 05/31/17 06/14/18 Nitroglycerin Sl Tabs [Nitrostat] 0.4 mg SUBLINGUAL Q5M PRN 02/24/18 06/14/18 Simvastatin 40 mg PO HS 03/24/18 06/14/18 Meclizine [Antivert] 25 mg PO DAILY PRN 05/06/18 06/14/18 Ranitidine HCl [Zantac] 150 mg PO HS 05/06/18 06/14/18 Ferrous Sulfate [Iron] 325 mg PO DAILY 06/09/18 06/14/18 Gabapentin [Neurontin] 300 mg PO TID 06/09/18 06/14/18 Allergies Allergy/AdvReac Type Severity Reaction Status Date / Time No Known Allergies Allergy Verified 06/14/18 14:32 Review of Systems ROS Statement: Those systems with pertinent positive or pertinent negative responses have been documented in the HPI. ROS Other: All systems not noted in ROS Statement are negative. Past Medical History Past Medical History: Chest Pain / Angina, CVA/TIA, Diabetes Mellitus, GERD/ Reflux, Hyperlipidemia, Hypertension, Seizure Disorder, Thyroid Disorder Additional Past Medical History / Comment(s): glaucoma radha eyes, HX. BLEEDING ULCERS. last seizure 2012, ANEMIA. TIA 03/2017-no effects, "occ DIZZY SPELLS" , cyst on left kidney, migraines, heart murmer, hiatal hernia, hx kidney stones, EGD April 2018, History of Any Multi-Drug Resistant Organisms: None Reported Past Surgical History: Breast Surgery, Cholecystectomy, Ear Surgery, Hernia Repair, Hysterectomy, Orthopedic Surgery Additional Past Surgical History / Comment(s): RT EYE SX CHILD, kae fundoplication 2015, left breast biopsy, Rt knee surg, Past Anesthesia/Blood Transfusion Reactions: No Reported Reaction Additional Past Anesthesia/Blood Transfusion Reaction / Comment(s): mother got Hep C from blood transfusion. Past Psychological History: No Psychological Hx Reported Smoking Status: Never smoker Past Alcohol Use History: None Reported Past Drug Use History: None Reported - Past Family History Father History Unknown: Yes Additional Family Medical History / Comment(s): ulcer Mother Family Medical History: Cancer, Deep Vein Thrombosis (DVT) Additional Family Medical History / Comment(s): Hep C, breast cancer Sister(s) Family Medical History: Congestive Heart Failure (CHF), Diabetes Mellitus Additional Family Medical History / Comment(s): heart problems Brother(s) Family Medical History: Diabetes Mellitus Additional Family Medical History / Comment(s): Mother and sister with Diabetes General Exam Limitations: no limitations General appearance: alert, in no apparent distress Head exam: Present: atraumatic, normocephalic, normal inspection Eye exam: Present: normal appearance, PERRL, EOMI. Absent: scleral icterus, conjunctival injection, periorbital swelling ENT exam: Present: normal exam, mucous membranes moist Neck exam: Present: normal inspection. Absent: tenderness, meningismus, lymphadenopathy Respiratory exam: Present: normal lung sounds bilaterally. Absent: respiratory distress, wheezes, rales, rhonchi, stridor Cardiovascular Exam: Present: regular rate, normal rhythm, normal heart sounds. Absent: systolic murmur, diastolic murmur, rubs, gallop, clicks GI/Abdominal exam: Present: soft, normal bowel sounds. Absent: distended, tenderness, guarding, rebound, rigid Extremities exam: Present: normal inspection, full ROM, normal capillary refill. Absent: tenderness, pedal edema, joint swelling, calf tenderness Back exam: Present: normal inspection Neurological exam: Present: alert, oriented X3, CN II-XII intact Psychiatric exam: Present: normal affect, normal mood Skin exam: Present: warm, dry, intact, normal color. Absent: rash Course Vital Signs 06/14/18 06/14/18 13:21 15:05 Temperature 97.7 F Pulse Rate 72 90 Respiratory 18 16 Rate Blood Pressure 175/116 165/110 O2 Sat by Pulse 97 97 Oximetry - Reevaluation(s) Reevaluation #1: Records thoroughly reviewed Patient informed her results, patient denies any current symptoms Chest Pain MDM - MDM 48 female the ER for evasive nonspecific atypical chest pain. Patient be discharged home follow-up with primary care or family doctor as directed Disposition Clinical Impression: Chest pain Disposition: HOME SELF-CARE Condition: Good Instructions: Chest Pain (ED) Is patient prescribed a controlled substance at d/c from ED?: No Referrals: Pat Oh DO [Primary Care Provider] - 1-2 days
[2018-06-14 14:22] LABS: Anisocytosis Slight; Basophils % (A) 0 %; Eosinophils # (A) 0.3 k/uL (0-0.7); Eosinophils % (A) 5 %; HCT 41.2 % (34.0-46.0); HGB 13.2 gm/dL (11.4-16.0); Hypochromasia Marked; Lymphocytes # (A) 1.9 k/uL (1.0-4.8); Lymphocytes % (A) 32 %; MCH 24.9 pg (25.0-35.0); MCHC 32.1 g/dL (31.0-37.0); MCV 77.5 fL (80.0-100.0); Mean Platelet Volume 7.7; Microcytosis Slight; Monocytes # (A) 0.2 k/uL (0-1.0); Monocytes % (A) 4 %; Neutrophils # (A) 3.6 k/uL (1.3-7.7); Neutrophils % (A) 59 %; Platelet Count 200 k/uL (150-450); RBC 5.31 m/uL (3.80-5.40); RDW 16.8 % (11.5-15.5)
[2018-06-14 14:32] LABS: Albumin 3.7 g/dL (3.5-5.0); Anion Gap 8 mmol/L; Blood Urea Nitrogen 14 mg/dL (7-17); Calcium 9.2 mg/dL (8.4-10.2); Carbon Dioxide 27 mmol/L (22-30); Chloride 105 mmol/L (98-107); Glucose 153 mg/dL (74-99); Sodium 140 mmol/L (137-145); Total Bilirubin 0.7 mg/dL (0.2-1.3); Total Protein 6.9 g/dL (6.3-8.2)
[2018-06-14 14:35] LABS: Prothrombin Time 9.5 sec (9.0-12.0)
[2018-06-14 14:37] LABS: ALT 32 U/L (9-52); AST 35 U/L (14-36); Alkaline Phosphatase 138 U/L (38-126); Magnesium 1.7 mg/dL (1.6-2.3); Potassium 5.2 mmol/L (3.5-5.1)
[2018-06-14 14:40] LABS: Partial Thromboplastin Time 19.3 sec (22.0-30.0)
[2018-06-14 14:43] LABS: Creatine Kinase 72 U/L (30-135)
[2018-06-14 14:56] LABS: Troponin I <0.012 ng/mL (0.000-0.034)
[2018-06-14 15:06] VITALS: RESP 16
[2018-06-14 16:08] VITALS: BP 173/87; PULSE 99
== END 2018-06-14 16:08 | disposition home or self-care (01) ==
LOC: EC 13:17
DX: R07.2 Precordial pain (principal); R11.0 Nausea; E11.9 Type 2 diabetes mellitus without complications; K21.9 Gastro-esophageal reflux disease without esophagitis; E78.5 Hyperlipidemia, unspecified; I10 Essential (primary) hypertension; G40.909 Epilepsy, unspecified, not intractable, without status epilepticus; E07.9 Disorder of thyroid, unspecified; D64.9 Anemia, unspecified; Z86.73 Personal history of transient ischemic attack (TIA), and cerebral infarction without residual deficits; Z79.84 Long term (current) use of oral hypoglycemic drugs; Z79.899 Other long term (current) drug therapy
CPT/HCPCS: 36415; 80053; 82550; 82553; 83735; 84484; 85025; 85610; 85730; 93005; 99285

== ENCOUNTER → 2018-06-16 | Outpatient (CLI) | payer MEDICARE, OTHER ==
[2018-06-16 12:46] LABS: Anisocytosis Slight; HCT 38.1 % (34.0-46.0); HGB 11.9 gm/dL (11.4-16.0); Hypochromasia Moderate; MCH 24.1 pg (25.0-35.0); MCHC 31.3 g/dL (31.0-37.0); Mean Platelet Volume 8.4; Microcytosis Slight; Platelet Count 235 k/uL (150-450); RBC 4.94 m/uL (3.80-5.40); RDW 17.2 % (11.5-15.5); WBC 7.2 k/uL (3.8-10.6)
[2018-06-16 13:09] LABS: Potassium 4.6 mmol/L (3.5-5.1)
== END | disposition home or self-care (01) ==
LOC: LABPAT 11:05
PROVIDERS: ATTEND Internal Medicine Interventional Cardiology
DX: Z01.812 Encounter for preprocedural laboratory examination (principal); R07.9 Chest pain, unspecified; I10 Essential (primary) hypertension; E78.2 Mixed hyperlipidemia
CPT/HCPCS: 36415; 80051; 82565; 84520; 85027

== ENCOUNTER 2018-06-20 20:04 | Emergency (ER) | payer MEDICARE, OTHER ==
[2018-06-20 20:55] LABS: Anisocytosis Slight; Basophils % (A) 0 %; Eosinophils # (A) 0.2 k/uL (0-0.7); Eosinophils % (A) 2 %; HCT 38.2 % (34.0-46.0); HGB 11.8 gm/dL (11.4-16.0); Hypochromasia Moderate; Lymphocytes # (A) 1.9 k/uL (1.0-4.8); Lymphocytes % (A) 24 %; MCH 23.8 pg (25.0-35.0); MCHC 30.9 g/dL (31.0-37.0); MCV 76.9 fL (80.0-100.0); Mean Platelet Volume 8.4; Microcytosis Slight; Monocytes # (A) 0.4 k/uL (0-1.0); Monocytes % (A) 5 %; Neutrophils # (A) 5.3 k/uL (1.3-7.7); Neutrophils % (A) 68 %; Platelet Count 240 k/uL (150-450); RBC 4.98 m/uL (3.80-5.40); RDW 17.4 % (11.5-15.5); WBC 7.9 k/uL (3.8-10.6)
[2018-06-20 21:04] LABS: ALT 25 U/L (9-52); AST 19 U/L (14-36); Albumin 3.7 g/dL (3.5-5.0); Alkaline Phosphatase 133 U/L (38-126); Anion Gap 8 mmol/L; Blood Urea Nitrogen 15 mg/dL (7-17); Calcium 9.2 mg/dL (8.4-10.2); Carbon Dioxide 28 mmol/L (22-30); Chloride 103 mmol/L (98-107); Glucose 248 mg/dL (74-99); Potassium 4.7 mmol/L (3.5-5.1); Sodium 139 mmol/L (137-145); Total Bilirubin 0.4 mg/dL (0.2-1.3); Total Protein 6.7 g/dL (6.3-8.2)
[2018-06-20 21:07] LABS: Creatine Kinase 52 U/L (30-135)
[2018-06-20 21:13] LABS: Partial Thromboplastin Time 23.4 sec (22.0-30.0); Prothrombin Time 9.7 sec (9.0-12.0)
[2018-06-20 21:20] LABS: Creatine Kinase MB 0.9 ng/mL (0.0-2.4); Troponin I <0.012 ng/mL (0.000-0.034)
[2018-06-20] MEDS ORDERED: ACETAMINOPHEN TAB 325 MG TAB PO STA (22:08)
--- NOTE | 2018-06-20 22:13 | ED ---
Chest Pain HPI - General Chief Complaint: Chest Pain Stated Complaint: Chest Pain Time Seen by Provider: 06/20/18 21:29 Source: patient Mode of arrival: wheelchair Limitations: no limitations - History of Present Illness Initial Comments: This patient is a 48-year-old woman with months of substernal chest pain that radiates to her back. The patient has been seen here multiple times for this previously. She states that she has also seen the video photographer and she does have a heart catheterization set up for July 02. The patient states that this episode started 3-4 days ago now. It is otherwise identical. She has had associated nausea. MD Complaint: chest pain -: month(s) Onset: during rest Pain Location: substernal Pain Radiation: back Severity: moderate Quality: aching Consistency: constant Improves With: nothing Worsens With: nothing Treatments Prior to Arrival: none - Related Data Home Medications Medication Instructions Recorded Confirmed metFORMIN HCL 1,000 mg PO BID 01/19/16 06/20/18 Atenolol [Tenormin] 50 mg PO QAM 01/17/17 06/20/18 Levothyroxine Sodium [Synthroid] 100 mcg PO DAILY 05/31/17 06/20/18 Nitroglycerin Sl Tabs [Nitrostat] 0.4 mg SUBLINGUAL Q5M PRN 02/24/18 06/20/18 Simvastatin 40 mg PO HS 03/24/18 06/20/18 Meclizine [Antivert] 25 mg PO DAILY PRN 05/06/18 06/20/18 Ferrous Sulfate [Iron] 325 mg PO DAILY 06/09/18 06/20/18 Gabapentin [Neurontin] 300 mg PO BID 06/09/18 06/20/18 Pantoprazole Sodium [Protonix] 40 mg PO DAILY 06/20/18 06/20/18 Allergies Allergy/AdvReac Type Severity Reaction Status Date / Time No Known Allergies Allergy Verified 06/20/18 21:29 Review of Systems ROS Statement: Those systems with pertinent positive or pertinent negative responses have been documented in the HPI. ROS Other: All systems not noted in ROS Statement are negative. Constitutional: Denies: fever, chills, weakness Respiratory: Denies: cough, dyspnea Cardiovascular: Reports: as per HPI, chest pain. Denies: palpitations, dyspnea on exertion, orthopnea, edema, syncope Gastrointestinal: Reports: nausea. Denies: abdominal pain, vomiting, diarrhea, melena, hematochezia Genitourinary: Denies: dysuria, hematuria Musculoskeletal: Denies: back pain Skin: Denies: rash Neurological: Denies: headache, weakness, numbness EKG Findings - EKG Results: EKG: interpreted by ERMD, sinus rhythm, normal axis, normal QRS - Blocks, [place], Hypertrophy, ST Abn: Repolarization changes or abnormalities: nonspecific abnormality, ST segment, and/or T wave Past Medical History Past Medical History: Chest Pain / Angina, CVA/TIA, Diabetes Mellitus, GERD/ Reflux, Hyperlipidemia, Hypertension, Seizure Disorder, Thyroid Disorder Additional Past Medical History / Comment(s): glaucoma radha eyes, HX. BLEEDING ULCERS. last seizure 2012, ANEMIA. TIA 03/2017-no effects, "occ DIZZY SPELLS" , cyst on left kidney, migraines, heart murmer, hiatal hernia, hx kidney stones, EGD April 2018, History of Any Multi-Drug Resistant Organisms: None Reported Past Surgical History: Breast Surgery, Cholecystectomy, Ear Surgery, Hernia Repair, Hysterectomy, Orthopedic Surgery Additional Past Surgical History / Comment(s): RT EYE SX CHILD, kae fundoplication 2015, left breast biopsy, Rt knee surg, Past Anesthesia/Blood Transfusion Reactions: No Reported Reaction Additional Past Anesthesia/Blood Transfusion Reaction / Comment(s): mother got Hep C from blood transfusion. Past Psychological History: No Psychological Hx Reported Smoking Status: Never smoker Past Alcohol Use History: None Reported Past Drug Use History: None Reported - Past Family History Father History Unknown: Yes Additional Family Medical History / Comment(s): ulcer Mother Family Medical History: Cancer, Deep Vein Thrombosis (DVT) Additional Family Medical History / Comment(s): Hep C, breast cancer Sister(s) Family Medical History: Congestive Heart Failure (CHF), Diabetes Mellitus Additional Family Medical History / Comment(s): heart problems Brother(s) Family Medical History: Diabetes Mellitus Additional Family Medical History / Comment(s): Mother and sister with Diabetes General Exam Limitations: no limitations General appearance: alert, in no apparent distress, obese Head exam: Present: atraumatic, normocephalic Eye exam: Present: normal appearance. Absent: scleral icterus, conjunctival injection Respiratory exam: Present: normal lung sounds bilaterally. Absent: respiratory distress, wheezes, rales, rhonchi, stridor Cardiovascular Exam: Present: regular rate, normal rhythm, normal heart sounds. Absent: systolic murmur, diastolic murmur, rubs, gallop GI/Abdominal exam: Present: soft. Absent: distended, tenderness, guarding, rebound, mass, pulsatile mass, hernia Extremities exam: Present: normal inspection, normal capillary refill. Absent: pedal edema, calf tenderness Back exam: Present: normal inspection. Absent: CVA tenderness (R), CVA tenderness (L) Neurological exam: Present: alert Skin exam: Present: warm, dry, intact, normal color. Absent: rash Course Vital Signs 06/20/18 06/21/18 20:19 00:00 Temperature 98.1 F Pulse Rate 99 77 Respiratory 20 18 Rate Blood Pressure 161/73 158/108 O2 Sat by Pulse 99 95 Oximetry Disposition Clinical Impression: Chest pain Disposition: HOME SELF-CARE Condition: Good Instructions: Chest Pain (ED) Is patient prescribed a controlled substance at d/c from ED?: No Referrals: Pat Oh DO [Primary Care Provider] - 1-2 days
[2018-06-21 00:02] VITALS: PULSE 77
[2018-06-21 01:54] VITALS: BP 156/98; RESP 12; TEMP 98.5
== END 2018-06-21 01:59 | disposition home or self-care (01) ==
LOC: EC 20:04
DX: R07.2 Precordial pain (principal); R11.0 Nausea; E11.9 Type 2 diabetes mellitus without complications; K21.9 Gastro-esophageal reflux disease without esophagitis; E78.5 Hyperlipidemia, unspecified; I10 Essential (primary) hypertension; G40.909 Epilepsy, unspecified, not intractable, without status epilepticus; E07.9 Disorder of thyroid, unspecified; D64.9 Anemia, unspecified; Z86.73 Personal history of transient ischemic attack (TIA), and cerebral infarction without residual deficits; Z95.818 Presence of other cardiac implants and grafts; Z82.49 Family history of ischemic heart disease and other diseases of the circulatory system; Z79.84 Long term (current) use of oral hypoglycemic drugs; Z79.899 Other long term (current) drug therapy
CPT/HCPCS: 36415; 80053; 82550; 82553; 84484; 85025; 85379; 85610; 85730; 93005; 99285

== ENCOUNTER 2018-06-30 20:01 | Observation (INO) | payer MEDICARE, OTHER ==
[2018-06-30 20:44] LABS: Anisocytosis Slight; Basophils % (A) 0 %; Eosinophils # (A) 0.3 k/uL (0-0.7); Eosinophils % (A) 4 %; HGB 11.9 gm/dL (11.4-16.0); Hypochromasia Moderate; Lymphocytes # (A) 1.9 k/uL (1.0-4.8); Lymphocytes % (A) 29 %; MCH 23.9 pg (25.0-35.0); MCHC 31.3 g/dL (31.0-37.0); MCV 76.4 fL (80.0-100.0); Mean Platelet Volume 8.6; Microcytosis Slight; Monocytes # (A) 0.3 k/uL (0-1.0); Monocytes % (A) 5 %; Neutrophils # (A) 4.1 k/uL (1.3-7.7); Neutrophils % (A) 61 %; Platelet Count 224 k/uL (150-450); RBC 4.98 m/uL (3.80-5.40); RDW 16.8 % (11.5-15.5); WBC 6.7 k/uL (3.8-10.6)
[2018-06-30 20:55] LABS: Albumin 3.5 g/dL (3.5-5.0); Calcium 8.8 mg/dL (8.4-10.2); Creatine Kinase 47 U/L (30-135); Magnesium 1.8 mg/dL (1.6-2.3); Total Bilirubin 0.3 mg/dL (0.2-1.3); Total Protein 6.4 g/dL (6.3-8.2)
[2018-06-30 21:07] LABS: Creatine Kinase MB 0.9 ng/mL (0.0-2.4); Troponin I <0.012 ng/mL (0.000-0.034)
[2018-06-30 21:08] LABS: Partial Thromboplastin Time 22.5 sec (22.0-30.0)
--- NOTE | 2018-06-30 21:08 | XR ---
EXAMINATION TYPE: XR chest 2V DATE OF EXAM: 06/30/2018 COMPARISON: 06/09/2018 HISTORY: Chest pain TECHNIQUE: Frontal and lateral views of the chest are obtained. FINDINGS: Heart and mediastinum are normal. Lungs are clear. Diaphragm is normal. Bony thorax is int act. IMPRESSION: Normal chest. No change.
--- NOTE | 2018-06-30 22:03 | ED ---
Chest Pain HPI - General Chief Complaint: Chest Pain Stated Complaint: chest pain Time Seen by Provider: 06/30/18 20:01 Source: patient, RN notes reviewed Mode of arrival: EMS Limitations: no limitations - History of Present Illness Initial Comments: This is a 48-year-old female who presented by EMS with complaints of chest pain is been going on for about a week plus. She describes as a sharp retrosternal nonradiating. She states mild to moderate in severity. She points her left sternal area. It does get somewhat worse with deep breathing and movement she states she had no cough fevers chills nausea vomiting sweats. Of note she does have a cardiac catheterization scheduled for 2 days from today. She voices no other complaints no other modifying factors MD Complaint: chest pain - Related Data Home Medications Medication Instructions Recorded Confirmed metFORMIN HCL 1,000 mg PO BID 01/19/16 06/26/18 Atenolol [Tenormin] 50 mg PO QAM 01/17/17 06/26/18 Levothyroxine Sodium [Synthroid] 100 mcg PO DAILY 05/31/17 06/26/18 Nitroglycerin Sl Tabs [Nitrostat] 0.4 mg SUBLINGUAL Q5M PRN 02/24/18 06/26/18 Simvastatin 40 mg PO HS 03/24/18 06/26/18 Meclizine [Antivert] 25 mg PO DAILY PRN 05/06/18 06/26/18 Ferrous Sulfate [Iron] 325 mg PO DAILY 06/09/18 06/26/18 Gabapentin [Neurontin] 300 mg PO BID 06/09/18 06/26/18 Pantoprazole Sodium [Protonix] 40 mg PO DAILY 06/20/18 06/26/18 Aspirin EC [Ecotrin Low Dose] 81 mg PO DAILY 06/26/18 06/26/18 Allergies Allergy/AdvReac Type Severity Reaction Status Date / Time No Known Allergies Allergy Verified 06/26/18 12:54 Review of Systems ROS Statement: Those systems with pertinent positive or pertinent negative responses have been documented in the HPI. ROS Other: All systems not noted in ROS Statement are negative. EKG Findings - EKG Results: EKG: interpreted by GILBERTO, sinus rhythm (Sinus rhythm with a rate of 92. Interval 122 QRS duration 94 QT since QTC 380/[address] configuration) Past Medical History Past Medical History: Chest Pain / Angina, CVA/TIA, Diabetes Mellitus, GERD/ Reflux, Hyperlipidemia, Hypertension, Seizure Disorder, Thyroid Disorder Additional Past Medical History / Comment(s): glaucoma radha eyes, HX. BLEEDING ULCERS. last seizure 2012, ANEMIA. TIA 03/2017-no effects, "occ DIZZY SPELLS" , cyst on left kidney, migraines, heart murmer, hiatal hernia, hx kidney stones, EGD April 2018, History of Any Multi-Drug Resistant Organisms: None Reported Past Surgical History: Breast Surgery, Cholecystectomy, Ear Surgery, Hernia Repair, Hysterectomy, Orthopedic Surgery Additional Past Surgical History / Comment(s): RT EYE SX CHILD, kae fundoplication 2015, left breast biopsy, Rt knee surg, Past Anesthesia/Blood Transfusion Reactions: No Reported Reaction Additional Past Anesthesia/Blood Transfusion Reaction / Comment(s): mother got Hep C from blood transfusion. Past Psychological History: No Psychological Hx Reported Smoking Status: Never smoker - Past Family History Father History Unknown: Yes Additional Family Medical History / Comment(s): ulcer Mother Family Medical History: Cancer, Deep Vein Thrombosis (DVT) Additional Family Medical History / Comment(s): Hep C, breast cancer Sister(s) Family Medical History: Congestive Heart Failure (CHF), Diabetes Mellitus Additional Family Medical History / Comment(s): heart problems Brother(s) Family Medical History: Diabetes Mellitus Additional Family Medical History / Comment(s): Mother and sister with Diabetes General Exam - General Exam Comments Initial Comments: This is a well-developed well-nourished awake alert oriented 3 female Limitations: no limitations General appearance: alert, in no apparent distress Head exam: Present: atraumatic, normocephalic, normal inspection Eye exam: Present: normal appearance, PERRL, EOMI. Absent: scleral icterus, conjunctival injection, periorbital swelling ENT exam: Present: normal exam, mucous membranes moist Neck exam: Present: normal inspection. Absent: tenderness, meningismus, lymphadenopathy Respiratory exam: Present: normal lung sounds bilaterally, chest wall tenderness. Absent: respiratory distress, wheezes, rales, rhonchi, stridor Cardiovascular Exam: Present: regular rate, normal rhythm, normal heart sounds. Absent: systolic murmur, diastolic murmur, rubs, gallop, clicks GI/Abdominal exam: Present: soft, normal bowel sounds. Absent: distended, tenderness, guarding, rebound, rigid Extremities exam: Present: normal inspection, full ROM, normal capillary refill. Absent: tenderness, pedal edema, joint swelling, calf tenderness Back exam: Present: normal inspection Neurological exam: Present: alert, oriented X3, CN II-XII intact Psychiatric exam: Present: normal mood, flat affect Skin exam: Present: warm, dry, intact, normal color. Absent: rash Course Vital Signs 06/30/18 06/30/18 06/30/18 20:06 20:23 20:30 Temperature 98 F Pulse Rate 87 Respiratory 18 Rate Blood Pressure 182/98 169/86 169/86 O2 Sat by Pulse 98 98 97 Oximetry 06/30/18 06/30/18 06/30/18 21:00 21:30 22:00 Temperature Pulse Rate 90 81 81 Respiratory 16 16 16 Rate Blood Pressure 169/87 169/87 169/87 O2 Sat by Pulse 99 97 97 Oximetry 06/30/18 22:30 Temperature Pulse Rate 84 Respiratory 16 Rate Blood Pressure 169/87 O2 Sat by Pulse 96 Oximetry Chest Pain MDM - MDM Patient is feeling somewhat improved. Patient's x-rays negative for acute findings I did discuss findings with Dr. Narvaez the patient will be admitted. Case will be seen by Dr. Hudson who had scheduled a cardiac catheter 2 days from now. Disposition Clinical Impression: Chest pain, Chest wall syndrome Disposition: ADMITTED IP TO THIS [facility] Condition: Stable Referrals: Pat Oh DO [Primary Care Provider] - 1-2 days
[2018-06-30] MEDS ORDERED: NITROGLYCERIN SL TABS 0.4 MG TAB SUBLINGUAL PRN (23:19)
[2018-06-30] MEDS ORDERED: HEPARIN SODIUM,PORCINE 5,000 UNIT/ML 1 ML VIAL IV ONE (23:19)
[2018-06-30] MEDS ORDERED: MECLIZINE 25 MG TAB PO PRN (23:24)
[2018-06-30] MEDS ORDERED: SODIUM CHLORIDE 0.9% 1,000 ML IV SCH (23:30)
[2018-06-30] MEDS ORDERED: HEPARIN SOD,PORK IN 0.45% NACL 25,000 UNIT in 0.45% NACL 1 500ML.BAG IV SCH (23:30)
[2018-06-30 23:51] LABS: Cholesterol 140 mg/dL (<200); HDL Cholesterol 50 mg/dL (40-60); LDL Cholesterol,Calculated 57 mg/dL (0-99); Triglycerides 164 mg/dL (<150)
[2018-06-30] MEDS: NITROGLYCERIN OINT 1 INCH/GM PACKET TOPICAL SCH (23:52)
[2018-07-01 00:05] VITALS: RESP 18
[2018-07-01 00:33] VITALS: BMI 43.8
[2018-07-01 02:37] LABS: Creatine Kinase 42 U/L (30-135)
[2018-07-01 02:49] LABS: Creatine Kinase MB 0.6 ng/mL (0.0-2.4); Troponin I <0.012 ng/mL (0.000-0.034)
[2018-07-01] MEDS: NITROGLYCERIN OINT 1 INCH/GM PACKET TOPICAL SCH (05:26)
[2018-07-01 05:36] LABS: Glucose,Whole Blood 183 mg/dL (75-99)
[2018-07-01] MEDS ORDERED: LEVOTHYROXINE 100 MCG TAB PO SCH (06:30)
[2018-07-01] MEDS: INSULIN ASPART 100 UNIT/ML 1 ML 10 ML VIAL SQ SCH ×3 (06:33→18:35)
[2018-07-01] MEDS ORDERED: PANTOPRAZOLE 40 MG TABLET PO SCH (07:30)
[2018-07-01] MEDS ORDERED: SODIUM CHLORIDE 0.9% 1,000 ML in EMPTY BAG 1 BAG IV ONE (08:14)
[2018-07-01] MEDS ORDERED: ASPIRIN 325 MG TAB PO STA (08:14)
[2018-07-01] MEDS ORDERED: ATORVASTATIN 80 MG TAB PO STA (08:14)
[2018-07-01] MEDS ORDERED: ALPRAZolam 0.5 MG TAB PO PRN (08:14)
[2018-07-01] MEDS ORDERED: NITROGLYCERIN SL TABS 0.4 MG TAB SUBLINGUAL PRN (08:14)
[2018-07-01] MEDS ORDERED: ALPRAZolam 0.25 MG TAB PO PRN (08:14)
[2018-07-01] MEDS ORDERED: FERROUS SULFATE 325 MG TAB PO SCH (09:00)
[2018-07-01] MEDS ORDERED: ASPIRIN 325 MG TAB PO SCH (09:00)
[2018-07-01] MEDS ORDERED: ATENOLOL 50 MG TAB PO SCH (09:00)
[2018-07-01] MEDS ORDERED: metFORMIN 500 MG TAB PO SCH (09:00)
[2018-07-01] MEDS ORDERED: GABAPENTIN 300 MG CAP PO SCH (09:00)
[2018-07-01 09:05] LABS: Creatine Kinase 37 U/L (30-135)
[2018-07-01] MEDS ORDERED: LISINOPRIL 20 MG TAB PO SCH (09:15)
[2018-07-01 09:19] LABS: Creatine Kinase MB 0.7 ng/mL (0.0-2.4); Troponin I <0.012 ng/mL (0.000-0.034)
[2018-07-01 09:39] LABS: ALT 25 U/L (9-52); AST 17 U/L (14-36); Albumin 3.1 g/dL (3.5-5.0); Alkaline Phosphatase 134 U/L (38-126); Anion Gap 8 mmol/L; Blood Urea Nitrogen 10 mg/dL (7-17); Calcium 8.8 mg/dL (8.4-10.2); Carbon Dioxide 25 mmol/L (22-30); Chloride 108 mmol/L (98-107); Glucose 187 mg/dL (74-99); Sodium 141 mmol/L (137-145); Total Bilirubin 0.3 mg/dL (0.2-1.3); Total Protein 5.9 g/dL (6.3-8.2)
--- NOTE | 2018-07-01 09:42 | CONS ---
CONSULTATION Mrs. Scott is a 48-year-old female with known history of hypertension, hyperlipidemia, diabetes mellitus, who has been complaining of episode of recurrent chest discomfort. She had multiple visits to the emergency room and admission in the past. She has underwent a myocardial perfusion imaging, most recently in February of 2016 that revealed no evidence of inducible ischemia. Because of her persistent symptoms, patient was scheduled to undergo coronary angiography tomorrow. She had further chest pain yesterday and because of that, came into the emergency room and subsequently admitted. The discomfort according to her has been going on for the last week, not all with exertional pattern, associated with dyspnea, dizziness, and palpitation. Patient has some peripheral edema, no PND nor orthopnea. Her coronary risk factors are remarkable for hypertension hyperlipidemia and diabetes mellitus. She is a nonsmoker. MEDICATION: At home included aspirin, gabapentin, levothyroxine, lisinopril HCT 20-25 mg daily, meclizine, metformin, Norvasc 5 mg daily, omeprazole, and Carafate. REVIEW OF SYSTEMS: RESPIRATORY system she has no documented history of asthma, emphysema or bronchitis GI system no recent GI bleeding. No peptic ulcer disease system no dysuria or hematuria nervous system no history of stroke or seizure. PHYSICAL EXAMINATION: She is a 48-year-old female, alert, oriented, in no apparent distress. Blood pressure 150/80 with a heart rate in the 70s. HEAD: Normocephalic. EYES: Sclerae nonicteric. NECK: Good upstroke, no bruit, no jugular venous distension. LUNGS: Clear to auscultation. HEART: Regular rate and rhythm. S1, S2. No S3. No S4. No rub. ABDOMEN: Soft, obese, nontender. Positive bowel sounds, no organomegaly. EXTREMITIES: No edema, intact pulses. LAB DATA: Revealed troponin less than 0.012. Cholesterol 140, LDL of 57, potassium 4, BUN and creatinine 11 and 0.9, hemoglobin of 11.9. EKG revealed sinus mechanism with no acute changes. IMPRESSION: 1. Recurrent chest discomfort of unclear etiology. 2. Patient with multiple risk factors. 3. Hypertension. 4. Hyperlipidemia. RECOMMENDATION: I recommend proceeding with coronary angiography are that will be on today are the rationale behind the procedures risks and complication were discussed with the patient who is in full understanding and agreement. Thank you for this consult. Will follow with you. MMODL / IJN: [id number] /
[2018-07-01 09:59] LABS: Anisocytosis Slight; Basophils % (A) 0 %; Eosinophils # (A) 0.3 k/uL (0-0.7); Eosinophils % (A) 3 %; HCT 37.3 % (34.0-46.0); HGB 11.1 gm/dL (11.4-16.0); Hypochromasia Marked; Lymphocytes # (A) 3.1 k/uL (1.0-4.8); Lymphocytes % (A) 38 %; MCH 23.4 pg (25.0-35.0); MCHC 29.8 g/dL (31.0-37.0); MCV 78.6 fL (80.0-100.0); Mean Platelet Volume 8.7; Microcytosis Slight; Monocytes # (A) 0.4 k/uL (0-1.0); Monocytes % (A) 4 %; Neutrophils # (A) 4.4 k/uL (1.3-7.7); Neutrophils % (A) 53 %; Platelet Count 211 k/uL (150-450); RBC 4.75 m/uL (3.80-5.40); RDW 16.6 % (11.5-15.5); WBC 8.2 k/uL (3.8-10.6)
--- NOTE | 2018-07-01 10:55 | P.HPIM ---
History of Present Illness H&P Date: 07/01/18 Chief Complaint: Chest pain This is a 48-year-old female patient of Dr. Oh. Patient presents to emergency room with complaints of chest pain. Per patient chest pain has been occurring intermittently for 1 week. Patient was plan for cardiac cath in 2 days per cardiology and associates. Patient states she's had been having intermittent chest pain for 5 months. She has known past medical history of chest pain, CVA, diabetes mellitus, GERD, hyperlipidemia, hypertension, seizure disorder, thyroid disorder and anemia. EEG completed showing normal sinus rhythm with nonspecific ST abnormality. Chest x-ray completed showing normal chest. No change. Troponins negative. Patient started on heparin drip. Cardiology services have been consulted. At this time patient is complaining of chest pain that radiates to arms and legs. Patient is also complaining of occasional shortness breath that occurs with chest pain. Patient denies any urinary burning or frequency. Patient denies nausea vomiting or diarrhea. Review of Systems Please refer to HPI otherwise unremarkable Past Medical History Past Medical History: Chest Pain / Angina, CVA/TIA, Diabetes Mellitus, GERD/ Reflux, Hyperlipidemia, Hypertension, Seizure Disorder, Thyroid Disorder Additional Past Medical History / Comment(s): glaucoma radha eyes, HX. BLEEDING ULCERS. last seizure 2012, ANEMIA. TIA 03/2017-no effects, "occ DIZZY SPELLS" , cyst on left kidney, migraines, heart murmer, hiatal hernia, hx kidney stones, EGD April 2018, History of Any Multi-Drug Resistant Organisms: None Reported Past Surgical History: Breast Surgery, Cholecystectomy, Ear Surgery, Hernia Repair, Hysterectomy, Orthopedic Surgery Additional Past Surgical History / Comment(s): RT EYE SX CHILD, kae fundoplication 2015, left breast biopsy, Rt knee surg, Past Anesthesia/Blood Transfusion Reactions: No Reported Reaction Additional Past Anesthesia/Blood Transfusion Reaction / Comment(s): mother got Hep C from blood transfusion. Past Psychological History: No Psychological Hx Reported Additional Psychological History / Comment(s): Patient states she lives with , Hebert and brother, Allen Seals. She does not drive, walks and uses city transportation. Smoking Status: Never smoker Past Alcohol Use History: None Reported Past Drug Use History: None Reported - Past Family History Father History Unknown: Yes Additional Family Medical History / Comment(s): ulcer Mother Family Medical History: Cancer, Deep Vein Thrombosis (DVT) Additional Family Medical History / Comment(s): Hep C, breast cancer Sister(s) Family Medical History: Congestive Heart Failure (CHF), Diabetes Mellitus Additional Family Medical History / Comment(s): heart problems Brother(s) Family Medical History: Diabetes Mellitus Additional Family Medical History / Comment(s): Mother and sister with Diabetes Medications and Allergies Home Medications Medication Instructions Recorded Confirmed Type Gabapentin [Neurontin] 300 mg PO TID 06/09/18 07/01/18 History Pantoprazole Sodium [Protonix] 40 mg PO DAILY 06/20/18 07/01/18 History Nitrostat 0.3mg Tab 1 tab PO Q5M PRN 07/01/18 07/01/18 History Allergies Allergy/AdvReac Type Severity Reaction Status Date / Time No Known Allergies Allergy Verified 07/01/18 08:35 Physical Exam Vitals: Vital Signs Temp Pulse Pulse Resp BP BP Pulse Ox 07/01/18 10:19 77 18 123/71 98 07/01/18 08:16 98.0 F 84 18 170/84 94 L 07/01/18 08:00 70 18 07/01/18 03:07 98.3 F 70 18 149/81 93 L 07/01/18 03:06 82 18 07/01/18 00:05 78 18 156/75 98 07/01/18 00:00 98.4 F 82 16 153/83 95 06/30/18 23:39 98.4 F 82 16 153/83 95 06/30/18 23:30 76 22 180/87 96 06/30/18 22:30 84 16 169/87 96 06/30/18 22:00 81 16 169/87 97 06/30/18 21:30 81 16 169/87 97 06/30/18 21:00 90 16 169/87 99 06/30/18 20:30 169/86 97 06/30/18 20:23 98 F 87 18 169/86 98 06/30/18 20:06 182/98 98 Intake and Output 06/30/18 07/01/18 07/01/18 22:59 06:59 14:59 Intake Total 101.541 Balance 101.541 Intake: Intake, IV Titration 101.541 Amount Heparin Sod,Pork in 0.45% 101.541 NaCl 25,000 unit In 0.45 % NaCl 1 500ml.bag @ 9 UNITS/KG/HR 19.59 mls/hr IV .Q24H [facility] Rx#: [id number] Other: Weight 108.862 kg 109.5 kg 108.2 kg Head normocephalic Neck supple Lungs clear to auscultation bilaterally no wheezing or crackles Heart regular rate and rhythm S1-S2, no rub or gallop Abdomen is soft nontender nondistended positive bowel sounds no hepatosplenomegaly Extremities no edema Neuro alert and orientated to 3 Results CBC & Chem 7: 07/01/18 07:44 07/01/18 07:44 Labs: Abnormal Lab Results - Last 24 Hours (Table) 06/30/18 06/30/18 06/30/18 Range/Units 20:32 20:32 20:32 Hgb (11.4-16.0) gm/dL MCV 76.4 L (80.0-100.0) fL MCH 23.9 L (25.0-35.0) pg MCHC (31.0-37.0) g/dL RDW 16.8 H (11.5-15.5) % APTT (22.0-30.0) sec Chloride (98-107) mmol/L Glucose 210 H (74-99) mg/dL POC Glucose (mg/dL) (75-99) mg/dL Alkaline Phosphatase 135 H (38-126) U/L Total Protein (6.3-8.2) g/dL Albumin (3.5-5.0) g/dL Triglycerides 164 H (<150) mg/dL 07/01/18 07/01/18 07/01/18 Range/Units 03:33 05:34 07:44 Hgb 11.1 L (11.4-16.0) gm/dL MCV 78.6 L (80.0-100.0) fL MCH 23.4 L (25.0-35.0) pg MCHC 29.8 L (31.0-37.0) g/dL RDW 16.6 H (11.5-15.5) % APTT 37.4 H (22.0-30.0) sec Chloride (98-107) mmol/L Glucose (74-99) mg/dL POC Glucose (mg/dL) 183 H (75-99) mg/dL Alkaline Phosphatase (38-126) U/L Total Protein (6.3-8.2) g/dL Albumin (3.5-5.0) g/dL Triglycerides (<150) mg/dL 07/01/18 Range/Units 07:44 Hgb (11.4-16.0) gm/dL MCV (80.0-100.0) fL MCH (25.0-35.0) pg MCHC (31.0-37.0) g/dL RDW (11.5-15.5) % APTT (22.0-30.0) sec Chloride 108 H (98-107) mmol/L Glucose 187 H (74-99) mg/dL POC Glucose (mg/dL) (75-99) mg/dL Alkaline Phosphatase 134 H (38-126) U/L Total Protein 5.9 L (6.3-8.2) g/dL Albumin 3.1 L (3.5-5.0) g/dL Triglycerides (<150) mg/dL Thrombosis Risk Factor Assmnt - Choose All That Apply Each Factor Represents 1 point: Age 41-60 years Other Risk Factors: No Other congenital or acquired thrombophilia - If yes, enter type in comment: No Thrombosis Risk Factor Assessment Total Risk Factor Score: 1 Thrombosis Risk Factor Assessment Level: Low Risk Assessment and Plan Assessment: 1. Chest pain. EKG completed showing normal sinus rhythm. X-ray completed showing normal chest. No change. Troponins negative. Patient started on heparin drip. Per cardiology service is planning cardiac cath today 2. History of CVA and TIA 3. History of diabetes mellitus 4. History of GERD 5. History of essential hypertension 6. History of hyperlipidemia 7. History of seizure disorder. Patient reports last seizure 2012. 8. Elevated alkaline phosphatase. Current level 134. This does appear chronic for patient. We'll continue to monitor closely Time with Patient: Greater than 30 (Greater than 60% of the total time spent in counseling and coordination of care. I performed an examination of the patient and discussed their management with the Nurse Practitioner. I have reviewed the Nurse Practitioner's notes and agree with the documented findings and plan of care)
[2018-07-01 12:04] LABS: Glucose,Whole Blood 153 mg/dL (75-99)
[2018-07-01] MEDS ORDERED: LIDOCAINE 1% (PF) 10MG/ML VIAL SQ ONE (12:56)
[2018-07-01] MEDS ORDERED: MIDAZOLAM 2 MG/2 ML VIAL IVP ONE ×2 (12:57)
[2018-07-01] MEDS ORDERED: fentaNYL (PF) 50 MCG/ML 2 ML AMP IVP ONE (12:57)
[2018-07-01] MEDS ORDERED: VERAPAMIL SYRINGE (5 MG/10 ML) INTRAARTER ONE (12:57)
[2018-07-01] MEDS ORDERED: IV FLUID CONTINUATION 1,000 ML IV ONE (13:00)
[2018-07-01] MEDS ORDERED: HEPARIN SODIUM 1,000 UN/ML (10ML VL) IV ONE (13:06)
[2018-07-01] MEDS ORDERED: IOPAMIDOL-370 125ML BTL INJ ONE ×2 (13:09)
[2018-07-01] MEDS ORDERED: RX INFO: IV CONTRAST WAS GIVEN 1 EACH MISC MISCELLANE PRN (13:26)
[2018-07-01] MEDS ORDERED: SODIUM CHLORIDE 0.9% 1,000 ML IV SCH (13:30)
[2018-07-01 13:46] VITALS: TEMP 97.8
--- NOTE | 2018-07-01 14:48 | CC ---
CARDIAC CATHETERIZATION REPORT Mrs Scott is a 48-year-old female with known history of hypertension, hyperlipidemia, diabetes mellitus, who had multiple episode of chest discomfort. On presentation to the emergency room, she had a myocardial perfusion imaging over a year ago that was unremarkable. Because of her persistent symptoms and her recurrent visit to the emergency room, recommendation made regarding cardiac catheterization. The procedures, risks and complications were discussed with the patient who is in full understanding and agreement. PROCEDURE: Patient was brought to the laborer carpentry dock in a fasting semi-sedated state after receiving fentanyl and Benadryl and achieving moderate conscious sedated state. Using Xylocaine anesthesia and Seldinger technique, a 6-Malay sheath was introduced in the right radial artery. Selective right and left angiography performed using 5-Malay 4 bend right and left Christopher catheter, multiple views of the coronary artery including axial views were obtained. Following that, a 5-Malay tight pigtail catheter was introduced in the left ventricle and a 30 degree HOUSE view of the left ventricle was obtained. Following that, catheter and sheaths were removed. Hemostasis was obtained with deployment of a TR band. There was no immediate complication. Patient is returned to her room in stable condition. Of note, the patient received 5000 units of intravenous heparin as well as intra-arterial verapamil. FINDINGS: LEFT MAIN: This is a short size vessel, bifurcating into left circumflex, left anterior descending artery. Left main coronary artery has no evidence of high-grade stenosis. LEFT ANTERIOR DESCENDING ARTERY: This is a large-sized vessel, reaching toward the apex with a wraparound apex segment giving rise to a small diagonal branch. Left anterior descending artery as well as branches have no evidence of obstructive coronary artery disease. LEFT CIRCUMFLEX: This is a large nondominant vessel, giving rise to a large proximal obtuse marginal branch. The second and third obtuse marginal branch is small in caliber. The left circumflex as well as branches have no evidence of obstructive disease. RIGHT CORONARY ARTERY: This is a large dominant vessel, bifurcating into PDA and postop single branches. The right coronary artery as well as branches have no evidence of obstructive coronary artery disease. LEFT VENTRICULOGRAM: The left ventriculogram was performed in 30 degree HOUSE view and revealed normal size. The ejection fraction is estimated at 50%. There was arrhythmia induced mitral regurgitation. HEMODYNAMICS: There was no gradient across the aortic valve. The left ventricular end- diastolic pressure was 20 mmHg. CONCLUSION: 1. Normal coronary arteries. 2. Minimally impaired left ventricular systolic function. RECOMMENDATION: In view of finding anatomy, I recommend continue medical therapy with aggressive coronary risk modification being initiated. Those findings and recommendation were discussed with the patient and her family who are in full understanding and agreement. Duration of the procedure is 15 minutes. MMKATL / IJN: [id number] /
--- NOTE | 2018-07-01 15:23 | P.DS ---
Providers Date of admission: 06/30/18 23:17 Expected date of discharge: 07/01/18 Attending physician: Doc Narvaez Consults: 06/30/18 23:19 Consult Physician Urgent Consulting Provider: Mariella Hudson Consult Reason/Comments: Chest pain, cardiac cath scheduled for 07/02/18 Do you want consulting provider notified?: Yes, Notify in am Primary care physician: Pat Oh Hospital Course: discharge diagnosis 1. Chest pain. EKG completed showing normal sinus rhythm. X-ray completed showing normal chest. No change. Troponins negative. Patient started on heparin drip. cardiac cath completed today showing normal coronary arteries. Minimally impaired left ventricular systolic function. Per cardiology services patient has been cleared for discharge. We'll continue medical therapy with aggressive coronary risk modifications been initiated. Patient has been started on lisinopril and statin. 2. History of CVA and TIA 3. History of diabetes mellitus 4. History of GERD 5. History of essential hypertension 6. History of hyperlipidemia 7. History of seizure disorder. Patient reports last seizure 2012. 8. Elevated alkaline phosphatase. Current level 134. This does appear chronic for patient. We'll continue to monitor closely. CMP will be ordered for 2 days. Patient to follow-up closely with PCP hospital course This is a 48-year-old female patient of Dr. Oh. Patient presents to emergency room with complaints of chest pain. Per patient chest pain has been occurring intermittently for 1 week. Patient was plan for cardiac cath in 2 days per cardiology and associates. Patient states she's had been having intermittent chest pain for 5 months. She has known past medical history of chest pain, CVA, diabetes mellitus, GERD, hyperlipidemia, hypertension, seizure disorder, thyroid disorder and anemia. EEG completed showing normal sinus rhythm with nonspecific ST abnormality. Chest x-ray completed showing normal chest. No change. Troponins negative. Patient started on heparin drip. Cardiology services have been consulted. At this time patient is complaining of chest pain that radiates to arms and legs. Patient is also complaining of occasional shortness breath that occurs with chest pain. Patient denies any urinary burning or frequency. Patient denies nausea vomiting or diarrhea. Patient has been cleared for Discharge cardiac from cardiology services. patient advised to follow-up closely with PCP in the next couple days. CMP has been ordered for 2 days. Cardiac cath negative. patient started on Lipitor and lisinopril per cardiology services Patient Condition at Discharge: Stable Plan - Discharge Summary Discharge Rx Participant: Yes New Discharge Prescriptions: New Atorvastatin [Lipitor] 20 mg PO DAILY #30 tab Lisinopril [Zestril] 20 mg PO DAILY #30 tab Continue Gabapentin [Neurontin] 300 mg PO TID Pantoprazole Sodium [Protonix] 40 mg PO DAILY Nitrostat 0.3mg Tab 1 tab PO Q5M PRN PRN Reason: Chest Pain Discharge Medication List Gabapentin [Neurontin] 300 mg PO TID 06/09/18 [History] Pantoprazole Sodium [Protonix] 40 mg PO DAILY 06/20/18 [History] Atorvastatin [Lipitor] 20 mg PO DAILY #30 tab 07/01/18 [Rx] Lisinopril [Zestril] 20 mg PO DAILY #30 tab 07/01/18 [Rx] Nitrostat 0.3mg Tab 1 tab PO Q5M PRN 07/01/18 [History] Follow up Appointment(s)/Referral(s): Mariella Hudson MD [STAFF PHYSICIAN] - 1 Week Pat Oh DO [Primary Care Provider] - 1-2 days Activity/Diet/Wound Care/Special Instructions: diet heart healthy Activity as tolerated And to finish post cardiac cath protocol prior to discharge Discharge Disposition: HOME SELF-CARE
[2018-07-01 15:31] VITALS: BP 119/70; PULSE 81
[2018-07-01 17:12] LABS: Glucose,Whole Blood 157 mg/dL (75-99)
[2018-07-01] MEDS ORDERED: ATORVASTATIN 20 MG TAB PO SCH (21:00)
[2018-07-02] MEDS ORDERED: ATORVASTATIN 20 MG TAB PO SCH (09:00)
== END 2018-07-01 18:51 | disposition home or self-care (01) ==
LOC: EC 20:01 → 3SCARD 23:17 → 1SOBS 07-01 08:10
PROVIDERS: ADMIT Internal Medicine; ATTEND Internal Medicine
DX: R07.89 Other chest pain (principal); R07.1 Chest pain on breathing; R06.02 Shortness of breath; K21.9 Gastro-esophageal reflux disease without esophagitis; H40.9 Unspecified glaucoma; E78.5 Hyperlipidemia, unspecified; E11.9 Type 2 diabetes mellitus without complications; I10 Essential (primary) hypertension; E07.9 Disorder of thyroid, unspecified; G40.909 Epilepsy, unspecified, not intractable, without status epilepticus; R74.8 Abnormal levels of other serum enzymes; Z79.84 Long term (current) use of oral hypoglycemic drugs; Z79.890 Hormone replacement therapy; Z79.899 Other long term (current) drug therapy; Z86.73 Personal history of transient ischemic attack (TIA), and cerebral infarction without residual deficits; Z90.710 Acquired absence of both cervix and uterus; Z90.49 Acquired absence of other specified parts of digestive tract; Z80.3 Family history of malignant neoplasm of breast; Z82.49 Family history of ischemic heart disease and other diseases of the circulatory system; Z83.3 Family history of diabetes mellitus
CPT/HCPCS: 93005 ×2; 96366; 96376; 96365; 99285; 36415; 93458; 80061; 80053 ×2; 82550 ×2; 82553 ×2; 83735; 84484 ×2; 85025 ×2; 85610; 85730 ×2; 71046; G0378 ×3; C1894; C1769; J2250; J1644 ×3; J3010; J2001; Q9967

== ENCOUNTER 2018-07-12 13:02 | Emergency (ER) | payer MEDICARE ==
[2018-07-12 13:07] VITALS: RESP 18
[2018-07-12] MEDS ORDERED: SODIUM CHLORIDE 0.9% 500 ML 500 ML IV STA (13:18)
[2018-07-12] MEDS ORDERED: KETOROLAC 30 MG/ML 1 ML VIAL IVP STA (13:18)
[2018-07-12] MEDS ORDERED: SODIUM CHLORIDE 0.9% 1,000 ML IV STA (13:18)
--- NOTE | 2018-07-12 13:34 | ED ---
Abdominal Pain HPI - General Chief Complaint: Abdominal Pain Stated Complaint: abd pain Time Seen by Provider: 07/12/18 13:05 Source: patient, RN notes reviewed Mode of arrival: ambulatory Limitations: no limitations - History of Present Illness Initial Comments: Is a 48-year-old female who presents with complaints of abdominal pain for the past month she states she's had right flank and abdominal pain he gets worse with deep breathing and movements no fevers chills sweats nausea vomiting cough or other symptoms she denies any trauma. Factors MD Complaint: abdominal pain - Related Data Home Medications Medication Instructions Recorded Confirmed Gabapentin [Neurontin] 300 mg PO TID 06/09/18 07/12/18 Pantoprazole Sodium [Protonix] 40 mg PO DAILY 06/20/18 07/12/18 Nitrostat 0.3mg Tab 1 tab PO Q5M PRN 07/01/18 07/12/18 Previous Rx's Medication Instructions Recorded Atorvastatin [Lipitor] 20 mg PO DAILY #30 tab 07/01/18 Lisinopril [Zestril] 20 mg PO DAILY #30 tab 07/01/18 Dicyclomine [Bentyl] 10 mg PO TID PRN #15 capsule 07/12/18 Allergies Allergy/AdvReac Type Severity Reaction Status Date / Time No Known Allergies Allergy Verified 07/12/18 13:08 Review of Systems ROS Statement: Those systems with pertinent positive or pertinent negative responses have been documented in the HPI. ROS Other: All systems not noted in ROS Statement are negative. Past Medical History Past Medical History: Chest Pain / Angina, CVA/TIA, Diabetes Mellitus, GERD/ Reflux, Hyperlipidemia, Hypertension, Seizure Disorder, Thyroid Disorder Additional Past Medical History / Comment(s): glaucoma radha eyes, HX. BLEEDING ULCERS. last seizure 2012, ANEMIA. TIA 03/2017-no effects, "occ DIZZY SPELLS" , cyst on left kidney, migraines, heart murmer, hiatal hernia, hx kidney stones, EGD April 2018, History of Any Multi-Drug Resistant Organisms: None Reported Past Surgical History: Breast Surgery, Cholecystectomy, Ear Surgery, Hernia Repair, Hysterectomy, Orthopedic Surgery Additional Past Surgical History / Comment(s): RT EYE SX CHILD, kae fundoplication 2015, left breast biopsy, Rt knee surg, Past Anesthesia/Blood Transfusion Reactions: No Reported Reaction Additional Past Anesthesia/Blood Transfusion Reaction / Comment(s): mother got Hep C from blood transfusion. Past Psychological History: No Psychological Hx Reported Smoking Status: Never smoker Past Alcohol Use History: None Reported Past Drug Use History: None Reported - Past Family History Father History Unknown: Yes Additional Family Medical History / Comment(s): ulcer Mother Family Medical History: Cancer, Deep Vein Thrombosis (DVT) Additional Family Medical History / Comment(s): Hep C, breast cancer Sister(s) Family Medical History: Congestive Heart Failure (CHF), Diabetes Mellitus Additional Family Medical History / Comment(s): heart problems Brother(s) Family Medical History: Diabetes Mellitus Additional Family Medical History / Comment(s): Mother and sister with Diabetes General Exam - General Exam Comments Initial Comments: This is a well-developed well-nourished awake alert oriented 3 female Limitations: no limitations General appearance: alert, in no apparent distress Head exam: Present: atraumatic, normocephalic, normal inspection Eye exam: Present: normal appearance, PERRL, EOMI. Absent: scleral icterus, conjunctival injection, periorbital swelling ENT exam: Present: normal exam, mucous membranes moist Neck exam: Present: normal inspection. Absent: tenderness, meningismus, lymphadenopathy Respiratory exam: Present: normal lung sounds bilaterally. Absent: respiratory distress, wheezes, rales, rhonchi, stridor Cardiovascular Exam: Present: regular rate, normal rhythm, normal heart sounds. Absent: systolic murmur, diastolic murmur, rubs, gallop, clicks GI/Abdominal exam: Present: soft, tenderness (Mild right flank and upper quadrant tenderness no guarding rebound masses or bruits), normal bowel sounds. Absent: distended, guarding, rebound, rigid Rectal exam: Present: deferred Extremities exam: Present: normal inspection, full ROM, normal capillary refill. Absent: tenderness, pedal edema, joint swelling, calf tenderness Back exam: Present: normal inspection, CVA tenderness (R) (Mild right CVA discomfort palpation no step-off or crepitation) Neurological exam: Present: alert, oriented X3, CN II-XII intact Psychiatric exam: Present: normal affect, normal mood Skin exam: Present: warm, dry, intact, normal color. Absent: rash Course Vital Signs 07/12/18 13:05 Temperature 97.5 F L Pulse Rate 92 Respiratory 18 Rate Blood Pressure 139/87 O2 Sat by Pulse 99 Oximetry Medical Decision Making - Medical Decision Making I did discuss the findings with the patient the presentation consistent with a spastic colon to be discharged with appropriate medication she is follow-up with her doctor increase her oral fluids follow-up when necessary - Lab Data Result diagrams: 07/12/18 13:58 07/12/18 13:58 Lab Results 07/12/18 07/12/18 07/12/18 Range/Units 13:58 13:58 13:58 WBC 6.5 (3.8-10.6) k/uL RBC 5.28 (3.80-5.40) m/uL Hgb 12.6 (11.4-16.0) gm/dL Hct 40.4 (34.0-46.0) % MCV 76.6 L (80.0-100.0) fL MCH 23.8 L (25.0-35.0) pg MCHC 31.1 (31.0-37.0) g/dL RDW 16.3 H (11.5-15.5) % Plt Count 253 (150-450) k/uL Neutrophils % 58 % Lymphocytes % 32 % Monocytes % 5 % Eosinophils % 3 % Basophils % 1 % Neutrophils # 3.8 (1.3-7.7) k/uL Lymphocytes # 2.1 (1.0-4.8) k/uL Monocytes # 0.3 (0-1.0) k/uL Eosinophils # 0.2 (0-0.7) k/uL Basophils # 0.0 (0-0.2) k/uL Hypochromasia Marked Anisocytosis Slight Microcytosis Slight Sodium 139 (137-145) mmol/L Potassium 4.8 (3.5-5.1) mmol/L Chloride 103 (98-107) mmol/L Carbon Dioxide 29 (22-30) mmol/L Anion Gap 7 mmol/L BUN 17 (7-17) mg/dL Creatinine 0.83 (0.52-1.04) mg/dL Est GFR (CKD-EPI)AfAm >90 (>60 ml/min/1.73 sqM) Est GFR (CKD-EPI)NonAf 85 (>60 ml/min/1.73 sqM) Glucose 180 H (74-99) mg/dL Calcium 9.3 (8.4-10.2) mg/dL Total Bilirubin 0.5 (0.2-1.3) mg/dL AST 17 (14-36) U/L ALT 27 (9-52) U/L Alkaline Phosphatase 149 H (38-126) U/L Total Creatine Kinase 37 (30-135) U/L CK-MB (CK-2) 0.6 (0.0-2.4) ng/mL CK-MB (CK-2) Rel Index 1.6 Troponin I <0.012 (0.000-0.034) ng/mL Total Protein 7.2 (6.3-8.2) g/dL Albumin 3.9 (3.5-5.0) g/dL Amylase 46 (30-110) U/L Lipase 94 (23-300) U/L Urine Color Urine Appearance (Clear) Urine pH (5.0-8.0) Ur Specific [place] (1.001-1.035) Urine Protein (Negative) Urine Glucose (UA) (Negative) Urine Ketones (Negative) Urine Blood (Negative) Urine Nitrite (Negative) Urine Bilirubin (Negative) Urine Urobilinogen (<2.0) mg/dL Ur Leukocyte Esterase (Negative) Urine WBC (0-5) /hpf Ur Squamous Epith Cells (0-4) /hpf 07/12/ Range/Units 13:58 WBC (3.8-10.6) k/uL RBC (3.80-5.40) m/uL Hgb (11.4-16.0) gm/dL Hct (34.0-46.0) % MCV (80.0-100.0) fL MCH (25.0-35.0) pg MCHC (31.0-37.0) g/dL RDW (11.5-15.5) % Plt Count (150-450) k/uL Neutrophils % % Lymphocytes % % Monocytes % % Eosinophils % % Basophils % % Neutrophils # (1.3-7.7) k/uL Lymphocytes # (1.0-4.8) k/uL Monocytes # (0-1.0) k/uL Eosinophils # (0-0.7) k/uL Basophils # (0-0.2) k/uL Hypochromasia Anisocytosis Microcytosis Sodium (137-145) mmol/L Potassium (3.5-5.1) mmol/L Chloride (98-107) mmol/L Carbon Dioxide (22-30) mmol/L Anion Gap mmol/L BUN (7-17) mg/dL Creatinine (0.52-1.04) mg/dL Est GFR (CKD-EPI)AfAm (>60 ml/min/1.73 sqM) Est GFR (CKD-EPI)NonAf (>60 ml/min/1.73 sqM) Glucose (74-99) mg/dL Calcium (8.4-10.2) mg/dL Total Bilirubin (0.2-1.3) mg/dL AST (14-36) U/L ALT (9-52) U/L Alkaline Phosphatase (38-126) U/L Total Creatine Kinase (30-135) U/L CK-MB (CK-2) (0.0-2.4) ng/mL CK-MB (CK-2) Rel Index Troponin I (0.000-0.034) ng/mL Total Protein (6.3-8.2) g/dL Albumin (3.5-5.0) g/dL Amylase (30-110) U/L Lipase (23-300) U/L Urine Color Yellow Urine Appearance Clear (Clear) Urine pH 7.0 (5.0-8.0) Ur Specific [place] 1.008 (1.001-1.035) Urine Protein Negative (Negative) Urine Glucose (UA) Negative (Negative) Urine Ketones Negative (Negative) Urine Blood Negative (Negative) Urine Nitrite Negative (Negative) Urine Bilirubin Negative (Negative) Urine Urobilinogen <2.0 (<2.0) mg/dL Ur Leukocyte Esterase Trace H (Negative) Urine WBC 2 (0-5) /hpf Ur Squamous Epith Cells 1 (0-4) /hpf - Radiology Data Radiology results: report reviewed, image reviewed Disposition Clinical Impression: Spastic colon, Abdominal pain Disposition: HOME SELF-CARE Condition: Good Instructions: Abdominal Pain (ED), Irritable Bowel Syndrome (ED) Prescriptions: Dicyclomine [Bentyl] 10 mg PO TID PRN #15 capsule PRN Reason: Pain Is patient prescribed a controlled substance at d/c from ED?: No Referrals: Pat Oh DO [Primary Care Provider] - 1-2 days
[2018-07-12 14:20] LABS: Anisocytosis Slight; Basophils % (A) 1 %; Eosinophils # (A) 0.2 k/uL (0-0.7); Eosinophils % (A) 3 %; HCT 40.4 % (34.0-46.0); HGB 12.6 gm/dL (11.4-16.0); Hypochromasia Marked; Lymphocytes # (A) 2.1 k/uL (1.0-4.8); Lymphocytes % (A) 32 %; MCH 23.8 pg (25.0-35.0); MCHC 31.1 g/dL (31.0-37.0); MCV 76.6 fL (80.0-100.0); Mean Platelet Volume 7.8; Microcytosis Slight; Monocytes # (A) 0.3 k/uL (0-1.0); Monocytes % (A) 5 %; Neutrophils # (A) 3.8 k/uL (1.3-7.7); Neutrophils % (A) 58 %; Platelet Count 253 k/uL (150-450); RBC 5.28 m/uL (3.80-5.40); RDW 16.3 % (11.5-15.5); WBC 6.5 k/uL (3.8-10.6)
[2018-07-12 14:29] LABS: ALT 27 U/L (9-52); AST 17 U/L (14-36); Albumin 3.9 g/dL (3.5-5.0); Alkaline Phosphatase 149 U/L (38-126); Amylase 46 U/L (30-110); Anion Gap 7 mmol/L; Blood Urea Nitrogen 17 mg/dL (7-17); Calcium 9.3 mg/dL (8.4-10.2); Carbon Dioxide 29 mmol/L (22-30); Chloride 103 mmol/L (98-107); Glucose 180 mg/dL (74-99); Lipase 94 U/L (23-300); Potassium 4.8 mmol/L (3.5-5.1); Sodium 139 mmol/L (137-145); Total Bilirubin 0.5 mg/dL (0.2-1.3); Total Protein 7.2 g/dL (6.3-8.2)
[2018-07-12 14:36] LABS: Creatine Kinase 37 U/L (30-135)
--- NOTE | 2018-07-12 14:36 | XR ---
EXAMINATION TYPE: XR KUB DATE OF EXAM: 07/12/2018 2:24 PM CLINICAL HISTORY: Abdominal pain for one month TECHNIQUE: Single upright image of the abdomen is obtained. COMPARISON: 03/24/2018. FINDINGS: Left-sided surgical clips overlie the left lower chest and upper abdomen presumably within the breast. Scattered gas is seen in nondilated small bowel loops. Gas and fecal material is seen in nondilated colon. There is no visceromegaly, pneumoperitoneum, or abnormal calcification appreciated. The lung bases are clear and the osseous structures are intact. IMPRESSION: Moderate burden retained colonic stool in a nonobstructive bowel gas pattern.
[2018-07-12 14:42] LABS: Appearance,Urine Clear (Clear); Bilirubin,Urine Negative (Negative); Blood,Urine Negative (Negative); Color,Urine Yellow; Glucose,Urine (UA) Negative (Negative); Ketones,Urine Negative (Negative); Leukocyte Esterase,Urine Trace (Negative); Nitrite,Urine Negative (Negative); Protein,Urine Negative (Negative); Specific Gravity,Urine 1.008 (1.001-1.035); Squamous Epithelial Cell,Urine 1 /hpf (0-4); Urobilinogen,Urine <2.0 mg/dL (<2.0); WBC,Urine 2 /hpf (0-5)
[2018-07-12 14:49] LABS: Creatine Kinase MB 0.6 ng/mL (0.0-2.4); Troponin I <0.012 ng/mL (0.000-0.034)
[2018-07-12 15:18] VITALS: BP 153/76; PULSE 87; TEMP 98.3
== END 2018-07-12 15:15 | disposition home or self-care (01) ==
LOC: EC 13:02
DX: K58.9 Irritable bowel syndrome, unspecified (principal); I20.9 Angina pectoris, unspecified; K21.9 Gastro-esophageal reflux disease without esophagitis; G40.909 Epilepsy, unspecified, not intractable, without status epilepticus; Z87.19 Personal history of other diseases of the digestive system; Z87.442 Personal history of urinary calculi; Z86.73 Personal history of transient ischemic attack (TIA), and cerebral infarction without residual deficits; Z90.49 Acquired absence of other specified parts of digestive tract; Z90.710 Acquired absence of both cervix and uterus; Z98.890 Other specified postprocedural states
CPT/HCPCS: 36415; 80053; 82150; 82550; 82553; 83690; 84484; 85025; 81001; 74018; 99284; 96374; 96361; J1885

== ENCOUNTER 2018-07-18 06:09 | Emergency (ER) | payer MEDICARE, OTHER ==
[2018-07-18 06:21] VITALS: TEMP 97.9
[2018-07-18 07:01] LABS: Anisocytosis Slight; Basophils % (A) 0 %; Eosinophils # (A) 0.3 k/uL (0-0.7); Eosinophils % (A) 4 %; HCT 39.4 % (34.0-46.0); HGB 12.2 gm/dL (11.4-16.0); Hypochromasia Slight; Lymphocytes # (A) 2.4 k/uL (1.0-4.8); Lymphocytes % (A) 33 %; MCH 23.6 pg (25.0-35.0); MCV 76.1 fL (80.0-100.0); Mean Platelet Volume 8.2; Microcytosis Slight; Monocytes # (A) 0.3 k/uL (0-1.0); Monocytes % (A) 4 %; Neutrophils % (A) 56 %; Platelet Count 250 k/uL (150-450); RBC 5.18 m/uL (3.80-5.40); RDW 16.9 % (11.5-15.5); WBC 7.2 k/uL (3.8-10.6)
[2018-07-18 07:13] LABS: Albumin 3.5 g/dL (3.5-5.0); Appearance,Urine Clear (Clear); Bilirubin,Urine Negative (Negative); Blood,Urine Negative (Negative); Color,Urine Yellow; Glucose,Urine (UA) 1+ (Negative); Ketones,Urine Negative (Negative); Leukocyte Esterase,Urine Trace (Negative); Mucus,Urine Rare /hpf; Nitrite,Urine Negative (Negative); Potassium 4.1 mmol/L (3.5-5.1); Protein,Urine Negative (Negative); RBC,Urine 1 /hpf (0-5); Specific Gravity,Urine 1.012 (1.001-1.035); Squamous Epithelial Cell,Urine 2 /hpf (0-4); Total Bilirubin 0.5 mg/dL (0.2-1.3); Total Protein 6.5 g/dL (6.3-8.2); Urobilinogen,Urine <2.0 mg/dL (<2.0); WBC,Urine 1 /hpf (0-5)
--- NOTE | 2018-07-18 07:58 | ED ---
Abdominal Pain HPI - General Chief Complaint: Abdominal Pain Stated Complaint: ABD/HIP PAIN Time Seen by Provider: 07/18/18 07:18 Source: patient, family, RN notes reviewed, old records reviewed Mode of arrival: ambulatory Limitations: no limitations - History of Present Illness Initial Comments: This is a 48-year-old female the ER for evaluation. Patient resents today for evaluation regards to abdominal pain hip pain chest pain. Patient states both of her hips hurt, worse with walking. Patient denies any trauma no difficulty with urination or bowel movements. No change in medications. Patient states she was recently admitted to the hospital for heart evaluation which was normal MD Complaint: abdominal pain, other (Bilateral hip) -: days(s) (1) Location: bilateral flank Radiation: back Severity scale (1-10): 2 Quality: cramping, aching Consistency: constant Improves With: nothing Worsens With: movement Associated Symptoms: denies other symptoms - Related Data Home Medications Medication Instructions Recorded Confirmed Gabapentin [Neurontin] 300 mg PO TID 06/09/18 07/18/18 Pantoprazole Sodium [Protonix] 40 mg PO DAILY 06/20/18 07/18/18 Nitrostat 0.3mg Tab 1 tab PO Q5M PRN 07/01/18 07/18/18 Previous Rx's Medication Instructions Recorded Atorvastatin [Lipitor] 20 mg PO DAILY #30 tab 07/01/18 Lisinopril [Zestril] 20 mg PO DAILY #30 tab 07/01/18 Dicyclomine [Bentyl] 10 mg PO TID PRN #15 capsule 07/12/18 Allergies Allergy/AdvReac Type Severity Reaction Status Date / Time No Known Allergies Allergy Verified 07/18/18 06:21 Review of Systems ROS Statement: Those systems with pertinent positive or pertinent negative responses have been documented in the HPI. ROS Other: All systems not noted in ROS Statement are negative. Past Medical History Past Medical History: Chest Pain / Angina, CVA/TIA, Diabetes Mellitus, GERD/ Reflux, Hyperlipidemia, Hypertension, Seizure Disorder, Thyroid Disorder Additional Past Medical History / Comment(s): glaucoma radha eyes, HX. BLEEDING ULCERS. last seizure 2012, ANEMIA. TIA 03/2017-no effects, "occ DIZZY SPELLS" , cyst on left kidney, migraines, heart murmer, hiatal hernia, hx kidney stones, EGD April 2018, History of Any Multi-Drug Resistant Organisms: None Reported Past Surgical History: Breast Surgery, Cholecystectomy, Ear Surgery, Hernia Repair, Hysterectomy, Orthopedic Surgery Additional Past Surgical History / Comment(s): RT EYE SX CHILD, kae fundoplication 2016, left breast biopsy, Rt knee surg, Past Anesthesia/Blood Transfusion Reactions: No Reported Reaction Additional Past Anesthesia/Blood Transfusion Reaction / Comment(s): mother got Hep C from blood transfusion. Past Psychological History: No Psychological Hx Reported Smoking Status: Never smoker Past Alcohol Use History: None Reported Past Drug Use History: None Reported - Past Family History Father History Unknown: Yes Additional Family Medical History / Comment(s): ulcer Mother Family Medical History: Cancer, Deep Vein Thrombosis (DVT) Additional Family Medical History / Comment(s): Hep C, breast cancer Sister(s) Family Medical History: Congestive Heart Failure (CHF), Diabetes Mellitus Additional Family Medical History / Comment(s): heart problems Brother(s) Family Medical History: Diabetes Mellitus Additional Family Medical History / Comment(s): Mother and sister with Diabetes General Exam Limitations: no limitations General appearance: alert, in no apparent distress Head exam: Present: atraumatic, normocephalic, normal inspection Eye exam: Present: normal appearance, PERRL, EOMI. Absent: scleral icterus, conjunctival injection, periorbital swelling ENT exam: Present: normal exam, mucous membranes moist Neck exam: Present: normal inspection. Absent: tenderness, meningismus, lymphadenopathy Respiratory exam: Present: normal lung sounds bilaterally. Absent: respiratory distress, wheezes, rales, rhonchi, stridor Cardiovascular Exam: Present: regular rate, normal rhythm, normal heart sounds. Absent: systolic murmur, diastolic murmur, rubs, gallop, clicks GI/Abdominal exam: Present: soft, normal bowel sounds. Absent: distended, tenderness, guarding, rebound, rigid Extremities exam: Present: normal inspection, full ROM, normal capillary refill. Absent: tenderness, pedal edema, joint swelling, calf tenderness Back exam: Present: normal inspection Neurological exam: Present: alert, oriented X3, CN II-XII intact Psychiatric exam: Present: normal affect, normal mood Skin exam: Present: warm, dry, intact, normal color. Absent: rash Course Vital Signs 07/18/18 07/18/1818 06:18 07:00 09:22 Temperature 97.9 F Pulse Rate 96 81 Respiratory 20 16 Rate Blood Pressure 136/93 141/103 133/67 O2 Sat by Pulse 97 95 95 Oximetry - Reevaluation(s) Reevaluation #1: Medical record is reviewed, patient is well-known to the emergency department Prior inpatient hospitalization is reviewed including heart cath which shows normal coronary arteries Patient is able to ambulate without difficulty Medical Decision Making - Medical Decision Making 48 female the ER with nonspecific complaints for complaining of hip pain. X- rays of pelvis and hip are negative, patient will follow up for further evaluation of arthritis - Lab Data Result diagrams: 07/18/18 06:47 07/18/18 06:47 Lab Results 07/18/18 07/18/18 07/18/18 Range/Units 06:47 06:47 06:47 WBC 7.2 (3.8-10.6) k/uL RBC 5.18 (3.80-5.40) m/uL Hgb 12.2 (11.4-16.0) gm/dL Hct 39.4 (34.0-46.0) % MCV 76.1 L (80.0-100.0) fL MCH 23.6 L (25.0-35.0) pg MCHC 31.0 (31.0-37.0) g/dL RDW 16.9 H (11.5-15.5) % Plt Count 250 (150-450) k/uL Neutrophils % 56 % Lymphocytes % 33 % Monocytes % 4 % Eosinophils % 4 % Basophils % 0 % Neutrophils # 4.0 (1.3-7.7) k/uL Lymphocytes # 2.4 (1.0-4.8) k/uL Monocytes # 0.3 (0-1.0) k/uL Eosinophils # 0.3 (0-0.7) k/uL Basophils # 0.0 (0-0.2) k/uL Hypochromasia Slight Anisocytosis Slight Microcytosis Slight Sodium 143 (137-145) mmol/L Potassium 4.1 (3.5-5.1) mmol/L Chloride 103 (98-107) mmol/L Carbon Dioxide 31 H (22-30) mmol/L Anion Gap 9 mmol/L BUN 10 (7-17) mg/dL Creatinine 0.92 (0.52-1.04) mg/dL Est GFR (CKD-EPI)AfAm 87 (>60 ml/min/1.73 sqM) Est GFR (CKD-EPI)NonAf 75 (>60 ml/min/1.73 sqM) Glucose 180 H (74-99) mg/dL Calcium 9.0 (8.4-10.2) mg/dL Total Bilirubin 0.5 (0.2-1.3) mg/dL AST 15 (14-36) U/L ALT 25 (9-52) U/L Alkaline Phosphatase 151 H (38-126) U/L Total Protein 6.5 (6.3-8.2) g/dL Albumin 3.5 (3.5-5.0) g/dL Amylase 35 (30-110) U/L Lipase 64 (23-300) U/L Urine Color Yellow Urine Appearance Clear (Clear) Urine pH 6.0 (5.0-8.0) Ur Specific [place] 1.012 (1.001-1.035) Urine Protein Negative (Negative) Urine Glucose (UA) 1+ H (Negative) Urine Ketones Negative (Negative) Urine Blood Negative (Negative) Urine Nitrite Negative (Negative) Urine Bilirubin Negative (Negative) Urine Urobilinogen <2.0 (<2.0) mg/dL Ur Leukocyte Esterase Trace H (Negative) Urine RBC 1 (0-5) /hpf Urine WBC 1 (0-5) /hpf Ur Squamous Epith Cells 2 (0-4) /hpf Urine Mucus Rare H (None) /hpf - Radiology Data Radiology results: report reviewed (X-ray pelvis is negative), image reviewed Disposition Clinical Impression: Bilateral hip pain Disposition: HOME SELF-CARE Condition: Good Instructions: Arthralgia (ED), Hip Pain (ED) Is patient prescribed a controlled substance at d/c from ED?: No Referrals: Pat Oh DO [Primary Care Provider] - 1-2 days
--- NOTE | 2018-07-18 08:41 | XR ---
EXAMINATION TYPE: XR pelvis AP view DATE OF EXAM: 07/18/2018 CLINICAL HISTORY: Hip pain with no known injury TECHNIQUE: A single AP view of the pelvis is obtained. COMPARISON: None. FINDINGS: There is no acute fracture/dislocation evident in the pelvis. The hip and sacroiliac join ts appear intact. The overlying soft tissue appears unremarkable. There is very mild joint space wisam rowing and acetabular roof sclerosis. IMPRESSION: There is no acute fracture or dislocation in the pelvis. Minimal bilateral femoral aceta bular arthropathy is seen.
[2018-07-18 09:22] VITALS: BP 133/67; PULSE 81; RESP 16
--- NOTE | 2018-07-21 00:25 | CDI ---
Documentation Clarification OP Dear Dr. Osvaldo Locke Please do addendum to ED report for missing HPI and Physical examination. Thank you, Katy Paz Control Board Operator If you have any questions, please contact Operations Clerk at [phone] [facility]
== END 2018-07-18 09:22 | disposition home or self-care (01) ==
LOC: EC 06:09
DX: M25.551 Pain in right hip (principal); M25.552 Pain in left hip; R10.31 Right lower quadrant pain; R07.9 Chest pain, unspecified; K21.9 Gastro-esophageal reflux disease without esophagitis; G40.909 Epilepsy, unspecified, not intractable, without status epilepticus; Z87.442 Personal history of urinary calculi; Z90.49 Acquired absence of other specified parts of digestive tract; Z90.710 Acquired absence of both cervix and uterus; Z86.73 Personal history of transient ischemic attack (TIA), and cerebral infarction without residual deficits; Z79.899 Other long term (current) drug therapy
CPT/HCPCS: 36415; 72170; 80053; 81001; 82150; 83690; 85025; 99284

== ENCOUNTER 2018-07-23 18:18 | Emergency (ER) | payer MEDICARE, OTHER ==
[2018-07-23 19:30] LABS: Anisocytosis Slight; Basophils % (A) 0 %; Eosinophils # (A) 0.3 k/uL (0-0.7); Eosinophils % (A) 3 %; HCT 40.6 % (34.0-46.0); HGB 12.4 gm/dL (11.4-16.0); Hypochromasia Moderate; Lymphocytes # (A) 2.3 k/uL (1.0-4.8); Lymphocytes % (A) 29 %; MCH 23.4 pg (25.0-35.0); MCHC 30.6 g/dL (31.0-37.0); MCV 76.3 fL (80.0-100.0); Mean Platelet Volume 7.7; Microcytosis Slight; Monocytes # (A) 0.3 k/uL (0-1.0); Monocytes % (A) 4 %; Neutrophils % (A) 63 %; Platelet Count 277 k/uL (150-450); RBC 5.32 m/uL (3.80-5.40); RDW 16.5 % (11.5-15.5)
[2018-07-23 19:36] LABS: Albumin 3.7 g/dL (3.5-5.0); Calcium 9.1 mg/dL (8.4-10.2); Potassium 4.5 mmol/L (3.5-5.1); Total Bilirubin 0.4 mg/dL (0.2-1.3); Total Protein 6.9 g/dL (6.3-8.2)
--- NOTE | 2018-07-23 19:45 | XR ---
EXAMINATION TYPE: XR KUB DATE OF EXAM: 07/23/2018 COMPARISON: 07/12/2018 HISTORY: Abdominal pain TECHNIQUE: 2 views upright FINDINGS: There is no sign of intestinal obstruction or pneumoperitoneum. Fecal pattern is normal. Narinder wel gas pattern is normal. Lung bases are clear. There are no pathologic calcifications. There are wolff rgical clips in the left upper quadrant over the left breast. IMPRESSION: Nonacute abdomen. No adverse change.
[2018-07-23] MEDS ORDERED: SODIUM CHLORIDE 0.9% 500 ML 500 ML IV ONE (19:49)
--- NOTE | 2018-07-23 20:04 | ED ---
Abdominal Pain HPI - General Chief Complaint: Abdominal Pain Stated Complaint: hip and abd pain Time Seen by Provider: 07/23/18 18:24 Source: patient Mode of arrival: ambulatory Limitations: no limitations - History of Present Illness Initial Comments: 48-year-old female well-known to the emergency department with past medical history of osteoarthritis of the hips bilaterally, chronic hip and abdominal pain, previous CVA with diabetes, hyperlipidemia, hypertension presenting today for chief complaint of bilateral hip pain and abdominal pain. Patient states that she has had chronic hip pain for years, she states that it increases with ambulation. Patient was recently seen here a few days ago, for similar complaint. Patient states she did not follow up with surgery. Patient denies any worsening or change in symptoms from previous visit, patient denies numbness , tingling, loss sensation or muscle weakness of the lower extremities, redness of the hips or inability the to weight-bear her range of hips. Patient denies any new falls or trauma. In regards to patient's abdominal pain, she states is diffuse. She denies any diarrhea, constipation, melena, hematochezia, sharp pain, back pain, chest pain, shortness of breath. Patient states that the doubt pain has been chronic for the past year. Patient denies any new changes today. Remainder of ROS negative, patient's last bowel movement this morning. Patient denies any recent fever, chills, shortness of breath, chest pain, back pain, abdominal pain, nausea or vomiting, numbness or tingling, dysuria or hematuria, constipation or diarrhea, headaches or visual changes, or any other complaints. Upon arrival patient spell signs within acceptable limits. Patient is well-appearing, ambulate without difficulty. No signs of acute distress. - Related Data Home Medications Medication Instructions Recorded Confirmed Gabapentin [Neurontin] 300 mg PO TID 06/09/18 07/23/18 Pantoprazole Sodium [Protonix] 40 mg PO DAILY 06/20/18 07/23/18 Nitrostat 0.3mg Tab 0.3 mg PO Q5M PRN 07/01/18 07/23/18 Atenolol [Tenormin] 50 mg PO DAILY 07/23/18 07/23/18 Levothyroxine Sodium [Synthroid] 100 mcg PO DAILY 07/23/18 07/23/18 Simvastatin 40 mg PO HS 07/23/18 07/23/18 metFORMIN HCL 1,000 mg PO BID 07/23/18 07/23/18 Previous Rx's Medication Instructions Recorded Atorvastatin [Lipitor] 20 mg PO DAILY #30 tab 07/01/18 Lisinopril [Zestril] 20 mg PO DAILY #30 tab 07/01/18 Dicyclomine [Bentyl] 10 mg PO TID PRN #15 capsule 07/12/18 Allergies Allergy/AdvReac Type Severity Reaction Status Date / Time No Known Allergies Allergy Verified 07/23/18 19:53 Review of Systems ROS Statement: Those systems with pertinent positive or pertinent negative responses have been documented in the HPI. ROS Other: All systems not noted in ROS Statement are negative. Constitutional: Denies: fever, chills Eyes: Denies: eye pain ENT: Denies: ear pain, throat pain Respiratory: Denies: as per HPI, cough, dyspnea Cardiovascular: Denies: as per HPI, chest pain, palpitations Endocrine: Denies: fatigue Gastrointestinal: Reports: abdominal pain. Denies: nausea, vomiting, diarrhea, constipation, hematemesis, melena, hematochezia Genitourinary: Denies: urgency, dysuria, frequency, hematuria Musculoskeletal: Reports: arthralgia (Bilateral hip pain). Denies: back pain Skin: Denies: rash, lesions Past Medical History Past Medical History: Chest Pain / Angina, CVA/TIA, Diabetes Mellitus, GERD/ Reflux, Hyperlipidemia, Hypertension, Seizure Disorder, Thyroid Disorder Additional Past Medical History / Comment(s): glaucoma radha eyes, HX. BLEEDING ULCERS. last seizure 2012, ANEMIA. TIA 03/2017-no effects, "occ DIZZY SPELLS" , cyst on left kidney, migraines, heart murmer, hiatal hernia, hx kidney stones, EGD April 2018, History of Any Multi-Drug Resistant Organisms: None Reported Past Surgical History: Breast Surgery, Cholecystectomy, Ear Surgery, Hernia Repair, Hysterectomy, Orthopedic Surgery Additional Past Surgical History / Comment(s): RT EYE SX CHILD, kae fundoplication 2015, left breast biopsy, Rt knee surg, Past Anesthesia/Blood Transfusion Reactions: No Reported Reaction Additional Past Anesthesia/Blood Transfusion Reaction / Comment(s): mother got Hep C from blood transfusion. Past Psychological History: No Psychological Hx Reported Smoking Status: Never smoker Past Alcohol Use History: None Reported Past Drug Use History: None Reported - Past Family History Father History Unknown: Yes Additional Family Medical History / Comment(s): ulcer Mother Family Medical History: Cancer, Deep Vein Thrombosis (DVT) Additional Family Medical History / Comment(s): Hep C, breast cancer Sister(s) Family Medical History: Congestive Heart Failure (CHF), Diabetes Mellitus Additional Family Medical History / Comment(s): heart problems Brother(s) Family Medical History: Diabetes Mellitus Additional Family Medical History / Comment(s): Mother and sister with Diabetes General Exam - General Exam Comments Initial Comments: General: The patient is awake and alert, in no distress, and does not appear acutely ill. Eye: Pupils are equal, round and reactive to light, extra-ocular movements are intact. No nystagmus. There is normal conjunctiva bilaterally. No signs of icterus. Ears, nose, mouth and throat: There are moist mucous membranes and no oral lesions. Neck: The neck is supple, there is no tenderness or JVD. Cardiovascular: There is a regular rate and rhythm. No murmur, rub or gallop is appreciated. Respiratory: Lungs are clear to auscultation, respirations are non-labored, breath sounds are equal. No wheezes, stridor, rales, or rhonchi. Gastrointestinal: No noted diaphoresis, jaundice, pallor, protecting postures or squirming. Symmetrical pigmentation of abdomen without signs of inflammation, scars, or striae. Umbilicus mildline, inverted without swelling. No dilated veins. Abdomen contour [ ], no noted abdominal distention. No visible masses. No peristalsis, aortic pulsations, or ventral hernia. Bowel sounds audible in all 4 quadrants, unremarkable. No friction rubs or venous hums. No epigastic, hepatic or abdominal bruits. No tenderness to light or deep palpation. Liver edge, not palpable. Spleen edge, right and left kidney not palpable. Superior bladder margin non-tender. Special Testing: Negative [place], Rovsing, McBurney, Caprice, cutaneous hyperesthesia. Iliopsoas and obturator tests negative bilaterally. Negative Heel Jar test/ wendy sign. No CVA tenderness. Digital rectal exam deferred. Negative pagan turners or cullens sign Musculoskeletal: No shortening, or rotation noted of the hips. No erythema or point tenderness. Normal ROM at the hips bilaterally, she does complain of discomfort with all ranges of motion. Negative logroll. Strength 5/5 of the lower extremities equally bilaterally. Sensation intact The lower extremities equally bilaterally. DP pulses equal bilaterally 2+. Neurological: A&O x 3. CN II-XII intact, There are no obvious motor or sensory deficits. Coordination appears grossly intact. Speech is normal. Skin: Skin is warm and dry and no rashes or lesions are noted. Psychiatric: Cooperative, appropriate mood & affect, normal judgment. Limitations: no limitations Course Vital Signs 07/23/18 07/23/18 07/23/18 18:21 20:07 20:55 Temperature 97.6 F 98.3 F Pulse Rate 53 L 72 89 Respiratory 20 19 19 Rate Blood Pressure 144/81 120/69 136/84 O2 Sat by Pulse 99 97 98 Oximetry - Reevaluation(s) Reevaluation #1: Pt refused pain medication 07/23/18 20:33 Medical Decision Making - Medical Decision Making Mild elevation of BUN, Cr, pt mucous membrane dry, given IV fluids. KUB (-). Abdominal exam benign. Easily had radiographic imaging of the hips. Denies fall or trauma or change in characteristic of the pain. Patient neurovascular intact. Patient ambulatory without difficulty. At this time feel patient is stable for discharge with primary care follow-up and [place] surgery follow-up for chronic bilateral hip pain. Patient is agreeable to plan seen she is ready for discharge. Patient discharged in stable condition after discussing the case with Dr. Riley who agreed with impression and plan. return parameters discussed at length patient who verbalized understanding, patient denied questions at this time. - Lab Data Result diagrams: 07/23/18 19:16 07/23/18 19:16 Lab Results 07/23/18 07/23/18 Range/Units 19:16 19:16 WBC 8.0 (3.8-10.6) k/uL RBC 5.32 (3.80-5.40) m/uL Hgb 12.4 (11.4-16.0) gm/dL Hct 40.6 (34.0-46.0) % MCV 76.3 L (80.0-100.0) fL MCH 23.4 L (25.0-35.0) pg MCHC 30.6 L (31.0-37.0) g/dL RDW 16.5 H (11.5-15.5) % Plt Count 277 (150-450) k/uL Neutrophils % 63 % Lymphocytes % 29 % Monocytes % 4 % Eosinophils % 3 % Basophils % 0 % Neutrophils # 5.0 (1.3-7.7) k/uL Lymphocytes # 2.3 (1.0-4.8) k/uL Monocytes # 0.3 (0-1.0) k/uL Eosinophils # 0.3 (0-0.7) k/uL Basophils # 0.0 (0-0.2) k/uL Hypochromasia Moderate Anisocytosis Slight Microcytosis Slight Sodium 140 (137-145) mmol/L Potassium 4.5 (3.5-5.1) mmol/L Chloride 104 (98-107) mmol/L Carbon Dioxide 28 (22-30) mmol/L Anion Gap 8 mmol/L BUN 20 H (7-17) mg/dL Creatinine 1.16 H (0.52-1.04) mg/dL Est GFR (CKD-EPI)AfAm 66 (>60 ml/min/1.73 sqM) Est GFR (CKD-EPI)NonAf 57 (>60 ml/min/1.73 sqM) Glucose 181 H (74-99) mg/dL Calcium 9.1 (8.4-10.2) mg/dL Total Bilirubin 0.4 (0.2-1.3) mg/dL AST 20 (14-36) U/L ALT 28 (9-52) U/L Alkaline Phosphatase 124 (38-126) U/L Total Protein 6.9 (6.3-8.2) g/dL Albumin 3.7 (3.5-5.0) g/dL Amylase 43 (30-110) U/L Lipase 74 (23-300) U/L Disposition Clinical Impression: Chronic hip pain, bilateral, Chronic abdominal pain Disposition: HOME SELF-CARE Condition: Good Instructions: Abdominal Pain (ED), Hip Pain (ED) Additional Instructions: Please use home medication as discussed. Please follow-up with family doctor in the next 2 days. Please return to emergency room if the symptoms increase or worsen or for any other concerns. Is patient prescribed a controlled substance at d/c from ED?: No Referrals: Pat Oh DO [Primary Care Provider] - 1-2 days Clark Bowers MD [STAFF PHYSICIAN] - 1-2 days Time of Disposition: 20:03
[2018-07-23 20:08] VITALS: RESP 19
[2018-07-23 21:07] VITALS: BP 136/84; PULSE 89; TEMP 98.3
== END 2018-07-23 20:57 | disposition home or self-care (01) ==
LOC: EC 18:18
DX: G89.29 Other chronic pain (principal); M25.551 Pain in right hip; M25.552 Pain in left hip; R10.9 Unspecified abdominal pain; R79.89 Other specified abnormal findings of blood chemistry; M16.0 Bilateral primary osteoarthritis of hip; K21.9 Gastro-esophageal reflux disease without esophagitis; E11.9 Type 2 diabetes mellitus without complications; E78.5 Hyperlipidemia, unspecified; I10 Essential (primary) hypertension; G40.909 Epilepsy, unspecified, not intractable, without status epilepticus; E07.9 Disorder of thyroid, unspecified; Z86.73 Personal history of transient ischemic attack (TIA), and cerebral infarction without residual deficits; Z87.442 Personal history of urinary calculi; Z90.49 Acquired absence of other specified parts of digestive tract; Z90.710 Acquired absence of both cervix and uterus; Z79.84 Long term (current) use of oral hypoglycemic drugs; Z79.899 Other long term (current) drug therapy
CPT/HCPCS: 36415; 74018; 80053; 82150; 83690; 85025; 99284

== ENCOUNTER 2018-08-01 17:16 | Emergency (ER) | payer MEDICARE, OTHER ==
[2018-08-01 17:20] VITALS: BP 175/58; PULSE 55; RESP 20; TEMP 97.9
[2018-08-01 18:22] LABS: Anisocytosis Slight; Basophils % (A) 0 %; Eosinophils # (A) 0.1 k/uL (0-0.7); Eosinophils % (A) 1 %; HCT 42.5 % (34.0-46.0); HGB 12.9 gm/dL (11.4-16.0); Hypochromasia Marked; Lymphocytes # (A) 1.9 k/uL (1.0-4.8); Lymphocytes % (A) 17 %; MCH 23.6 pg (25.0-35.0); MCHC 30.3 g/dL (31.0-37.0); MCV 77.6 fL (80.0-100.0); Mean Platelet Volume 7.2; Microcytosis Slight; Monocytes # (A) 0.4 k/uL (0-1.0); Monocytes % (A) 3 %; Neutrophils % (A) 78 %; Platelet Count 257 k/uL (150-450); RBC 5.47 m/uL (3.80-5.40); RDW 16.1 % (11.5-15.5); WBC 11.5 k/uL (3.8-10.6)
[2018-08-01 18:28] LABS: Appearance,Urine Cloudy (Clear); Bacteria,Urine Occasional /hpf; Bilirubin,Urine Negative (Negative); Blood,Urine Negative (Negative); Color,Urine Yellow; Glucose,Urine (UA) Negative (Negative); Ketones,Urine Negative (Negative); Leukocyte Esterase,Urine Trace (Negative); Mucus,Urine Occasional /hpf; Nitrite,Urine Negative (Negative); Protein,Urine 1+ (Negative); RBC,Urine 1 /hpf (0-5); Specific Gravity,Urine 1.025 (1.001-1.035); Squamous Epithelial Cell,Urine 7 /hpf (0-4); Urobilinogen,Urine <2.0 mg/dL (<2.0); WBC,Urine 5 /hpf (0-5)
[2018-08-01 18:53] LABS: ALT 18 U/L (9-52); AST 13 U/L (14-36); Albumin 4.1 g/dL (3.5-5.0); Alkaline Phosphatase 141 U/L (38-126); Amylase 56 U/L (30-110); Anion Gap 13 mmol/L; Blood Urea Nitrogen 31 mg/dL (7-17); Calcium 9.7 mg/dL (8.4-10.2); Carbon Dioxide 26 mmol/L (22-30); Chloride 98 mmol/L (98-107); Glucose 271 mg/dL (74-99); Lipase 117 U/L (23-300); Sodium 137 mmol/L (137-145); Total Bilirubin 0.7 mg/dL (0.2-1.3); Total Protein 7.4 g/dL (6.3-8.2)
--- NOTE | 2018-08-01 19:29 | CT ---
EXAMINATION TYPE: CT abdomen pelvis w con DATE OF EXAM: 08/01/2018 COMPARISON: 01/28/2018 HISTORY: persistent abdominal pain CT DLP: 1814.8 mGycm Automated exposure control for dose reduction was used. TECHNIQUE: Helical acquisition of images was performed from the lung bases through the pelvis. CONTRAST: Performed without Oral Contrast and with IV Contrast, patient injected with 100 mL of Isovue 300. FINDINGS: Lung bases are clear. There is no pleural effusion. Heart size is normal. There are small hiatal luba ia. There is fatty infiltration of the liver. Spleen appears normal. There is no pancreatic mass. Bile du cts are not dilated. Gallbladder appears absent. There is no adrenal mass. Kidneys show satisfactory contrast opacification. There is no hydronephrosi s. There is 1 cm cyst lateral left kidney. There is no retroperitoneal adenopathy. Ureters are not di lated. Bladder distends smoothly. There is no inguinal hernia. There is no free fluid in the pelvis. I see n o pelvic mass. Appendix appears normal. There is no mesenteric edema or adenopathy. I see no intestin al wall thickening. There is no sign of a bowel obstruction. The lumbar vertebra have normal spacing and alignment. Bony pelvis is intact. I see no bony destructive process. IMPRESSION: NEGATIVE CT SCAN OF THE ABDOMEN AND PELVIS. I DO NOT SEE A CAUSE FOR ABDOMINAL PAIN. SMALL HIATAL HER ZHANE. FATTY LIVER APPEARS NEW COMPARED TO OLD EXAM.
--- NOTE | 2018-08-01 19:36 | ED ---
Abdominal Pain HPI - General Chief Complaint: Abdominal Pain Stated Complaint: Stomach pain Time Seen by Provider: 08/01/18 17:20 Source: patient Mode of arrival: ambulatory Limitations: no limitations - History of Present Illness Initial Comments: 48-year-old female well-known to the emergency department with chronic complaints of abdominal pain presenting today for chief complaint of abdominal pain. Patient states that for the past 4 months she has had diffuse abdominal pain, she is unable to localize the pain. Patient denies any nausea, vomiting, fever, chills, diarrhea, constipation, hematemesis, melena, hematochezia. Patient denies any chest pain, shortness of breath, dizziness. Patient denies any epigastric pain or belching. Patient does admit to hip pain, she states she has an appointment with orthopedic surgery. She does note improvement of the hip pain. Patient ambulated without difficulty upon arrival. Patient denies any vaginal bleeding, lower pelvic cramping. Patient denies any dysuria , urgency, frequency. Patient denies any appetite changes, patient states she is tolerating by mouth intake. Remainder ROS negative. Upon arrival patient is well-appearing there are no signs of acute distress. Patient is smiling. Vital signs within acceptable limits. Patient states last bowel movement today , normal. - Related Data Home Medications Medication Instructions Recorded Confirmed Gabapentin [Neurontin] 300 mg PO TID 06/09/18 08/01/18 Pantoprazole Sodium [Protonix] 40 mg PO DAILY 06/20/18 08/01/18 Nitrostat 0.3mg Tab 0.3 mg PO Q5M PRN 07/01/18 08/01/18 Atenolol [Tenormin] 50 mg PO DAILY 07/23/18 08/01/18 Levothyroxine Sodium [Synthroid] 100 mcg PO DAILY 07/23/18 08/01/18 Simvastatin 40 mg PO HS 07/23/18 08/01/18 metFORMIN HCL 1,000 mg PO BID 07/23/18 08/01/18 Previous Rx's Medication Instructions Recorded Atorvastatin [Lipitor] 20 mg PO DAILY #30 tab 07/01/18 Lisinopril [Zestril] 20 mg PO DAILY #30 tab 07/01/18 Cephalexin [Keflex] 500 mg PO Q12HR 5 Days #10 cap 08/01/18 Allergies Allergy/AdvReac Type Severity Reaction Status Date / Time No Known Allergies Allergy Verified 08/01/18 17:49 Review of Systems ROS Statement: Those systems with pertinent positive or pertinent negative responses have been documented in the HPI. ROS Other: All systems not noted in ROS Statement are negative. Constitutional: Denies: fever Eyes: Denies: eye pain ENT: Denies: ear pain, throat pain Respiratory: Denies: cough, dyspnea Cardiovascular: Denies: chest pain, palpitations Endocrine: Denies: fatigue Gastrointestinal: Reports: abdominal pain. Denies: nausea, vomiting, diarrhea, constipation, hematemesis, melena, hematochezia Genitourinary: Denies: urgency, dysuria, frequency, hematuria Musculoskeletal: Reports: arthralgia (Bilateral hip pain chronic ). Denies: back pain Skin: Denies: rash Neurological: Denies: headache, weakness, numbness, paresthesias, confusion, abnormal gait Past Medical History Past Medical History: Chest Pain / Angina, CVA/TIA, Diabetes Mellitus, GERD/ Reflux, Hyperlipidemia, Hypertension, Seizure Disorder, Thyroid Disorder Additional Past Medical History / Comment(s): glaucoma radha eyes, HX. BLEEDING ULCERS. last seizure 2012, ANEMIA. TIA 03/2017-no effects, "occ DIZZY SPELLS" , cyst on left kidney, migraines, heart murmer, hiatal hernia, hx kidney stones, EGD April 2018, History of Any Multi-Drug Resistant Organisms: None Reported Past Surgical History: Breast Surgery, Cholecystectomy, Ear Surgery, Hernia Repair, Hysterectomy, Orthopedic Surgery Additional Past Surgical History / Comment(s): RT EYE SX CHILD, kae fundoplication 2015, left breast biopsy, Rt knee surg, Past Anesthesia/Blood Transfusion Reactions: No Reported Reaction Additional Past Anesthesia/Blood Transfusion Reaction / Comment(s): mother got Hep C from blood transfusion. Past Psychological History: No Psychological Hx Reported Smoking Status: Never smoker Past Alcohol Use History: None Reported Past Drug Use History: None Reported - Past Family History Father History Unknown: Yes Additional Family Medical History / Comment(s): ulcer Mother Family Medical History: Cancer, Deep Vein Thrombosis (DVT) Additional Family Medical History / Comment(s): Hep C, breast cancer Sister(s) Family Medical History: Congestive Heart Failure (CHF), Diabetes Mellitus Additional Family Medical History / Comment(s): heart problems Brother(s) Family Medical History: Diabetes Mellitus Additional Family Medical History / Comment(s): Mother and sister with Diabetes General Exam - General Exam Comments Initial Comments: General: The patient is awake and alert, in no distress, and does not appear acutely ill. Eye: Pupils are equal, round and reactive to light, extra-ocular movements are intact. No nystagmus. There is normal conjunctiva bilaterally. No signs of icterus. Ears, nose, mouth and throat: There are moist mucous membranes and no oral lesions. Neck: The neck is supple, there is no tenderness or JVD. Cardiovascular: There is a regular rate and rhythm. No murmur, rub or gallop is appreciated. Respiratory: Lungs are clear to auscultation, respirations are non-labored, breath sounds are equal. No wheezes, stridor, rales, or rhonchi. Gastrointestinal: No noted diaphoresis, jaundice, pallor, protecting postures or squirming. Symmetrical pigmentation of abdomen without signs of inflammation or striae. Umbilicus mildline, inverted without swelling. No dilated veins. Abdomen contour obese, no noted abdominal distention. No visible masses. No peristalsis , aortic pulsations, or ventral hernia. Bowel sounds audible in all 4 quadrants , unremarkable. No friction rubs or venous hums. No epigastic, hepatic or abdominal bruits. Patient amidst to diffuse abdominal discomfort to deep palpation, no point localization patient denies severe pain. No evidence of rigidity or guarding on exam. Patient appears comfortable. Liver edge, not palpable. Spleen edge, right and left kidney not palpable. Superior bladder margin non-tender. Special Testing: Negative [place], Rovsing, McBurney, Caprice, cutaneous hyperesthesia. Iliopsoas and obturator tests negative bilaterally. Negative Heel Jar test/ wendy sign. No CVA tenderness. Digital rectal exam deferred. Negative pagan turners or cullens sign Musculoskeletal: Normal ROM, no tenderness. Strength 5/5. Sensation intact. Pulses equal bilaterally 2+. Neurological: A&O x 3. CN II-XII intact, There are no obvious motor or sensory deficits. Coordination appears grossly intact. Speech is normal. Skin: Skin is warm and dry and no rashes or lesions are noted. Psychiatric: Cooperative, appropriate mood & affect, normal judgment. Limitations: no limitations Course Vital Signs 08/01/18 17:18 Temperature 97.9 F Pulse Rate 55 L Respiratory 20 Rate Blood Pressure 175/58 O2 Sat by Pulse 100 Oximetry Medical Decision Making - Medical Decision Making Patient laboratory findings revealed a mildly elevated white blood cell count, elevated BUN patient given fluid bolus. Glucose elevated, patient states she recently ate. Urinalysis concerning for infection with urine bacteria and trace leukocyte esterase. Patient denies any urinary symptoms. CT of the abdomen and pelvis obtained revealing no acute findings. Abdominal exam benign , there is no signs concerning for acute abdomen at this time. EKG was obtained as well as troponin given patient's age and risk factors with complaints of nonspecific abdominal pain. No acute EKG findings. Patient continues to deny any chest pain, shortness of breath, upper extremity paresthesias, jaw pain or shoulder pain. Case discussed with Dr. Riley at this time we feel pt is stable for discharge with GI and primary f/u. She is agreeable to plan. She states she is comfortable discharge. Return parameters discussed at length with patient, patient verbalizes understanding. Patient was discharged in stable condition, with RX antibiotics for urinary tract infection. - Lab Data Result diagrams: 08/01/18 17:48 08/01/18 17:48 Lab Results 08/01/18 08/01/18 08/01/18 Range/Units 17:48 17:48 17:48 WBC 11.5 H (3.8-10.6) k/uL RBC 5.47 H (3.80-5.40) m/uL Hgb 12.9 (11.4-16.0) gm/dL Hct 42.5 (34.0-46.0) % MCV 77.6 L (80.0-100.0) fL MCH 23.6 L (25.0-35.0) pg MCHC 30.3 L (31.0-37.0) g/dL RDW 16.1 H (11.5-15.5) % Plt Count 257 (150-450) k/uL Neutrophils % 78 % Lymphocytes % 17 % Monocytes % 3 % Eosinophils % 1 % Basophils % 0 % Neutrophils # 9.0 H (1.3-7.7) k/uL Lymphocytes # 1.9 (1.0-4.8) k/uL Monocytes # 0.4 (0-1.0) k/uL Eosinophils # 0.1 (0-0.7) k/uL Basophils # 0.0 (0-0.2) k/uL Hypochromasia Marked Anisocytosis Slight Microcytosis Slight Sodium 137 (137-145) mmol/L Potassium 5.0 (3.5-5.1) mmol/L Chloride 98 (98-107) mmol/L Carbon Dioxide 26 (22-30) mmol/L Anion Gap 13 mmol/L BUN 31 H (7-17) mg/dL Creatinine 0.86 (0.52-1.04) mg/dL Est GFR (CKD-EPI)AfAm >90 (>60 ml/min/1.73 sqM) Est GFR (CKD-EPI)NonAf 82 (>60 ml/min/1.73 sqM) Glucose 271 H (74-99) mg/dL Calcium 9.7 (8.4-10.2) mg/dL Total Bilirubin 0.7 (0.2-1.3) mg/dL AST 13 L (14-36) U/L ALT 18 (9-52) U/L Alkaline Phosphatase 141 H (38-126) U/L Troponin I (0.000-0.034) ng/mL Total Protein 7.4 (6.3-8.2) g/dL Albumin 4.1 (3.5-5.0) g/dL Amylase 56 (30-110) U/L Lipase 117 (23-300) U/L Urine Color Yellow Urine Appearance Cloudy H (Clear) Urine pH 6.0 (5.0-8.0) Ur Specific [place] 1.025 (1.001-1.035) Urine Protein 1+ H (Negative) Urine Glucose (UA) Negative (Negative) Urine Ketones Negative (Negative) Urine Blood Negative (Negative) Urine Nitrite Negative (Negative) Urine Bilirubin Negative (Negative) Urine Urobilinogen <2.0 (<2.0) mg/dL Ur Leukocyte Esterase Trace H (Negative) Urine RBC 1 (0-5) /hpf Urine WBC 5 (0-5) /hpf Ur Squamous Epith Cells 7 H (0-4) /hpf Urine Bacteria Occasional H (None) /hpf Urine Mucus Occasional H (None) /hpf 08/01/18 Range/Units 17:48 WBC (3.8-10.6) k/uL RBC (3.80-5.40) m/uL Hgb (11.4-16.0) gm/dL Hct (34.0-46.0) % MCV (80.0-100.0) fL MCH (25.0-35.0) pg MCHC (31.0-37.0) g/dL RDW (11.5-15.5) % Plt Count (150-450) k/uL Neutrophils % % Lymphocytes % % Monocytes % % Eosinophils % % Basophils % % Neutrophils # (1.3-7.7) k/uL Lymphocytes # (1.0-4.8) k/uL Monocytes # (0-1.0) k/uL Eosinophils # (0-0.7) k/uL Basophils # (0-0.2) k/uL Hypochromasia Anisocytosis Microcytosis Sodium (137-145) mmol/L Potassium (3.5-5.1) mmol/L Chloride (98-107) mmol/L Carbon Dioxide (22-30) mmol/L Anion Gap mmol/L BUN (7-17) mg/dL Creatinine (0.52-1.04) mg/dL Est GFR (CKD-EPI)AfAm (>60 ml/min/1.73 sqM) Est GFR (CKD-EPI)NonAf (>60 ml/min/1.73 sqM) Glucose (74-99) mg/dL Calcium (8.4-10.2) mg/dL Total Bilirubin (0.2-1.3) mg/dL AST (14-36) U/L ALT (9-52) U/L Alkaline Phosphatase (38-126) U/L Troponin I <0.012 (0.000-0.034) ng/mL Total Protein (6.3-8.2) g/dL Albumin (3.5-5.0) g/dL Amylase (30-110) U/L Lipase (23-300) U/L Urine Color Urine Appearance (Clear) Urine pH (5.0-8.0) Ur Specific [place] (1.001-1.035) Urine Protein (Negative) Urine Glucose (UA) (Negative) Urine Ketones (Negative) Urine Blood (Negative) Urine Nitrite (Negative) Urine Bilirubin (Negative) Urine Urobilinogen (<2.0) mg/dL Ur Leukocyte Esterase (Negative) Urine RBC (0-5) /hpf Urine WBC (0-5) /hpf Ur Squamous Epith Cells (0-4) /hpf Urine Bacteria (None) /hpf Urine Mucus (None) /hpf - EKG Data EKG Comments: A 12-lead EKG was performed and shows the following: Rate is 51 bpm, and rhythm is normal sinus. There are normal QRS complexes and normal R-wave progression. ST segments have no elevation or depression, and OR segments appear normal. Disposition Clinical Impression: Nonspecific abdominal pain, UTI (urinary tract infection) Disposition: HOME SELF-CARE Condition: Good Instructions: Urinary Tract Infection in Women (ED), Abdominal Pain (ED) Additional Instructions: Please use medication as discussed. Please follow-up with family doctor in the next 2 days, I recommend possible GI consultation for further evaluation. Please return to emergency room if the symptoms increase or worsen or for any other concerns, as discussed. Prescriptions: Cephalexin [Keflex] 500 mg PO Q12HR 5 Days #10 cap Is patient prescribed a controlled substance at d/c from ED?: No Referrals: Pat Oh DO [Primary Care Provider] - 1-2 days Time of Disposition: 19:37
[2018-08-01] MEDS ORDERED: CEPHALEXIN 500MG STARTER PACK 4 CAP BTL PO STA (19:38)
[2018-08-01] MEDS: SODIUM CHLORIDE 0.9% 500 ML 500 ML IV STA ×2 (20:05→20:13)
== END 2018-08-01 20:12 | disposition home or self-care (01) ==
LOC: EC 17:16
DX: N39.0 Urinary tract infection, site not specified (principal); D72.829 Elevated white blood cell count, unspecified; R79.89 Other specified abnormal findings of blood chemistry; R10.84 Generalized abdominal pain; M25.559 Pain in unspecified hip; E78.5 Hyperlipidemia, unspecified; I10 Essential (primary) hypertension; E11.9 Type 2 diabetes mellitus without complications; G40.909 Epilepsy, unspecified, not intractable, without status epilepticus; K21.9 Gastro-esophageal reflux disease without esophagitis; E07.9 Disorder of thyroid, unspecified; Z79.84 Long term (current) use of oral hypoglycemic drugs; Z79.899 Other long term (current) drug therapy; Z90.49 Acquired absence of other specified parts of digestive tract; Z98.890 Other specified postprocedural states; Z53.20 Procedure and treatment not carried out because of patient's decision for unspecified reasons
CPT/HCPCS: 36415; 93005; 80053; 82150; 83690; 84484; 85025; 81001; 87086; 74177; 99284; Q9967

== ENCOUNTER 2018-08-05 12:14 | Emergency (ER) | payer MEDICARE, OTHER ==
[2018-08-05 12:22] VITALS: BP 129/86; PULSE 66; RESP 18; TEMP 98.1
--- NOTE | 2018-08-05 12:55 | ED ---
Extremity Problem HPI - General Chief complaint: Extremity Problem,Nontraumatic Stated complaint: Leg pain Time Seen by Provider: 08/05/18 12:32 Source: patient, RN notes reviewed Mode of arrival: ambulatory Limitations: no limitations - History of Present Illness Initial comments: 48-year-old female presents emergency Department for bilateral leg pain. 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 Patient states that she has not tried any stretching over-the- counter pain meds. Denies any redness, paresthesias no back pain. Patient states that this pain is chronic in nature no new injuries no falls. No weakness. - Related Data Home Medications Medication Instructions Recorded Confirmed Gabapentin [Neurontin] 300 mg PO TID 06/09/18 08/01/18 Pantoprazole Sodium [Protonix] 40 mg PO DAILY 06/20/18 08/01/18 Nitrostat 0.3mg Tab 0.3 mg PO Q5M PRN 07/01/18 08/01/18 Atenolol [Tenormin] 50 mg PO DAILY 07/23/18 08/01/18 Levothyroxine Sodium [Synthroid] 100 mcg PO DAILY 07/23/18 08/01/18 Simvastatin 40 mg PO HS 07/23/18 08/01/18 metFORMIN HCL 1,000 mg PO BID 07/23/18 08/01/18 Previous Rx's Medication Instructions Recorded Atorvastatin [Lipitor] 20 mg PO DAILY #30 tab 07/01/18 Lisinopril [Zestril] 20 mg PO DAILY #30 tab 07/01/18 Cephalexin [Keflex] 500 mg PO Q12HR 5 Days #10 cap 08/01/18 Naproxen 500 mg PO BID #20 tablet 08/05/18 Allergies Allergy/AdvReac Type Severity Reaction Status Date / Time No Known Allergies Allergy Verified 08/05/18 12:22 Review of Systems ROS Statement: Those systems with pertinent positive or pertinent negative responses have been documented in the HPI. ROS Other: All systems not noted in ROS Statement are negative. Past Medical History Past Medical History: Chest Pain / Angina, CVA/TIA, Diabetes Mellitus, GERD/ Reflux, Hyperlipidemia, Hypertension, Seizure Disorder, Thyroid Disorder Additional Past Medical History / Comment(s): glaucoma radha eyes, HX. BLEEDING ULCERS. last seizure 2012, ANEMIA. TIA 03/2017-no effects, "occ DIZZY SPELLS" , cyst on left kidney, migraines, heart murmer, hiatal hernia, hx kidney stones, EGD April 2018, History of Any Multi-Drug Resistant Organisms: None Reported Past Surgical History: Breast Surgery, Cholecystectomy, Ear Surgery, Hernia Repair, Hysterectomy, Orthopedic Surgery Additional Past Surgical History / Comment(s): RT EYE SX CHILD, kae fundoplication 2016, left breast biopsy, Rt knee surg, Past Anesthesia/Blood Transfusion Reactions: No Reported Reaction Additional Past Anesthesia/Blood Transfusion Reaction / Comment(s): mother got Hep C from blood transfusion. Past Psychological History: No Psychological Hx Reported Smoking Status: Never smoker Past Alcohol Use History: None Reported Past Drug Use History: None Reported - Past Family History Father History Unknown: Yes Additional Family Medical History / Comment(s): ulcer Mother Family Medical History: Cancer, Deep Vein Thrombosis (DVT) Additional Family Medical History / Comment(s): Hep C, breast cancer Sister(s) Family Medical History: Congestive Heart Failure (CHF), Diabetes Mellitus Additional Family Medical History / Comment(s): heart problems Brother(s) Family Medical History: Diabetes Mellitus Additional Family Medical History / Comment(s): Mother and sister with Diabetes General Exam Limitations: no limitations General appearance: alert, in no apparent distress Head exam: Present: atraumatic, normocephalic, normal inspection Eye exam: Present: normal appearance, PERRL, EOMI. Absent: scleral icterus, conjunctival injection, periorbital swelling ENT exam: Present: normal exam, mucous membranes moist Respiratory exam: Present: normal lung sounds bilaterally. Absent: respiratory distress, wheezes, rales, rhonchi, stridor Cardiovascular Exam: Present: regular rate, normal rhythm, normal heart sounds. Absent: systolic murmur, diastolic murmur, rubs, gallop, clicks GI/Abdominal exam: Present: soft, normal bowel sounds. Absent: distended, tenderness, guarding, rebound, rigid Extremities exam: Present: other (Bilateral lower extremities full range of motion, neurovascular intact, full strength 5/5 Refill less than 2 seconds, equal color equal warmth there is tenderness along the iliotibial band, tenderness diffusely of lower legs) Skin exam: Present: warm, dry, intact, normal color. Absent: rash Course Vital Signs 08/05/18 12:19 Temperature 98.1 F Pulse Rate 66 Respiratory 18 Rate Blood Pressure 129/86 O2 Sat by Pulse 99 Oximetry Medical Decision Making - Medical Decision Making 48 year old female presented for bilateral leg pain. This chronic in nature. There is been no new trauma. There is no concerns for DVT, normal pulses of lower extremity. Patient was instructed to do daily stretching, exercises and follow-up with PCP. Patient was started on anti-inflammatories. Patient also instructed over compression stockings. Disposition Clinical Impression: Bilateral leg pain Disposition: HOME SELF-CARE Condition: Stable Instructions: Leg Pain (ED) Additional Instructions: Please return to the Emergency Department if symptoms worsen or any other concerns. Prescriptions: Naproxen 500 mg PO BID #20 tablet Is patient prescribed a controlled substance at d/c from ED?: No Referrals: Pat Oh DO [Primary Care Provider] - 1-2 days Time of Disposition: 12:54
== END 2018-08-05 13:01 | disposition home or self-care (01) ==
LOC: EC 12:14
DX: M79.605 Pain in left leg (principal); M79.604 Pain in right leg; E11.9 Type 2 diabetes mellitus without complications; K21.9 Gastro-esophageal reflux disease without esophagitis; I10 Essential (primary) hypertension; E78.5 Hyperlipidemia, unspecified; G40.909 Epilepsy, unspecified, not intractable, without status epilepticus; Z79.84 Long term (current) use of oral hypoglycemic drugs; Z79.899 Other long term (current) drug therapy; Z86.73 Personal history of transient ischemic attack (TIA), and cerebral infarction without residual deficits
CPT/HCPCS: 99283

== ENCOUNTER → 2018-09-01 | Outpatient (CLI) | payer MEDICARE, OTHER ==
[2018-09-01 14:44] VITALS: BP 177/93; PULSE 84; RESP 18; TEMP 98.2; BMI 43.9
--- NOTE | 2018-09-01 15:44 | P.HPBAR ---
Bariatric H&P - History & Physicial H&P Date: 09/01/18 History & Physicial: Visit/CC: abdominal pain Patient initial contact: 07/15/17 Initial weight: 106.458 kg Initial weight in pounds: 234.70 Height: 5 ft 2 in Initial BMI: 42.9 Last weight: Current weight: 108.998 kg Current weight in pounds: 240.30 Current BMI: 43.9 [place] body weight (based on NIH guidelines): 49.895 kg Excess body weight loss: The patient is a 48 year-old F who presents for Bariatric Assessment. Patient presents today for presurgical consultation. She has lost 7 pounds since her last visit. She is following up with Dr. Oh for her 6 consecutive month visits. She's had some minor complaints of GERD. The patient has had a recent CAT scan shows a small hiatal hernia. Past Medical History Past Medical History: Chest Pain / Angina, CVA/TIA, Diabetes Mellitus, GERD/ Reflux, Hyperlipidemia, Hypertension, Seizure Disorder, Thyroid Disorder Additional Past Medical History / Comment(s): glaucoma radha eyes, HX. BLEEDING ULCERS. last seizure 2012, ANEMIA. TIA 03/2017-no effects, "occ DIZZY SPELLS" , cyst on left kidney, migraines, heart murmer, hiatal hernia, hx kidney stones, EGD April 2018, History of Any Multi-Drug Resistant Organisms: None Reported Past Surgical History: Breast Surgery, Cholecystectomy, Ear Surgery, Hernia Repair, Hysterectomy, Orthopedic Surgery Additional Past Surgical History / Comment(s): RT EYE SX CHILD, kae fundoplication 2015, left breast biopsy, Rt knee surg, Past Anesthesia/Blood Transfusion Reactions: No Reported Reaction Additional Past Anesthesia/Blood Transfusion Reaction / Comm: mother got Hep C from blood transfusion. Past Psychological History: No Psychological Hx Reported Additional Psychological History / Comment(s): Patient states she lives with , Hebert and brother, Allen Seals. She does not drive, walks and uses city transportation. Smoking Status: Never smoker Past Alcohol Use History: None Reported Past Drug Use History: None Reported - Past Family History Father History Unknown: Yes Additional Family Medical History / Comment(s): ulcer Mother Family Medical History: Cancer, Deep Vein Thrombosis (DVT) Additional Family Medical History / Comment(s): Hep C, breast cancer Sister(s) Family Medical History: Congestive Heart Failure (CHF), Diabetes Mellitus Additional Family Medical History / Comment(s): heart problems Brother(s) Family Medical History: Diabetes Mellitus Additional Family Medical History / Comment(s): Mother and sister with Diabetes Surgical - Exam Vital Signs Temp Pulse Resp BP Pulse Ox 98.2 F 84 18 177/93 98 09/01/18 14:37 09/01/18 14:37 09/01/18 14:37 09/01/18 14:37 09/01/18 14:37 BMI 44 - General well developed, no distress - Eyes PERRL - ENT normal pinna - Cardiovascular Rhythm: regular - Abdomen Abdomen: soft, non tender Bariatric Assessment & Plan Plan: Morbid obesity, BMI 44. The patient has some mild GERD. Patient will follow- up next month. Bariatric Checklist Checklist: Plan: Checklist: EGD: 1. Hiatal hernia: 2. H. Pylori: HgbA1c: Vitamin D: Smoking: Never smoker Primary care physician referral: jodie Oh Psychiatry clearance: Cardiology clearance: Sleep study: Diet journal: VTE risk score: VTE risk level: Rehab needs at discharge:
== END ==
LOC: BARWHC3 14:23
PROVIDERS: ATTEND Surgery
DX: E66.01 Morbid (severe) obesity due to excess calories (principal); K21.9 Gastro-esophageal reflux disease without esophagitis; Z90.49 Acquired absence of other specified parts of digestive tract; Z90.710 Acquired absence of both cervix and uterus; Z68.42 Body mass index [BMI] 45.0-49.9, adult
CPT/HCPCS: 99211

== ENCOUNTER → 2018-10-14 | Outpatient (CLI) | payer MEDICARE, OTHER ==
--- NOTE | 2018-10-15 03:51 | MR ---
EXAMINATION TYPE: MR knee LT wo con DATE OF EXAM: 10/14/2018 COMPARISON: Outside radiographs to 04/14/2019 HISTORY: 48-year-old female Left knee pain TECHNIQUE: Multiplanar, multisequence imaging of the left knee is performed without IV contrast. FINDINGS: The ACL, PCL, MCL, and LCL complex appear intact. The lateral meniscus is intact. There is degenerative signal at the junction of the posterior horn and body of the medial meniscus wi thout signal clearly contacting either articular surface. Mild diffuse thinning of medial and lateral compartment articular cartilage without any focal chondra l lesion. Patellofemoral compartment articular cartilage is largely maintained. Extensor mechanism is intact. Nonspecific prepatellar subcutaneous soft tissue swelling. There is a s mall knee joint effusion demonstrated. No Sanchez's cyst. Normal popliteal artery anatomy and muscle bulk. No suspicious bone marrow replacement. IMPRESSION: 1. Degenerative signal at the junction of the posterior horn and body of the medial meniscus. Abnorma l signal does not clearly contact either articular surface. No definite meniscal tear is seen at this time. 2. Mild diffuse thinning of both medial and lateral compartment articular cartilage without focal cho ndral lesion. 3. No cruciate/collateral ligament tear. 4. Nonspecific anterior subcutaneous soft tissue swelling and small knee joint effusion.
== END | disposition home or self-care (01) ==
LOC: RADMRIMAIN 13:20
PROVIDERS: ATTEND Orthopaedic Surgery
DX: M94.8X6 Other specified disorders of cartilage, lower leg (principal); R93.7 Abnormal findings on diagnostic imaging of other parts of musculoskeletal system

== ENCOUNTER 2018-11-11 13:56 | Inpatient (IN) | payer MEDICARE, OTHER ==
[2018-11-11] MEDS ORDERED: ASPIRIN 81 MG PO STA (14:40)
[2018-11-11] MEDS ORDERED: NITROGLYCERIN SL TABS 0.4 MG TAB SUBLINGUAL STA (14:40)
[2018-11-11] MEDS ORDERED: ONDANSETRON ODT 4 MG TAB PO STA (14:45)
--- NOTE | 2018-11-11 14:48 | ED ---
General Adult HPI - General Chief complaint: Chest Pain Stated complaint: Vomiting blood, chest and arm pain Time Seen by Provider: 11/11/18 14:32 Source: patient, RN notes reviewed Mode of arrival: wheelchair Limitations: no limitations - History of Present Illness Initial comments: Patient is a 48-year-old female presented to the emergency room today with multiple complaints. She does admit that she's been exposed to black mold. Patient states that she's had symptoms of nausea vomiting over the last month. She states she has been vomiting up blood. Shows admits to chest pain. Patient friend at bedside stating that she is trying to apply for guardianship. States patient and her have been staying in the apartment that had black mold. States that they're trying to find a new location. States that has been admitted to the hospital and when they were doing some the intake with social work she admitted that she herself was having some symptoms of nausea vomiting with blood. They advised come here to the emergency room. Patient does admit to both abdominal pain and chest pain at this time. She currently rates pain 9 /10. She describes it as sharp pain located in both areas. Patient states pains are constant and have been so over the last month. Patient denies any recent fever, chills, shortness of breath, back pain, constipation or diarrhea, headaches or visual changes, or any other complaints. - Related Data Home Medications Medication Instructions Recorded Confirmed Pantoprazole Sodium [Protonix] 40 mg PO DAILY 06/20/18 11/11/18 Nitrostat 0.3mg Tab 0.3 mg PO Q5M PRN 07/01/18 11/11/18 Atenolol [Tenormin] 50 mg PO DAILY 07/23/18 11/11/18 Levothyroxine Sodium [Synthroid] 100 mcg PO DAILY 07/23/18 11/11/18 Simvastatin 40 mg PO HS 07/23/18 11/11/18 metFORMIN HCL 1,000 mg PO BID 07/23/18 11/11/18 Gabapentin [Neurontin] 100 mg PO TID 11/11/18 11/11/18 Previous Rx's Medication Instructions Recorded Atorvastatin [Lipitor] 20 mg PO DAILY #30 tab 07/01/18 Lisinopril [Zestril] 20 mg PO DAILY #30 tab 07/01/18 Naproxen 500 mg PO BID #20 tablet 08/05/18 Allergies Allergy/AdvReac Type Severity Reaction Status Date / Time mold Allergy Nausea & Verified 11/11/18 15:53 Vomiting Review of Systems ROS Statement: Those systems with pertinent positive or pertinent negative responses have been documented in the HPI. ROS Other: All systems not noted in ROS Statement are negative. Past Medical History Past Medical History: Chest Pain / Angina, CVA/TIA, Diabetes Mellitus, GERD/Reflux, Hyperlipidemia, Hypertension, Seizure Disorder, Thyroid Disorder Additional Past Medical History / Comment(s): glaucoma radha eyes, HX. BLEEDING ULCERS. last seizure 2012, ANEMIA. TIA 03/2017-no effects, "occ DIZZY SPELLS", cyst on left kidney, migraines, heart murmer, hiatal hernia, hx kidney stones, EGD April 2018, History of Any Multi-Drug Resistant Organisms: None Reported Past Surgical History: Breast Surgery, Cholecystectomy, Ear Surgery, Heart Catheterization, Hernia Repair, Hysterectomy, Orthopedic Surgery Additional Past Surgical History / Comment(s): RT EYE SX CHILD, kae fundoplication 2015, left breast biopsy, Rt knee surg, Past Anesthesia/Blood Transfusion Reactions: No Reported Reaction Additional Past Anesthesia/Blood Transfusion Reaction / Comment(s): mother got Hep C from blood transfusion. Past Psychological History: No Psychological Hx Reported Smoking Status: Never smoker Past Alcohol Use History: None Reported Past Drug Use History: None Reported - Past Family History Father History Unknown: Yes Additional Family Medical History / Comment(s): ulcer Mother Family Medical History: Cancer, Deep Vein Thrombosis (DVT) Additional Family Medical History / Comment(s): Hep C, breast cancer Sister(s) Family Medical History: Congestive Heart Failure (CHF), Diabetes Mellitus Additional Family Medical History / Comment(s): heart problems Brother(s) Family Medical History: Diabetes Mellitus Additional Family Medical History / Comment(s): Mother and sister with Diabetes General Exam Limitations: no limitations Course Vital Signs 11/11/18 11/11/18 11/11/18 14:01 15:42 16:20 Temperature 98.1 F Pulse Rate 104 H 101 H 98 Respiratory 18 16 16 Rate Blood Pressure 160/90 147/123 143/93 O2 Sat by Pulse 98 98 100 Oximetry 11/11/18 16:28 Temperature Pulse Rate 94 Respiratory 16 Rate Blood Pressure 156/103 O2 Sat by Pulse 100 Oximetry EKG Findings - EKG Comments: EKG Findings:: EKG performed at 1443: Shows normal sinus rhythm at 89 bpm. AL interval 120. QRS 90. QT/QTC 396/481. No acute ST changes. Medical Decision Making - Medical Decision Making Patient reexamined at this time shows no signs of distress. She does present to the emergency room with multiple complaints of both chest pain and abdominal pain with episodes of nausea vomiting over the last month. Patient does have r isk factors for cardiac disease. Her initial troponin is negative. Her chest x-rays unremarkable. She is resting comfortably is on had any episodes of vomiting here. She will be admitted to the hospital for serial cardiac enzymes and consult cardiology. - Lab Data Result diagrams: 11/11/18 14:51 11/11/18 14:51 Lab Results 11/11/18 11/11/18 11/11/18 Range/Units 14:51 14:51 14:51 WBC 6.6 (3.8-10.6) k/uL RBC 5.63 H (3.80-5.40) m/uL Hgb 13.3 (11.4-16.0) gm/dL Hct 44.2 (34.0-46.0) % MCV 78.5 L (80.0-100.0) fL MCH 23.7 L (25.0-35.0) pg MCHC 30.2 L (31.0-37.0) g/dL RDW 17.0 H (11.5-15.5) % Plt Count 277 (150-450) k/uL Neutrophils % 76 % Lymphocytes % 17 % Monocytes % 4 % Eosinophils % 2 % Basophils % 0 % Neutrophils # 5.1 (1.3-7.7) k/uL Lymphocytes # 1.2 (1.0-4.8) k/uL Monocytes # 0.3 (0-1.0) k/uL Eosinophils # 0.1 (0-0.7) k/uL Basophils # 0.0 (0-0.2) k/uL Hypochromasia Moderate Anisocytosis Slight Microcytosis Slight PT 10.4 (9.0-12.0) sec INR 1.0 (<1.2) APTT 25.0 (22.0-30.0) sec Sodium 140 (137-145) mmol/L Potassium 4.1 (3.5-5.1) mmol/L Chloride 101 (98-107) mmol/L Carbon Dioxide 30 (22-30) mmol/L Anion Gap 9 mmol/L BUN 7 (7-17) mg/dL Creatinine 1.00 (0.52-1.04) mg/dL Est GFR (CKD-EPI)AfAm 79 (>60 ml/min/1.73 sqM) Est GFR (CKD-EPI)NonAf 68 (>60 ml/min/1.73 sqM) Glucose 175 H (74-99) mg/dL Calcium 9.7 (8.4-10.2) mg/dL Magnesium 1.8 (1.6-2.3) mg/dL Total Bilirubin 0.8 (0.2-1.3) mg/dL AST 18 (14-36) U/L ALT 32 (9-52) U/L Alkaline Phosphatase 152 H (38-126) U/L Troponin I (0.000-0.034) ng/mL Total Protein 7.5 (6.3-8.2) g/dL Albumin 4.2 (3.5-5.0) g/dL 11/11/18 Range/Units 14:51 WBC (3.8-10.6) k/uL RBC (3.80-5.40) m/uL Hgb (11.4-16.0) gm/dL Hct (34.0-46.0) % MCV (80.0-100.0) fL MCH (25.0-35.0) pg MCHC (31.0-37.0) g/dL RDW (11.5-15.5) % Plt Count (150-450) k/uL Neutrophils % % Lymphocytes % % Monocytes % % Eosinophils % % Basophils % % Neutrophils # (1.3-7.7) k/uL Lymphocytes # (1.0-4.8) k/uL Monocytes # (0-1.0) k/uL Eosinophils # (0-0.7) k/uL Basophils # (0-0.2) k/uL Hypochromasia Anisocytosis Microcytosis PT (9.0-12.0) sec INR (<1.2) APTT (22.0-30.0) sec Sodium (137-145) mmol/L Potassium (3.5-5.1) mmol/L Chloride (98-107) mmol/L Carbon Dioxide (22-30) mmol/L Anion Gap mmol/L BUN (7-17) mg/dL Creatinine (0.52-1.04) mg/dL Est GFR (CKD-EPI)AfAm (>60 ml/min/1.73 sqM) Est GFR (CKD-EPI)NonAf (>60 ml/min/1.73 sqM) Glucose (74-99) mg/dL Calcium (8.4-10.2) mg/dL Magnesium (1.6-2.3) mg/dL Total Bilirubin (0.2-1.3) mg/dL AST (14-36) U/L ALT (9-52) U/L Alkaline Phosphatase (38-126) U/L Troponin I 0.015 (0.000-0.034) ng/mL Total Protein (6.3-8.2) g/dL Albumin (3.5-5.0) g/dL Disposition Clinical Impression: Chest pain, Abdominal pain, Hematemesis Disposition: ADMITTED IP TO THIS HOSP Condition: Stable Is patient prescribed a controlled substance at d/c from ED?: No Referrals: Pat Oh DO [Primary Care Provider] - 1-2 days Time of Disposition: 16:43
[2018-11-11 15:09] LABS: Anisocytosis Slight; Basophils % (A) 0 %; Eosinophils # (A) 0.1 k/uL (0-0.7); Eosinophils % (A) 2 %; HCT 44.2 % (34.0-46.0); HGB 13.3 gm/dL (11.4-16.0); Hypochromasia Moderate; Lymphocytes # (A) 1.2 k/uL (1.0-4.8); Lymphocytes % (A) 17 %; MCH 23.7 pg (25.0-35.0); MCHC 30.2 g/dL (31.0-37.0); MCV 78.5 fL (80.0-100.0); Mean Platelet Volume 7.7; Microcytosis Slight; Monocytes # (A) 0.3 k/uL (0-1.0); Monocytes % (A) 4 %; Neutrophils # (A) 5.1 k/uL (1.3-7.7); Neutrophils % (A) 76 %; Platelet Count 277 k/uL (150-450); RBC 5.63 m/uL (3.80-5.40); WBC 6.6 k/uL (3.8-10.6)
[2018-11-11 15:17] LABS: Prothrombin Time 10.4 sec (9.0-12.0)
[2018-11-11 15:20] LABS: Albumin 4.2 g/dL (3.5-5.0); Calcium 9.7 mg/dL (8.4-10.2); Magnesium 1.8 mg/dL (1.6-2.3); Potassium 4.1 mmol/L (3.5-5.1); Total Bilirubin 0.8 mg/dL (0.2-1.3); Total Protein 7.5 g/dL (6.3-8.2)
--- NOTE | 2018-11-11 15:45 | XR ---
EXAMINATION TYPE: XR chest 2V DATE OF EXAM: 11/11/2018 COMPARISON: 06/30/2018 HISTORY: 48-year-old female with chest pain TECHNIQUE: PA and lateral views FINDINGS: Heart normal size. Aorta and pulmonary vasculature within normal limits. No consolidation or pleural effusion seen. IMPRESSION: No acute cardiopulmonary process.
[2018-11-11] MEDS: NITROGLYCERIN SL TABS 0.4 MG TAB SUBLINGUAL PRN ×2 (16:19→16:27)
[2018-11-11] MEDS ORDERED: PANTOPRAZOLE 40 MG/10 ML VIAL IVP STA (16:35)
[2018-11-11] MEDS ORDERED: NITROGLYCERIN SL TABS 0.4 MG TAB SUBLINGUAL PRN (16:43)
[2018-11-11] MEDS ORDERED: SODIUM CHLORIDE 0.9% 1,000 ML IV ONE (16:43)
[2018-11-11 17:40] VITALS: BMI 44.4
[2018-11-11] MEDS: PANTOPRAZOLE 40 MG/10 ML VIAL IVP SCH (21:11)
[2018-11-11 21:44] LABS: Glucose,Whole Blood 188 mg/dL (75-99)
[2018-11-11] MEDS ORDERED: HEPARIN SODIUM,PORCINE 5,000 UNIT/ML 1 ML VIAL IV ONE (22:35)
[2018-11-11] MEDS ORDERED: HEPARIN SODIUM,PORCINE 5,000 UNIT/ML 1 ML VIAL IV PRN (22:35)
[2018-11-11] MEDS ORDERED: HEPARIN SOD,PORK IN 0.45% NACL 25,000 UNIT in 0.45% NACL 1 250ML.BAG IV SCH (22:45)
[2018-11-11 23:25] LABS: Partial Thromboplastin Time 23.6 sec (22.0-30.0); Prothrombin Time 10.5 sec (9.0-12.0)
[2018-11-12 05:09] LABS: Anisocytosis Slight; Basophils % (A) 0 %; Eosinophils # (A) 0.2 k/uL (0-0.7); Eosinophils % (A) 3 %; HCT 38.3 % (34.0-46.0); HGB 11.8 gm/dL (11.4-16.0); Hypochromasia Moderate; Lymphocytes # (A) 2.7 k/uL (1.0-4.8); Lymphocytes % (A) 36 %; MCHC 30.7 g/dL (31.0-37.0); MCV 78.2 fL (80.0-100.0); Mean Platelet Volume 8.2; Microcytosis Slight; Monocytes # (A) 0.4 k/uL (0-1.0); Monocytes % (A) 5 %; Neutrophils # (A) 4.1 k/uL (1.3-7.7); Neutrophils % (A) 55 %; Platelet Count 236 k/uL (150-450); RDW 17.1 % (11.5-15.5); WBC 7.5 k/uL (3.8-10.6)
[2018-11-12 05:30] LABS: Cholesterol 158 mg/dL (<200); HDL Cholesterol 39 mg/dL (40-60); LDL Cholesterol,Calculated 96 mg/dL (0-99); Triglycerides 114 mg/dL (<150)
[2018-11-12 06:47] LABS: Glucose,Whole Blood 102 mg/dL (75-99)
[2018-11-12] MEDS ORDERED: ONDANSETRON 4 MG/2 ML VIAL IVP PRN (08:19)
[2018-11-12] MEDS: PANTOPRAZOLE 40 MG/10 ML VIAL IVP SCH (08:28)
[2018-11-12] MEDS: ASPIRIN 325 MG TAB PO SCH (08:28)
[2018-11-12] MEDS: ACETAMINOPHEN TAB 325 MG TAB PO PRN ×2 (08:43→16:23)
[2018-11-12] MEDS ORDERED: PANTOPRAZOLE 40 MG TABLET PO SCH (09:00)
[2018-11-12 09:11] LABS: Albumin 3.2 g/dL (3.5-5.0); Calcium 8.7 mg/dL (8.4-10.2); Potassium 3.7 mmol/L (3.5-5.1); Total Bilirubin 0.5 mg/dL (0.2-1.3); Total Protein 6.1 g/dL (6.3-8.2)
[2018-11-12] MEDS: LISINOPRIL 20 MG TAB PO SCH (10:47)
[2018-11-12] MEDS: LEVOTHYROXINE 100 MCG TAB PO SCH (10:47)
[2018-11-12] MEDS: ATORVASTATIN 20 MG TAB PO SCH (10:47)
[2018-11-12] MEDS: ATENOLOL 50 MG TAB PO SCH (10:47)
[2018-11-12] MEDS: GABAPENTIN 100 MG CAP PO SCH ×3 (10:47→20:01)
--- NOTE | 2018-11-12 11:33 | CONS ---
CONSULTATION Mrs. Scott is a 48-year-old female who is seen for cardiac evaluation. The history was obtained from the chart as well as the patient. The patient is mentally challenged, unable to give any detailed history. She has been having symptoms of nausea and vomiting over the last one month and says she has been also vomiting blood. They have been extent they have been exposed to the black mold. The patient also complains that she has been having chest pain. The chest pain is there all the time and a constant pain which comes and goes. The pain is not associated with any symptoms of shortness of breath. This patient has a past history of atypical chest pain. She had a cardiac catheterization done in June which did not show any coronary artery disease. PAST MEDICAL HISTORY: Includes history of diabetes, history of GERD, hypertension, history of seizure disorder. The patient also has a history of glaucoma both eyes, history of questionable bleeding ulcer and anemia in May of 2017, breast surgery, cholecystectomy, prior cardiac catheterization, hysterectomy and orthopedic surgery. HOME MEDICATIONS: Home medications include Synthroid, atenolol, Nitrostat, metformin and gabapentin. The patient is also on Lipitor, Zestril, and naproxen. Physical examination in the emergency room revealed patient's heart rate was 104, blood pressure was 160/90, oxygen saturation was 98%. PHYSICAL EXAMINATION: At present reveals a 48-year-old,, obesely built female who does not appear to be in any acute distress. Patient's blood pressure is 138/84 mmHg, heart rate is 60 per minute. HEENT examination is negative. Neck is supple. There is no increase in jugular venous pressure. Both the carotid pulses are felt, there is no bruit. Chest is symmetrical. Heart, the PMI is not felt. First and second heart sounds are normal. There is no evidence of any murmur. Lungs are clinically clear to auscultation and percussion. Abdomen is soft. Liver and spleen are not enlarged. Bowel sounds are heard. Extremities peripheral pulses 2+ EKG shows normal sinus rhythm without any acute ischemic changes. Patient's initial troponin was normal. Subsequent troponin has been 0.065 and 0.294. FINAL IMPRESSION: This patient has been having symptoms of nausea and vomiting for the last 3-4 weeks and atypical chest pain. EKG is normal. Patient has abnormal troponin, which is difficult to explain, but it could be secondary to supply and demand mismatch. EKG does not show any ischemic abnormality. Patient's recent cardiac catheterization was normal. We will order an echocardiogram and depending upon the results, further recommendations will be made. If there is no wall motion abnormality, we may consider a stress test tomorrow. EMMY / DAYANARA: [id number] /
--- NOTE | 2018-11-12 11:35 | P.HPIM ---
History of Present Illness H&P Date: 11/12/18 This is a 48-year-old female patient of Dr. Oh. Patient presented to the hospital complaints of chest pain with nausea and vomiting of blood. Patient reports that she's been living in apartment that has black mold and since then she's been having increased nausea and vomiting. Patient reports dark emesis. Patient reports the chest pain started to occur with the documented emesis. Patient does complain of chest pain radiating to arm and back. Troponin on admission 0.294. Patient was started on heparin drip and cardiology services have been consulted. Patient does have a past medical history of chest pain, CVA, diabetes mellitus, GERD, hyperlipidemia, hypertension, seizure disorder, thyroid disorder, cholecystectomy and previous heart cath. Chest x-ray completed showing no acute cardiopulmonary process. EKG completed showing normal sinus. GI services have been consulted. 2-D echo has been ordered. At this time patient is still complaining of intermittent chest pain. Patient denies shortness of breath. Patient denies any nausea or vomiting at this time. Patient denies any urinary burning or frequency. Patient is requesting social work services be consulted for resources due to patient's apartment being contaminated. Review of Systems please refer to HPI otherwise unremarkable Past Medical History Past Medical History: Chest Pain / Angina, CVA/TIA, Diabetes Mellitus, GERD/Reflux, Hyperlipidemia, Hypertension, Seizure Disorder, Thyroid Disorder Additional Past Medical History / Comment(s): glaucoma radha eyes, HX. BLEEDING ULCERS. last seizure 2012, ANEMIA. TIA 03/2017-no effects, "occ DIZZY SPELLS", cyst on left kidney, migraines, heart murmer, hiatal hernia, hx kidney stones, EGD April 2018, History of Any Multi-Drug Resistant Organisms: None Reported Past Surgical History: Breast Surgery, Cholecystectomy, Ear Surgery, Heart Catheterization, Hernia Repair, Hysterectomy, Orthopedic Surgery Additional Past Surgical History / Comment(s): RT EYE SX CHILD, kae fundoplication 2015, left breast biopsy, Rt knee surg, Past Anesthesia/Blood Transfusion Reactions: No Reported Reaction Additional Past Anesthesia/Blood Transfusion Reaction / Comment(s): mother got Hep C from blood transfusion. Past Psychological History: No Psychological Hx Reported Additional Psychological History / Comment(s): Patient states she lives with , Hebert and brother, Allen Seals. She does not drive, walks and uses city transportation. Smoking Status: Never smoker Past Alcohol Use History: None Reported Past Drug Use History: None Reported - Past Family History Father History Unknown: Yes Additional Family Medical History / Comment(s): ulcer Mother Family Medical History: Cancer, Deep Vein Thrombosis (DVT) Additional Family Medical History / Comment(s): Hep C, breast cancer Sister(s) Family Medical History: Congestive Heart Failure (CHF), Diabetes Mellitus Additional Family Medical History / Comment(s): heart problems Brother(s) Family Medical History: Diabetes Mellitus Additional Family Medical History / Comment(s): Mother and sister with Diabetes Medications and Allergies Home Medications Medication Instructions Recorded Confirmed Type Pantoprazole Sodium [Protonix] 40 mg PO DAILY 06/20/18 11/11/18 History Atorvastatin [Lipitor] 20 mg PO DAILY #30 tab 07/01/18 11/11/18 Rx Lisinopril [Zestril] 20 mg PO DAILY #30 tab 07/01/18 11/11/18 Rx Nitrostat 0.3mg Tab 0.3 mg PO Q5M PRN 07/01/18 11/11/18 History Atenolol [Tenormin] 50 mg PO DAILY 07/23/18 11/11/18 History Levothyroxine Sodium [Synthroid] 100 mcg PO DAILY 07/23/18 11/11/18 History Simvastatin 40 mg PO HS 07/23/18 11/11/18 History metFORMIN HCL 1,000 mg PO BID 07/23/18 11/11/18 History Naproxen 500 mg PO BID #20 tablet 08/05/18 11/11/18 Rx Gabapentin [Neurontin] 100 mg PO TID 11/11/18 11/11/18 History Allergies Allergy/AdvReac Type Severity Reaction Status Date / Time mold Allergy Nausea & Verified 11/11/18 15:53 Vomiting Physical Exam Vitals: Vital Signs Temp Pulse Pulse Resp BP BP Pulse Ox 11/12/18 07:50 97.8 F 59 L 18 138/84 97 11/12/18 04:43 98 F 71 18 134/83 98 11/12/18 03:41 90 17 11/12/18 00:00 97.8 F 91 18 152/88 99 11/11/18 20:00 97.5 F L 89 18 142/84 96 11/11/18 17:34 98 F 76 17 119/78 96 11/11/18 16:50 148/88 11/11/18 16:28 94 16 156/103 100 11/11/18 16:20 98 16 143/93 100 11/11/18 15:42 101 H 16 147/123 98 11/11/18 14:01 98.1 F 104 H 18 160/90 98 Intake and Output 11/11/18 11/12/18 11/12/18 22:59 06:59 14:59 Other: Voiding Method Toilet Toilet Toilet # Voids 1 Weight 107.7 kg Head normocephalic Neck supple Lungs clear to auscultation bilaterally no wheezing or crackles Heart regular rate and rhythm S1-S2, no rub or gallop Abdomen is soft nontender nondistended positive bowel sounds no hepatosplenomegaly Extremities no edema Neuro alert and orientated to 3 Results CBC & Chem 7: 11/12/18 04:47 11/12/18 04:40 Labs: Abnormal Lab Results - Last 24 Hours (Table) 11/11/18 11/11/18 11/11/18 Range/Units 14:51 14:51 21:11 RBC 5.63 H (3.80-5.40) m/uL MCV 78.5 L (80.0-100.0) fL MCH 23.7 L (25.0-35.0) pg MCHC 30.2 L (31.0-37.0) g/dL RDW 17.0 H (11.5-15.5) % APTT (22.0-30.0) sec Chloride (98-107) mmol/L Glucose 175 H (74-99) mg/dL POC Glucose (mg/dL) (75-99) mg/dL Alkaline Phosphatase 152 H (38-126) U/L Troponin I 0.065 H* (0.000-0.034) ng/mL Total Protein (6.3-8.2) g/dL Albumin (3.5-5.0) g/dL HDL Cholesterol (40-60) mg/dL 11/11/18 11/12/18 11/12/18 Range/Units 21:43 02:23 04:40 RBC (3.80-5.40) m/uL MCV (80.0-100.0) fL MCH (25.0-35.0) pg MCHC (31.0-37.0) g/dL RDW (11.5-15.5) % APTT (22.0-30.0) sec Chloride 108 H (98-107) mmol/L Glucose 140 H (74-99) mg/dL POC Glucose (mg/dL) 188 H (75-99) mg/dL Alkaline Phosphatase (38-126) U/L Troponin I 0.294 H* (0.000-0.034) ng/mL Total Protein 6.1 L (6.3-8.2) g/dL Albumin 3.2 L (3.5-5.0) g/dL HDL Cholesterol (40-60) mg/dL 11/12/18 11/12/18 11/12/18 Range/Units 04:47 04:47 04:47 RBC (3.80-5.40) m/uL MCV 78.2 L (80.0-100.0) fL MCH 24.0 L (25.0-35.0) pg MCHC 30.7 L (31.0-37.0) g/dL RDW 17.1 H (11.5-15.5) % APTT 54.3 H (22.0-30.0) sec Chloride (98-107) mmol/L Glucose (74-99) mg/dL POC Glucose (mg/dL) (75-99) mg/dL Alkaline Phosphatase (38-126) U/L Troponin I (0.000-0.034) ng/mL Total Protein (6.3-8.2) g/dL Albumin (3.5-5.0) g/dL HDL Cholesterol 39 L (40-60) mg/dL 11/12/18 Range/Units 06:45 RBC (3.80-5.40) m/uL MCV (80.0-100.0) fL MCH (25.0-35.0) pg MCHC (31.0-37.0) g/dL RDW (11.5-15.5) % APTT (22.0-30.0) sec Chloride (98-107) mmol/L Glucose (74-99) mg/dL POC Glucose (mg/dL) 102 H (75-99) mg/dL Alkaline Phosphatase (38-126) U/L Troponin I (0.000-0.034) ng/mL Total Protein (6.3-8.2) g/dL Albumin (3.5-5.0) g/dL HDL Cholesterol (40-60) mg/dL Thrombosis Risk Factor Assmnt - Choose All That Apply Any of the Below Risk Factors Present?: Yes Each Factor Represents 1 point: Age 41-60 years, Obesity (BMI >25) Other Risk Factors: No Other congenital or acquired thrombophilia - If yes, enter type in comment: No Thrombosis Risk Factor Assessment Total Risk Factor Score: 2 Thrombosis Risk Factor Assessment Level: Low Risk Assessment and Plan Assessment: 1. Chest pain. EKG completed showing normal sinus rhythm. Chest x-ray completed showing no acute cardiopulmonary process. Initial troponin 0.294. She has been started on heparin drip. Cardiology services have been consulted. The echo has been ordered. 2. Nausea and vomiting with possible bloody emesis. GI services have been consulted. Amylase and lipase has been ordered 3. History of CVA 4. History of diabetes mellitus. Metformin currently on hold sliding scale insulin added 5. History of GERD 6. History of hyperlipidemia 7. History of essential hypertension 8. History of cholecystectomy 9. potential exposure to black mold. Social work services have been consulted for DC planning Time with Patient: Greater than 30 (Greater than 60% of the total time spent in counseling and coordination of care. I performed an examination of the patient a nd discussed their management with the Nurse Practitioner. I have reviewed the Nurse Practitioner's notes and agree with the documented findings and plan of care)
[2018-11-12 12:07] LABS: Glucose,Whole Blood 169 mg/dL (75-99)
[2018-11-12 12:34] LABS: Amylase <30 U/L (30-110); Lipase 94 U/L (23-300)
[2018-11-12] MEDS: ALPRAZolam 0.25 MG TAB PO PRN (12:38)
[2018-11-12] MEDS: INSULIN ASPART (NovoLOG) 100 UNIT/ML VIAL SQ SCH ×3 (13:32→23:16)
--- NOTE | 2018-11-12 13:53 | ECHOF ---
Referral Reason:cp MEASUREMENTS -------- HEIGHT: 157.5 cm WEIGHT: 107.5 kg BP: 138/84 RVIDd: 2.5 cm (< 3.3) IVSd: 1.3 cm (0.6 - 1.1) LVIDd: 4.4 cm (3.9 - 5.3) LVPWd: 1.1 cm (0.6 - 1.1) IVSs: 1.6 cm LVIDs: 3.0 cm LVPWs: 1.7 cm LA Diam: 2.8 cm (2.7 - 3.8) LAESV Index (A-L): 16.83 ml/m Ao Diam: 2.8 cm (2.0 - 3.7) AV Cusp: 1.8 cm (1.5 - 2.6) MV EXCURSION: 18.829 mm (> 18.000) MV EF SLOPE: 101 mm/s (70 - 150) EPSS: 0.9 cm MV E Vernon: 0.53 m/s MV DecT: 308 ms MV A Vernon: 0.70 m/s MV E/A Ratio: 0.76 FINDINGS -------- Sinus rhythm. This was a technically good study. The left ventricular size is normal. There is mild concentric left ventricular hypertrophy. Overa ll left ventricular systolic function is mildly impaired with, an EF between 45 - 50 %. The right ventricle is normal in size. Normal LA size by volume 22+/-6 ml/m2. The right atrium is normal in size. There is mild aortic valve sclerosis. The mitral valve leaflets are mildly thickened. The tricuspid valve appears structurally normal. There is no pulmonic regurgitation present. The aortic root size is normal. There is no pericardial effusion. CONCLUSIONS -------- 1. Sinus rhythm. 2. This was a technically good study. 3. The left ventricular size is normal. 4. There is mild concentric left ventricular hypertrophy. 5. Overall left ventricular systolic function is mildly impaired with, an EF between 45 - 50 %. 6. The right ventricle is normal in size. 7. Normal LA size by volume 22+/-6 ml/m2. 8. The right atrium is normal in size. 9. There is mild aortic valve sclerosis. 10. The mitral valve leaflets are mildly thickened. 11. The tricuspid valve appears structurally normal. 12. There is no pulmonic regurgitation present. 13. The aortic root size is normal. 14. There is no pericardial effusion. SOLAR PANEL INSTALLATION SUPERVISOR: Ingrid Green RDCS
[2018-11-12 16:54] LABS: Glucose,Whole Blood 137 mg/dL (75-99)
[2018-11-12] MEDS: PANTOPRAZOLE 40 MG TABLET PO SCH (20:01)
[2018-11-12 20:27] LABS: Glucose,Whole Blood 139 mg/dL (75-99)
[2018-11-13 06:47] LABS: Anisocytosis Slight; Basophils % (A) 0 %; Eosinophils # (A) 0.2 k/uL (0-0.7); Eosinophils % (A) 4 %; HCT 40.1 % (34.0-46.0); HGB 11.9 gm/dL (11.4-16.0); Hypochromasia Marked; Lymphocytes # (A) 2.4 k/uL (1.0-4.8); Lymphocytes % (A) 39 %; MCHC 29.7 g/dL (31.0-37.0); MCV 80.7 fL (80.0-100.0); Mean Platelet Volume 7.5; Monocytes # (A) 0.4 k/uL (0-1.0); Monocytes % (A) 6 %; Neutrophils % (A) 49 %; Platelet Count 238 k/uL (150-450); RBC 4.97 m/uL (3.80-5.40); RDW 16.9 % (11.5-15.5); WBC 6.2 k/uL (3.8-10.6)
[2018-11-13 06:49] LABS: Glucose,Whole Blood 94 mg/dL (75-99)
[2018-11-13 07:06] LABS: Albumin 3.1 g/dL (3.5-5.0); Calcium 9.1 mg/dL (8.4-10.2); Potassium 4.2 mmol/L (3.5-5.1); Total Bilirubin 0.6 mg/dL (0.2-1.3); Total Protein 5.7 g/dL (6.3-8.2)
[2018-11-13 07:41] LABS: Poikilocytosis (M) Present
[2018-11-13] MEDS ORDERED: PROPOFOL 10 MG/ML 20 ML VIAL IV ONE (08:53)
[2018-11-13] MEDS ORDERED: LIDOCAINE 1% INJ 10MG/ML (20 ML MDV) ONE (08:53)
[2018-11-13] MEDS ORDERED: IV FLUID CONTINUATION 1,000 ML IV ONE (08:57)
--- NOTE | 2018-11-13 09:07 | P.GSCN ---
History of Present Illness Consult date: 11/13/18 Reason for Consult: Nausea, vomiting, hematemesis History of present illness: This a 48-year-old female who has complaints of nausea vomiting. Patient states that she has had some intermittent hematemesis. Patient states that she's had some mild epigastric pain. Past Medical History Past Medical History: Chest Pain / Angina, CVA/TIA, Diabetes Mellitus, GERD/Reflux, Hyperlipidemia, Hypertension, Seizure Disorder, Thyroid Disorder Additional Past Medical History / Comment(s): glaucoma radha eyes, HX. BLEEDING ULCERS. last seizure 2012, ANEMIA. TIA 03/2017-no effects, "occ DIZZY SPELLS", cyst on left kidney, migraines, heart murmer, hiatal hernia, hx kidney stones, EGD April 2018, History of Any Multi-Drug Resistant Organisms: None Reported Past Surgical History: Breast Surgery, Cholecystectomy, Ear Surgery, Heart Catheterization, Hernia Repair, Hysterectomy, Orthopedic Surgery Additional Past Surgical History / Comment(s): RT EYE SX CHILD, kae fundoplication 2015, left breast biopsy, Rt knee surg, Past Anesthesia/Blood Transfusion Reactions: No Reported Reaction Additional Past Anesthesia/Blood Transfusion Reaction / Comm: mother got Hep C from blood transfusion. Past Psychological History: No Psychological Hx Reported Additional Psychological History / Comment(s): Patient states she lives with , Hebert and brother, Allen Seals. She does not drive, walks and uses city transportation. Smoking Status: Never smoker Past Alcohol Use History: None Reported Past Drug Use History: None Reported - Past Family History Father History Unknown: Yes Additional Family Medical History / Comment(s): ulcer Mother Family Medical History: Cancer, Deep Vein Thrombosis (DVT) Additional Family Medical History / Comment(s): Hep C, breast cancer Sister(s) Family Medical History: Congestive Heart Failure (CHF), Diabetes Mellitus Additional Family Medical History / Comment(s): heart problems Brother(s) Family Medical History: Diabetes Mellitus Additional Family Medical History / Comment(s): Mother and sister with Diabetes Medications and Allergies Home Medications Medication Instructions Recorded Confirmed Type Pantoprazole Sodium [Protonix] 40 mg PO DAILY 06/20/18 11/11/18 History Atorvastatin [Lipitor] 20 mg PO DAILY #30 tab 07/01/18 11/11/18 Rx Lisinopril [Zestril] 20 mg PO DAILY #30 tab 11/06/18 03/19/19 Rx Nitrostat 0.3mg Tab 0.3 mg PO Q5M PRN 07/01/18 11/11/18 History Atenolol [Tenormin] 50 mg PO DAILY 07/23/18 11/11/18 History Levothyroxine Sodium [Synthroid] 100 mcg PO DAILY 07/23/18 11/11/18 History Simvastatin 40 mg PO HS 07/23/18 11/11/18 History metFORMIN HCL 1,000 mg PO BID 07/23/18 11/11/18 History Naproxen 500 mg PO BID #20 tablet 08/05/18 11/11/18 Rx Gabapentin [Neurontin] 100 mg PO TID 11/11/18 11/11/18 History Allergies Allergy/AdvReac Type Severity Reaction Status Date / Time mold Allergy Nausea & Verified 11/11/18 15:53 Vomiting Surgical - Exam Vital Signs Temp Pulse Resp BP Pulse Ox 98.1 F 104 H 18 160/90 98 11/11/18 14:01 11/11/18 14:01 11/11/18 14:01 11/11/18 14:01 11/11/18 14:01 - General well developed, well nourished, no distress - Eyes PERRL - ENT normal pinna - Neck no masses - Respiratory normal expansion - Cardiovascular Rhythm: regular - Abdomen Abdomen: soft, non tender Results - Labs 11/13/18 06:11 11/13/18 06:11 Abnormal Lab Results - Last 24 Hours (Table) 11/12/18 11/12/18 11/12/18 Range/Units 04:40 04:40 12:06 MCH (25.0-35.0) pg MCHC (31.0-37.0) g/dL RDW (11.5-15.5) % Chloride 108 H (98-107) mmol/L Creatinine (0.52-1.04) mg/dL Glucose 140 H (74-99) mg/dL POC Glucose (mg/dL) 169 H (75-99) mg/dL Troponin I (0.000-0.034) ng/mL Total Protein 6.1 L (6.3-8.2) g/dL Albumin 3.2 L (3.5-5.0) g/dL Amylase <30 L (30-110) U/L 11/12/18 11/12/18 11/13/18 Range/Units 16:53 20:25 06:11 MCH 24.0 L (25.0-35.0) pg MCHC 29.7 L (31.0-37.0) g/dL RDW 16.9 H (11.5-15.5) % Chloride (98-107) mmol/L Creatinine (0.52-1.04) mg/dL Glucose (74-99) mg/dL POC Glucose (mg/dL) 137 H 139 H (75-99) mg/dL Troponin I (0.000-0.034) ng/mL Total Protein (6.3-8.2) g/dL Albumin (3.5-5.0) g/dL Amylase (30-110) U/L 11/13/18 11/13/18 Range/Units 06:11 06:11 MCH (25.0-35.0) pg MCHC (31.0-37.0) g/dL RDW (11.5-15.5) % Chloride 109 H (98-107) mmol/L Creatinine 1.05 H (0.52-1.04) mg/dL Glucose (74-99) mg/dL POC Glucose (mg/dL) (75-99) mg/dL Troponin I 0.171 H* (0.000-0.034) ng/mL Total Protein 5.7 L (6.3-8.2) g/dL Albumin 3.1 L (3.5-5.0) g/dL Amylase (30-110) U/L Diabetes panel 11/12/18 11/13/18 Range/Units 04:40 06:11 Sodium 144 141 (137-145) mmol/L Potassium 3.7 4.2 (3.5-5.1) mmol/L Chloride 108 H 109 H (98-107) mmol/L Carbon Dioxide 30 26 (22-30) mmol/L BUN 11 12 (7-17) mg/dL Creatinine 0.96 1.05 H (0.52-1.04) mg/dL Glucose 140 H 96 (74-99) mg/dL Calcium 8.7 9.1 (8.4-10.2) mg/dL AST 15 16 (14-36) U/L ALT 32 34 (9-52) U/L Alkaline Phosphatase 122 99 (38-126) U/L Total Protein 6.1 L 5.7 L (6.3-8.2) g/dL Albumin 3.2 L 3.1 L (3.5-5.0) g/dL Thyroid panel 11/12/18 Range/Units 04:40 TSH 4.320 (0.465-4.680) mIU/L Calcium panel 11/12/18 11/13/18 Range/Units 04:40 06:11 Calcium 8.7 9.1 (8.4-10.2) mg/dL Albumin 3.2 L 3.1 L (3.5-5.0) g/dL Pituitary panel 11/12/18 11/13/18 Range/Units 04:40 06:11 Sodium 144 141 (137-145) mmol/L Potassium 3.7 4.2 (3.5-5.1) mmol/L Chloride 108 H 109 H (98-107) mmol/L Carbon Dioxide 30 26 (22-30) mmol/L BUN 11 12 (7-17) mg/dL Creatinine 0.96 1.05 H (0.52-1.04) mg/dL Glucose 140 H 96 (74-99) mg/dL Calcium 8.7 9.1 (8.4-10.2) mg/dL TSH 4.320 (0.465-4.680) mIU/L Adrenal panel 11/12/18 11/13/18 Range/Units 04:40 06:11 Sodium 144 141 (137-145) mmol/L Potassium 3.7 4.2 (3.5-5.1) mmol/L Chloride 108 H 109 H (98-107) mmol/L Carbon Dioxide 30 26 (22-30) mmol/L BUN 11 12 (7-17) mg/dL Creatinine 0.96 1.05 H (0.52-1.04) mg/dL Glucose 140 H 96 (74-99) mg/dL Calcium 8.7 9.1 (8.4-10.2) mg/dL Total Bilirubin 0.5 0.6 (0.2-1.3) mg/dL AST 15 16 (14-36) U/L ALT 32 34 (9-52) U/L Alkaline Phosphatase 122 99 (38-126) U/L Total Protein 6.1 L 5.7 L (6.3-8.2) g/dL Albumin 3.2 L 3.1 L (3.5-5.0) g/dL Assessment and Plan Assessment: Epigastric pain, nausea and vomiting. History of hematemesis. We'll perform EGD.
--- NOTE | 2018-11-13 09:10 | P.OP ---
Date of Procedure: 11/13/18 Preoperative Diagnosis: Nausea, vomiting Hematemesis Postoperative Diagnosis: Mild antral gastritis No evidence of upper GI bleed. Procedure(s) Performed: EGD Anesthesia: MAC Surgeon: Pierce Gonzalez Pathology: other (Antrum) Condition: stable Disposition: PACU Description of Procedure: The patient's placed on the endoscopy table in the lateral position. She received IV sedation. The gastroscope placed oropharynx and passed in the esophagus and into the stomach. Scope was then placed through the pylorus. The first and second portion of the duodenum appeared normal. Scope was then brought back the antrum this. Mildly inflamed. A biopsies was performed. The scope was then retroflexed and remainder of the stomach appeared normal. There is no evidence of a hiatal hernia. The GE junction was at 40 cm There is no evidence of any significant GI bleeding or peptic ulcer disease.
[2018-11-13] MEDS ORDERED: CAFFEINE CITRATE 60 MG/3 ML VIAL IV PRN (09:35)
[2018-11-13] MEDS ORDERED: REGADENOSON 0.4 MG/5 ML SYRINGE IV ONE (09:35)
[2018-11-13 12:07] LABS: Glucose,Whole Blood 108 mg/dL (75-99)
--- NOTE | 2018-11-13 12:59 | NM ---
EXAMINATION TYPE: NM stress lexiscan cardiolite DATE OF EXAM: 11/13/2018 COMPARISON: Previous exam dated 09/14/2015 HISTORY: Chest pain TECHNIQUE: After the intravenous administration of 10.44 mCi Tc 99m Sestamibi - Cardiolite resting S PECT images acquired 50 minutes post injection. The patient received 0.4mg Lexiscan, 25.8 mCi Tc 99m Sestamibi - Stress images obtained [address] injection FINDINGS: Review of stress and rest SPECT images demonstrates some decreased uptake on stress images as compare d to rest images along the septum. Gated analysis shows normal wall motion with an estimated left jeet tricular ejection fraction of 54 %. IMPRESSION: Pharmacologically induced left ventricular myocardial ischemia along the septum
[2018-11-13] MEDS: ACETAMINOPHEN TAB 325 MG TAB PO PRN ×2 (13:26→20:44)
[2018-11-13] MEDS: INSULIN ASPART (NovoLOG) 100 UNIT/ML VIAL SQ SCH ×4 (13:27→23:47)
[2018-11-13] MEDS: LISINOPRIL 20 MG TAB PO SCH (13:35)
[2018-11-13] MEDS: LEVOTHYROXINE 100 MCG TAB PO SCH (13:35)
[2018-11-13] MEDS: ATORVASTATIN 20 MG TAB PO SCH (13:35)
[2018-11-13] MEDS: PANTOPRAZOLE 40 MG TABLET PO SCH ×2 (13:35→21:04)
[2018-11-13] MEDS: GABAPENTIN 100 MG CAP PO SCH ×3 (13:35→20:44)
[2018-11-13] MEDS: ASPIRIN 325 MG TAB PO SCH (13:35)
--- NOTE | 2018-11-13 14:23 | P.PN ---
Subjective Progress Note Date: 11/13/18 This is a 48-year-old female patient of Dr. Oh. Patient presented to the hospital complaints of chest pain with nausea and vomiting of blood. Patient reports that she's been living in apartment that has black mold and since then she's been having increased nausea and vomiting. Patient reports dark emesis. Patient reports the chest pain started to occur with the documented emesis. Patient does complain of chest pain radiating to arm and back. Troponin on admission 0.294. Patient was started on heparin drip and cardiology services have been consulted. Patient does have a past medical history of chest pain, CVA, diabetes mellitus, GERD, hyperlipidemia, hypertension, seizure disorder, thyroid disorder, cholecystectomy and previous heart cath. Chest x-ray completed showing no acute cardiopulmonary process. EKG completed showing normal sinus. GI services have been consulted. 2-D echo has been ordered. At this time patient is still complaining of intermittent chest pain. Patient denies shortness of breath. Patient denies any nausea or vomiting at this time. Patient denies any urinary burning or frequency. Patient is requesting social work services be consulted for resources due to patient's apartment being contaminated. On 11/13/2018 patient is currently resting in bed. Patient underwent EGD this a.m. with Dr. Gonzalez, showing mild antral gastritis no evidence of upper GI bleed. Patient also had positive stress test. Patient will undergo cardiac cath likely tomorrow. At this time patient is still complaining of some abdominal discomfort and chest pain. Patient denies shortness breath. Patient denies urinary burning or frequency. Patient denies any nausea or vomiting at this time Objective - Vital Signs Vital signs: Vital Signs Temp 98 F 11/13/18 07:48 Pulse 69 11/13/18 09:37 Resp 18 11/13/18 09:37 BP 136/76 11/13/18 10:05 Pulse Ox 96 11/13/18 09:37 Intake & Output 11/12/18 11/13/18 11/13/18 18:59 06:59 18:59 Intake Total 240 100 Balance 240 100 Weight 107.501 kg Intake: IV 100 Oral 240 Other: Voiding Method Toilet Toilet Toilet # Voids 1 1 - Exam Head normocephalic Neck supple Lungs clear to auscultation bilaterally no wheezing or crackles Heart regular rate and rhythm S1-S2, no rub or gallop Abdomen is soft nontender nondistended positive bowel sounds no hepatospl enomegaly Extremities no edema Neuro alert and orientated to 3 - Labs CBC & Chem 7: 11/13/18 06:11 11/13/18 06:11 Labs: Abnormal Lab Results - Last 24 Hours (Table) 11/12/18 11/12/18 11/13/18 Range/Units 16:53 20:25 06:11 MCH 24.0 L (25.0-35.0) pg MCHC 29.7 L (31.0-37.0) g/dL RDW 16.9 H (11.5-15.5) % Chloride (98-107) mmol/L Creatinine (0.52-1.04) mg/dL POC Glucose (mg/dL) 137 H 139 H (75-99) mg/dL Troponin I (0.000-0.034) ng/mL Total Protein (6.3-8.2) g/dL Albumin (3.5-5.0) g/dL 11/13/18 11/13/18 11/13/18 Range/Units 06:11 06:11 12:06 MCH (25.0-35.0) pg MCHC (31.0-37.0) g/dL RDW (11.5-15.5) % Chloride 109 H (98-107) mmol/L Creatinine 1.05 H (0.52-1.04) mg/dL POC Glucose (mg/dL) 108 H (75-99) mg/dL Troponin I 0.171 H* (0.000-0.034) ng/mL Total Protein 5.7 L (6.3-8.2) g/dL Albumin 3.1 L (3.5-5.0) g/dL Assessment and Plan Assessment: 1. Chest pain. EKG completed showing normal sinus rhythm. Chest x-ray completed showing no acute cardiopulmonary process. Initial troponin 0.294. She has been started on heparin drip. 2-D echo has been completed showing an EF of 45-50%. Patient underwent stress test which showed, logical he induced left ventricle myocardial ischemia along the septum. Patient will likely undergo cardiac cath tomorrow. 2. Nausea and vomiting with possible bloody emesis. Patient underwent EGD with Dr. Gonzalez this a.m. which showed antral gastritis no evidence of upper GI bleed. Amylase and lipase were within normal limits 3. History of CVA 4. History of diabetes mellitus. Metformin currently on hold sliding scale insulin added 5. History of GERD 6. History of hyperlipidemia 7. History of essential hypertension 8. History of cholecystectomy 9. potential exposure to black mold. Per Rigoberto with social work patient plans to stay with brother at [facility]. Patient's friends from latter day and getting guardianship and will assist patient with permanent housing upon discharge.
[2018-11-13] MEDS ORDERED: SODIUM CHLORIDE 0.9% 1,000 ML in EMPTY BAG 1 BAG IV ONE (14:41)
[2018-11-13 17:05] LABS: Glucose,Whole Blood 111 mg/dL (75-99)
[2018-11-13] MEDS ORDERED: HEPARIN SODIUM,PORCINE 5,000 UNIT/ML 1 ML VIAL IV ONE (18:15)
[2018-11-13] MEDS ORDERED: HEPARIN SOD,PORK IN 0.45% NACL 25,000 UNIT in 0.45% NACL 1 250ML.BAG IV SCH (18:15)
[2018-11-13] MEDS ORDERED: HYDROmorphone 0.5 MG/0.5 ML SYRINGE IVP PRN (18:16)
[2018-11-13] MEDS ORDERED: hydrALAZINE HCL 20 MG/ML 1 ML VIAL IVP PRN (18:16)
[2018-11-13] MEDS: ATENOLOL 50 MG TAB PO SCH (18:29)
[2018-11-13 20:20] LABS: Glucose,Whole Blood 144 mg/dL (75-99)
[2018-11-13] MEDS: ALPRAZolam 0.25 MG TAB PO PRN (23:47)
[2018-11-13] MEDS: NITROGLYCERIN SL TABS 0.4 MG TAB SUBLINGUAL PRN (23:47)
[2018-11-14 02:59] LABS: Anisocytosis Slight; Basophils % (A) 0 %; Eosinophils # (A) 0.3 k/uL (0-0.7); Eosinophils % (A) 3 %; HCT 38.2 % (34.0-46.0); HGB 11.7 gm/dL (11.4-16.0); Hypochromasia Marked; Lymphocytes # (A) 1.7 k/uL (1.0-4.8); Lymphocytes % (A) 19 %; MCH 24.5 pg (25.0-35.0); MCHC 30.5 g/dL (31.0-37.0); MCV 80.4 fL (80.0-100.0); Mean Platelet Volume 6.9; Monocytes # (A) 0.2 k/uL (0-1.0); Monocytes % (A) 3 %; Neutrophils # (A) 6.4 k/uL (1.3-7.7); Neutrophils % (A) 74 %; Platelet Count 216 k/uL (150-450); RBC 4.75 m/uL (3.80-5.40); RDW 16.9 % (11.5-15.5); WBC 8.6 k/uL (3.8-10.6)
[2018-11-14 03:07] LABS: Albumin 3.1 g/dL (3.5-5.0); Calcium 8.9 mg/dL (8.4-10.2); Potassium 3.9 mmol/L (3.5-5.1); Total Bilirubin 0.8 mg/dL (0.2-1.3)
[2018-11-14 05:17] LABS: Glucose,Whole Blood 117 mg/dL (75-99)
[2018-11-14] MEDS: ATENOLOL 50 MG TAB PO SCH (07:35)
[2018-11-14] MEDS: ASPIRIN 325 MG TAB PO SCH (07:35)
[2018-11-14] MEDS: GABAPENTIN 100 MG CAP PO SCH ×3 (07:35→22:04)
[2018-11-14] MEDS: LEVOTHYROXINE 100 MCG TAB PO SCH (07:35)
[2018-11-14] MEDS: ATORVASTATIN 20 MG TAB PO SCH (07:35)
[2018-11-14] MEDS: PANTOPRAZOLE 40 MG TABLET PO SCH ×2 (07:36→22:04)
[2018-11-14] MEDS: LISINOPRIL 20 MG TAB PO SCH ×2 (07:36→22:04)
[2018-11-14] MEDS: INSULIN ASPART (NovoLOG) 100 UNIT/ML VIAL SQ SCH ×4 (08:33→22:03)
--- NOTE | 2018-11-14 10:51 | P.PN ---
Subjective Progress Note Date: 11/14/18 This is a 48-year-old female patient of Dr. Oh. Patient presented to the hospital complaints of chest pain with nausea and vomiting of blood. Patient reports that she's been living in apartment that has black mold and since then she's been having increased nausea and vomiting. Patient reports dark emesis. Patient reports the chest pain started to occur with the documented emesis. Patient does complain of chest pain radiating to arm and back. Troponin on admission 0.294. Patient was started on heparin drip and cardiology services have been consulted. Patient does have a past medical history of chest pain, CVA, diabetes mellitus, GERD, hyperlipidemia, hypertension, seizure disorder, thyroid disorder, cholecystectomy and previous heart cath. Chest x-ray completed showing no acute cardiopulmonary process. EKG completed showing normal sinus. GI services have been consulted. 2-D echo has been ordered. At this time patient is still complaining of intermittent chest pain. Patient denies shortness of breath. Patient denies any nausea or vomiting at this time. Patient denies any urinary burning or frequency. Patient is requesting social work services be consulted for resources due to patient's apartment being contaminated. On 11/13/2018 patient is currently resting in bed. Patient underwent EGD this a.m. with Dr. Gonzalez, showing mild antral gastritis no evidence of upper GI bleed. Patient also had positive stress test. Patient will undergo cardiac cath likely tomorrow. At this time patient is still complaining of some abdominal discomfort and chest pain. Patient denies shortness breath. Patient denies urinary burning or frequency. Patient denies any nausea or vomiting at this time On 11/14/2017 patient is currently resting in bed. Patient did have positive stress test yesterday. Patient will likely undergo cardiac cath today per cardiology. Patient remains on heparin drip. At this time patient is still complaining of chest pain. Patient denies any nausea or vomiting. Patient denies any urinary burning or frequency. Patient denies shortness breath Objective - Vital Signs Vital signs: Vital Signs Temp 98.0 F 11/14/18 07:32 Pulse 59 L 11/14/18 07:39 Resp 16 11/14/18 07:32 BP 108/50 11/14/18 07:32 Pulse Ox 96 11/14/18 07:59 Intake & Output 11/13/18 11/14/1811/14/19 18:59 06:59 18:59 Intake Total 562 536 Balance 562 536 Weight 107.501 kg Intake: IV 100 Oral 462 536 Other: Voiding Method Toilet # Voids 2 - Exam Head normocephalic Neck supple Lungs clear to auscultation bilaterally no wheezing or crackles Heart regular rate and rhythm S1-S2, no rub or gallop Abdomen is soft nontender nondistended positive bowel sounds no hepatosplenomegaly Extremities no edema Neuro alert and orientated to 3 - Labs CBC & Chem 7: 11/14/18 02:42 11/14/18 02:42 Labs: Abnormal Lab Results - Last 24 Hours (Table) 11/13/18 11/13/18 11/13/18 Range/Units 12:06 17:03 20:18 MCH (25.0-35.0) pg MCHC (31.0-37.0) g/dL RDW (11.5-15.5) % APTT (22.0-30.0) sec Creatinine (0.52-1.04) mg/dL Glucose (74-99) mg/dL POC Glucose (mg/dL) 108 H 111 H 144 H (75-99) mg/dL AST (14-36) U/L ALT (9-52) U/L Alkaline Phosphatase (38-126) U/L Total Protein (6.3-8.2) g/dL Albumin (3.5-5.0) g/dL 11/14/18 11/14/18 11/14/18 Range/Units 02:42 02:42 02:42 MCH 24.5 L (25.0-35.0) pg MCHC 30.5 L (31.0-37.0) g/dL RDW 16.9 H (11.5-15.5) % APTT 47.1 H (22.0-30.0) sec Creatinine 1.13 H (0.52-1.04) mg/dL Glucose 141 H (74-99) mg/dL POC Glucose (mg/dL) (75-99) mg/dL AST 287 H (14-36) U/L ALT 161 H (9-52) U/L Alkaline Phosphatase 170 H (38-126) U/L Total Protein 6.0 L (6.3-8.2) g/dL Albumin 3.1 L (3.5-5.0) g/dL 11/14/18 Range/Units 05:15 MCH (25.0-35.0) pg MCHC (31.0-37.0) g/dL RDW (11.5-15.5) % APTT (22.0-30.0) sec Creatinine (0.52-1.04) mg/dL Glucose (74-99) mg/dL POC Glucose (mg/dL) 117 H (75-99) mg/dL AST (14-36) U/L ALT (9-52) U/L Alkaline Phosphatase (38-126) U/L Total Protein (6.3-8.2) g/dL Albumin (3.5-5.0) g/dL Assessment and Plan Assessment: 1. Chest pain. EKG completed showing normal sinus rhythm. Chest x-ray co mpleted showing no acute cardiopulmonary process. Initial troponin 0.294. She has been started on heparin drip. 2-D echo has been completed showing an EF of 45-50%. Patient underwent stress test which showed, logical he induced left ventricle myocardial ischemia along the septum. She remains on heparin drip. Patient to undergo cardiac Cath today 2. Nausea and vomiting with possible bloody emesis. Patient underwent EGD with Dr. Gonzalez this a.m. which showed antral gastritis no evidence of upper GI bleed. Amylase and lipase were within normal limits 3. History of CVA 4. History of diabetes mellitus. Metformin currently on hold sliding scale insulin added 5. History of GERD 6. History of hyperlipidemia 7. History of essential hypertension 8. History of cholecystectomy 9. potential exposure to black mold. Per Rigoberto with social work patient plans to stay with brother at [facility]. Patient's friends from [employer] and getting guardianship and will assist patient with permanent housing upon discharge. DVT prophylaxis patient on heparin drip. GI prophylaxis Protonix. I performed an examination of the patient and discussed their management with the Nurse Practitioner. I have reviewed the Nurse Practitioner's notes and agree with the documented findings and plan of care
[2018-11-14 11:18] LABS: Glucose,Whole Blood 108 mg/dL (75-99)
[2018-11-14] MEDS ORDERED: MIDAZOLAM 2 MG/2 ML VIAL IVP ONE (12:10)
[2018-11-14] MEDS ORDERED: fentaNYL (PF) 50 MCG/ML 2 ML AMP IVP ONE (12:10)
[2018-11-14] MEDS ORDERED: LIDOCAINE 1% INJ 10MG/ML (20 ML MDV) SQ ONE (12:12)
[2018-11-14] MEDS ORDERED: HEPARIN SODIUM 1,000 UN/ML (10ML VL) IV ONE (12:15)
[2018-11-14] MEDS ORDERED: IV FLUID CONTINUATION 1,000 ML IV ONE (12:15)
[2018-11-14] MEDS ORDERED: NITROGLYCERIN SL TABS 0.4 MG TAB SUBLINGUAL ONE (12:18)
[2018-11-14 12:29] LABS: Glucose,Whole Blood 111 mg/dL (75-99)
[2018-11-14] MEDS ORDERED: FLUMAZENIL 0.1 MG/ML 5 ML VIAL IVP ONE (12:30)
[2018-11-14] MEDS ORDERED: IOPAMIDOL-370 125ML BTL INJ ONE (12:32)
[2018-11-14] MEDS ORDERED: RX INFO: IV CONTRAST WAS GIVEN 1 EACH MISC MISCELLANE PRN (12:33)
[2018-11-14] MEDS ORDERED: SODIUM CHLORIDE 0.9% 1,000 ML IV SCH (12:45)
--- NOTE | 2018-11-14 12:53 | CC ---
CARDIAC CATHETERIZATION REPORT Mrs Scott is a 48-year-old female with known history of hypertension, hyperlipidemia, diabetes mellitus, who presented to the hospital with symptoms of chest discomfort with minimal troponin elevation. She underwent myocardial perfusion imaging that was consistent with stress-induced ischemia. In view of that, recommendation made regarding cardiac catheterization. The procedures, risks and complications were discussed with the patient who is in full understanding and agreement. PROCEDURE: Patient was brought to the cath lab nurse in a fasting semi-sedated state after receiving fentanyl and Benadryl and achieving moderate conscious sedated state. Using Xylocaine anesthesia and Seldinger technique, a 6-Mongolian sheath was introduced in the right radial artery. Selective right and left coronary angiography was performed using 5- Mongolian 3.5 bend right and left Christopher catheter, multiple views of the coronary artery including hemiaxial views obtained. Following that, a 5-Mongolian tight pigtail catheter was introduced in the left ventricle and a 30 degree HOUSE view of the left ventricle was obtained. Following that, catheter and sheaths were removed. Hemostasis was obtained with deployment of a TR band. There was no immediate complication. The patient was returned to her room. Of note, patient received 5000 units of intravenous heparin as well as intra-arterial verapamil. FINDINGS: LEFT MAIN: This is a short-size vessel bifurcating into left circumflex, left anterior descending artery. Left main coronary artery has no evidence of high-grade stenosis. LEFT ANTERIOR DESCENDING ARTERY: This is a large-sized vessel, reaching toward the apex with a wraparound apex segment. The left anterior descending artery as well as branches have no evidence of obstructive coronary artery disease. LEFT CIRCUMFLEX: This is a nondominant, large-size vessel giving rise to two obtuse marginal branches. The left circumflex as well as branches have no evidence of obstructive coronary artery disease. RIGHT CORONARY ARTERY: This is a large dominant vessel, bifurcating into PDA and posterolateral segment and branches. The right coronary artery as well as branches have no evidence of obstructive coronary artery disease. LEFT VENTRICULOGRAM: Left ventriculogram is performed in 30 degree HOUSE view and revealed normal left ventricular size and systolic function. Ejection fraction is 60%. There was no significant mitral regurgitation. HEMODYNAMICS: There was no gradient across the aortic valve. The left ventricular end- diastolic pressure is 10 to 12 mmHg. CONCLUSION: 1. Normal coronary arteries. 2. Normal left ventricular size and systolic function. RECOMMENDATION: In view of finding anatomy, I see no evidence to suggest progression of disease and the results of the stress test most likely represent a false positive. I have reviewed those findings with the patient and her family who are in full understanding and agreement. Duration of procedure is 18 minutes. MMKATL / IJN: [id number] /
--- NOTE | 2018-11-14 14:19 | P.PN ---
Subjective Progress Note Date: 11/14/18 CHIEF COMPLAINT: Nausea vomiting HISTORY OF PRESENT ILLNESS: Patient is status post EGD revealing mild antral gastritis. No evidence of upper GI bleed. The patient continues to complain of some mild abdominal discomfort. No nausea or vomiting. PHYSICAL EXAM: VITAL SIGNS: Reviewed. GENERAL: Well-developed in no acute distress. HEENT: No sclera icterus. Extraocular movements grossly intact. Moist buccal mucosa. Head is atraumatic, normocephalic. ABDOMEN: Soft. Nondistended. Minimal tenderness upon palpation. NEUROLOGIC: Alert and oriented. Cranial nerves II through XII grossly intact. ASSESSMENT: 1. Nausea vomiting, status post EGD PLAN: No further inpatient workup from a surgical standpoint. Patient may follow-up on an outpatient basis. Patient may resume diet today after cardiac catheterization we will sign off. Please reconsult if needed. Nurse practitioner note has been reviewed by physician. Signing provider agrees with the documented findings, assessment, and plan of care. Objective - Vital Signs Vital signs: Vital Signs Temp 98.0 F 11/14/18 07:32 Pulse 59 L 11/14/18 07:39 Resp 16 11/14/18 07:32 BP 108/50 11/14/18 07:32 Pulse Ox 96 11/14/18 07:59 Intake & Output 11/13/18 11/14/18 11/14/18 18:59 06:59 18:59 Intake Total 562 536 321 Balance 562 536 321 Weight 107.501 kg Intake: IV 100 Intake, IV Titration 321 Amount Sodium Chloride 0.9% 1, 321 000 ml In Empty Bag 1 bag @ 1 ML/KG/HR 107.501 mls /hr IV .[id number] ONE Rx#: [id number] Oral 462 536 Other: Voiding Method Toilet # Voids 2 - Labs CBC & Chem 7: 11/14/18 02:42 11/14/18 02:42 Labs: Abnormal Lab Results - Last 24 Hours (Table) 11/13/18 11/13/18 11/13/18 Range/Units 12:06 17:03 20:18 MCH (25.0-35.0) pg MCHC (31.0-37.0) g/dL RDW (11.5-15.5) % APTT (22.0-30.0) sec Creatinine (0.52-1.04) mg/dL Glucose (74-99) mg/dL POC Glucose (mg/dL) 108 H 111 H 144 H (75-99) mg/dL AST (14-36) U/L ALT (9-52) U/L Alkaline Phosphatase (38-126) U/L Total Protein (6.3-8.2) g/dL Albumin (3.5-5.0) g/dL 11/14/18 11/14/18 11/14/18 Range/Units 02:42 02:42 02:42 MCH 24.5 L (25.0-35.0) pg MCHC 30.5 L (31.0-37.0) g/dL RDW 16.9 H (11.5-15.5) % APTT 47.1 H (22.0-30.0) sec Creatinine 1.13 H (0.52-1.04) mg/dL Glucose 141 H (74-99) mg/dL POC Glucose (mg/dL) (75-99) mg/dL AST 287 H (14-36) U/L ALT 161 H (9-52) U/L Alkaline Phosphatase 170 H (38-126) U/L Total Protein 6.0 L (6.3-8.2) g/dL Albumin 3.1 L (3.5-5.0) g/dL 11/14/18 11/14/18 Range/Units 05:15 11:11 MCH (25.0-35.0) pg MCHC (31.0-37.0) g/dL RDW (11.5-15.5) % APTT (22.0-30.0) sec Creatinine (0.52-1.04) mg/dL Glucose (74-99) mg/dL POC Glucose (mg/dL) 117 H 108 H (75-99) mg/dL AST (14-36) U/L ALT (9-52) U/L Alkaline Phosphatase (38-126) U/L Total Protein (6.3-8.2) g/dL Albumin (3.5-5.0) g/dL
[2018-11-14 16:21] LABS: Glucose,Whole Blood 206 mg/dL (75-99)
[2018-11-14 21:06] LABS: Glucose,Whole Blood 134 mg/dL (75-99)
[2018-11-15] MEDS: ALPRAZolam 0.25 MG TAB PO PRN ×2 (01:30→21:26)
[2018-11-15] MEDS: INSULIN ASPART (NovoLOG) 100 UNIT/ML VIAL SQ SCH ×4 (06:14→21:28)
[2018-11-15 06:15] LABS: Glucose,Whole Blood 103 mg/dL (75-99)
[2018-11-15] MEDS: LEVOTHYROXINE 100 MCG TAB PO SCH (06:16)
[2018-11-15] MEDS: ATENOLOL 50 MG TAB PO SCH (08:05)
[2018-11-15] MEDS: ATORVASTATIN 20 MG TAB PO SCH (08:05)
[2018-11-15] MEDS: GABAPENTIN 100 MG CAP PO SCH ×3 (08:05→21:26)
[2018-11-15] MEDS: LISINOPRIL 20 MG TAB PO SCH ×2 (08:05→21:34)
[2018-11-15] MEDS: PANTOPRAZOLE 40 MG TABLET PO SCH ×2 (08:05→21:26)
[2018-11-15] MEDS: ASPIRIN 81 MG PO SCH (08:06)
[2018-11-15 09:47] LABS: Anisocytosis Slight; HCT 39.9 % (34.0-46.0); HGB 12.4 gm/dL (11.4-16.0); Hypochromasia Slight; MCH 23.8 pg (25.0-35.0); MCHC 30.9 g/dL (31.0-37.0); MCV 76.8 fL (80.0-100.0); Microcytosis Slight; Platelet Count 142 k/uL (150-450); WBC 5.4 k/uL (3.8-10.6)
[2018-11-15 09:57] LABS: ALT 105 U/L (9-52); AST 51 U/L (14-36); Albumin 3.2 g/dL (3.5-5.0); Alkaline Phosphatase 154 U/L (38-126); Anion Gap 4 mmol/L; Blood Urea Nitrogen 11 mg/dL (7-17); Calcium 8.8 mg/dL (8.4-10.2); Carbon Dioxide 29 mmol/L (22-30); Chloride 108 mmol/L (98-107); Glucose 129 mg/dL (74-99); Potassium 3.7 mmol/L (3.5-5.1); Sodium 141 mmol/L (137-145); Total Bilirubin 0.5 mg/dL (0.2-1.3); Total Protein 5.8 g/dL (6.3-8.2)
[2018-11-15 10:20] LABS: Eosinophils # (M) 0.27 k/uL (0-0.7); Lymphocytes # (M) 0.97 k/uL (1.0-4.8); Monocytes # (M) 0.27 k/uL (0-1.0); Neutrophils # (M) 3.89 k/uL (1.3-7.7); Neutrophils % (M) 72 %; Nucleated Red Blood Cells 0 /100 WBC (0-0); Total Cells Counted 100
--- NOTE | 2018-11-15 10:52 | P.PN ---
Subjective Progress Note Date: 11/15/18 This is a 48-year-old female patient of Dr. Oh. Patient presented to the hospital complaints of chest pain with nausea and vomiting of blood. Patient reports that she's been living in apartment that has black mold and since then she's been having increased nausea and vomiting. Patient reports dark emesis. Patient reports the chest pain started to occur with the documented emesis. Patient does complain of chest pain radiating to arm and back. Troponin on admission 0.294. Patient was started on heparin drip and cardiology services have been consulted. Patient does have a past medical history of chest pain, CVA, diabetes mellitus, GERD, hyperlipidemia, hypertension, seizure disorder, thyroid disorder, cholecystectomy and previous heart cath. Chest x-ray completed showing no acute cardiopulmonary process. EKG completed showing normal sinus. GI services have been consulted. 2-D echo has been ordered. At this time patient is still complaining of intermittent chest pain. Patient denies shortness of breath. Patient denies any nausea or vomiting at this time. Patient denies any urinary burning or frequency. Patient is requesting social work services be consulted for resources due to patient's apartment being contaminated. On 11/13/2018 patient is currently resting in bed. Patient underwent EGD this a.m. with Dr. Gonzalez, showing mild antral gastritis no evidence of upper GI bleed. Patient also had positive stress test. Patient will undergo cardiac cath likely tomorrow. At this time patient is still complaining of some abdominal discomfort and chest pain. Patient denies shortness breath. Patient denies urinary burning or frequency. Patient denies any nausea or vomiting at this time On 11/14/2017 patient is currently resting in bed. Patient did have positive stress test yesterday. Patient will likely undergo cardiac cath today per cardiology. Patient remains on heparin drip. At this time patient is still complaining of chest pain. Patient denies any nausea or vomiting. Patient denies any urinary burning or frequency. Patient denies shortness breath On 11/15/2017 patient is alert and oriented 3. Patient did undergo cardiac cath yesterday and showed normal coronary arteries. Patient's liver enzymes also slightly elevated Lipitor has been discontinued. We'll continue to monitor. At this time patient is still complaining of some chest discomfort with nausea. Dr. Gonzalez per surgical services is following. EGD completed. Objective - Vital Signs Vital signs: Vital Signs Temp 97.2 F L 11/15/18 07:54 Pulse 77 11/15/18 07:54 Resp 18 11/15/18 07:54 BP 162/69 11/15/18 07:54 Pulse Ox 96 11/15/18 07:54 Intake & Output 11/14/18 11/15/18 11/15/18 18:59 06:59 18:59 Intake Total 543 222 Balance 543 222 Weight 70.4 kg Intake: Intake, IV Titration 321 Amount Sodium Chloride 0.9% 1, 321 000 ml In Empty Bag 1 bag @ 1 ML/KG/HR 107.501 mls /hr IV .Q9H19M ONE Rx#: [id number] Oral 222 222 Other: Voiding Method Toilet Toilet # Voids 2 1 - Exam Head normocephalic Neck supple Lungs clear to auscultation bilaterally no wheezing or crackles Heart regular rate and rhythm S1-S2, no rub or gallop Abdomen is soft nontender nondistended positive bowel sounds no hepatosplenomegaly Extremities no edema Neuro alert and orientated to 3 - Labs CBC & Chem 7: 11/15/18 08:38 11/15/18 08:38 Labs: Abnormal Lab Results - Last 24 Hours (Table) 11/14/18 11/14/18 11/14/18 Range/Units 11:11 12:26 16:19 MCV (80.0-100.0) fL MCH (25.0-35.0) pg MCHC (31.0-37.0) g/dL RDW (11.5-15.5) % Plt Count (150-450) k/uL Lymphocytes # (Manual) (1.0-4.8) k/uL Chloride (98-107) mmol/L Glucose (74-99) mg/dL POC Glucose (mg/dL) 108 H 111 H 206 H (75-99) mg/dL AST (14-36) U/L ALT (9-52) U/L Alkaline Phosphatase (38-126) U/L Total Protein (6.3-8.2) g/dL Albumin (3.5-5.0) g/dL 11/14/18 11/15/18 11/15/18 Range/Units 21:05 06:14 08:38 MCV 76.8 L (80.0-100.0) fL MCH 23.8 L (25.0-35.0) pg MCHC 30.9 L (31.0-37.0) g/dL RDW 17.0 H (11.5-15.5) % Plt Count 142 L (150-450) k/uL Lymphocytes # (Manual) 0.97 L (1.0-4.8) k/uL Chloride (98-107) mmol/L Glucose (74-99) mg/dL POC Glucose (mg/dL) 134 H 103 H (75-99) mg/dL AST (14-36) U/L ALT (9-52) U/L Alkaline Phosphatase (38-126) U/L Total Protein (6.3-8.2) g/dL Albumin (3.5-5.0) g/dL 11/15/18 Range/Units 08:38 MCV (80.0-100.0) fL MCH (25.0-35.0) pg MCHC (31.0-37.0) g/dL RDW (11.5-15.5) % Plt Count (150-450) k/uL Lymphocytes # (Manual) (1.0-4.8) k/uL Chloride 108 H (98-107) mmol/L Glucose 129 H (74-99) mg/dL POC Glucose (mg/dL) (75-99) mg/dL AST 51 H (14-36) U/L ALT 105 H (9-52) U/L Alkaline Phosphatase 154 H (38-126) U/L Total Protein 5.8 L (6.3-8.2) g/dL Albumin 3.2 L (3.5-5.0) g/dL Assessment and Plan Assessment: 1. Chest pain. EKG completed showing normal sinus rhythm. Chest x-ray c ompleted showing no acute cardiopulmonary process. Initial troponin 0.294. She has been started on heparin drip. 2-D echo has been completed showing an EF of 45-50%. Patient underwent stress test which showed, logical he induced left ventricle myocardial ischemia along the septum. Patient underwent heart catheterization on 11/14/2018 showing clear coronary arteries. 2. Nausea and vomiting with possible bloody emesis. Patient underwent EGD with Dr. Gonzalez this a.m. which showed antral gastritis no evidence of upper GI bleed. Amylase and lipase were within normal limits 3. History of CVA 4. History of diabetes mellitus. Metformin currently on hold sliding scale insulin added 5. History of GERD 6. History of hyperlipidemia 7. History of essential hypertension 8. History of cholecystectomy 9. potential exposure to black mold. Per Rigoberto with social work patient plans to stay with brother at [facility]. Patient's friends from [employer] and getting guardianship and will assist patient with permanent housing upon discharge. DVT prophylaxis patient on lovenox GI prophylaxis Protonix. I performed an examination of the patient and discussed their management with the Nurse Practitioner. I have reviewed the Nurse Practitioner's notes and agree with the documented findings and plan of care
[2018-11-15 11:18] LABS: Glucose,Whole Blood 140 mg/dL (75-99)
[2018-11-15] MEDS: ACETAMINOPHEN TAB 325 MG TAB PO PRN (11:55)
[2018-11-15] MEDS: amLODIPine 5 MG TAB PO SCH (13:07)
--- NOTE | 2018-11-15 13:53 | EST ---
EXERCISE STRESS AGE: 48 SEX: Female HT: 5'2" WT: 237 pounds PROTOCOL: Lexiscan Cardiolite STAGE: DURATION OF EXERCISE: HEART RATE REST: 51 BLOOD PRESSURE REST: 144/93 MAXIMUM HEART RATE ACHIEVED: 92 MAXIMUM BLOOD PRESSURE: 164/90 85% MPHR: 148 100% MPHR: 174 METS: INDICATIONS: Chest pain. CLINICAL INFORMATION: A Lexiscan nuclear study was performed. Peak heart rate of 84 was achieved. Maximum blood pressure of 164/90 mmHg was noted. Resting EKG shows normal sinus rhythm with normal CT interval and QRS duration and normal ST-T waves. No ST-segment depression suggestive of ischemia was noted. FINAL IMPRESSION: There is no evidence of any EKG changes suggestive of ischemia during Lexiscan injection. The results of the nuclear study will follow. MMKATL / IJN: [id number] /
--- NOTE | 2018-11-15 16:45 | PN ---
PROGRESS NOTE Mrs. Scott underwent a cardiac cath performed by Dr. Hudson yesterday from right radial approach. Cath was unremarkable. No significant CAD. She is doing well, resting comfortably. Right radial cath site is clean and dry. Vitals are stable. S1, S2 heard normally. Lungs are clear. Abdomen is soft, nontender. Lower extremities reveal normal pulses. No edema. Central nervous system is normal. Plan is to continue her current medications, and she can be discharged from a cardiac standpoint and she will see Dr. Hudson in one week in the office. MMODL / IJN: [id number] /
[2018-11-15 17:31] LABS: Glucose,Whole Blood 133 mg/dL (75-99)
[2018-11-15 20:14] LABS: Glucose,Whole Blood 159 mg/dL (75-99)
[2018-11-16] MEDS: LEVOTHYROXINE 100 MCG TAB PO SCH (06:08)
[2018-11-16 07:43] LABS: Glucose,Whole Blood 131 mg/dL (75-99)
[2018-11-16] MEDS: INSULIN ASPART (NovoLOG) 100 UNIT/ML VIAL SQ SCH ×4 (07:53→20:49)
[2018-11-16] MEDS: ENOXAPARIN 40 MG/0.4 ML SYRINGE SQ SCH (08:17)
[2018-11-16] MEDS: PANTOPRAZOLE 40 MG TABLET PO SCH ×2 (08:17→20:50)
[2018-11-16] MEDS: GABAPENTIN 100 MG CAP PO SCH ×3 (08:17→20:50)
[2018-11-16] MEDS: ASPIRIN 81 MG PO SCH (08:17)
[2018-11-16] MEDS: amLODIPine 5 MG TAB PO SCH (08:17)
[2018-11-16] MEDS: LISINOPRIL 20 MG TAB PO SCH ×2 (08:17→20:51)
[2018-11-16] MEDS: ATENOLOL 50 MG TAB PO SCH (08:17)
[2018-11-16 10:47] LABS: ALT 70 U/L (9-52); AST 22 U/L (14-36); Albumin 3.4 g/dL (3.5-5.0); Alkaline Phosphatase 145 U/L (38-126); Anion Gap 7 mmol/L; Blood Urea Nitrogen 13 mg/dL (7-17); Calcium 9.3 mg/dL (8.4-10.2); Carbon Dioxide 27 mmol/L (22-30); Chloride 106 mmol/L (98-107); Glucose 186 mg/dL (74-99); Potassium 4.2 mmol/L (3.5-5.1); Sodium 140 mmol/L (137-145); Total Bilirubin 0.4 mg/dL (0.2-1.3); Total Protein 6.2 g/dL (6.3-8.2)
[2018-11-16 10:49] LABS: Anisocytosis Slight; Basophils % (A) 0 %; Eosinophils # (A) 0.3 k/uL (0-0.7); Eosinophils % (A) 4 %; HCT 39.8 % (34.0-46.0); HGB 12.1 gm/dL (11.4-16.0); Hypochromasia Moderate; Lymphocytes # (A) 1.4 k/uL (1.0-4.8); Lymphocytes % (A) 21 %; MCH 23.8 pg (25.0-35.0); MCHC 30.5 g/dL (31.0-37.0); MCV 78.2 fL (80.0-100.0); Mean Platelet Volume 9.3; Microcytosis Slight; Monocytes # (A) 0.3 k/uL (0-1.0); Monocytes % (A) 5 %; Neutrophils # (A) 4.7 k/uL (1.3-7.7); Neutrophils % (A) 69 %; Platelet Count 219 k/uL (150-450); RBC 5.09 m/uL (3.80-5.40); RDW 17.1 % (11.5-15.5); WBC 6.8 k/uL (3.8-10.6)
[2018-11-16 11:41] LABS: Glucose,Whole Blood 177 mg/dL (75-99)
--- NOTE | 2018-11-16 12:54 | P.PN ---
Subjective Progress Note Date: 11/16/18 This is a 48-year-old female patient of Dr. Oh. Patient presented to the hospital complaints of chest pain with nausea and vomiting of blood. Patient reports that she's been living in apartment that has black mold and since then she's been having increased nausea and vomiting. Patient reports dark emesis. Patient reports the chest pain started to occur with the documented emesis. Patient does complain of chest pain radiating to arm and back. Troponin on admission 0.294. Patient was started on heparin drip and cardiology services have been consulted. Patient does have a past medical history of chest pain, CVA, diabetes mellitus, GERD, hyperlipidemia, hypertension, seizure disorder, thyroid disorder, cholecystectomy and previous heart cath. Chest x-ray completed showing no acute cardiopulmonary process. EKG completed showing normal sinus. GI services have been consulted. 2-D echo has been ordered. At this time patient is still complaining of intermittent chest pain. Patient denies shortness of breath. Patient denies any nausea or vomiting at this time. Patient denies any urinary burning or frequency. Patient is requesting social work services be consulted for resources due to patient's apartment being contaminated. On 11/13/2018 patient is currently resting in bed. Patient underwent EGD this a.m. with Dr. Gonzalez, showing mild antral gastritis no evidence of upper GI bleed. Patient also had positive stress test. Patient will undergo cardiac cath likely tomorrow. At this time patient is still complaining of some abdominal discomfort and chest pain. Patient denies shortness breath. Patient denies urinary burning or frequency. Patient denies any nausea or vomiting at this time On 11/14/2018 patient is currently resting in bed. Patient did have positive stress test yesterday. Patient will likely undergo cardiac cath today per cardiology. Patient remains on heparin drip. At this time patient is still complaining of chest pain. Patient denies any nausea or vomiting. Patient denies any urinary burning or frequency. Patient denies shortness breath On 11/15/2018 patient is alert and oriented 3. Patient did undergo cardiac cath yesterday and showed normal coronary arteries. Patient's liver enzymes also slightly elevated Lipitor has been discontinued. We'll continue to monitor. At this time patient is still complaining of some chest discomfort with nausea. Dr. Gonzalez per surgical services is following. EGD completed. On 11/16/2018 patient is alert and oriented 3. Patient is still complaining of some abdominal pain. Will order abdominal ultrasound at this time. Liver enzymes are trending down. We'll continue monitor daily. Case management social work began discharge planning Objective - Vital Signs Vital signs: Vital Signs Temp 97.6 F 11/16/18 07:00 Pulse 52 L 11/16/18 07:00 Resp 20 11/16/18 07:00 BP 125/81 11/16/18 07:00 Pulse Ox 95 11/16/18 07:00 Intake & Output 11/15/18 11/16/18 11/16/18 18:59 06:59 18:59 Intake Total 200 Balance 200 Intake: Oral 200 Other: Voiding Method Toilet Toilet # Voids 0 2 3 - Exam Head normocephalic Neck supple Lungs clear to auscultation bilaterally no wheezing or crackles Heart regular rate and rhythm S1-S2, no rub or gallop Abdomen is soft nontender nondistended positive bowel sounds no hepatosplenomegaly Extremities no edema Neuro alert and orientated to 3 - Labs CBC & Chem 7: 11/16/18 10:24 11/16/18 10:23 Labs: Abnormal Lab Results - Last 24 Hours (Table) 11/15/18 11/15/18 11/16/18 Range/Units 17:15 20:12 07:29 MCV (80.0-100.0) fL MCH (25.0-35.0) pg MCHC (31.0-37.0) g/dL RDW (11.5-15.5) % Glucose (74-99) mg/dL POC Glucose (mg/dL) 133 H 159 H 131 H (75-99) mg/dL ALT (9-52) U/L Alkaline Phosphatase (38-126) U/L Total Protein (6.3-8.2) g/dL Albumin (3.5-5.0) g/dL 11/16/18 11/16/18 11/16/18 Range/Units 10:23 10:24 11:32 MCV 78.2 L (80.0-100.0) fL MCH 23.8 L (25.0-35.0) pg MCHC 30.5 L (31.0-37.0) g/dL RDW 17.1 H (11.5-15.5) % Glucose 186 H (74-99) mg/dL POC Glucose (mg/dL) 177 H (75-99) mg/dL ALT 70 H (9-52) U/L Alkaline Phosphatase 145 H (38-126) U/L Total Protein 6.2 L (6.3-8.2) g/dL Albumin 3.4 L (3.5-5.0) g/dL Assessment and Plan Assessment: 1. Chest pain. EKG completed showing normal sinus rhythm. Chest x-ray completed showing no acute cardiopulmonary process. Initial troponin 0.294. She has been started on heparin drip. 2-D echo has been completed showing an EF of 45-50%. Patient underwent stress test which showed, logical he induced left ventricle myocardial ischemia along the septum. Patient underwent heart catheterization on 11/14/2018 showing clear coronary arteries. 2. Nausea and vomiting with possible bloody emesis. Patient underwent EGD with Dr. Gonzalez this a.m. which showed antral gastritis no evidence of upper GI bleed. Amylase and lipase were within normal limits. Patient's abdominal pain still present. Will order abdominal ultrasound. 3. History of CVA 4. History of diabetes mellitus. Metformin currently on hold sliding scale insulin added 5. History of GERD 6. History of hyperlipidemia 7. History of essential hypertension 8. History of cholecystectomy 9. potential exposure to black mold. Per Rigoberto with social work patient plans to stay with brother at [facility]. Patient's friends from [place] and getting guardianship and will assist patient with permanent housing upon discharge. DVT prophylaxis patient on lovenox GI prophylaxis Protonix. I performed an examination of the patient and discussed their management with the Nurse Practitioner. I have reviewed the Nurse Practitioner's notes and agree with the documented findings and plan of care
--- NOTE | 2018-11-16 15:12 | US ---
EXAMINATION TYPE: US abdomen complete DATE OF EXAM: 11/16/2018 COMPARISON: Correlation CT 08/01/2018 and old ultrasound 05/21/2017 CLINICAL HISTORY: 48-year-old female abdominal pain. Generalized pain. GB removed. TECHNIQUE: Multiple sonographic images of the abdomen are obtained. FINDINGS: EXAM MEASUREMENTS: Liver Length: 19.5 cm CBD: 0.5 cm Spleen: 9.8 cm Right Kidney: 10.4 x 5.0 x 3.2 cm Left Kidney: 10.3 x 4.7 x 4.6 cm Pancreas: Body and tail not well visualized due to overlying bowel gas. Liver: Appears enlarged in size, coarse and echogenic. Gallbladder: Surgically absent Evidence for sonographic Godoy's sign: neg CBD: wnl Spleen: wnl Right Kidney: No hydronephrosis or masses seen Left Kidney: lateral lower lesion seen with associated calcifications- 1.4 x 1.5 x 1.5 cm (versus 1 .6 x 1.4 x 1.4 cm in 2017). Upper IVC: wnl Abd Aorta: No AAA visualized IMPRESSION: 1. Hepatomegaly (19.5 cm) with hepatic steatosis. Correlate with LFTs, lipid profile, and patient ris k factors. 2. Status post cholecystectomy. 3. An indeterminate 1.5 cm lateral left renal lesion. This measured 1.6 cm in 2017. Overall stability suggests a benign etiology. Consider continued 6-12 month follow-up for continued surveillance as a simple cyst or debris-filled cyst cannot be confirmed on patient's CT exams. MRI may be useful for fu rther characterization if indicated.
[2018-11-16 17:30] LABS: Glucose,Whole Blood 184 mg/dL (75-99)
[2018-11-16 20:39] LABS: Glucose,Whole Blood 124 mg/dL (75-99)
[2018-11-17] MEDS: LEVOTHYROXINE 100 MCG TAB PO SCH (05:35)
[2018-11-17 05:51] VITALS: BP 161/85; RESP 18; TEMP 97.6
[2018-11-17 07:15] LABS: Glucose,Whole Blood 119 mg/dL (75-99)
[2018-11-17 07:50] VITALS: PULSE 71
[2018-11-17] MEDS: ASPIRIN 81 MG PO SCH (07:50)
[2018-11-17] MEDS: INSULIN ASPART (NovoLOG) 100 UNIT/ML VIAL SQ SCH ×2 (07:50→12:55)
[2018-11-17] MEDS: GABAPENTIN 100 MG CAP PO SCH (07:50)
[2018-11-17] MEDS: amLODIPine 5 MG TAB PO SCH (07:50)
[2018-11-17] MEDS: LISINOPRIL 20 MG TAB PO SCH (07:50)
[2018-11-17] MEDS: ATENOLOL 50 MG TAB PO SCH (07:50)
[2018-11-17] MEDS: ENOXAPARIN 40 MG/0.4 ML SYRINGE SQ SCH (07:50)
[2018-11-17] MEDS: PANTOPRAZOLE 40 MG TABLET PO SCH (07:50)
[2018-11-17 09:35] LABS: Anisocytosis Slight; Basophils % (A) 0 %; Eosinophils # (A) 0.2 k/uL (0-0.7); Eosinophils % (A) 3 %; HCT 42.2 % (34.0-46.0); HGB 12.6 gm/dL (11.4-16.0); Hypochromasia Marked; Lymphocytes # (A) 1.9 k/uL (1.0-4.8); Lymphocytes % (A) 24 %; MCH 23.8 pg (25.0-35.0); MCHC 29.8 g/dL (31.0-37.0); Mean Platelet Volume 7.9; Monocytes # (A) 0.3 k/uL (0-1.0); Monocytes % (A) 4 %; Neutrophils # (A) 5.1 k/uL (1.3-7.7); Neutrophils % (A) 67 %; Platelet Count 249 k/uL (150-450); RBC 5.28 m/uL (3.80-5.40); RDW 16.5 % (11.5-15.5); WBC 7.7 k/uL (3.8-10.6)
[2018-11-17 09:39] LABS: ALT 60 U/L (9-52); AST 16 U/L (14-36); Albumin 3.9 g/dL (3.5-5.0); Alkaline Phosphatase 145 U/L (38-126); Anion Gap 11 mmol/L; Blood Urea Nitrogen 10 mg/dL (7-17); Calcium 9.5 mg/dL (8.4-10.2); Carbon Dioxide 29 mmol/L (22-30); Chloride 103 mmol/L (98-107); Glucose 151 mg/dL (74-99); Sodium 143 mmol/L (137-145); Total Bilirubin 0.6 mg/dL (0.2-1.3); Total Protein 6.7 g/dL (6.3-8.2)
[2018-11-17 11:56] LABS: Glucose,Whole Blood 162 mg/dL (75-99)
--- NOTE | 2018-11-17 12:47 | P.DS ---
Providers Date of admission: 11/13/18 15:42 Expected date of discharge: 11/17/18 Attending physician: Doc Narvaez Consults: 11/11/18 16:43 Consult Physician Stat Consulting Provider: [facility] Consult Reason/Comments: chest pain Do you want consulting provider notified?: Yes Primary care physician: Pat Oh Hospital Course: Discharge diagnosis 1. Chest pain. EKG completed showing normal sinus rhythm. Chest x-ray completed showing no acute cardiopulmonary process. Initial troponin 0.294. She has been started on heparin drip. 2-D echo has been completed showing an EF of 45-50%. Patient underwent stress test which showed, logical he induced left ventricle myocardial ischemia along the septum. Patient underwent heart c atheterization on 11/14/2018 showing clear coronary arteries. Patient has been cleared for discharge from cardiology standpoint 2. Nausea and vomiting with possible bloody emesis. Patient underwent EGD with Dr. Gonzalez this a.m. which showed antral gastritis no evidence of upper GI bleed. Amylase and lipase were within normal limits. Patient's abdominal pain still present. Will order abdominal ultrasound. 3. History of CVA 4. History of diabetes mellitus. Metformin currently on hold sliding scale insulin added 5. History of GERD 6. History of hyperlipidemia 7. History of essential hypertension. Patient having elevated blood pressure. Norvasc added 8. History of cholecystectomy 9. potential exposure to black mold. Per Rigoberto with social work patient plans to stay with brother at [facility]. Patient's friends from [place] and getting guardianship and will assist patient with permanent housing upon discharge. 10. Elevated liver enzymes. Abdominal ultrasound completed showing hepatomegaly with hepatic steatosis. Correlate with LFTs, lipid profile and patient was factors. Status post cholecystectomy. 11. Left renal lesion. This was seen on abdominal ultrasound showing an introducer determinate 1.5 cm lateral left renal lesion. This measured 1.6 cm 2017. Overall stability suggests a benign etiology. Consider continue 6-12 month follow-up for continued surveillance is a simple cyst ordered degrees filled cyst cannot be confirmed on patient CT exams. MRI may be useful for further characterization if indicated. Patient advised to follow-up with her PC P in regards to further management of this issue. Hospital course This is a 48-year-old female patient of Dr. Oh. Patient presented to the hospital complaints of chest pain with nausea and vomiting of blood. Patient reports that she's been living in apartment that has black mold and since then she's been having increased nausea and vomiting. Patient reports dark emesis. Patient reports the chest pain started to occur with the documented emesis. Patient does complain of chest pain radiating to arm and back. Troponin on admission 0.294. Patient was started on heparin drip and cardiology services have been consulted. Patient does have a past medical history of chest pain, CVA, diabetes mellitus, GERD, hyperlipidemia, hypertension, seizure disorder, thyroid disorder, cholecystectomy and previous heart cath. Chest x-ray completed showing no acute cardiopulmonary process. EKG completed showing normal sinus. GI services have been consulted. 2-D echo has been ordered. At this time patient is still complaining of intermittent chest pain. Patient denies shortness of breath. Patient denies any nausea or vomiting at this time. Patient denies any urinary burning or frequency. Patient is requesting social work services be consulted for resources due to patient's apartment being contaminated. On 11/13/2018 patient is currently resting in bed. Patient underwent EGD this a.m. with Dr. Gonzalez, showing mild antral gastritis no evidence of upper GI bleed. Patient also had positive stress test. Patient will undergo cardiac cath likely tomorrow. At this time patient is still complaining of some abdominal discomfort and chest pain. Patient denies shortness breath. Patient denies urinary burning or frequency. Patient denies any nausea or vomiting at this time On 11/14/2018 patient is currently resting in bed. Patient did have positive stress test yesterday. Patient will likely undergo cardiac cath today per cardiology. Patient remains on heparin drip. At this time patient is still complaining of chest pain. Patient denies any nausea or vomiting. Patient denies any urinary burning or frequency. Patient denies shortness breath On 11/15/2018 patient is alert and oriented 3. Patient did undergo cardiac cath yesterday and showed normal coronary arteries. Patient's liver enzymes also slightly elevated Lipitor has been discontinued. We'll continue to monitor. At this time patient is still complaining of some chest discomfort with nausea. Dr. Gonzalez per surgical services is following. EGD completed. On 11/16/2018 patient is alert and oriented 3. Patient is still complaining of some abdominal pain. Will order abdominal ultrasound at this time. Liver enzymes are trending down. We'll continue monitor daily. Case management social work began discharge planning On 11/17/2018 patient with and oriented 3. Patient reports feels much improved and ready to go home today. Patient statins will be held upon discharge. Patient's liver enzymes are trending down. Will order repeat CMP in 2 days. Left renal lesion also seen on ultrasound advised 12 month follow-up per PCP. At this time patient denies chest pain or shortness of breath. Patient denies nausea vomiting or diarrhea. Patient denies any urinary burning or frequency. I performed an examination of the patient and discussed their management with the Nurse Practitioner. I have reviewed the Nurse Practitioner's notes and agree with the documented findings and plan of care Patient Condition at Discharge: Stable Plan - Discharge Summary Discharge Rx Participant: No New Discharge Prescriptions: New amLODIPine [Norvasc] 5 mg PO DAILY 30 Days #30 tab Continue Pantoprazole Sodium [Protonix] 40 mg PO DAILY Nitrostat 0.3mg Tab 0.3 mg PO Q5M PRN PRN Reason: Chest Pain Lisinopril [Zestril] 20 mg PO DAILY #30 tab Atenolol [Tenormin] 50 mg PO DAILY metFORMIN HCL 1,000 mg PO BID Levothyroxine Sodium [Synthroid] 100 mcg PO DAILY Gabapentin [Neurontin] 100 mg PO TID Discontinued Atorvastatin [Lipitor] 20 mg PO DAILY #30 tab Simvastatin 40 mg PO HS Naproxen 500 mg PO BID #20 tablet Discharge Medication List Pantoprazole Sodium [Protonix] 40 mg PO DAILY 06/20/18 [History] Lisinopril [Zestril] 20 mg PO DAILY #30 tab 07/01/18 [Rx] Nitrostat 0.3mg Tab 0.3 mg PO Q5M PRN 07/01/18 [History] Atenolol [Tenormin] 50 mg PO DAILY 07/23/18 [History] Levothyroxine Sodium [Synthroid] 100 mcg PO DAILY 07/23/18 [History] metFORMIN HCL 1,000 mg PO BID 07/23/18 [History] Gabapentin [Neurontin] 100 mg PO TID 11/11/18 [History] amLODIPine [Norvasc] 5 mg PO DAILY 30 Days #30 tab 11/17/18 [Rx] Follow up Appointment(s)/Referral(s): Mariella Hudson MD [STAFF PHYSICIAN] - 1 Week Pat Oh DO [Primary Care Provider] - 11/20/18 10:45 am () Ambulatory/Diagnostic Orders: Comprehensive Metabolic Panel [LAB.AMB] Time Frame: 2 Days, Location: None Selected Activity/Diet/Wound Care/Special Instructions: Activity as tolerated Diet consistent carb Discharge Disposition: HOME SELF-CARE
== END 2018-11-17 14:42 | disposition home or self-care (01) | DRG 286 ==
LOC: EC 13:56 → 1SOBS 16:16 → OBSVTOIN 11-13 15:42 → 3SCARD 11-13 16:44 → 4MS4W 11-15 11:28
PROVIDERS: ADMIT Internal Medicine; ATTEND Internal Medicine
PROC: 0DB78ZX Excision of Stomach, Pylorus, Via Natural or Artificial Opening Endoscopic, Diagnostic (ICD-10-PCS; 2018-11-13)
PROC: B2111ZZ Fluoroscopy of Multiple Coronary Arteries using Low Osmolar Contrast (ICD-10-PCS; 2018-11-14)
PROC: B2151ZZ Fluoroscopy of Left Heart using Low Osmolar Contrast (ICD-10-PCS; 2018-11-14)
PROC: 4A023N7 Measurement of Cardiac Sampling and Pressure, Left Heart, Percutaneous Approach (ICD-10-PCS; principal; 2018-11-14 11:27)
DX: R07.9 Chest pain, unspecified (principal); K29.71 Gastritis, unspecified, with bleeding; K76.0 Fatty (change of) liver, not elsewhere classified; R16.0 Hepatomegaly, not elsewhere classified; K21.9 Gastro-esophageal reflux disease without esophagitis; I10 Essential (primary) hypertension; G40.909 Epilepsy, unspecified, not intractable, without status epilepticus; R74.8 Abnormal levels of other serum enzymes; R94.39 Abnormal result of other cardiovascular function study; E78.5 Hyperlipidemia, unspecified; E11.9 Type 2 diabetes mellitus without complications; E07.9 Disorder of thyroid, unspecified; H40.9 Unspecified glaucoma; N28.9 Disorder of kidney and ureter, unspecified; Z79.890 Hormone replacement therapy; Z79.84 Long term (current) use of oral hypoglycemic drugs; Z79.899 Other long term (current) drug therapy; Z87.11 Personal history of peptic ulcer disease; Z90.49 Acquired absence of other specified parts of digestive tract; Z90.710 Acquired absence of both cervix and uterus; Z86.73 Personal history of transient ischemic attack (TIA), and cerebral infarction without residual deficits; Z91.048 Other nonmedicinal substance allergy status; Z82.49 Family history of ischemic heart disease and other diseases of the circulatory system; Z80.3 Family history of malignant neoplasm of breast; Z83.3 Family history of diabetes mellitus
CPT/HCPCS: 36415; 43239; 71046; 76700; 78452; 80053; 80061; 82150; 83690; 83735; 84443; 84484; 85025; 85610; 85730; 88305; 93005; 93017; 93306; 93458; 94760; 96374; 99285

== ENCOUNTER → 2018-11-21 | Outpatient (CLI) | payer MEDICARE, OTHER ==
[2018-11-21 20:12] LABS: Albumin 4.3 g/dL (3.80-4.90); Albumin/Globulin Ratio 2.05 (1.60-3.17); Anion Gap 6.6 mmol/L (4.00-12.00); Calcium 9.4 mg/dL (8.7-10.3); Carbon Dioxide 30.4 mmol/L (21.6-31.8); Globulin 2.1 g/dL (1.6-3.3); Potassium 4.6 mmol/L (3.5-5.5); Total Bilirubin 0.7 mg/dL (0.3-1.2); Total Protein 6.4 g/dL (6.2-8.2)
== END | disposition home or self-care (01) ==
LOC: LABWHC1 13:24
PROVIDERS: ATTEND Nurse Practitioner
DX: R74.8 Abnormal levels of other serum enzymes (principal)
CPT/HCPCS: 36415; 80053

== ENCOUNTER 2018-12-14 19:23 | Emergency (ER) | payer MEDICARE, OTHER ==
[2018-12-14 19:33] VITALS: RESP 18; TEMP 98.2
[2018-12-14] MEDS ORDERED: SODIUM CHLORIDE 0.9% 1,000 ML IV STA (20:05)
[2018-12-14] MEDS ORDERED: KETOROLAC 30 MG/ML 1 ML VIAL IVP STA (20:05)
--- NOTE | 2018-12-14 20:11 | ED ---
Abdominal Pain HPI - General Source: patient Mode of arrival: ambulatory Limitations: no limitations <Maura Ivory - Last Filed: 12/14/18 23:16> <Elisha Lainez - Last Filed: 12/15/18 01:49> - General Chief Complaint: Abdominal Pain Stated Complaint: Chest pain Time Seen by Provider: 12/14/18 19:44 - History of Present Illness Initial Comments: 48-year-old female patient presents to the emergency department today for evaluation of abdominal pain and chest pain. Patient states symptoms have been present for the last 3 weeks. Patient states that the pain is in her substernal chest region and is intermittent. Patient denies any exacerbating or relieving factors. States she is having generalized abdominal pain. States she's been having normal bowel movements daily, denies nausea or vomiting, she is able to eat and drink without difficulty. Guardian is at bedside and does inform me that the patient's recently and she's been having a lot of stress and anxiety. Patient denies any recent rash, fever, chills, shortness breath, chest pain, abdominal pain, nausea, vomiting, diarrhea, constipation, back pain, numbness, tingling, dizziness, weakness, hematuria, dysuria, urinary urgency, urinary frequency, headache, visual changes, or any other complaints. She is currently being treated for a urinary tract infection, she is unsure of the medication. (Maura Ivory) - Related Data Home Medications Medication Instructions Recorded Confirmed Pantoprazole Sodium [Protonix] 40 mg PO DAILY 06/20/18 12/14/18 Nitrostat 0.3mg Tab 0.3 mg PO Q5M PRN 07/01/18 12/14/18 Atenolol [Tenormin] 50 mg PO DAILY 07/23/18 12/14/18 Levothyroxine Sodium [Synthroid] 100 mcg PO DAILY 07/23/18 12/14/18 Gabapentin [Neurontin] 100 mg PO TID 11/11/18 12/14/18 metFORMIN HCL 850 mg PO BID 12/14/18 12/14/18 Previous Rx's Medication Instructions Recorded Lisinopril [Zestril] 20 mg PO DAILY #30 tab 07/01/18 amLODIPine [Norvasc] 5 mg PO DAILY 30 Days #30 tab 11/17/18 Allergies Allergy/AdvReac Type Severity Reaction Status Date / Time mold Allergy Nausea & Verified 12/14/18 20:14 Vomiting Review of Systems ROS Other: All systems not noted in ROS Statement are negative. <Maura Ivory - Last Filed: 12/14/18 23:16> ROS Other: All systems not noted in ROS Statement are negative. <Louis Lainezssica P - Last Filed: 12/15/18 01:49> ROS Statement: Those systems with pertinent positive or pertinent negative responses have been documented in the HPI. Past Medical History Past Medical History: Chest Pain / Angina, CVA/TIA, Diabetes Mellitus, GERD/Reflux, Hyperlipidemia, Hypertension, Seizure Disorder, Thyroid Disorder Additional Past Medical History / Comment(s): glaucoma radha eyes, HX. BLEEDING ULCERS. last seizure 2012, ANEMIA. TIA 03/2017-no effects, "occ DIZZY SPELLS", cyst on left kidney, migraines, heart murmer, hiatal hernia, hx kidney st ones, EGD April 2018, History of Any Multi-Drug Resistant Organisms: None Reported Past Surgical History: Breast Surgery, Cholecystectomy, Ear Surgery, Heart Catheterization, Hernia Repair, Hysterectomy, Orthopedic Surgery Additional Past Surgical History / Comment(s): RT EYE SX CHILD, kae fundoplication 2015, left breast biopsy, Rt knee surg, Past Anesthesia/Blood Transfusion Reactions: No Reported Reaction Additional Past Anesthesia/Blood Transfusion Reaction / Comment(s): mother got Hep C from blood transfusion. Past Psychological History: No Psychological Hx Reported Smoking Status: Never smoker Past Alcohol Use History: None Reported Past Drug Use History: None Reported - Past Family History Father History Unknown: Yes Additional Family Medical History / Comment(s): ulcer Mother Family Medical History: Cancer, Deep Vein Thrombosis (DVT) Additional Family Medical History / Comment(s): Hep C, breast cancer Sister(s) Family Medical History: Congestive Heart Failure (CHF), Diabetes Mellitus Additional Family Medical History / Comment(s): heart problems Brother(s) Family Medical History: Diabetes Mellitus Additional Family Medical History / Comment(s): Mother and sister with Diabetes <Maura Ivory - Last Filed: 12/14/18 23:16> General Exam Limitations: no limitations General appearance: alert, in no apparent distress, other (Physical well- developed, well-nourished adult female patient in no acute distress. Vital signs upon presentation are temperature 98.2F, pulse 99, respirations 18, blood pressure 159/106, pulse ox 99% on room air.) Eye exam: Present: normal appearance, PERRL, EOMI. Absent: scleral icterus, conjunctival injection, periorbital swelling ENT exam: Present: normal exam, normal oropharynx, mucous membranes moist Respiratory exam: Present: normal lung sounds bilaterally. Absent: respiratory distress, wheezes, rales, rhonchi, stridor Cardiovascular Exam: Present: regular rate, normal rhythm, normal heart sounds. Absent: systolic murmur, diastolic murmur, rubs, gallop, clicks GI/Abdominal exam: Present: soft, tenderness (Generalized), normal bowel sounds. Absent: distended, guarding, rebound, rigid Neurological exam: Present: alert, oriented X3, CN II-XII intact Psychiatric exam: Present: normal affect, normal mood Skin exam: Present: warm, dry, intact, normal color. Absent: rash <Maura Ivory - Last Filed: 12/14/18 23:16> Course Vital Signs 12/14/18 12/14/18 12/14/18 19:30 22:22 22:30 Temperature 98.2 F Pulse Rate 99 73 74 Respiratory 18 18 25 H Rate Blood Pressure 159/106 147/86 O2 Sat by Pulse 99 98 97 Oximetry 12/14/18 12/14/18 22:40 22:50 Temperature Pulse Rate 78 Respiratory 18 18 Rate Blood Pressure 147/86 147/86 O2 Sat by Pulse 95 Oximetry Medical Decision Making - Lab Data Result diagrams: 12/14/18 20:00 12/14/18 20:00 - Radiology Data Radiology results: report reviewed, image reviewed <Maura Ivory - Last Filed: 12/14/18 23:16> - Lab Data Result diagrams: 12/14/18 20:00 12/14/18 20:00 <Elisha Lainez - Last Filed: 12/15/18 01:49> - Medical Decision Making 48 year-old female patient presents to the emergency department today for evaluation of abdominal pain and intermittent chest pain. Physical examination does reveal generalized abdominal tenderness. Labs reviewed and are unremarkable. KUB x-ray of the abdomen was obtained and showed no acute abdominal process. Did reevaluate patient, she is resting comfortable in bed. Symptoms have been going on for 3 weeks. She did have CAT scan in July which was unremarkable. Patient is afebrile, vital signs are stable. She'll be discharged home at this time to follow-up with her primary care physician for recheck in 1-2 days. Return parameters were discussed in detail. She verbalizes understanding and agrees with this plan. (Maura Ivory) I was available for consultation in the emergency department. The history and physical exam were done by the midlevel provider. I was consulted for this patient's care. I reviewed the case with the midlevel provider and based on their presentation of the patient, I agree with the assessment, medical decision making and plan of care as documented. (Elisha Lainez) - Lab Data Lab Results 12/14/18 12/14/18 12/14/18 Range/Units 20:00 20:00 20:00 WBC 8.0 (3.8-10.6) k/uL RBC 5.52 H (3.80-5.40) m/uL Hgb 13.4 (11.4-16.0) gm/dL Hct 42.6 (34.0-46.0) % MCV 77.1 L (80.0-100.0) fL MCH 24.2 L (25.0-35.0) pg MCHC 31.4 (31.0-37.0) g/dL RDW 16.7 H (11.5-15.5) % Plt Count 198 (150-450) k/uL Neutrophils % 64 % Lymphocytes % 27 % Monocytes % 5 % Eosinophils % 3 % Basophils % 0 % Neutrophils # 5.1 (1.3-7.7) k/uL Lymphocytes # 2.1 (1.0-4.8) k/uL Monocytes # 0.4 (0-1.0) k/uL Eosinophils # 0.3 (0-0.7) k/uL Basophils # 0.0 (0-0.2) k/uL Hypochromasia Slight Anisocytosis Slight Microcytosis Slight PT 9.6 (9.0-12.0) sec INR 0.9 (<1.2) APTT 21.5 L (22.0-30.0) sec Sodium 140 (137-145) mmol/L Potassium 4.7 (3.5-5.1) mmol/L Chloride 106 (98-107) mmol/L Carbon Dioxide 26 (22-30) mmol/L Anion Gap 8 mmol/L BUN 11 (7-17) mg/dL Creatinine 0.93 (0.52-1.04) mg/dL Est GFR (CKD-EPI)AfAm 86 (>60 ml/min/1.73 sqM) Est GFR (CKD-EPI)NonAf 75 (>60 ml/min/1.73 sqM) Glucose 163 H (74-99) mg/dL Calcium 9.3 (8.4-10.2) mg/dL Total Bilirubin 0.6 (0.2-1.3) mg/dL AST 25 (14-36) U/L ALT 36 (9-52) U/L Alkaline Phosphatase 135 H (38-126) U/L Troponin I (0.000-0.034) ng/mL Total Protein 7.2 (6.3-8.2) g/dL Albumin 4.3 (3.5-5.0) g/dL Amylase 47 (30-110) U/L Lipase 87 (23-300) U/L Urine Color Urine Appearance (Clear) Urine pH (5.0-8.0) Ur Specific Dennison (1.001-1.035) Urine Protein (Negative) Urine Glucose (UA) (Negative) Urine Ketones (Negative) Urine Blood (Negative) Urine Nitrite (Negative) Urine Bilirubin (Negative) Urine Urobilinogen (<2.0) mg/dL Ur Leukocyte Esterase (Negative) Urine RBC (0-5) /hpf Urine WBC (0-5) /hpf Ur Squamous Epith Cells (0-4) /hpf Amorphous Sediment (None) /hpf Urine Bacteria (None) /hpf Hyaline Casts (0-2) /lpf Urine Mucus (None) /hpf 12/14/18 12/14/18 Range/Units 20:00 20:30 WBC (3.8-10.6) k/uL RBC (3.80-5.40) m/uL Hgb (11.4-16.0) gm/dL Hct (34.0-46.0) % MCV (80.0-100.0) fL MCH (25.0-35.0) pg MCHC (31.0-37.0) g/dL RDW (11.5-15.5) % Plt Count (150-450) k/uL Neutrophils % % Lymphocytes % % Monocytes % % Eosinophils % % Basophils % % Neutrophils # (1.3-7.7) k/uL Lymphocytes # (1.0-4.8) k/uL Monocytes # (0-1.0) k/uL Eosinophils # (0-0.7) k/uL Basophils # (0-0.2) k/uL Hypochromasia Anisocytosis Microcytosis PT (9.0-12.0) sec INR (<1.2) APTT (22.0-30.0) sec Sodium (137-145) mmol/L Potassium (3.5-5.1) mmol/L Chloride (98-107) mmol/L Carbon Dioxide (22-30) mmol/L Anion Gap mmol/L BUN (7-17) mg/dL Creatinine (0.52-1.04) mg/dL Est GFR (CKD-EPI)AfAm (>60 ml/min/1.73 sqM) Est GFR (CKD-EPI)NonAf (>60 ml/min/1.73 sqM) Glucose (74-99) mg/dL Calcium (8.4-10.2) mg/dL Total Bilirubin (0.2-1.3) mg/dL AST (14-36) U/L ALT (9-52) U/L Alkaline Phosphatase (38-126) U/L Troponin I <0.012 (0.000-0.034) ng/mL Total Protein (6.3-8.2) g/dL Albumin (3.5-5.0) g/dL Amylase (30-110) U/L Lipase (23-300) U/L Urine Color Yellow Urine Appearance Cloudy H (Clear) Urine pH 6.5 (5.0-8.0) Ur Specific Dennison 1.028 (1.001-1.035) Urine Protein Trace H (Negative) Urine Glucose (UA) Negative (Negative) Urine Ketones Negative (Negative) Urine Blood Negative (Negative) Urine Nitrite Negative (Negative) Urine Bilirubin Negative (Negative) Urine Urobilinogen 6.0 (<2.0) mg/dL Ur Leukocyte Esterase Small H (Negative) Urine RBC 2 (0-5) /hpf Urine WBC 17 H (0-5) /hpf Ur Squamous Epith Cells 16 H (0-4) /hpf Amorphous Sediment Rare H (None) /hpf Urine Bacteria Occasional H (None) /hpf Hyaline Casts 2 (0-2) /lpf Urine Mucus Few H (None) /hpf - Radiology Data 2 view x-ray of the abdomen is obtained. Report was reviewed in its entirety. Impression by Dr. Jones shows nonacute abdomen. No change. (Maura Ivory) Disposition Is patient prescribed a controlled substance at d/c from ED?: No Time of Disposition: 22:19 <Maura Ivory - Last Filed: 12/14/18 23:16> <Elisha Lainez - Last Filed: 12/15/18 01:49> Clinical Impression: Abdominal pain, Chest pain Disposition: HOME SELF-CARE Condition: Good Instructions (If sedation given, give patient instructions): Chest Pain (ED), Abdominal Pain (ED) Additional Instructions: Follow up with your primary care physician for recheck in 1-2 days. Return to the emergency department for any new, worsening, or concerning symptoms. Referrals: Pat Oh DO [Primary Care Provider] - 1-2 days
[2018-12-14 20:25] LABS: Anisocytosis Slight; Basophils % (A) 0 %; Eosinophils # (A) 0.3 k/uL (0-0.7); Eosinophils % (A) 3 %; HCT 42.6 % (34.0-46.0); HGB 13.4 gm/dL (11.4-16.0); Hypochromasia Slight; Lymphocytes # (A) 2.1 k/uL (1.0-4.8); Lymphocytes % (A) 27 %; MCH 24.2 pg (25.0-35.0); MCHC 31.4 g/dL (31.0-37.0); MCV 77.1 fL (80.0-100.0); Mean Platelet Volume 7.7; Microcytosis Slight; Monocytes # (A) 0.4 k/uL (0-1.0); Monocytes % (A) 5 %; Neutrophils # (A) 5.1 k/uL (1.3-7.7); Neutrophils % (A) 64 %; Platelet Count 198 k/uL (150-450); RBC 5.52 m/uL (3.80-5.40); RDW 16.7 % (11.5-15.5)
[2018-12-14 20:36] LABS: Albumin 4.3 g/dL (3.5-5.0); Calcium 9.3 mg/dL (8.4-10.2); Potassium 4.7 mmol/L (3.5-5.1); Total Bilirubin 0.6 mg/dL (0.2-1.3); Total Protein 7.2 g/dL (6.3-8.2)
[2018-12-14 20:41] LABS: INR 0.9 (<1.2); Prothrombin Time 9.6 sec (9.0-12.0)
--- NOTE | 2018-12-14 20:43 | XR ---
EXAMINATION TYPE: XR KUB DATE OF EXAM: 12/14/2018 COMPARISON: 07/15/2018 HISTORY: Abdominal pain TECHNIQUE: 2 views upright FINDINGS: There is no sign of intestinal obstruction or pneumoperitoneum. Fecal pattern is normal. Esha ng bases are clear. There are no pathologic calcifications. IMPRESSION: Nonacute abdomen. No change.
[2018-12-14 20:57] LABS: Amorphous Sediment,Urine Rare /hpf; Appearance,Urine Cloudy (Clear); Bacteria,Urine Occasional /hpf; Bilirubin,Urine Negative (Negative); Blood,Urine Negative (Negative); Color,Urine Yellow; Glucose,Urine (UA) Negative (Negative); Hyaline Casts,Urine 2 /lpf (0-2); Ketones,Urine Negative (Negative); Leukocyte Esterase,Urine Small (Negative); Mucus,Urine Few /hpf; Nitrite,Urine Negative (Negative); PH, Urine 6.5 (5.0-8.0); Protein,Urine Trace (Negative); RBC,Urine 2 /hpf (0-5); Specific Gravity,Urine 1.028 (1.001-1.035); Squamous Epithelial Cell,Urine 16 /hpf (0-4); WBC,Urine 17 /hpf (0-5)
[2018-12-14 20:57] LABS: Partial Thromboplastin Time 21.5 sec (22.0-30.0)
[2018-12-14] MEDS ORDERED: DICYCLOMINE 10 MG/ML 2 ML AMP IM STA (21:55)
[2018-12-14 22:55] VITALS: BP 147/86; PULSE 78
== END 2018-12-14 22:55 | disposition home or self-care (01) ==
LOC: EC 19:23 → EEVIPCON 19:23 → EC 22:55
DX: R10.84 Generalized abdominal pain (principal); R07.89 Other chest pain; R10.817 Generalized abdominal tenderness; E11.9 Type 2 diabetes mellitus without complications; I10 Essential (primary) hypertension; K21.9 Gastro-esophageal reflux disease without esophagitis; E07.9 Disorder of thyroid, unspecified; Z79.890 Hormone replacement therapy; Z79.84 Long term (current) use of oral hypoglycemic drugs; Z79.899 Other long term (current) drug therapy; Z91.018 Allergy to other foods; Z90.49 Acquired absence of other specified parts of digestive tract; Z95.5 Presence of coronary angioplasty implant and graft; Z90.710 Acquired absence of both cervix and uterus; Z86.73 Personal history of transient ischemic attack (TIA), and cerebral infarction without residual deficits
CPT/HCPCS: 36415; 93005; 80053; 82150; 83690; 84484; 85025; 85610; 85730; 81001; 74018; 99284; 96374; 96361 ×2; 96372; J0500; J1885

== ENCOUNTER 2019-03-31 07:10 | Day surgery (SDC) | payer MEDICARE, OTHER ==
[2019-03-26 14:30] VITALS: BMI 40.8
[~2019-03-31 07:10] MED LIST changes: -LABETALOL 5 MG/ML VIAL MDV ONE; -LACTATED RINGERS 1,000 ML IV ONE; +LIDOCAINE 1% 20 ML VIAL (10MG/ML) FOR IV START INTRADERMA PRN; -PROPOFOL 10 MG/ML 20 ML VIAL IV ONE
[2019-03-31 07:36] VITALS: TEMP 97.5
[2019-03-31 07:38] LABS: Glucose,Whole Blood 81 mg/dL (75-99)
[2019-03-31] MEDS ORDERED: PROPOFOL 10 MG/ML 20 ML VIAL IV ONE (07:40)
--- NOTE | 2019-03-31 07:51 | P.GSHP ---
History of Present Illness H&P Date: 03/31/19 Chief Complaint: Diarrhea This is a 48-year-old female who presents today for colonoscopy. Patient's issues with diarrhea. Past Medical History Past Medical History: Chest Pain / Angina, CVA/TIA, Diabetes Mellitus, GERD/Reflux, Hypertension, Seizure Disorder, Thyroid Disorder Additional Past Medical History / Comment(s): states frequent diarrhea, glaucoma radha eyes, HX. BLEEDING ULCERS. last seizure 2012, ANEMIA. TIA 03/2017,STATES RT SIDED WEAKNESS "occ DIZZY SPELLS", Cyst on left kidney, migraines, heart murmur, hiatal hernia, hx kidney stones, History of Any Multi-Drug Resistant Organisms: None Reported Past Surgical History: Breast Surgery, Cholecystectomy, Ear Surgery, Heart Catheterization, Hernia Repair, Hysterectomy, Orthopedic Surgery Additional Past Surgical History / Comment(s): RT EYE SX CHILD, kae fundoplication 2015, left breast biopsy, Rt knee surg, Past Anesthesia/Blood Transfusion Reactions: No Reported Reaction Additional Past Anesthesia/Blood Transfusion Reaction / Comment(s): mother got Hep C from blood transfusion. Smoking Status: Never smoker - Past Family History Father History Unknown: Yes Additional Family Medical History / Comment(s): ulcer Mother Family Medical History: Cancer, Deep Vein Thrombosis (DVT) Additional Family Medical History / Comment(s): Hep C, breast cancer Sister(s) Family Medical History: Congestive Heart Failure (CHF), Diabetes Mellitus Additional Family Medical History / Comment(s): heart problems Brother(s) Family Medical History: Diabetes Mellitus Additional Family Medical History / Comment(s): Mother and sister with Diabetes Medications and Allergies Home Medications Medication Instructions Recorded Confirmed Type Pantoprazole Sodium [Protonix] 40 mg PO DAILY 06/20/18 03/31/19 History Lisinopril [Zestril] 20 mg PO DAILY #30 tab 07/01/18 03/31/19 Rx Atenolol [Tenormin] 50 mg PO DAILY 07/23/18 03/31/19 History Levothyroxine Sodium [Synthroid] 100 mcg PO DAILY 07/23/18 03/31/19 History Gabapentin [Neurontin] 100 mg PO TID 11/11/18 03/31/19 History amLODIPine [Norvasc] 5 mg PO DAILY 30 Days #30 tab 11/17/18 03/31/19 Rx metFORMIN HCL 850 mg PO BID 12/14/18 03/31/19 History Nitroglycerin Sl Tabs [Nitrostat] 0.4 mg SUBLINGUAL Q5M PRN 03/26/19 03/31/19 History Allergies Allergy/AdvReac Type Severity Reaction Status Date / Time mold Allergy Nausea & Verified 03/31/19 07:27 Vomiting Surgical - Exam Vital Signs Temp Pulse Resp BP Pulse Ox 97.5 F L 86 18 134/79 98 03/31/19 07:32 03/31/19 07:32 03/31/19 07:32 03/31/19 07:32 03/31/19 07:32 - General well developed, well nourished, no distress - Eyes PERRL - ENT normal pinna - Neck no masses - Respiratory normal expansion - Cardiovascular Rhythm: regular - Abdomen Abdomen: soft, non tender Assessment and Plan Assessment: Diarrhea. We'll perform colonoscopy.
--- NOTE | 2019-03-31 08:07 | P.OP ---
Date of Procedure: 03/31/19 Preoperative Diagnosis: Diarrhea Postoperative Diagnosis: Rectal biopsy pathology pending Normal colonoscopy Procedure(s) Performed: Colonoscopy Anesthesia: MAC Surgeon: Pierce Gonzalez Pathology: other (The biopsy) Condition: stable Disposition: PACU Description of Procedure: PROCEDURE: The patient was placed on the endoscopy table in the lateral position. Digital rectal examination was performed which revealed no abnormalities. . Flexible colonoscope was then placed in the patient's anus and passed throughout the entire colon. The ileocecal valve was visualized. The cecum, ascending, transverse, descending and sigmoid colon were normal. The rectum was normal as well. Due to the patient's symptoms of diarrhea. A random rectal biopsy was performed with a cold forcep. There was no obvious colitis seen in the entire colon.
[2019-03-31 08:26] VITALS: BP 111/78; PULSE 74; RESP 18
== END 2019-03-31 08:52 | disposition home or self-care (01) ==
LOC: ORWHC2ENDO 07:10
PROVIDERS: ATTEND Surgery
DX: R19.7 Diarrhea, unspecified (principal); K21.9 Gastro-esophageal reflux disease without esophagitis; I10 Essential (primary) hypertension; E07.9 Disorder of thyroid, unspecified; E11.9 Type 2 diabetes mellitus without complications; I20.9 Angina pectoris, unspecified; I69.351 Hemiplegia and hemiparesis following cerebral infarction affecting right dominant side; R56.9 Unspecified convulsions; H40.9 Unspecified glaucoma; Z87.11 Personal history of peptic ulcer disease; Q61.01 Congenital single renal cyst; R01.1 Cardiac murmur, unspecified; Z87.442 Personal history of urinary calculi; Z90.710 Acquired absence of both cervix and uterus; Z90.49 Acquired absence of other specified parts of digestive tract; D64.9 Anemia, unspecified; Z80.3 Family history of malignant neoplasm of breast; Z83.1 Family history of other infectious and parasitic diseases; Z83.3 Family history of diabetes mellitus; Z79.84 Long term (current) use of oral hypoglycemic drugs; Z79.890 Hormone replacement therapy; Z79.899 Other long term (current) drug therapy; Z91.048 Other nonmedicinal substance allergy status
CPT/HCPCS: 88305; 45380; J2704

== ENCOUNTER → 2019-04-30 | Outpatient (CLI) | payer MEDICARE, OTHER ==
[2019-04-30 19:55] LABS: ALT 30 U/L (8-44); AST 23 U/L (13-35); Albumin/Globulin Ratio 2.28 (1.60-3.17); Alkaline Phosphatase 136 U/L (41-126); Bilirubin, Conjugated <0.20 mg/dL (0.20-0.40); Globulin 1.8 g/dL (1.6-3.3); Total Bilirubin 0.4 mg/dL (0.3-1.2); Total Protein 5.9 g/dL (6.2-8.2)
== END | disposition home or self-care (01) ==
LOC: LABWHC1 13:40
PROVIDERS: ATTEND Physician Assistant
DX: K76.0 Fatty (change of) liver, not elsewhere classified (principal)
CPT/HCPCS: 36415; 80076

== ENCOUNTER → 2019-10-28 | Outpatient (CLI) | payer MEDICARE, OTHER ==
[2019-10-28 15:30] VITALS: BP 131/87; PULSE 87; RESP 18; TEMP 97.8
--- NOTE | 2019-10-28 16:15 | P.GSHP ---
History of Present Illness H&P Date: 10/28/19 Chief Complaint: Mammographic abnormality left breast Maricel is a 49 year old white female who had a left breast diagnostic mammogram at [facility] on . This revealed numerous microcalcifications as well as coarse calcifications in region of the previous biopsy. Suspicious abnormality stereotactic core biopsy recommended. no lesions of concern were noted in the right breast. She is status post open biopsy of the left breast in August 2016. A stereotactic biopsy was not done previously of this site, the pathology revealed focal fat necrosis and benign fibrocystic changes. She states she is able to feel nodularity in the 6 oclock position of the left breast for approximately the last year. She complains of bilateral breast pain at the 12 o'clock position with some radiation posteriorly. She states that the pain is quite severe and constant in nature. It is described as sharp in nature. She does not take any medication for the pain. She denies any trauma or infection in the breast. The patient's right breast is larger than the left breast. The patient states that this does bother her and causes some back discomfort. Caffeine: 2 cups of coffee/day smoke: none Chocolate: Negative Hormones: Negative Family History: maternal grandmother: lung cancer maternal great grandmother: liver cancer maternal aunt: breast cancer at 73 Hormonal History: menarche: 13 miscarriage periods: hysterectomy took ovaries at 47 cervical cancer, no chem or radiation BCP: none hormones: none Surgical History: 1. Total hysterectomy 2. gallbladder 3. knee Medical History: 1. stomach pain 2. seizure 3. angina Social History: smoke: none alcohol: none drugs: none - Constitutional Constitutional: Reports sweats - EENT Comment: wears glasses Eyes: bilateral blurred vision Ears: deny: decreased hearing, tinnitus Ears, nose, mouth and throat: Reports headache, Denies sore throat - Breasts Comment: left breast stero biopsy Breasts: bilateral: as per HPI - Cardiovascular Cardiovascular: Reports high blood pressure - Respiratory Respiratory: Denies cough, Denies 7 - Gastrointestinal Gastrointestinal: Denies abdominal pain, Denies diarrhea, Denies nausea, Denies vomiting - Genitourinary (Female) Comment: UTI Genitourinary: Denies dysuria, Denies hematuria - Menstruation Menstruation: Reports post hysterectomy - Musculoskeletal Comment: arthritis knees, Musculoskeletal: Denies myalgias - Integumentary Integumentary: Reports rash - Neurological Neurological: Denies numbness, Denies weakness - Psychiatric Psychiatric: Reports anxiety, Reports depression - Endocrine Comment: diabetes, hypothroid Endocrine: Denies fatigue, Denies weight change - Hematologic/Lymphatic Comment: none - Allergic/Immunologic Allergic/Immunologic: Reports as per HPI Past Medical History Past Medical History: Chest Pain / Angina, CVA/TIA, Diabetes Mellitus, GERD/Reflux, Hypertension, Seizure Disorder, Thyroid Disorder Additional Past Medical History / Comment(s): states frequent diarrhea, glaucoma radha eyes, HX. BLEEDING ULCERS. last seizure 2012, ANEMIA. TIA 03/2017,STATES RT SIDED WEAKNESS "occ DIZZY SPELLS", Cyst on left kidney, migraines, heart murmur, hiatal hernia, hx kidney stones, History of Any Multi-Drug Resistant Organisms: None Reported Past Surgical History: Breast Surgery, Cholecystectomy, Ear Surgery, Heart Catheterization, Hernia Repair, Hysterectomy, Orthopedic Surgery Additional Past Surgical History / Comment(s): RT EYE SX CHILD, kae fundoplication 2015, left breast biopsy, Rt knee surg, Past Anesthesia/Blood Transfusion Reactions: No Reported Reaction Additional Past Anesthesia/Blood Transfusion Reaction / Comment(s): mother got Hep C from blood transfusion. Past Psychological History: No Psychological Hx Reported Additional Psychological History / Comment(s): Patient states she lives with brother, Allen Seals. She does not drive, walks and uses city transportation. Smoking Status: Never smoker Past Alcohol Use History: None Reported Past Drug Use History: None Reported - Past Family History Father History Unknown: Yes Additional Family Medical History / Comment(s): ulcer Mother Family Medical History: Cancer, Deep Vein Thrombosis (DVT) Additional Family Medical History / Comment(s): Hep C, breast cancer Sister(s) Family Medical History: Congestive Heart Failure (CHF), Diabetes Mellitus Additional Family Medical History / Comment(s): heart problems Brother(s) Family Medical History: Diabetes Mellitus Additional Family Medical History / Comment(s): Mother and sister with Diabetes Medications and Allergies Home Medications Medication Instructions Recorded Confirmed Type Pantoprazole Sodium [Protonix] 40 mg PO DAILY 06/20/18 10/28/19 History Lisinopril [Zestril] 20 mg PO DAILY #30 tab 07/01/18 10/28/19 Rx Atenolol [Tenormin] 50 mg PO DAILY 07/23/18 10/28/19 History Levothyroxine Sodium [Synthroid] 100 mcg PO DAILY 07/23/18 10/28/19 History Gabapentin [Neurontin] 100 mg PO TID 11/11/18 10/28/19 History amLODIPine [Norvasc] 5 mg PO DAILY 30 Days #30 tab 11/17/18 10/28/19 Rx metFORMIN HCL 850 mg PO BID 12/14/18 10/28/19 History Nitroglycerin Sl Tabs [Nitrostat] 0.4 mg SUBLINGUAL Q5M PRN 03/26/19 10/28/19 History Allergies Allergy/AdvReac Type Severity Reaction Status Date / Time mold Allergy Nausea & Verified 10/28/19 15:30 Vomiting Surgical - Exam Vital Signs Temp Pulse Resp BP Pulse Ox 97.8 F 87 18 131/87 96 10/28/19 15:24 10/28/19 15:24 10/28/19 15:24 10/28/19 15:24 10/28/19 15:24 BMI 41.2 - General obese - Eyes normal ocular movement - ENT no hearing loss, no congestion - Neck no masses, trachea midline - Respiratory normal respiratory effort, clear to auscultation - Cardiovascular Rhythm: regular Heart Sounds: normal: S1, S2 - Abdomen Abdomen: soft, non tender, no guarding, no rigid, no rebound - Integumentary normal turgor Bilateral fungal infection under each breast - Neurologic no disoriented, no combative - Musculoskeletal normal gait, normal posture - Psychiatric oriented to time, oriented to person, oriented to place, speech is normal breast exam: BRA 46D ptosis grade 3 inspection: Bilateral fungal infection under each breast and left breast infection is worse than the right breast infection, right breast is approximately one and half times larger than the left breast Palpation: Right breast: Multi-positional exam fibrocystic changes, fungal infection and the breast, no dominant masses or nodules of concern Right axilla: No adenopathy of concern Left breast: Fungal infection under the left breast, multi-positional exam fibrocystic changes, left breast is considerably smaller than the right breast, well-healed scar left breast from prior biopsy, tension to the 6 o'clock position of the left breast reveals only fibrocystic changes Left axilla: No adenopathy of concern Results Mammogram right and left breast reviewed with radiology Assessment and Plan Assessment: Impression: 1. Left breast microcalcifications of concern recommended for stereotactic core biopsy 2. Prior left breast biopsy consistent with fat necrosis 3. Diabetes 4. Hypothyroidism 5. Patient has caregiver from [facility] which Asst. patient's visit 6. Anxiety/depression 7. Angina/sees cardiology sees DR. Hermosillo had a cardiac cath last year 8. Bilateral breast pain felt to be fibrocystic in nature 9. Fungal infection under both breast Plan: 1. stero biopsy of the left breast 2. Medical management of medical conditions 3. 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 This included but are not limited to bleeding infection reaction to the anesthetic. The patient understands and this will be scheduled in the near future. Options which would include open biopsy or close surveillance were discussed but not recommended. Cc: Dr. Oh encounter 45 minutes, > 50% of time in planning and consultation Time with Patient: Greater than 30
--- NOTE | 2019-11-17 15:16 | P.PN ---
Progress Note - Text Progress Note Date: 11/17/19 The patient left breast stereotactic core biopsy results. These are benign. She does not have any complaints related to the left breast. She states that over the last several weeks has developed a lump in the right breast. She will see me again in the clinic opens after coronavirus concerns in approximately 6 weeks regarding the right breast nodularity. She will have her left breast mammogram and exam in 6 months time secondary to serotactic core biopsy.
== END | disposition home or self-care (01) ==
LOC: WWCWWP 14:39
PROVIDERS: ATTEND Surgery
DX: Z53.9 Procedure and treatment not carried out, unspecified reason (principal)

== ENCOUNTER → 2019-11-11 | Day surgery (SDC) | payer MEDICARE, OTHER ==
[2019-11-11 07:27] VITALS: RESP 16
--- NOTE | 2019-11-11 08:51 | P.PCN ---
Date of Procedure: 11/11/19 Preoperative Diagnosis: Microcalcifications of concern left breast Postoperative Diagnosis: Same Procedure(s) Performed: Left breast stereotactic core biopsy Anesthesia: local Surgeon: Ginna Byers Pathology: other (breast tissue) Condition: stable Disposition: same day Indications for Procedure: Microcalcifications of concern left breast Description of Procedure: The patient is a 49-year-old white female who on a mammogram was noted to have microcalcifications of concern left breast. Stereotactic core biopsy was discussed with the patient including the risks and benefits. Alternatives which would include watchful waiting open biopsy were discussed but not recommended. The patient wished to undergo a stereotactic core biopsy. She understands risks include bleeding, infection, inability to sample the correct location. She chose to proceed. Patient was taken to the stereotactic core biopsy room. A brownfield program coordinator film was obtained and the area of concern was identified. A cc from below approach was utilized. Review with radiology revealed that this may represent fat necrosis, however a more peripheral area of calcifications were felt to be more suspicious and should be sampled. On brownfield program coordinator film the lesion was identified. The lesion was targeted. The breast was prepped using Betadine. 20 mL of 1% lidocaine were used to anesthetize the area of concern. 10 mL included epinephrine. An 18- gauge vacuum-assisted core rotating biopsy needle was driven to the correct coordinates and fired. Post-fire film was obtained and the needle was noted to be in the correct location. 8 core biopsy samples were obtained from the 9 to 3 o'clock position, with to a 6:00. Radiograph of the specimen revealed the area of concern had been sampled. A secure dre marking clip was left behind. It was noted to be in the correct location. The patient tolerated procedure in stable condition. The specimen was sent to pathology. The patient will follow-up with Dr. Jennings next week.
[2019-11-11 09:05] VITALS: BP 132/77; PULSE 74; TEMP 97.4
--- NOTE | 2019-11-11 09:12 | MM ---
EXAMINATION TYPE: MG stereo VAD BX LT DATE OF EXAM: 11/11/2019 COMPARISON: Outside left breast mammogram dated 10/15/2019 CLINICAL HISTORY: New left breast calcifications in the lower inner quadrant at the site of prior surgical excision for which dedicated guided biopsy was recommended. TECHNIQUE: Stereotactic guided core biopsy of left breast. FINDINGS: The procedure of stereotactic guided core biopsy was explained to the patient. Benefits, alternatives, and risks were discussed. An informed consent was then obtained. Preprocedural timeout was performed. The [facility] pathway for biopsy was chosen. Shortness pathway was CC from below approach. I performed the localization, then surgeon, Dr. Dick Cavazos performed the remainder of the procedure. A vacuum assisted biopsy gun was used to obtain multiple core samples. The patient tolerated the procedure well without any immediate complication. The patient was kept in the radiology department for short stay after the procedure and then discharged home in stable condition. Targeted calcifications are identified in specimen mammogram. Post biopsy mammogram shows the clip to appear in satisfactory position relative to the targeted area of concern on the preprocedure images. IMPRESSION: SUCCESSFUL, UNCOMPLICATED STEREOTACTIC GUIDED CORE BIOPSY OF NEW CALCIFICATIONS IN THE LEFT LOWER INNER QUADRANT, POSSIBLE FAT NECROSIS, FULL PATHOLOGY RESULTS TO FOLLOW. Pathology Results: Benign LEFT BREAST, STEREOTACTIC CORE BIOPSY: Calcified fat necrosis and fibrosis/scar. Negative for malignancy Recommendation Follow up mammogram of the left breast in 6 months. [facility]
== END ==
LOC: RADMAMWWP 06:45
PROVIDERS: ATTEND Surgery
DX: N64.1 Fat necrosis of breast (principal); N60.32 Fibrosclerosis of left breast; R92.1 Mammographic calcification found on diagnostic imaging of breast; R92.0 Mammographic microcalcification found on diagnostic imaging of breast; R92.8 Other abnormal and inconclusive findings on diagnostic imaging of breast
CPT/HCPCS: 88305; 19081; A4648; J2001

== ENCOUNTER → 2020-02-12 | Outpatient (CLI) | payer MEDICARE, OTHER ==
[2020-02-12 14:19] VITALS: BP 137/84; PULSE 56; RESP 20; TEMP 98.4
--- NOTE | 2020-02-12 14:38 | P.PN ---
Subjective Progress Note Date: 02/12/20 Principal diagnosis: Right breast lump The patient is a 49-year-old white female status post left breast stereotactic core biopsy performed on . Pathology revealed calcified fat necrosis and fibrosis/scar negative for malignancy. The patient was notified by telephone se grantary to the pain and make. This was reviewed by Dr. Ramos from radiology, and it was felt that this was concordant and a repeat left breast mammogram in 6 months time was recommended. The patient states since the biopsies she has noticed some nodularity in her right breast at the 12 o'clock position. It has increased in size. He is tender at times. She has not had any trauma or infection in the breast. The patient had a left breast mammogram most recently in June 2019. We are obtaining the records for open her last right breast mammogram was performed. Family history: Maternal grandmother: Lung cancer Maternal great-grandmother: Liver cancer Maternal aunt: Breast cancer a 73 Hormonal history: Menarche: 13 , miscarriage Periods: Hysterectomy done at 47 for cervical cancer more radiation control pills: Negative Hormones: Negative Surgical history: 1. Total hysterectomy 2. Cholecystectomy 3. Knee surgery Medical history: 1. Stomach pain 2. Seizure 3. Angina Social history: Smoke: Negative Alcohol: Negative Drugs: Negative Review of systems: Constitutional sweats HEENT: Wears glasses Breasts: As per HPI Cardiovascular: Hypertension Respiratory: Negative GI: Negative : UTI in the past Musculoskeletal: Arthritis Integument: Rash Neurologic: Negative Psychiatric: Negative Endocrine: Negative Hematologic: Negative Objective - Vital Signs Vital signs: Vital Signs Temp 98.4 F 02/12/20 14:09 Pulse 56 L 02/12/20 14:09 Resp 20 02/12/20 14:09 BP 137/84 02/12/20 14:09 Pulse Ox 97 02/12/20 14:09 Intake & Output 02/11/20 02/12/20 02/12/20 18:59 06:59 18:59 Weight 117.027 kg - Exam BMI 45.3 - Constitutional General appearance: Present: obese - EENT Eyes: Present: EOMI ENT: Present: hearing grossly normal - Neck Neck: Present: normal ROM - Respiratory Respiratory: bilateral: CTA - Cardiovascular Rhythm: regular Heart sounds: normal: S1, S2 - Gastrointestinal General gastrointestinal: Present: normal bowel sounds, soft - Integumentary Integumentary: Present: normal turgor - Musculoskeletal Musculoskeletal: Present: gait normal - Psychiatric Psychiatric: Present: A&O x's 3, appropriate affect, intact judgment & insight - Additional findings Additional findings: breast exam: BRA: 48C inspection: grade 3 ptosis bilateral palpation: Right breast: Multiposition exam increased nodularity at 12:00, fibrocystic changes Right axilla: No adenopathy of concern Left breast: Smaller than right breast multiposition oh exam no dominant masses or nodules of concern Left axilla: No adenopathy of concern Assessment and Plan Assessment: Impression: 1. Asymmetry of the breast right breast larger than left breast 2. 12:00 increased nodularity/rule out cyst 3. Recent stereo biopsy of the left breast benign Plan: 1. Ultrasound of right breast and palpable abnormality 2. Obtain radiographs bilateral from the breast from [facility] 3. Patient to follow up after ultrasound of right breast CC: DR. Pat Oh encounter 30 minutes, > 50% of time in planning and counselling
== END | disposition home or self-care (01) ==
LOC: WWCWWP 13:58
PROVIDERS: ATTEND Surgery
DX: Z53.9 Procedure and treatment not carried out, unspecified reason (principal)

== ENCOUNTER → 2020-02-25 | Outpatient (CLI) | payer MEDICARE, OTHER ==
--- NOTE | 2020-02-25 09:42 | USB ---
Reason for exam: clinical finding. History: Patient is postmenopausal. Family history of breast cancer in mother at age 40 and breast cancer in aunt at age 70. Benign MG stereo VAD BX LT of the left breast, November 11, 2019. Benign MG pre op needle loc LT of the left breast, September 10, 2016. Indicated problem(s): pain in the right breast. Physical Findings: Nurse did not find any significant physical abnormalities on exam. US Breast RT Technologist: Elisha Molina Right complete breast ultrasound includes all four quadrants, the retroareolar region and axilla. Finding demonstrates no cystic or solid lesion seen. These results were verbally communicated with the patient and result sheet given to the patient on 02/25/20. ASSESSMENT: Negative, BI-RAD 1 RECOMMENDATION: Routine screening mammogram of both breasts in 4 months. Back on schedule for June 2020. Manage on a clinical basis with regard to right breast pain.
== END | disposition home or self-care (01) ==
LOC: RADUSWWP 06:59
PROVIDERS: ATTEND Surgery
DX: R92.8 Other abnormal and inconclusive findings on diagnostic imaging of breast (principal)

== ENCOUNTER → 2020-03-03 | Outpatient (CLI) | payer MEDICARE, OTHER ==
--- NOTE | 2020-03-03 15:58 | P.PN ---
Progress Note - Text Progress Note Date: 03/03/20 he patient is a 49-year-old white female status post left breast stereotactic core biopsy performed on . Pathology revealed calcified fat necrosis and fibrosis/scar negative for malignancy. The patient was notified by telephone secondary to the pain and make. This was reviewed by Dr. Ramos from radiology, and it was felt that this was concordant and a repeat left breast mammogram in 6 months time was recommended. The patient states since the biopsies she has noticed some nodularity in her right breast at the 12 o'clock position. It has increased in size. He is tender at times. She has not had any trauma or infection in the breast. The patient had a left breast mammogram most recently in June 2019. We are obtaining the records for open her last right breast mammogram was performed. The patient at this time is not complaining of pain in her breast. She had a right breast ultrasound and 7to20 which was negative BIRADS 1. The patient is not complaining of any specific lumps or masses in her breast at this time. Again she recently had a left breast core biopsy which was benign. Family history: Maternal grandmother: Lung cancer Maternal great-grandmother: Liver cancer Maternal aunt: Breast cancer a 73 Hormonal history: Menarche: 13 , miscarriage Periods: Hysterectomy done at 47 for cervical cancer more radiation control pills: Negative Hormones: Negative Surgical history: 1. Total hysterectomy 2. Cholecystectomy 3. Knee surgery Medical history: 1. Stomach pain 2. Seizure 3. Angina Social history: Smoke: Negative Alcohol: Negative Drugs: Negative Review of systems: Constitutional sweats HEENT: Wears glasses Breasts: As per HPI Cardiovascular: Hypertension Respiratory: Negative GI: Negative : UTI in the past Musculoskeletal: Arthritis Integument: Rash Neurologic: Negative Psychiatric: Negative Endocrine: Negative Hematologic: Negative Physical examination: Breast exam: BRA: 3X sports bra inspection: Bilateral fungal infection under the breast, ptosis grade 3 bilateral Palpation: Right breast: Right breast is larger than the left breast, multiple positional exam with particular attention at the 12:00 does not reveal any discrete lesion which would warrant biopsy at this time, fibrocystic changes Right axilla: No adenopathy of concern Left breast: Multi-positional exam fibrocystic changes Left axilla: No adenopathy of concern Impression: 1. Asymmetry of the breast right larger than the left 2. 12:00 area fibrocystic change does not warrant biopsy 3. Recent stereo biopsy of the left breast benign 4. Recent ultrasound of the right breast no lesions of concern Plan: 1. Nystatin under each breast 2. June bilateral mammogram 3. Follow-up in June and less any questions or concerns before CC: DR. Pat Oh encounter 12 minutes, > 50% of time in planning and counselling
[2020-03-04 10:18] VITALS: BP 147/81; PULSE 106; RESP 20; TEMP 98.3
== END | disposition home or self-care (01) ==
LOC: WWCWWP 15:41
PROVIDERS: ATTEND Surgery
DX: Z53.9 Procedure and treatment not carried out, unspecified reason (principal)

== ENCOUNTER → 2020-07-04 | Outpatient (CLI) | payer MEDICARE, OTHER ==
--- NOTE | 2020-07-05 09:31 | MM ---
Reason for exam: screening (asymptomatic). Last mammogram was performed 2 years and 3 months ago. History: Patient is postmenopausal. Family history of breast cancer in mother at age 40 and breast cancer in aunt at age 70. Benign MG stereo VAD BX LT of the left breast, November 11, 2019. Benign MG pre op needle loc LT of the left breast, September 10, 2016. Physical Findings: A clinical breast exam by your physician is recommended on an annual basis and results should be correlated with mammographic findings. MG 3D Screening Mammo W/Cad Bilateral CC and MLO view(s) were taken. Prior study comparison: April 16, 2018, bilateral MG 3d screening mammo w/cad. February 22, 2017, left breast MG diagnostic mammo LT w CAD. There are scattered fibroglandular densities. There is no discrete abnormality. ASSESSMENT: Benign, BI-RAD 2 RECOMMENDATION: Routine screening mammogram of both breasts in 1 year.
== END | disposition home or self-care (01) ==
LOC: RADMAMWWP 09:00
PROVIDERS: ATTEND Surgery
DX: Z12.31 Encounter for screening mammogram for malignant neoplasm of breast (principal)
CPT/HCPCS: 77063; 77067

== ENCOUNTER → 2022-02-08 | Outpatient (CLI) | payer MEDICARE, OTHER ==
--- NOTE | 2022-02-08 10:11 | MR ---
MR brain without contrast HISTORY: A 49.11, headaches Multiplanar multisequence imaging obtained through the brain, correlation prior brain MRI 03/31/2016 There is no restricted diffusion. No hemorrhage or hydrocephalus. There are expected vascular flow vo ids. Orbits show symmetric appearance. Cerebellopontine angles, corpus callosum, pituitary, cervical medullary junction are normal. There is some mucosal disease present in the ethmoid air cells. Small amount of fluid signal also present in the mastoids on the left. 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 Brain signal is stable. impression: Sinus disease. Correlate for possible mastoiditis on the left.
== END | disposition home or self-care (01) ==
LOC: RADMRIMAIN 09:02
PROVIDERS: ATTEND Ophthalmology
DX: J34.89 Other specified disorders of nose and nasal sinuses (principal)
CPT/HCPCS: 70551

== ENCOUNTER → 2023-11-29 | Outpatient (CLI) | payer MEDICARE, OTHER ==
--- NOTE | 2023-12-02 12:30 | MM ---
Reason for Exam: Screening (asymptomatic). Last mammogram was performed 2 year(s) and 3 month(s) ago. Patient History: Menarche at age 12. Patient has no children. Postmenopausal. 11/11/2019, Benign Core Biopsy on the left side. 09/10/2016, Benign Core Biopsy on the left side. Maternal aunt had breast cancer, age 70. Mother had breast cancer, age 40. Risk Values: Martha 5 year model risk: 3.3%. NCI Lifetime model risk: 25.7%. Prior Study Comparison: 04/16/2018 Bilateral Screening Mammogram, [facility]. 07/04/2020 Bilateral Screening Mammogram, [facility]. 08/29/2021 Bilateral Screening Mammogram, [facility]. Tissue Density: There are scattered areas of fibroglandular density. Findings: Analyzed By CAD. There is no suspicious group of microcalcifications or new suspicious mass in either breast. Overall Assessment: Benign, BI-RAD 2 Management: Screening Mammogram of both breasts in 1 year. . Patient should continue monthly self-breast exams. A clinical breast exam by your physician is recommended on an annual basis. This exam should not preclude additional follow-up of suspicious palpable abnormalities. Note on Martha scores and lifetime risk: 1. A Martha score greater than 3% is considered moderate risk. If this is the case, consider specialist referral to assess eligibility for a risk reducing agent. 2. If overall lifetime risk for the development of breast cancer is 20% or higher, the patient may qualify for future screening with alternating mammogram and breast MRI. Electronically signed and approved by: Osorio Navarro M.D. Radiologis
== END | disposition home or self-care (01) ==
LOC: RADMAMWWP 12:22
PROVIDERS: ATTEND Family Medicine
DX: Z12.31 Encounter for screening mammogram for malignant neoplasm of breast (principal); Z78.0 Asymptomatic menopausal state; Z80.3 Family history of malignant neoplasm of breast
CPT/HCPCS: 77063; 77067

== ENCOUNTER → 2024-03-09 | Outpatient (CLI) | payer MEDICARE, OTHER ==
--- NOTE | 2024-03-09 22:18 | CT ---
EXAMINATION TYPE: CT brain wo con DATE OF EXAM: 03/09/2024 COMPARISON: 01/17/2018 HISTORY: 53-year-old female R51.9, H53.8, headache TECHNIQUE: Examination was done in axial plane without intravenous contrast. Coronal and sagittal r econstructions performed. CT DLP: 1091 mGycm Automated exposure control for dose reduction was used. FINDINGS: There is no evidence of acute intracranial hemorrhage, acute ischemic changes, mass, mass-effect, or extra-axial fluid collection. There is no effacement of cerebral sulci or basal subarachnoid cister ns. There is no hydrocephalus. There is no midline shift. Cannon-white matter distinction is preserv ed. Paranasal sinuses and mastoid air cells well pneumatized. Orbits and globes are intact. IMPRESSION: No acute intracranial abnormality seen.
== END | disposition home or self-care (01) ==
LOC: RADCTMAIN 16:31
PROVIDERS: ATTEND Family Medicine
DX: R51.9 Headache, unspecified (principal); H53.8 Other visual disturbances
CPT/HCPCS: 70450

== ENCOUNTER → 2024-06-08 | Outpatient (CLI) | payer MEDICARE, OTHER ==
--- NOTE | 2024-06-08 13:27 | US ---
EXAMINATION TYPE: US venous doppler duplex LE BI DATE OF EXAM: 06/08/2024 1:19 PM COMPARISON: 01/17/2018 CLINICAL INDICATION: Female, 54 years old with history of I82.403 DVT; Rule out DVT TECHNIQUE: The lower extremity deep venous system is examined utilizing real time linear array sonog mikki with graded compression, color doppler sonography, and spectral doppler. SIDE PERFORMED: Bilateral FINDINGS: VESSELS IMAGED: Common Femoral Vein Deep Femoral Vein Greater Saphenous Vein * Femoral Vein Popliteal Vein Small Saphenous Vein * Proximal Calf Veins (* superficial vessels) Right Leg: No evidence for DVT Left Leg: No evidence for DVT Grayscale, color doppler, spectral doppler imaging performed of the deep veins of the lower extremiti es. IMPRESSION: 1. No ultrasound evidence for deep venous thrombosis of either lower extremity. [facility], , 06/08/2024 1:25 PM
== END | disposition home or self-care (01) ==
LOC: RADUSWWP 12:50
PROVIDERS: ATTEND Podiatrist Foot & Ankle Surgery
DX: I82.403 Acute embolism and thrombosis of unspecified deep veins of lower extremity, bilateral (principal)
CPT/HCPCS: 93970

== ENCOUNTER → 2024-12-02 | Outpatient (CLI) | payer MEDICARE, OTHER ==
--- NOTE | 2024-12-02 13:20 | MM ---
Reason for Exam: Screening (asymptomatic). Last screening mammogram was performed 12 month(s) ago. Patient History: Menarche at age 12. Patient has no children. Postmenopausal. 11/11/2019, Benign Core Biopsy on the left side. 09/10/2016, Benign Core Biopsy on the left side. Maternal aunt had breast cancer, age 70. Mother had breast cancer, age 40. Risk Values: Roly 5 year model risk: 3.4%. NCI Lifetime model risk: 25.4%. Prior Study Comparison: 07/04/2020 Bilateral Screening Mammogram, [facility]. 08/29/2021 Bilateral Screening Mammogram, [facility]. 11/29/2023 Bilateral MG 3D screening mammo w/cad, [facility]. Tissue Density: There are scattered areas of fibroglandular density. Findings: Analyzed By CAD. Unchanged low axillary tail lymph node on the right. Postexcisional changes on the left with local fat necrosis calcification is demonstrated. Otherwise, no significant change. Overall Assessment: Benign, BI-RAD 2 Management: Screening Mammogram of both breasts in 1 year. SEE NOTE BELOW IN REGARDS TO THE PATIENT'S INCREASED 5 YEAR ROLY SCORE AND INCREASED LIFETIME RISK SCORE. Patient should continue monthly self-breast exams. A clinical breast exam by your physician is recommended on an annual basis. This exam should not preclude additional follow-up of suspicious palpable abnormalities. Note on Roly scores and lifetime risk: 1. A Roly score greater than 3% is considered moderate risk. If this is the case, consider specialist referral to assess eligibility for a risk reducing agent. 2. If overall lifetime risk for the development of breast cancer is 20% or higher, the patient may qualify for future screening with alternating mammogram and breast MRI. [facility], , 12/02/2024 1:17 PM. Electronically signed and approved by: Augustine Villarreal M.D. Radiologist
== END | disposition home or self-care (01) ==
LOC: RADMAMWWP 09:48
PROVIDERS: ATTEND Family Medicine
DX: Z12.31 Encounter for screening mammogram for malignant neoplasm of breast (principal); R92.323 Mammographic fibroglandular density, bilateral breasts; Z78.0 Asymptomatic menopausal state; Z80.3 Family history of malignant neoplasm of breast
CPT/HCPCS: 77063; 77067